=== PATIENT | male | born 1975 | race Caucasian/White ===

== ENCOUNTER 2018-11-07 14:23 | Emergency (ER) | payer OTHER, SELFPAY ==
[2018-11-07 14:24] VITALS: BP 154/97; PULSE 65; RESP 16; TEMP 37; O2SAT 100; BMI 22.7
--- NOTE | 2018-11-07 14:33 | ED.VIS.GEN ---
History of Present Illness Chief Complaint: Complaint Detail of Chief Complaint: Gross hematuria Informant: Patient Onset: Yesterday Narrative: Patient presents to the ED with reports of gross painless hematuria that started yesterday. He has never had anything like this before. He has noted several small blood clots following urination also. He denies any flank pain, abdominal pain, nausea, vomiting, or other urinary symptoms. He has no known medical problems, however has not seen his PCP for 3 years. He does smoke around 1 pack of cigarettes daily. Past Medical History - Allergies and Home Meds Allergies/Adverse Reactions: Allergies amoxicillin Allergy (Verified 11/07/18 14:24) Unknown Primary Care Physician: Ezequiel Piper MD [Primary Care Provider] - Smoking Status: Current every day smoker Review of Systems General: Denies: Chills, Fever, Sweats Eyes: Denies: Visual changes - bilaterally, Diplopia ENT: Denies: Rhinorrhea, Sore throat Cardiovascular: Denies: Chest pain, Palpitations Respiratory: Denies: Dyspnea, Cough, Dyspnea on exertion Gastrointestinal: Denies: Abdominal pain, Nausea, Vomiting, Diarrhea, Melena, Hematochezia Genitourinary: Reports: Hematuria. Denies: Dysuria, Frequency Musculoskeletal: Denies: Back pain, Extremity Pain Skin: Denies: Rash, Wounds Neurological: Denies: Headache, Weakness, Numbness Physical Exam Vital Signs/Narrative: Vital Signs Temp Pulse Resp BP Pulse Ox 11/07/18 14:24 98.6 F 65 16 154/97 H 100 General: Well nourished, Well developed, No Acute Distress Head: Normocephalic, Atraumatic Eyes: Perrl, EOMI ENT: Moist mucous membranes, No rhinorrhea Neck: Supple, Nontender Cardiovascular: Regular rate, Regular rhythm, No murmurs Respiratory: No distress, CTA bilaterally, Chest nontender Abdomen: Soft, Nontender, Nondistended, Normal bowel sounds Back: Nontender, Normal Inspection Extremities: Nontender, No edema Skin: Normal color, No rash Neurological: Alert, Oriented x3, Cranial nerves II-XII grossly intact, Normal Strength, Normal Sensation Psychological: Normal affect, Normal Mood Diagnostic/Tx/Re-eval - Medical Decision Making Patient presents with painless gross hematuria that started yesterday. He denies any other symptoms. Upon arrival, he appears well nontoxic. Vital signs stable and unremarkable. Physical exam is grossly normal. Urinalysis did indicate some hematuria with no secondary signs of infection. Patient and his family were concerned for malignancy. CBC and BMP are unremarkable. CT of the abdomen and pelvis with and without contrast shows no evidence of bladder or renal calcification, ureteral stone, or stranding. There was incidental finding of right lower lobe infiltrate with groundglass opacity, however patient is having no signs or symptoms concerning for community-acquired pneumonia. He is afebrile and currently has no leukocytosis. I do not feel antibiotic therapy is warranted at this time and patient agrees. He will follow-up with his PCP and was given urology to follow-up with as well. He was educated on signs/symptoms to return to the ED. He was provided discharge instructions. He was agreeable to plan. Disposition: Home stable Impression: Painless gross hematuria ED Disposition - Plan for ED Patient: Disposition: Home or Assisted Living Instructions: Hematuria Referrals: Ezequiel Piper MD [Primary Care Provider] - Sandeep Callahan MD [STAFF PHYSICIAN] - Additional Instructions: Drink plenty of fluids to flush out your urinary tract!
[2018-11-07 14:46] LABS: Bacteria 0 SEEN /hpf (None Seen); Color, Urine Yellow (Yellow); Glucose, Dipstick Normal (Normal); Ketone-Dipstick Negative (Negative); Leukocyte Esterase-Dipstick Negative /ul (Negative); Mucous, Urine 0 SEEN /hpf (<or=2+); Nitrite-Dipstick Negative (Negative); Occult Blood-Urine 150 /ul (Negative); Protein-Dipstick Negative (Negative); Specific Gravity, Urine 1.015 (1.002-1.030); Squamous Epithelial Cells - UA 0 SEEN /hpf (0-5); Urine Bilirubin Dipstick Negative (Negative); Urine Clarity Cloudy (Clear); Urine Urobilinogen Normal (Normal); White Blood Cells 0 SEEN /hpf (0-5)
[2018-11-07 14:51] LABS: Amorphous Sediment 3+; Red Blood Cells-Urine 10-25 SEEN /hpf (0-5)
--- NOTE | 2018-11-07 14:56 | CT_ITS ---
STUDY: CT ABDOMEN AND PELVIS WITH AND WITHOUT CONTRAST-CT UROGRAM REASON FOR EXAM: Male, 43 years old. Hematuria for one day with clots RADIATION DOSAGE (If Supplied By Facility): CTDIvol = ( 14.80 ) mGy, DLP = ( 1340.46 ) mGycm TECHNIQUE: Transaxial images were obtained from the dome of the diaphragm to the symphysis pubis without oral contrast. 100mL ml of Isovue 300 contrast was administered. Sagittal and coronal images were reconstructed. CT urogram protocol with imaging in the noncontrasted, corticomedullary and delayed phases. Individualized dose optimization techniques were used for this CT. COMPARISON: None. FINDINGS: Localized infiltrate with adjacent groundglass opacity in the right lower lobe is seen on image 3 of series 3. The visualized portions of the heart are within normal limits. Tiny cyst of the right hepatic lobe on image 14 of series 3 is of doubtful significance. Normal gallbladder and extrahepatic biliary system. Normal spleen. Normal pancreas. Normal bilateral adrenal glands. Noncontrasted imaging shows symmetric kidneys without solid or cystic mass. No urinary tract calcifications. Following IV contrast, there is equal and normal enhancement of the kidneys without solid or cystic mass. CT urographic images demonstrate excellent opacification of the right ureter with near complete opacification of the left ureter (with visualization of the proximal and mid segments). No filling defects or ureteral masses. Urinary bladder fills normally. No bladder wall thickening. Normal visualized stomach. Normal small intestine. Normal colon. The appendix is visualized and appears normal. Mild scattered atherosclerosis of the abdominal aorta. Normal inferior vena cava. Normal retroperitoneum. Normal abdominal wall. Normal osseous structures. CT/CT Abd/Pelvis W/WO Contrast IMPRESSION: 1. No urinary tract calcifications, hydronephrosis or mass. No urinary bladder wall thickening/mass. 2. Right lower lobe infiltrate with groundglass opacities. Electronically Signed: Adi Ritter MD at 16:47 EDT , Service support ,
[2018-11-07] MEDS: 0.9% Normal Saline 1,000 ML 999 ML IV (15:13)
[2018-11-07 15:29] LABS: Absolute Lymphocyte Count 2.66 X10^3/ul (0.83-4.51); Basophil# 0.03 X10^3/uL; Basophil% 0.4 % (0-1); Eosinophil# 0.46 X10^3/uL; Eosinophils% 6.1 % (0-5); Hematocrit 45.6 % (40-54); Hemoglobin 15.8 g/dl (13.0-16.5); Lymphocyte # 2.66 X10^3/ul (4.0); Lymphocyte % 35.3 % (19-41); Mean Corp Hgb Conc 34.6 g/gl (32-36); Mean Corpuscular Hgb 30.9 pg (27.0-32.0); Mean Corpuscular Volume 89.1 fL (80-94); Monocyte% 5.3 % (0-10); Neutrophil # 3.98 X10^3/uL (2.7-7.7); Neutrophil % 52.8 % (47-70); Platelet Count 217 K/mm3 (150-450); RBC Distribution Width CV 13.2 % (11.6-14.6); RBC Distribution Width SD 43.2 fl (35.1-43.9); Red Blood Count 5.12 M/mm3 (4.6-6.2); White Blood Count 7.5 K/mm3 (4.4-11.0)
[2018-11-07 15:32] LABS: POSITIVE COUNT NO; POSITIVE DIFFERENTIAL NO; POSITIVE MORPHOLOGY NO
[2018-11-07 15:33] LABS: Anion Gap 3 (5-15); BUN 15 mg/dL (7-18); BUN/Creat Ratio 16.2 RATIO (10-20); Calcium,Total 8.9 mg/dL (8.5-10.1); Chloride 107 mmol/L (98-107); Creatinine, Serum 0.93 mg/dL (0.70-1.30); EST Glomerular Filtration Rate 94 mL/min (>60); Est Glom Filt Rate - Afr Amer 114 mL/min (>60); Glucose 73 mg/dL (74-106); Potassium 3.8 mmol/L (3.5-5.1); Sodium Level 138 mmol/L (136-145)
[2018-11-07 16:42] VITALS: BP 140/73; PULSE 61; RESP 16; O2SAT 100
[2018-11-07 17:07] VITALS: BP 132/75; PULSE 51; RESP 16; O2SAT 99
== END 2018-11-07 17:08 | disposition home or self-care (01) ==
PROVIDERS: Emergency Provider Physician Assistant; Family Provider Family Medicine; PCP Family Medicine
DX: R31.0 Gross hematuria (principal); R91.8 Other nonspecific abnormal finding of lung field; F17.210 Nicotine dependence, cigarettes, uncomplicated
CPT/HCPCS: 74178; 80048; 81001; 85025; 99283; J7030; Q9967

== ENCOUNTER 2021-07-31 15:00 | Outpatient (CLI) | payer OTHER, MEDICAID, SELFPAY ==
--- NOTE | 2021-07-31 15:05 | RAD_ITS ---
STUDY: X-RAY CHEST REASON FOR EXAM: Male, 46 years old. Cough TECHNIQUE: PA and lateral views of the chest. COMPARISON: None. FINDINGS: Hyperinflation. Right lower lobe infiltration with a small right pleural effusion. Normal size heart. Prominence of the right infrahilar region suggestive of possible infiltrate. Follow-up is recommended. Normal visualized pulmonary arteries. Normal visualized aortic arch and descending thoracic aorta. Normal visualized thoracic spine. Normal visualized ribs, clavicles, and shoulders. There is no demonstrated abnormality of the visualized soft tissue structures of the upper abdomen. RAD/Chest PA and Lateral IMPRESSION: Right lower lobe infiltration with small right pleural effusion and prominence of the right hilum. Radiographic follow-up is recommended. Electronically Signed: Juordan Bush MD at 15:26 EDT ,
== END 2021-07-31 23:59 | disposition home or self-care (01) ==
PROVIDERS: PCP Family Medicine; Referring Provider Physician Assistant; Visit Provider Physician Assistant
DX: R05.9 Cough, unspecified (principal)
CPT/HCPCS: 71046

== ENCOUNTER 2021-08-04 05:29 | Inpatient (IN) | payer OTHER, MEDICAID, SELFPAY ==
[2021-08-04] VITALS (14 sets, daily range): BP systolic 109–146; BP diastolic 64–80; PULSE 18–93; RESP 16–27; TEMP 36.3–37.1; O2SAT 92–98; BMI 20.5; BMI 19.9
--- NOTE | 2021-08-04 05:40 | EKG12_ITS ---
Test Reason : SOB Blood Pressure : / mmHG Vent. Rate : 087 BPM Atrial Rate : 087 BPM P-R Int : 118 ms QRS Dur : 094 ms QT Int : 362 ms P-R-T Axes : 078 074 057 degrees QTc Int : 435 ms Normal sinus rhythm Normal ECG Confirmed by AARON GARCIA, JUVENTINO ([id number]), online editor MAGDA MCINTYRE ([id number]) on 08/06/2021 10:49:46 AM Referred By: Confirmed By:JUVENTINO WALKER MD
--- NOTE | 2021-08-04 05:40 | CT_ITS ---
HISTORY: sob, pneumonia EXAMINATION: CTA Chest W/ Contrast Injection (and W/O Contrast Images if performed) TECHNIQUE: Helically acquired images were obtained of the chest following IV contrast as per pulmonary angiogram protocol with MIP and MPR reconstructions. A radiation dose optimization technique was used for this scan. IV Contrast dosage and agent: 100mL Isovue-370 COMPARISON: None FINDINGS: LUNGS, PLEURA AND LARGE AIRWAYS: Hyperexpanded lungs with centrilobular and paraseptal emphysematous changes. Mild biapical bullae. There is dense partial consolidation of right lower lobe with several ill-defined low attenuation areas involving parenchymal consolidation. Upper portion of right lower lobe is aerated but demonstrates multiple small patchy airspace opacities and tiny reticulonodular opacities. There is opacification of right lower lobe bronchi. No significant pleural effusion. No pneumothorax. PULMONARY ARTERIES: No pulmonary arterial filling defects identified. AORTA AND GREAT VESSELS: No thoracic aortic aneurysm or dissection. Great vessels are patent. HEART AND PERICARDIUM: Heart size within normal limits. No significant pericardial effusion. MEDIASTINUM AND VIVIANE: Enlarged right hilar lymph nodes measuring up to 12 mm short axis diameter. Esophagus is unremarkable. THYROID: Unremarkable as visualized. UPPER ABDOMEN: No acute pathology. BONES: Intact with no suspicious osseous lesion. SOFT TISSUES: No acute findings. CT/CTA Chest W/WO Contrast IMPRESSION: 1. Pulmonary emphysema with dense heterogeneous partial consolidation and multifocal infiltrate involving right lower lobe. Low-attenuation foci within right lower lobe consolidation suggesting necrosis and/or developing pulmonary abscesses. Pulmonary malignancy and aspiration pneumonia are also in the differential. There is opacification of right lower lobe bronchi with right hilar adenopathy. Recommend pulmonology consultation and consider bronchoscopy. 2. No pulmonary embolus identified. Individualized dose optimization techniques were used for this CT. at 0634 Reported and signed by: Ezequiel Storey MD Electronically Signed: Ezequiel Storey MD at 6:33 EDT ,
--- NOTE | 2021-08-04 05:42 | EX.ED.DYSGE1 ---
HPI History of Present Illness Chief Complaint: General Illness Informant: patient Onset/Context/Timing Onset: Weeks (2-weeks) Timing: Waxes and wanes Current Severity: Moderate Maximum Severity: Moderate Narrative Narrative: Patient presents secondary to continued pneumonia symptoms. 2 weeks ago he developed fatigue with cough. He had a low-grade fever when he went to urgent care at [facility] 2 weeks ago. He was diagnosed with pneumonia and placed on Levaquin. He reported mild improvement in his symptoms while on the antibiotic but they did worsen once the antibiotic stopped. He was seen at the [facility] on the . Chest x-ray confirmed continued right lower lobe infiltrate with small pleural effusion. He was placed on Avelox. Patient states he was told if he was not better by today he should come to the emergency room for evaluation. Patient does report a history of COPD. He is not currently on steroids. He is not on home oxygen. He does complain of cough with thick yellow sputum. He reports mild pleuritic chest pain. He has not noted continued fever at home. [facility] Medical History COPD (chronic obstructive pulmonary disease) Pleural effusion, right Right lower lobe pneumonia Home Medications moxifloxacin 400 mg tablet 400 mg PO DAILY 10 Days #10 tab 07/31/21 [Rx Last Taken Unknown] albuterol sulfate 2 puff INHALATION Q4H PRN PRN 08/04/21 [History Last Taken Unknown] umeclidinium-vilanterol [Anoro Ellipta] 1 ea INHALATION DAILY 08/04/21 [History Last Taken Unknown] Allergy/AdvReac Type Severity Reaction Status Date / Time amoxicillin Allergy Unknown Verified 08/04/21 05:37 Social History Smoking Status: Current every day smoker tobacco type: cigarettes ROS ROS ED Constitutional Constitutional ED: Denies chills or fever(s) Eyes Eyes: Denies change in vision ENT ENT ED: Denies sore throat Cardiovascular Cardiovascular: Reports chest pain Respiratory/Chest Respiratory/Chest: Reports cough, dyspnea and sputum Gastrointestinal Gastrointestinal: Denies abdominal pain, nausea or vomiting Genitourinary Genitourinary ED: Denies dysuria Musculoskeletal Musculoskeletal: Denies back pain or neck pain Integumentary Denies rash Neurologic Neurologic: Denies headache(s) or weakness Allergic/Immunologic Allergic/Immunologic ED: Denies urticaria EXAM Physical Exam Const Vital Signs: 08/04/21 05:30 08/04/21 05:35 08/04/21 06:16 Temperature 98.7 F 98.7 F 98.7 F Temperature Source Temporal Temporal Temporal Pulse Rate 93 89 77 Respiratory Rate 27 H 22 H 21 H Blood Pressure 146/80 H 146/80 H 121/69 H Blood Pressure Mean 102 102 86 Pulse Ox 98 98 97 Oxygen Delivery Method Room Air Room Air Room Air 08/04/21 06:39 Temperature Temperature Source Pulse Rate 80 Respiratory Rate 20 H Blood Pressure 116/68 Blood Pressure Mean 84 Pulse Ox 95 Oxygen Delivery Method Positive well nourished and well developed General Appearance ED: well developed HEENT Reports moist mucous membranes Eyes PERRL and EOMs intact bilaterally Neck supple Chest Wall inspection of chest normal and palpation of chest normal Resp Auscultation: rhonchi and wheezes Cardio regular rate and regular rhythm GI non-tender Palpation: soft Extremity normal to inspection General Extremety ED: Negative for edema General Extremity: Negative for edema Neuro oriented x3 Sensorium / Orientation: alert Psych mental status grossly normal Skin no rashes or lesions noted MDM MDM MDM Narrative Medical decision making narrative: EKG, lab work, CTA of the chest obtained. Patient given Solu-Medrol and a DuoNeb treatment. Lab Data Attestation: I reviewed the patient's lab results. Labs: Laboratory Results - last 24 hr 08/04/21 08/04/21 05:45 05:45 WBC 16.9 H RBC 5.23 Hgb 15.4 Hct 44.2 MCV 84.5 MCH 29.4 MCHC 34.8 RDW Std Deviation 38.9 RDW Coeff of Chiquita 12.7 Plt Count 437 MPV 9.4 Immature Gran % (Auto) 0.700 Neut % (Auto) 85.2 H Lymph % (Auto) 7.0 L Turner % (Auto) 6.8 Eos % (Auto) 0.1 Baso % (Auto) 0.2 Absolute Neuts (auto) 14.4 H Absolute Lymphs (auto) 1.18 Nucleated RBC % 0 Sodium 133 L Potassium 4.1 Chloride 98 Carbon Dioxide 29.0 Anion Gap 6 BUN 8 Creatinine 0.82 Estim Creat Clear Calc 108.22 Est GFR (MDRD) Af Amer 129 Est GFR (MDRD) Non-Af 107 BUN/Creatinine Ratio 9.7 L Glucose 121 H Calcium 8.7 Radiography Diagnostic Testing: Clinical Impression(s) from Imaging Studies Chest CTA 08/04/21 05:40 IMPRESSION: 1. Pulmonary emphysema with dense heterogeneous partial consolidation and multifocal infiltrate involving right lower lobe. Low-attenuation foci within right lower lobe consolidation suggesting necrosis and/or developing pulmonary abscesses. Pulmonary malignancy and aspiration pneumonia are also in the differential. There is opacification of right lower lobe bronchi with right hilar adenopathy. Recommend pulmonology consultation and consider bronchoscopy. 2. No pulmonary embolus identified. Individualized dose optimization techniques were used for this CT. at 0634 Reported and signed by: Ezequiel Storey MD Electronically Signed: Ezequiel Storey MD at 6:33 EDT , EKG Initial EKG: Attestation: I personally reviewed and interpreted this EKG as follows: Interpretation: Sinus Rhythm (Sinus 87 with no acute ischemia.) Treatment and Re-Evaluation Narrative: While awaiting patient's test results I did review his prior records here as well as through clinic thank. Dating back to mid 2018 every x-ray or CT scan that I can find shows a persistent right lower lobe infiltrate. Blood work today returns with a white count of 17,000 and left shift. He states he has not been on steroids. Chemistry studies significant for a sodium of 133. CTA of the chest shows partial consolidation of multifocal infiltrate in the right lower lobe. There is low-attenuation foci in the right lower lobe suggesting necrosis and/or developing pulmonary abscess. Malignancy and aspiration pneumonia are in the differential. I spoke with Dr. Cason from pulmonology. He did suggest hospital admission and broadening the patient's antibiotics. Because the patient has a penicillin allergy he will be given Levaquin and vancomycin. He will be treated with steroids and aerosols. I will speak with hospitalist. Discharge Plan Triage Chief Complaint: General Illness ED Provider: Faye Kim Dx/Rx/DC Orders Clinical Impression: Right lower lobe pulmonary infiltrate Prescriptions: No Action moxifloxacin 400 mg tablet 400 mg PO DAILY 10 Days Qty: 10 RF: 0 albuterol sulfate 90 mcg/actuation HFA aerosol inhaler 2 puff INHALATION Q4H PRN PRN (Reason: Shortness Of Breath Or Wheezing) RF: 0 Anoro Ellipta 62.5-25 mcg/actuation blister with device 1 ea INHALATION DAILY RF: 0 Primary Care Provider: Ezequiel Piper Referrals: Ezequiel Piper MD [Primary Care Provider] - Disposition [facility]position[facility]
[2021-08-04 05:51] LABS: Absolute Lymphocyte Count 1.18 X10^3/uL (0.83-4.51); Absolute Neutrophil Count 14.4 X10^3/uL (2.0-7.7); Basophil# 0.04 X10^3/uL; Basophil% 0.2 % (0-1); Eosinophil# 0.02 X10^3/uL; Eosinophils% 0.1 % (0-5); Hematocrit 44.2 % (40-54); Hemoglobin 15.4 g/dL (13.0-16.5); Lymphocyte # 1.18 X10^3/ul (0.83-4.51); Mean Corp Hgb Conc 34.8 g/dL (32-36); Mean Corpuscular Hgb 29.4 pg (27.0-32.0); Mean Corpuscular Volume 84.5 fL (80-94); Mean Platelet Vol. 9.4 fl (6.2-12.0); Monocyte# 1.15 X10^3/uL; Monocyte% 6.8 % (0-10); NRBC Flagged by Analyzer 0 % (0-5); Neutrophil # 14.41 X10^3/uL (2.7-7.7); Neutrophil % 85.2 % (47-70); Platelet Count 437 K/mm3 (150-450); RBC Distribution Width CV 12.7 % (11.6-14.6); RBC Distribution Width SD 38.9 fl (35.1-43.9); Red Blood Count 5.23 M/mm3 (4.6-6.2); White Blood Count 16.9 K/mm3 (4.4-11.0)
[2021-08-04] MEDS: Ipratropium/Albuterol Sulfate 3 ML AMPUL.NEB INHALATION ×3 (05:55→19:09)
[2021-08-04] MEDS: MethylPREDNISolone 125 MG/2 ML Vial IV (05:57)
[2021-08-04 06:04] LABS: Anion Gap 6 (5-15); BUN 8 mg/dL (7-18); BUN/Creat Ratio 9.7 RATIO (10-20); Calcium,Total 8.7 mg/dL (8.5-10.1); Chloride 98 mmol/L (98-107); Creatinine, Serum 0.82 mg/dL (0.70-1.30); EST Glomerular Filtration Rate 107 mL/min (>60); Est Glom Filt Rate - Afr Amer 129 mL/min (>60); Estimated Creatinine Clearance 108.22 ml/min; Glucose 121 mg/dL (74-106); Potassium 4.1 mmol/L (3.5-5.1); Sodium Level 133 mmol/L (136-145)
--- NOTE | 2021-08-04 06:58 | PCM.HP.STD ---
HPI - General General Date of Admission: 08/04/21 Date of Service: 08/04/21 Chief Complaint: Recent PNA treatment, not improving HPI Narrative The patient is a 46 y/o M w/ PMHx: COPD, Tobacco use, recent RLL PNA Diagnosis who presents to the [facility] ED on 08/04/21 with history of at least 5 rounds of antibiotic therapies w02/2021 Dr. Escalante Pulmonary evaluation w/ PFTs and CT chest with levaquin treatment at that time but he never followed up with ongoing RLL PNA and cough with repeat evaluations at UC/PCP with repeat abx treatments but no PNA follow-up when he feels improved. Has had ongoing intermittent productive cough of yellow-green sputum. He does state he has had no fevers or chills specifically but has had a weight loss and notes that over the last several weeks has had a 10 pound weight loss but this certainly could be because of oral intake decrease when he does not feel good. Work-up in the ED included T 98.7, heart rate 77, BP 121/69, respiratory rate 21, 97% room air, CBC with WC 16.9, hemoglobin 15.4, platelet 437 with left shift, BMP with sodium 133, glucose 121 otherwise not marked appearing, blood culture x2 pending per ED, CTPA with pulmonary emphysema with dense heterogeneous partial consolidation and multifocal infiltration of the right lower lobe with low-attenuation foci within the right lower lobe consolidation suggestive of either necrosis or developing pulmonary abscess, pulmonary malignancy and aspiration pneumonia are also a possible differential, opacification right lower lobe bronchi with right hilar adenopathy. In the ED patient ministered IV Levaquin therapy. PFSH Medical History COPD (chronic obstructive pulmonary disease) Pleural effusion, right Right lower lobe pneumonia Tobacco use Home Medications moxifloxacin 400 mg tablet 400 mg PO DAILY 10 Days #10 tab 07/31/21 [Rx Last Taken Unknown] albuterol sulfate 2 puff INHALATION Q4H PRN PRN 08/04/21 [History Last Taken Unknown] umeclidinium-vilanterol [Anoro Ellipta] 1 ea INHALATION DAILY 08/04/21 [History Last Taken Unknown] Allergy/AdvReac Type Severity Reaction Status Date / Time amoxicillin Allergy Unknown Verified 08/04/21 05:37 Family History (Updated 08/04/21 @ 13:[address] Reta Ham MD) Father COPD (chronic obstructive pulmonary disease) Heart disease Hypertension Diabetes CHF (congestive heart failure) Mother CAD (coronary artery disease) Myocardial infarction Hypertension Surgical History (Updated 08/04/21 @ 13:[address] Reta Ham MD) No history of previous surgery Social History (Updated 08/04/21 @ 13:[address] Reta Ham MD) household members: spouse Smoking Status: Current every day smoker tobacco type: cigarettes Smoking packs per day: 0.75 Smoking cigarettes per day: 15.0 Years smoked: 32 Smoking pack-years: 24.00 alcohol intake: never substance use type: does not use ROS ROS Narrative Admission Review of Systems: CONSTITUTIONAL: No fever, chills, + weakness or fatigue and weight loss. No night sweats. HEENT: Eyes: No visual loss, blurred vision, double vision or yellow sclerae. Ears, Nose, Throat: No hearing loss, sneezing, congestion, runny nose or sore throat. SKIN: No rash or itching, lesions, wounds. CARDIOVASCULAR: No chest pain, chest pressure or chest discomfort, palpitations, edema, orthopnea, syncopal events. RESPIRATORY: + Shortness of breath, cough with productive sputum, No wheezing, hemoptysis. GASTROINTESTINAL: No anorexia, nausea, vomiting or diarrhea, abdominal pain, melena, BRBPR. GENITOURINARY: No dysuria, frequency, urgency or retention. NEUROLOGICAL: No headache, dizziness, syncope, paralysis, ataxia, numbness or tingling in the extremities, focal weakness, change in bowel or bladder control, seizure. MUSCULOSKELETAL: No muscle, back pain, joint pain or stiffness. HEMATOLOGIC: No anemia, bleeding or bruising. LYMPHATICS: No enlarged nodes. No history of splenectomy. PSYCHIATRIC: No history of depression or anxiety. ENDOCRINOLOGIC: No reports of sweating, cold or heat intolerance. No polyuria or polydipsia. ALLERGIES: No history of asthma, hives, eczema or rhinitis. Vital Signs Vital Signs Vital Signs: 08/04/21 05:30 08/04/21 05:35 08/04/21 06:16 Temperature 98.7 F 98.7 F 98.7 F Temperature Source Temporal Temporal Temporal Pulse Rate 93 89 77 Respiratory Rate 27 H 22 H 21 H Blood Pressure 146/80 H 146/80 H 121/69 H Blood Pressure Mean 102 102 86 Pulse Ox 98 98 97 Oxygen Delivery Method Room Air Room Air Room Air 08/04/21 06:39 Temperature Temperature Source Pulse Rate 80 Respiratory Rate 20 H Blood Pressure 116/68 Blood Pressure Mean 84 Pulse Ox 95 Oxygen Delivery Method Weight Weight: 151 lb 7.321 oz Body Mass Index (BMI) 20.5 Physical Exam Narrative Physical Examination: General: Awake, alert, oriented x 3 and cooperative, seated upright in the ED bed in no apparent distress, fatigued and mildly ill appearing, productive cough ongoing during evaluation. Skin: Normal color, normal turgor, no icterus, no cyanosis. HEENT: AT/NC, EOMI, PERRLA, mildly dry MM, no carotid bruits or JVD noted. Lungs: Diminished, greater right base to mid, occasional end expiratory wheeze, no rales or rhonchi, mildly decreased effort, coughing with deep inspiratory effort increase attempts. Heart: Currently regular rate and rhythm; no gallop, rub audible. Abdomen: Soft, thin habitus, NTTP, ND, mildly hyperactive BS Extremities: No cyanosis, clubbing, or edema. Neurological: Patient awake, alert, oriented x 3, cognitive function intact; pupils equally reactive to light and accommodation, cranial nerves II-XII grossly normal, moving all 4 extremities, no focal deficits, strength mildly to moderately global decrease secondary to acute presentation. Psychiatric: Affect appears fatigued, no acute evidence of depressive or anxiety feelings. Results Lab / Micro Data Result Diagrams: 08/04/21 05:45 08/04/21 05:45 Labs: Laboratory Results - last 24 hr 08/04/21 05:45: WBC 16.9 H, RBC 5.23, Hgb 15.4, Hct 44.2, MCV 84.5, MCH 29.4, MCHC 34.8, RDW Std Deviation 38.9, RDW Coeff of Chiquita 12.7, Plt Count 437, MPV 9.4, Immature Gran % (Auto) 0.700, Neut % (Auto) 85.2 H, Lymph % (Auto) 7.0 L, [place] % (Auto) 6.8, Eos % (Auto) 0.1, Baso % (Auto) 0.2, Absolute Neuts (auto) 14.4 H, Absolute Lymphs (auto) 1.18, Nucleated RBC % 0 08/04/21 05:45: Sodium 133 L, Potassium 4.1, Chloride 98, Carbon Dioxide 29.0, Anion Gap 6, BUN 8, Creatinine 0.82, Estim Creat Clear Calc 108.22, Est GFR (MDRD) Af Amer 129, Est GFR (MDRD) Non-Af 107, BUN/Creatinine Ratio 9.7 L, Glucose 121 H, Calcium 8.7 Radiology Impression Chest CTA 08/04/21 05:40 IMPRESSION: 1. Pulmonary emphysema with dense heterogeneous partial consolidation and multifocal infiltrate involving right lower lobe. Low-attenuation foci within right lower lobe consolidation suggesting necrosis and/or developing pulmonary abscesses. Pulmonary malignancy and aspiration pneumonia are also in the differential. There is opacification of right lower lobe bronchi with right hilar adenopathy. Recommend pulmonology consultation and consider bronchoscopy. 2. No pulmonary embolus identified. Individualized dose optimization techniques were used for this CT. at 0634 Reported and signed by: Ezequiel Storey MD Electronically Signed: Ezequiel tSorey MD at 6:33 EDT , Assessment & Plan Assessment/Plan (1) Right lower lobe pulmonary infiltrate: PLAN: The patient is a 46 y/o M w/ PMHx: COPD, Tobacco use, recent RLL PNA Diagnosis who presents to the [facility] ED on 08/04/21 with history of at least 5 rounds of antibiotic therapies w/ 02/2021 Dr. Escalante Pulmonary evaluation w/ PFTs and CT chest with levaquin treatment at that time but he never followed up with ongoing RLL PNA and cough with repeat evaluations at UC/PCP with repeat abx treatments but no PNA follow-up when he feels improved. #1. Right lower lobe pneumonia, multifocal infiltrate concerning for possible developing abscess versus necrosis: Will admit to medical surgical floor given stable appearance, maintain on oxygen with wean as tolerated to room air, hold home inhalers, continue ATC duonebs, PRN albuterol, maintained on IV Levaqin and Vancomycin with MRSA screen with de-escalation off as able given history of recent serial treatments, HOB, IS parameters w/ pending sputum cultures and urine antigens as well as respiratory viral panel. Pulmonary medicine is consulted for consideration of bronchoscopy. Bld cx x 2 obtained in the ED. #2. Chronic COPD: Will maintain on oxygen with wean as tolerated to room air hold home inhalers in the interim transition to ATC duonebs, PRN albuterol, HOB, IS parameters. #3. Hyperglycemia: Mild, admission glucose 121, possibly stress response, will monitor and if remains elevated may consider A1c. #4. Tobacco Abuse: Encouraged cessation, inpatient consultation per RT, NR if desired. #5. DVT prophylaxis: SCDs, hold chemoprophylaxis in case of decision by pulmonary for bronchoscopy. Charges/Coding Visit Charges Inpatient E&M: 71150 Init Hosp L2
[2021-08-04] MEDS: Vancomycin IV 1,000 MG/200 ML BAG 200 MG IV (07:00)
[2021-08-04 08:27] LABS: Procalcitonin 0.11 ng/mL (0.00-0.09)
[2021-08-04] MEDS: 0.9% Normal Saline 1,000 ML 100 ML IV ×2 (08:50→20:05)
[2021-08-04] MEDS: levoFLOXacin IV 750 MG/150 ML BAG 100 MG IV (08:50)
--- NOTE | 2021-08-04 10:33 | CON.PCM.CC_ITS ---
Assessment & Plan Assessment/Plan (1) Right lower lobe pneumonia: (2) Pleural effusion, right: (3) COPD (chronic obstructive pulmonary disease): PLAN: RECOMMENDATIONS: 1. Speech therapy evaluation 2. Obtain sputum culture. Check for MRSA 3. Continue broad-spectrum antibiotics including vancomycin 4. Walking oximetry prior to discharge 5. Pulmonary toileting with Acapella 6. No plans for bronchoscopy as an inpatient IMPRESSIONS: 1. Right lower lobe pneumonia?recurrent of unclear etiology Patient with an almost 3-year history of recurrent right lower lobe pneumonia. CT scan of the chest shows relative complete opacification of the right lower lobe. Differential would include postobstructive pneumonia, MDRO pneumonia and recurrent aspiration. Patient could have MRSA pneumonia leading to failure of outpatient therapy. Patient does appear to have an element of bronchiectasis, but this is difficult to assess given relative complete opacification of the right lower lobe. Patient describes choking in the past, but not recently. Some concern for recurrent aspiration pneumonia secondary to silent aspiration. Will consult speech. Patient may also have a right lower lobe obstruction from malignancy that would require a bronchoscopy. This would likely be completed as an outpatient given his relative stability. Patient will need a walking oximetry prior to discharge to ensure there is no exertional hy poxemia. If patient is not found to have MRSA/MDRO or aspiration syndrome, additional work-up can likely be completed as an outpatient. Patient will need aggressive pulmonary toileting. 2. Moderate COPD/active tobacco abuse Patient's last FEV1 was 60% at the [facility]. Despite infiltrate, patient does not have extensive wheezing on exam. Would hold off on any additional steroid therapy. Therapeutic substitution for Anoro would be appropriate. Patient does have emphysematous changes of the upper lobes. Given lack of wheezing, steroids would likely only decreased response to the infection. Patient understands that smoking cessation will be vital to recovery. 3. Elevated glucose/thin build Complicates care, management, recovery and prognosis. Blood sugars will need to be followed closely if patient does get started on steroid therapy. Patient may have an element of pulmonary cachexia, but FEV1 is 60%. Cannot e xclude weight loss secondary to malignancy. HPI Consult Data Date of Consult: 08/04/21 HPI Narrative HPI Narrative: PAOLA POWERS is a 46 M, with past medical history listed below, who presents to [facility] on 08/04/2021 secondary to continued symptoms of pneumonia. Patient reportedly has had over 5 episodes of right lower lobe pneumonia in the last 2 years. Patient is typically cared for at the [facility]. Patient states that 2 weeks ago he went to an urgent care center and was diagnosed with pneumonia placed on Levaquin. Patient had mild improvement, but has since worsened after discontinuation of the antibiotics. Patient was then seen at the [facility] on the and was noted to continue to have a right lower lobe infiltrate and was placed on Avelox. Given failure to improve, patient came to the ER for evaluation. In the ER, patient was afebrile and hypertensive at 146/80. Patient was tolerating room air well. Laboratory work-up showed a white blood cell count of 16.9, hemoglobin of 15.4 and platelets of 437. Chemistries were relatively unremarkable except for slightly elevated glucose. A CTA of the chest showed emphysematous changes with significant consolidation of the right lower lobe, but no PE. EKG showed sinus rhythm. Patient was given Solu-Medrol and DuoNeb therapy. Given failure of outpatient therapy, patient was admitted to the hospital for a pulmonary evaluation. Patient reportedly has had a right lower lobe infiltrate since 2019. Patient states that he has been seen by the [facility] and even seen by pulmonary as recently as January of last year. At that time, patient had a spirometry showing a moderate obstructive pulmonary defect. Patient is unclear if he has ever had a complete pulmonary function test. No bronchoscopy has been obtained. Patient does report that he had issues with choking approximately 2 years ago, but these have resolved. Patient does report a 10 pound weight loss associated with a previous pneumonia, but weight has stayed steady since then. Patient has an extensive smoking history in the past. Patient states he continues to struggle with quitting. Patient does take albuterol as needed along with Anoro for maintenance therapy. Patient does not require supplemental oxygen at baseline. Patient does report a family history of COPD, but does have smokers. Patient is not reporting any hemoptysis. Patient states his cough is typically productive of thick white to green sputum. Patient does have an Acapella at home and he is intermittently compliant with. Review of systems otherwise negative from a constitutional, HEENT, respiratory, cardiovascular, GI, genitourinary, musculoskeletal, skin, neurologic, psychiatric and hematologic system unless stated above. [facility] Medical History (Updated 08/04/21 @ 10:[address] Julito Cason MD) COPD (chronic obstructive pulmonary disease) Pleural effusion, right Right lower lobe pneumonia Home Medications moxifloxacin 400 mg tablet 400 mg PO DAILY 10 Days #10 tab 07/31/21 [Rx Last Taken Unknown] albuterol sulfate 2 puff INHALATION Q4H PRN PRN 08/04/21 [History Last Taken Unknown] umeclidinium-vilanterol [Anoro Ellipta] 1 ea INHALATION DAILY 08/04/21 [History Last Taken Unknown] Allergy/AdvReac Type Severity Reaction Status Date / Time amoxicillin Allergy Unknown Verified 08/04/21 05:37 Family History Father COPD (chronic obstructive pulmonary disease) Other Diabetes Social History Smoking Status: Current every day smoker tobacco type: cigarettes ROS ROS Narrative See HPI Physical Exam Const alert, oriented x3 and no apparent distress General Appearance: appears older than stated age HEENT normocephalic, head/scalp atraumatic and moist oral mucous membranes HEENT Narrative: No temporal wasting noted Eyes PERRL, EOMs intact bilaterally, conjunctivae normal and no scleral icterus Neck full ROM Lymph Lymphatic: no lymphadenopathy noted Resp normal respiratory effort and no use of accessory muscles Auscultation: diminished lung sounds right lower; Negative for rales, rhonchi or wheezes Cardio regular rate, regular rhythm, S1 normal heart sound, S2 normal heart sound, no murmurs, no rub, no gallops and no JVD GI normal to inspection, nondistended, normoactive bowel sounds Extremity General Extremity: clubbing; Negative for edema Skin no rashes or lesions noted Neuro oriented x3, CN's II-XII intact bilaterally, moves all extremities and no focal motor deficits Psych cooperative and affect normal Appearance: well kempt Lab / Micro Data Result Diagrams: 08/04/21 05:45 08/04/21 05:45 Labs: Laboratory Results - last 24 hr 08/04/21 05:45: WBC 16.9 H, RBC 5.23, Hgb 15.4, Hct 44.2, MCV 84.5, MCH 29.4, MCHC 34.8, RDW Std Deviation 38.9, RDW Coeff of Chiquita 12.7, Plt Count 437, MPV 9.4, Immature Gran % (Auto) 0.700, Neut % (Auto) 85.2 H, Lymph % (Auto) 7.0 L, [place] % (Auto) 6.8, Eos % (Auto) 0.1, Baso % (Auto) 0.2, Absolute Neuts (auto) 14.4 H, Absolute Lymphs (auto) 1.18, Nucleated RBC % 0 08/04/21 05:45: Sodium 133 L, Potassium 4.1, Chloride 98, Carbon Dioxide 29.0, Anion Gap 6, BUN 8, Creatinine 0.82, Estim Creat Clear Calc 108.22, Est GFR (MDRD) Af Amer 129, Est GFR (MDRD) Non-Af 107, BUN/Creatinine Ratio 9.7 L, Glucose 121 H, Calcium 8.7 08/04/21 07:28: Procalcitonin 0.11 H Radiology Impression Chest CTA 08/04/21 05:40 IMPRESSION: 1. Pulmonary emphysema with dense heterogeneous partial consolidation and multifocal infiltrate involving right lower lobe. Low-attenuation foci within right lower lobe consolidation suggesting necrosis and/or developing pulmonary abscesses. Pulmonary malignancy and aspiration pneumonia are also in the differential. There is opacification of right lower lobe bronchi with right hilar adenopathy. Recommend pulmonology consultation and consider bronchoscopy. 2. No pulmonary embolus identified. Individualized dose optimization techniques were used for this CT. at 0634 Reported and signed by: Paola Storey MD Electronically Signed: Paola Storey MD at 6:33 EDT , Charges/Coding Visit Charges Inpatient E&M: 63683 Init Hosp L2
--- NOTE | 2021-08-04 10:59 | PHA.PHARE_ITS ---
Consult Pharmacy has been consulted to manage selected antiobiotic: Vancomycin Type of Consult: New start Suspected Infection: Pneumonia Prior Doses of Antibiotics Received/Current Regimen: received vanc 1000mg IV x1 in E.R. at 0700 today Labs: Sodium 133 mmol/L (136-145) L 08/04/21 05:45 Potassium 4.1 mmol/L (3.5-5.1) 08/04/21 05:45 Chloride 98 mmol/L (98-107) 08/04/21 05:45 Carbon Dioxide 29.0 mmol/L (21.0-32.0) 08/04/21 05:45 Anion Gap 6 (5-15) 08/04/21 05:45 BUN 8 mg/dL (7-18) 08/04/21 05:45 Creatinine 0.82 mg/dL (0.70-1.30) 08/04/21 05:45 Est GFR (MDRD) Af Amer 129 mL/min (>60) 08/04/21 05:45 Est GFR (MDRD) Non-Af 107 mL/min (>60) 08/04/21 05:45 BUN/Creatinine Ratio 9.7 RATIO (10-20) L 08/04/21 05:45 Glucose 121 mg/dL (74-106) H 08/04/21 05:45 Weight used for dosin.8 kg Estimated Creatinine Clearance: 108ml/min Goal Trough: 15-20 mcg/mL Pharmacy Plan for Drug Dosing: The loading dose (25mg/kg or 1750mg) was ordered so will give another 750mg dose this morning since the patient already received 1000mg in E.R. After that will continue with 750mg IV q8h per [facility] dosing protocol. Check a trough before the 4th dose tomorrow. Pharmacy Service will continue to monitor and adjust dosing as required. Follow-Up Labs: Trough Vancomycin Labs to be done on [date and time ordered]: 08/05/21 09:30
[2021-08-04] MEDS: guaiFENesin 1,200 MG Tablet 1200 MG PO ×2 (11:46→20:05)
[2021-08-04 13:40] LABS: M R Staph aureus DNA By PCR Negative (Negative); Probe Check PASS; Specimen Processing Control PASS
[2021-08-05] VITALS (8 sets, daily range): BP systolic 107–118; BP diastolic 56–67; PULSE 45–74; RESP 16–20; TEMP 36.4–36.8; O2SAT 94–99
[2021-08-05] MEDS: 0.9% Normal Saline 1,000 ML 100 ML IV (06:19)
[2021-08-05 06:26] LABS: Absolute Lymphocyte Count 0.81 X10^3/uL (0.83-4.51); Absolute Neutrophil Count 12.4 X10^3/uL (2.0-7.7); Basophil# 0.02 X10^3/uL; Basophil% 0.1 % (0-1); Hematocrit 35.1 % (40-54); Hemoglobin 12.8 g/dL (13.0-16.5); Lymphocyte # 0.81 X10^3/ul (0.83-4.51); Lymphocyte % 5.8 % (19-41); Mean Corp Hgb Conc 36.5 g/dL (32-36); Mean Corpuscular Hgb 30.2 pg (27.0-32.0); Mean Corpuscular Volume 82.8 fL (80-94); Mean Platelet Vol. 9.8 fl (6.2-12.0); Monocyte# 0.73 X10^3/uL; Monocyte% 5.2 % (0-10); NRBC Flagged by Analyzer 0 % (0-5); Neutrophil # 12.42 X10^3/uL (2.7-7.7); Neutrophil % 88.3 % (47-70); Platelet Count 369 K/mm3 (150-450); RBC Distribution Width CV 12.6 % (11.6-14.6); Red Blood Count 4.24 M/mm3 (4.6-6.2); White Blood Count 14.1 K/mm3 (4.4-11.0)
[2021-08-05] MEDS: Ipratropium/Albuterol Sulfate 3 ML AMPUL.NEB INHALATION ×3 (06:55→19:42)
[2021-08-05 06:58] LABS: ALB/GLOB Ratio 0.5 RATIO (0.9-2.4); AST(SGOT) 22 U/L (15-37); Alanine Aminotransfer ALT/SGPT 46 U/L (16-61); Alkaline Phosphatase 83 U/L (45-117); Anion Gap 4 (5-15); BUN 12 mg/dL (7-18); BUN/Creat Ratio 19.9 RATIO (10-20); Calcium,Total 8.3 mg/dL (8.5-10.1); Chloride 108 mmol/L (98-107); EST Glomerular Filtration Rate 152 mL/min (>60); Est Glom Filt Rate - Afr Amer 184 mL/min (>60); Estimated Creatinine Clearance 150.48 ml/min; Globulin 4.3 g/dL (2.2-4.2); Glucose 136 mg/dL (74-106); Potassium 4.1 mmol/L (3.5-5.1); Protein, Total 6.3 g/dL (6.4-8.2); Sodium Level 138 mmol/L (136-145)
[2021-08-05] MEDS: levoFLOXacin IV 750 MG/150 ML BAG 100 MG IV (09:18)
[2021-08-05] MEDS: guaiFENesin 1,200 MG Tablet 1200 MG PO ×2 (09:19→20:45)
[2021-08-05 10:00] LABS: Vancomycin, Trough Level 6.6 ug/mL (5.0-15.0)
--- NOTE | 2021-08-05 10:24 | PCM.PN.HOSP ---
Subjective Subjective Patient was seen and examined. Denied any new complaints. Denied any fever or chills. Remains off oxygen. Objective Data Objective Data Vital Signs: Vital Signs Temp Pulse Resp BP Pulse Ox 97.6 F L 47 L 16 107/56 L 98 08/05/21 06:13 08/05/21 06:55 08/05/21 06:55 08/05/21 06:13 08/05/21 06:55 Oxygen Delivery Method Room Air Weight: 69.9 kg Body Mass Index (BMI) 19.9 Intake & Output: Intake and Output for Last 24 Hours 08/03/21 08/04/21 08/05/21 23:59 23:59 23:59 Intake Total 188 / 1879 3683.34 / 3683.34 Balance 188 / 1879 3683.34 / 3683.34 Lab / Micro Data Result Diagrams: 08/05/21 06:00 08/05/21 06:00 Labs: Laboratory Results - last 24 hr 08/04/21 08:30: MRSA (PCR) Negative 08/05/21 06:00: WBC 14.1 H, RBC 4.24 L, Hgb 12.8 L, Hct 35.1 L, MCV 82.8, MCH 30.2, MCHC 36.5 H, RDW Std Deviation 38.0, RDW Coeff of Chiquita 12.6, Plt Count 369, MPV 9.8, Immature Gran % (Auto) 0.600, Neut % (Auto) 88.3 H, Lymph % (Auto) 5.8 L, [place] % (Auto) 5.2, Eos % (Auto) 0.0, Baso % (Auto) 0.1, Absolute Neuts (auto) 12.4 H, Absolute Lymphs (auto) 0.81 L, Nucleated RBC % 0 08/05/21 06:00: Sodium 138, Potassium 4.1, Chloride 108 H, Carbon Dioxide 26.0, Anion Gap 4 L, BUN 12, Creatinine 0.60 L, Estim Creat Clear Calc 150.48, Est GFR (MDRD) Af Amer 184, Est GFR (MDRD) Non-Af 152, BUN/Creatinine Ratio 19.9, Glucose 136 H, Calcium 8.3 L, Total Bilirubin 0.20, AST 22, ALT 46, Alkaline Phosphatase 83, Total Protein 6.3 L, Albumin 2.0 L, Globulin 4.3 H, Albumin/Globulin Ratio 0.5 L 08/05/21 09:26: Vancomycin Trough 6.6 Micro: Microbiology 08/04/21 12:50 Sputum, Expectorated/Coughed Gram Stain - Final 08/04/21 08:30 Mucosa - Nose Respiratory Panel (PCR) - Final 08/04/21 10:15 Urine, Clean Catch Streptococcus pneumoniae Antigen (M - Final 08/04/21 10:15 Urine, Clean Catch Legionella Antigen - Final Physical Exam Narrative Physical exam: General: Alert, Oriented x3, Cooperative, No apparent distress, Well developed HEENT: Atraumatic Oral: Moist Mucosa Neck: Supple Lungs: Diminished to auscultation Cardiovascular: HS I+II, regular, no murmurs Abdomen: Bowel Sounds Present, Soft, Non Tender Extremities: No edema Skin: No rashes, No breakdown Neurological: Grossly intact Psych/Mental Status: Appropriate Assessment & Plan Assessment/Plan (1) Right lower lobe pulmonary infiltrate: PLAN: 1. Acute right lower lobe pneumonia, multifocal infiltrate concerning for possible development abscesses versus necrosis CTA of the chest shows the above Patient appears clinically stable, on room air Urine Legionella and strep coccal antigen is negative. Sputum cultures are growing normal respiratory chandler MRSA screen is negative DC vancomycin; continue Levaquin Pulmonology consulted; started on a short taper 2. COPD, not in acute exacerbation, continue to monitor with breathing treatments as needed 3. Hyperglycemia, will check HbA1c 4. Nicotine dependence, advised to 5. DVT prophylaxis?SCDs Charges/Coding Visit Charges Inpatient E&M: 75110 Subs Hosp L2
--- NOTE | 2021-08-05 11:24 | PN.CC_ITS ---
Assessment & Plan Assessment/Plan (1) Right lower lobe pneumonia: (2) Pleural effusion, right: (3) COPD (chronic obstructive pulmonary disease): PLAN: RECOMMENDATIONS: 1. Await results of swallow study 2. Await final results of sputum culture 3. Continue broad-spectrum antibiotics including vancomycin 4. Walking oximetry prior to discharge 5. Pulmonary toileting with Acapella 6. If swallow study okay in sputum shows no staph, possible okay to discharge with 2-week follow-up and chest x-ray prior IMPRESSIONS: 1. Right lower lobe pneumonia?recurrent of unclear etiology Patient with an almost 3-year history of recurrent right lower lobe pneumonia. CT scan of the chest shows relative complete opacification of the r ight lower lobe. Differential would include postobstructive pneumonia, MDRO pneumonia and recurrent aspiration. Patient could have MRSA pneumonia leading to failure of outpatient therapy. Patient does appear to have an element of bronchiectasis, but this is difficult to assess given relative complete opacification of the right lower lobe. Patient describes choking in the past, but not recently. Some concern for recurrent aspiration pneumonia secondary to silent aspiration. Sputum is preliminarily showing normal chandler, but white blood cell count is improved and patient subjectively feels improvement. If swallow study shows no aspiration and sputum shows no staph aureus, obtain walking oximetry. If no supplemental oxygen is needed, patient can be discharged to follow-up in 2 weeks with nurse practitioner. Preferably with a PA lateral chest x-ray before the appointment. If findings persist, may need to arrange for an outpatient bronchoscopy for evaluation of the right lower lobe. 2. Moderate COPD/active tobacco abuse Patient's last FEV1 was 60% at the [facility]. We will add prednisone for 5 days to help with pulmonary toileting. Patient has been on antibiotics for over 24 hours, so likely okay to attempt steroids. Therapeutic substitution for Anoro would be appropriate. Patient does have emphysematous changes of the upper lobes. Patient understands that smoking cessation will be vital to recovery. 3. Elevated glucose/thin build Complicates care, management, recovery and prognosis. Blood sugars will need to be followed closely if patient does get started on steroid therapy. Patient may have an element of pulmonary cachexia, but FEV1 is 60%. Cannot exclude weight loss secondary to malignancy. Subjective Subjective Patient did okay overnight. Patient remains on room air and tolerating well. Patient does report more production with his cough over the last 24 hours. Patient subjectively feels improved compared to previous and feels that these antibiotics are working. Objective Data Objective Data Vital Signs: Vital Signs Temp Pulse Resp BP Pulse Ox 36.5 C L 58 L 17 115/62 99 08/05/21 10:00 08/05/21 10:00 08/05/21 10:00 08/05/21 10:00 08/05/21 10:00 Oxygen Delivery Method Room Air Weight: 69.9 kg Body Mass Index (BMI) 19.9 Intake & Output: Intake and Output for Last 24 Hours 08/03/21 08/04/21 08/05/21 23:59 23:59 23:59 Intake Total 188 / 1879 4135.01 / 4135.01 Balance 1879 4135.01 / 4135.01 Lab / Micro Data Result Diagrams: 08/05/21 06:00 08/05/21 06:00 Labs: Laboratory Results - last 24 hr 08/04/21 08:30: MRSA (PCR) Negative 08/05/21 06:00: WBC 14.1 H, RBC 4.24 L, Hgb 12.8 L, Hct 35.1 L, MCV 82.8, MCH 30.2, MCHC 36.5 H, RDW Std Deviation 38.0, RDW Coeff of Chiquita 12.6, Plt Count 369, MPV 9.8, Immature Gran % (Auto) 0.600, Neut % (Auto) 88.3 H, Lymph % (Auto) 5.8 L, [place] % (Auto) 5.2, Eos % (Auto) 0.0, Baso % (Auto) 0.1, Absolute Neuts (auto) 12.4 H, Absolute Lymphs (auto) 0.81 L, Nucleated RBC % 0 08/05/21 06:00: Sodium 138, Potassium 4.1, Chloride 108 H, Carbon Dioxide 26.0, Anion Gap 4 L, BUN 12, Creatinine 0.60 L, Estim Creat Clear Calc 150.48, Est GFR (MDRD) Af Amer 184, Est GFR (MDRD) Non-Af 152, BUN/Creatinine Ratio 19.9, Glucose 136 H, Calcium 8.3 L, Total Bilirubin 0.20, AST 22, ALT 46, Alkaline Phosphatase 83, Total Protein 6.3 L, Albumin 2.0 L, Globulin 4.3 H, Albumin/Globulin Ratio 0.5 L 08/05/21 09:26: Vancomycin Trough 6.6 Micro: Microbiology 08/04/21 12:50 Sputum, Expectorated/Coughed Gram Stain - Final 08/04/21 12:50 Sputum, Expectorated/Coughed Respiratory Culture - Preliminary Appears to be normal respiratory chandler. Further studies to follow. 08/04/21 08:30 Mucosa - Nose Respiratory Panel (PCR) - Final 08/04/21 10:15 Urine, Clean Catch Streptococcus pneumoniae Antigen (M - Final 08/04/21 10:15 Urine, Clean Catch Legionella Antigen - Final Physical Exam Const alert, oriented x3 and no apparent distress General Appearance: appears older than stated age HEENT normocephalic, head/scalp atraumatic and moist oral mucous membranes HEENT Narrative: No temporal wasting noted Eyes PERRL, EOMs intact bilaterally, conjunctivae normal and no scleral icterus Neck full ROM Lymph Lymphatic: no lymphadenopathy noted Resp normal respiratory effort and no use of accessory muscles Auscultation: diminished lung sounds right lower; Negative for rales, rhonchi or wheezes Cardio regular rate, regular rhythm, S1 normal heart sound, S2 normal heart sound, no murmurs, no rub, no gallops and no JVD GI normal to inspection, nondistended, normoactive bowel sounds Extremity General Extremity: clubbing; Negative for edema Skin no rashes or lesions noted Neuro oriented x3, CN's II-XII intact bilaterally, moves all extremities and no focal motor deficits Psych cooperative and affect normal Appearance: well kempt Charges/Coding Visit Charges Inpatient E&M: 86665 Subs Hosp L2
--- NOTE | 2021-08-05 11:38 | PCM.RX.CS ---
Consult Type of Consult: Follow-up Suspected Infection: Pneumonia Labs: Sodium 138 mmol/L (136-145) 08/05/21 06:00 Potassium 4.1 mmol/L (3.5-5.1) 08/05/21 06:00 Chloride 108 mmol/L (98-107) H 08/05/21 06:00 Carbon Dioxide 26.0 mmol/L (21.0-32.0) 08/05/21 06:00 Anion Gap 4 (5-15) L 08/05/21 06:00 BUN 12 mg/dL (7-18) 08/05/21 06:00 Creatinine 0.60 mg/dL (0.70-1.30) L 08/05/21 06:00 Est GFR (MDRD) Af Amer 184 mL/min (>60) 08/05/21 06:00 Est GFR (MDRD) Non-Af 152 mL/min (>60) 08/05/21 06:00 BUN/Creatinine Ratio 19.9 RATIO (10-20) 08/05/21 06:00 Glucose 136 mg/dL (74-106) H 08/05/21 06:00 Vancomycin Trough 6.6 ug/mL (5.0-15.0) 08/05/21 09:26 Microbiology: Microbiology 08/04/21 12:50 Sputum, Expectorated/Coughed Gram Stain - Final 08/04/21 12:50 Sputum, Expectorated/Coughed Respiratory Culture - Preliminary Appears to be normal respiratory chandler. Further studies to follow. 08/04/21 08:30 Mucosa - Nose Respiratory Panel (PCR) - Final 08/04/21 10:15 Urine, Clean Catch Streptococcus pneumoniae Antigen (M - Final 08/04/21 10:15 Urine, Clean Catch Legionella Antigen - Final Goal Trough: 15-20 mcg/mL Pharmacy Plan for Drug Dosing: VANCOMYCIN LEVEL RECEIVED Current Vancomycin Dose: 750mg Q8H Number of Doses Received: 3 Vancomycin Level: 6.6 Hours Since Last Dose: 7 Renal Function: sCr 0.6, CrCl > 120 ml/min Renal Function Trend: stable Vancomycin Plan/Comments: Increase Vancomycin dosing regimen to 1000mg Q8H due to SUBtherapeutic trough level Pending Level: Vancomycin trough @ 1530 08/06/21 Pharmacy Service will continue to monitor and adjust dosing as required. Labs to be done on [date and time ordered]: Vancomycin trough @ 1530 08/06/21
--- NOTE | 2021-08-05 12:25 | CASEMGMT ---
RN CM Face to Face with patient for initial transition planning/care coordination assessment. RN CM introduced self and role at [facility]. Patient lying in bed, alert and oriented, at bedside. Patient willing to participate in assessment and is able to answer all questions appropriately. Care providers, pharmacy, and demographics verified. Patient wishes to discharge home, denies need for home health at this time. Patient states he has no further needs or concerns at this time. CM to follow for discharge planning needs that may arise. PCP: Veronique, patient states he would like to change PCP, Physician directory provided to patient Specialists: Brooke Escalante lead applications developer Preferred Pharmacy: [facility] Insurance: [employer] Pres[employer] Benefit: yes Living Will/HPOA: none LNOK: Living Arrangements: Patient lives with in a 2 story home. Patient is able to ambulate stairs and is independent Transportation: self, DME/HHC: Patient denies DME in the home. No previous HHC or SNF. Disposition Plan: Patient to discharge home with family support and follow-up plans in place. Tootie TORRES, RN, CM
[2021-08-05] MEDS: predniSONE 20 MG Tablet 40 MG PO (14:21)
[2021-08-05 15:07] LABS: Hemoglobin A1c 5.5 % (3.8-5.6)
[2021-08-06 02:51] VITALS: BP 114/64; PULSE 72; RESP 18; TEMP 36.4; O2SAT 97
[2021-08-06 06:40] LABS: Absolute Lymphocyte Count 1.41 X10^3/uL (0.83-4.51); Absolute Neutrophil Count 11.9 X10^3/uL (2.0-7.7); Basophil# 0.02 X10^3/uL; Basophil% 0.1 % (0-1); Eosinophil# 0.01 X10^3/uL; Eosinophils% 0.1 % (0-5); Hematocrit 34.1 % (40-54); Hemoglobin 11.6 g/dL (13.0-16.5); Lymphocyte # 1.41 X10^3/ul (0.83-4.51); Lymphocyte % 10.1 % (19-41); Mean Corpuscular Hgb 28.6 pg (27.0-32.0); Mean Corpuscular Volume 84.2 fL (80-94); Mean Platelet Vol. 9.8 fl (6.2-12.0); Monocyte# 0.65 X10^3/uL; Monocyte% 4.6 % (0-10); NRBC Flagged by Analyzer 0 % (0-5); Neutrophil # 11.86 X10^3/uL (2.7-7.7); Neutrophil % 84.6 % (47-70); Platelet Count 364 K/mm3 (150-450); RBC Distribution Width CV 12.9 % (11.6-14.6); RBC Distribution Width SD 39.8 fl (35.1-43.9); Red Blood Count 4.05 M/mm3 (4.6-6.2)
[2021-08-06 06:45] VITALS: PULSE 88; RESP 20; O2SAT 98
[2021-08-06] MEDS: Ipratropium/Albuterol Sulfate 3 ML AMPUL.NEB INHALATION ×2 (06:45→13:04)
[2021-08-06 07:05] LABS: ALB/GLOB Ratio 0.5 RATIO (0.9-2.4); AST(SGOT) 27 U/L (15-37); Alanine Aminotransfer ALT/SGPT 70 U/L (16-61); Albumin, Serum 2.2 g/dL (3.2-5.0); Alkaline Phosphatase 84 U/L (45-117); Anion Gap 5 (5-15); BUN 13 mg/dL (7-18); BUN/Creat Ratio 19.3 RATIO (10-20); Calcium,Total 8.1 mg/dL (8.5-10.1); Chloride 107 mmol/L (98-107); Creatinine, Serum 0.68 mg/dL (0.70-1.30); EST Glomerular Filtration Rate 134 mL/min (>60); Est Glom Filt Rate - Afr Amer 162 mL/min (>60); Estimated Creatinine Clearance 133.54 ml/min; Globulin 4.2 g/dL (2.2-4.2); Glucose 129 mg/dL (74-106); Potassium 3.9 mmol/L (3.5-5.1); Protein, Total 6.4 g/dL (6.4-8.2); Sodium Level 139 mmol/L (136-145)
[2021-08-06 07:10] VITALS: O2SAT 97; O2SAT 98
[2021-08-06 07:48] VITALS: BP 124/72; PULSE 75; RESP 15; TEMP 36.4; O2SAT 97
[2021-08-06] MEDS: predniSONE 20 MG Tablet 40 MG PO (07:51)
[2021-08-06] MEDS: guaiFENesin 1,200 MG Tablet 1200 MG PO (07:52)
--- NOTE | 2021-08-06 08:31 | RAD_ITS ---
STUDY: X-RAY CHEST REASON FOR EXAM: Male, 46 years old. Right lower lobe infiltrate TECHNIQUE: PA and lateral views of the chest. COMPARISON: Comparison is made with prior study dated 07/31/2021. FINDINGS: Stable right basilar infiltrate with a small right pleural effusion. Normal size heart. Stable prominence of the right infrahilar region. Normal visualized pulmonary arteries. Normal visualized aortic arch and descending thoracic aorta. Normal visualized thoracic spine. Normal visualized ribs, clavicles, and shoulders. There is no demonstrated abnormality of the visualized soft tissue structures of the upper abdomen. RAD/Chest PA and Lateral IMPRESSION: Stable right lower lobe infiltrate and small right pleural effusion. Electronically Signed: Jourdan Bush MD at 14:44 EDT ,
--- NOTE | 2021-08-06 08:31 | PCM.PN.INT ---
Assessment & Plan Assessment/Plan (1) Right lower lobe pneumonia: (2) Pleural effusion, right: (3) COPD (chronic obstructive pulmonary disease): PLAN: RECOMMENDATIONS: 1. Await results of swallow study. Likely discharge if normal 2. Complete 7 days of antibiotics 3. Obtain chest x-ray for comparison 4. Walking oximetry prior to discharge 5. Pulmonary toileting with Acapella 6. If swallow study okay in sputum shows no staph, possible okay to discharge with 2-week follow-up and chest x-ray prior IMPRESSIONS: 1. Right lower lobe pneumonia?recurrent of unclear etiology Patient with an almost 3-year history of recurrent right lower lobe pneumonia. CT scan of the chest shows relative complete opacification of the right lower lobe. Differential would include postobstructive pneumonia, MDRO pneumonia and recurrent aspiration. Patient could have MRSA pneumonia leading to failure of outpatient therapy. Patient does appear to have an element of bronchiectasis, but this is difficult to assess given relative complete opacification of the right lower lobe. Patient describes choking in the past, but not recently. Some concern for recurrent aspiration pneumonia secondary to silent aspiration. Sputum is preliminarily showing normal chandler, but white blood cell count is improved and patient subjectively feels improvement. If swallow study shows no aspiration and sputum shows no staph aureus, obtain walking oximetry. If no supplemental oxygen is needed, patient can be discharged to follow-up in 2 weeks with nurse practitioner. Preferably with a PA lateral chest x-ray before the appointment. If findings persist, may need to arrange for an outpatient bronchoscopy for evaluation of the right lower lobe. 2. Moderate COPD/active tobacco abuse Patient's last FEV1 was 60% at the [facility]. We will add prednisone for 5 days to help with pulmonary toileting. Patient has been on antibiotics for over 24 hours, so likely okay to attempt steroids. Therapeutic substitution for Anoro would be appropriate. Patient does have emphysematous changes of the upper lobes. Patient understands that smoking cessation will be vital to recovery. 3. Elevated glucose/thin build Complicates care, management, recovery and prognosis. Blood sugars will need to be followed closely if patient does get started on steroid therapy. Patient may have an element of pulmonary cachexia, but FEV1 is 60%. Cannot exclude weight loss secondary to malignancy. Subjective Subjective Patient did okay overnight. Patient states his cough has significantly improved. Patient states he has little production and most of it is clear at this point. Patient does report his cough is exacerbated by exertion. Swallow study was not completed yesterday and is tentatively scheduled for 130 today Objective Data Objective Data Vital Signs: Vital Signs Temp Pulse Resp BP Pulse Ox 36.4 C L 75 15 124/72 H 97 08/06/21 07:48 08/06/21 07:48 08/06/21 07:48 08/06/21 07:48 08/06/21 07:48 Oxygen Delivery Method Room Air Weight: 70.3 kg Body Mass Index (BMI) 19.9 Intake & Output: Intake and Output for Last 24 Hours 08/04/21 08/05/21 08/06/21 23:59 23:59 23:59 Intake Total 188 / 0 4840.01 / 4840.01 Balance 1881879 4840.01 / 4840.01 Lab / Micro Data Result Diagrams: 08/06/21 06:15 08/06/21 06:15 Labs: Laboratory Results - last 24 hr 08/05/21 06:00: Hemoglobin A1c 5.5 08/05/21 09:26: Vancomycin Trough 6.6 08/06/21 06:15: WBC 14.0 H, RBC 4.05 L, Hgb 11.6 L, Hct 34.1 L, MCV 84.2, MCH 28.6, MCHC 34.0 D, RDW Std Deviation 39.8, RDW Coeff of Chiquita 12.9, Plt Count 364, MPV 9.8, Immature Gran % (Auto) 0.500, Neut % (Auto) 84.6 H, Lymph % (Auto) 10.1 L, [place] % (Auto) 4.6, Eos % (Auto) 0.1, Baso % (Auto) 0.1, Absolute Neuts (auto) 11.9 H, Absolute Lymphs (auto) 1.41, Nucleated RBC % 0 08/06/21 06:15: Sodium 139, Potassium 3.9, Chloride 107, Carbon Dioxide 27.0, Anion Gap 5, BUN 13, Creatinine 0.68 L, Estim Creat Clear Calc 133.54, Est GFR (MDRD) Af Amer 162, Est GFR (MDRD) Non-Af 134, BUN/Creatinine Ratio 19.3, Glucose 129 H, Calcium 8.1 L, Total Bilirubin 0.20, AST 27, ALT 70 H, Alkaline Phosphatase 84, Total Protein 6.4, Albumin 2.2 L, Globulin 4.2, Albumin/Globulin Ratio 0.5 L Micro: Microbiology 08/04/21 12:50 Sputum, Expectorated/Coughed Gram Stain - Final 08/04/21 12:50 Sputum, Expectorated/Coughed Respiratory Culture - Final Mixed normal respiratory chandler. No Streptococcus pneumoniae, beta-hemolytic Streptococcus or Staphylococcus aureus isolated. 08/04/21 08:30 Mucosa - Nose Respiratory Panel (PCR) - Final 08/04/21 10:15 Urine, Clean Catch Streptococcus pneumoniae Antigen (M - Final 08/04/21 10:15 Urine, Clean Catch Legionella Antigen - Final Physical Exam Const alert, oriented x3 and no apparent distress General Appearance: appears older than stated age HEENT normocephalic, head/scalp atraumatic and moist oral mucous membranes HEENT Narrative: No temporal wasting noted Eyes PERRL, EOMs intact bilaterally, conjunctivae normal and no scleral icterus Neck full ROM Lymph Lymphatic: no lymphadenopathy noted Resp normal respiratory effort and no use of accessory muscles Auscultation: diminished lung sounds right lower; Negative for rales, rhonchi or wheezes Cardio regular rate, regular rhythm, S1 normal heart sound, S2 normal heart sound, no murmurs, no rub, no gallops and no JVD GI normal to inspection, nondistended, normoactive bowel sounds Extremity General Extremity: clubbing; Negative for edema Skin no rashes or lesions noted Neuro oriented x3, CN's II-XII intact bilaterally, moves all extremities and no focal motor deficits Psych cooperative and affect normal Appearance: well kempt Charges/Coding Visit Charges Inpatient E&M: 51525 Subs Hosp L2
[2021-08-06] MEDS: levoFLOXacin IV 750 MG/150 ML BAG 100 MG IV (10:03)
[2021-08-06] MEDS: 0.9% Saline Lock 10 ML Syringe IV (10:03)
--- NOTE | 2021-08-06 12:12 | CASEMGMT ---
Pt did not qualify for home O2. Pt to dc today. Denies homegoing needs.
[2021-08-06 13:04] VITALS: PULSE 89; RESP 20
--- NOTE | 2021-08-06 13:43 | ST.MBS ---
Modified Barium Swallow - Patient Information Study Date: 08/06/21 Study Time: 13:30 Direct Billable Minutes: 60 Total Minutes procedure & reportin Diagnosis: Right lower lobe pneumonia (J18.9) Referring Physician: Dania Barrios Reason for Referral: Objectively assess swallow function, risk for aspiration, and determine recommendations for least restrictive diet textures and compensatory strategies to improve safety of swallow. Medical History: The patient is a 46 y/o M w/ PMHx: COPD, Tobacco use, recent RLL PNA diagnosis who presented to the [facility] ED on 08/04/21. He reports having pneumonia at least 5X since February 2021. Chest CTA revealed multifocal infiltrate in RLL. Pt admitted for management of acute RLL PNA. He was evaluated by speech therapy at bedside and recommended for regular textures / thin liquids with referral for participation in MBS study to rule out risk for silent aspiration due to recurrent pneumonia. Current Diet Ordered: Regular Textures / Thin Liquids Dentition: WNL Mental Status: WNL Respiratory Status: Oxygenating on Room Air - Penetration-Aspiration Scale Penetration-Aspiration Scale: OBJECTIVE ASSESSMENT OF SWALLOW FUNCTION (QUANTITATIVE ? PER TRIAL): PENETRATION / ASPIRATION SCALE (PARKER): 1 = does not enter airway 2 = enters airway/above vocal folds/ejected 3 = enters airway/above vocal folds/not ejected 4 = enters airway/contacts vocal folds/ejected 5 = enters airway/contacts vocal folds/not ejected 6 = enters airway/below vocal folds/ejected 7 = enters airway/below vocal folds/not ejected despite effort 8 = enters airway/below vocal folds/no effort VIDEOFLOROSCOPIC SCALE SCORE (PARKER): Grade I = aspiration of material that has penetrated into the laryngeal vestibule, intact cough reflex Grade II = aspiration < 10 % of the bolus, intact cough reflex Grade III = aspiration of < 10 % of the bolus, reduced cough reflex or aspiration of > 10 % of the bolus, intact cough reflex Grade IV = aspiration of > 10 % of the bolus, reduced cough reflex - Penetration-Aspiration Scale Score Thin Liquid via teaspoon Result: 1= does not enter airway Thin Liquid via teaspoon Trial 2 Result: 1= does not enter airway Thin Liquid via small single sip from cup Result: 3= enters airways/above vocal folds/not ejected Thin Liquid via small single sip from cup Trial 2 Result: 2= enter airway/above vocal folds/ejected Thin Liquid via sequential sips from cup Result: 3= enters airways/above vocal folds/not ejected [place] Thick Liquid via small single sip from cup Result: 1= does not enter airway Honey Thick Liquid via small single sip from cup Result: 1= does not enter airway Pudding Result: 1= does not enter airway Cookie Result: 1= does not enter airway Thin Liquid via single sip from straw Result: 2= enter airway/above vocal folds/ejected Thin Liquid via sequential sips from straw Result: 3= enters airways/above vocal folds/not ejected Thin Liquid via small single sip from cup Effortful swallow Result: 3= enters airways/above vocal folds/not ejected Thin Liquid via small single sip from cup Chin tuck Result: 3= enters airways/above vocal folds/not ejected Thin Liquid via small single sip from cup Other cued breath hold prior to swallow Result: 3= enters airways/above vocal folds/not ejected Thin Liquid via small single sip from cup Supraglottic swallow Result: 2= enter airway/above vocal folds/ejected [place] Thick Liquid via small single sip from cup Double swallow Result: 1= does not enter airway Thin Liquid via teaspoon Trial 3 Result: 1= does not enter airway - Oral Phase Labial Seal: No Labial Escape Tongue Control During Bolus Hold: Posterior escape of less than half of bolus Bolus Preparation/Mastication: Timely and efficient chewing and mashing Bolus Transport/Lingual Motion: Delayed initiation of tongue motion Oral Residue: Trace residue lining oral structures - Pharyngeal Phase Initiation of Pharyngeal Swallow: Bolus head in pyriforms Soft Palate Elevation: No bolus between soft palate and pharyngeal wall Laryngeal Elevation: Partial superior movement thyroid cart/partial apprx aryt-epig petiole Anterior Hyoid Excursion: Complete anterior movement Epiglottic Movement: Complete inversion Laryngeal Vestibule Closure at Height of Swallow: Incomplete; narrow column of air/contrast in laryngeal vestibule Pharyngeal Stripping Wave: Present - complete Pharyngoesophageal Segment Opening: Parital distension and partial duration; parital obstruction of flow Tongue Base Retraction: Narrow column of contrast between tongue base & post. pharyngeal wall Pharyngeal Residue: Collection of residue within or on pharyngeal structures - Esophageal Phase Esophageal Clearance: Complete clearance - Treatment Strategies Effects of treatment strategies attemped:: Effortful swallow = not effective. Decreased bolus size (tsp sips) = effective. Chin tuck = not effective. Supraglottic swallow = effective. Double swallow = effective. - Diagnosis/Impression Diagnosis: Mild oropharyngeal phase dysphagia (R13.12) Impression: The oral phase is marked by mild deficits in bolus control. He demonstrated premature posterior loss of bolus to the pyriforms before the swallow, resulting in suboptimal bolus placement upon swallow onset. The pharyngeal phase is primarily marked by decreased airway closure. He demonstrates decreased laryngeal elevation during the swallow. He also has mild pharyngeal residues after the swallow due to decreased tongue base retraction and decreased UES opening/duration. He demonstrated consistent laryngeal penetration of cup or straw sips of thin liquids that did not reliably eject from the laryngeal vestibule. He intermittently demonstrated a delayed cough with consumption of liquids. No aspiration observed during the study; however, the patient is at high risk to aspirate contrast remaining in the laryngeal vestibule after the swallow. - Recommendations Diet: Regular Textures, Thin Liquids Compensatory Strategies: Small Bites, Liquid by Teaspoon Only, Slow Rate, Multiple Swallows - Double swallows on each sip, Sitting upright Recommend Repeat Modified Barium Swallow: Yes - Will recommend repeat MBS study 4-8 weeks after implementation of oropharyngeal exercise program. Need for Skilled Speech Therapy Services: Yes Comment: Will recommend the patient for outpatient dysphagia therapy to address deficits in oropharyngeal swallow function. Would consider the patient for oropharyngeal strengthening to improve laryngeal elevation, swallow onset, and tongue base retraction (Whitney, Arpan, CTAR, Effortful breath hold and swallow). Consider implementation of supraglottic swallows to consume thin liquids via cup. The patient would benefit from thorough education regarding diet recommendations and recommended compensatory strategies. Would consider the patient for implementation of [place] Free Water Protocol (FFWP) to encourage hydration as tsp sips of thin liquids may negatively impact hydration. Education Completed: 1. Described result of evaluation., 7. Pt requires further education on strategies & risks. - Status Active ST Patient: Active - Contact Information [facility] Speech Therapy:: Stacey Hodge M.A. [facility] Speech-Language Pathologist [facility] [address] [place] [address] [email or web address] [phone] 08/06/21 17:06
--- NOTE | 2021-08-06 14:20 | NURSING ---
1335-PT OFF UNIT VIA W/C FOR SCHEDULED PROCEDURE
[2021-08-06 14:23] VITALS: BP 118/95; PULSE 60; RESP 16; TEMP 37.2; O2SAT 98
--- NOTE | 2021-08-06 15:21 | DCINST_ITS ---
Discharge Instructions Diet Discharge Diet: No restrictions Activity Discharge Activity: Return to Normal Activity Follow Up Care Test Results: Test results from this visit will be discussed in further detail at your follow-up appointment, if applicable. Discharge Plan Admission Admit Date/Time: 08/04/21 07:01 Primary Reason for Your Visit: Pneumonia Attending Provider: Dania Barrios Primary Care Provider: Ezequiel Piper Consulting Providers: Julito Cason Instructions Additional Instructions / Restrictions: Complete your antibiotics. Follow-up with pulmonology in the outpatient as well as her primary care doctor. Continue to use your incentive spirometer. Discharge Orders/Prescriptions Prescriptions: New Mucus Relief ER 1,200 mg Tablet Extended Release 12hr 1,200 mg PO BID 10 Days Qty: 20 RF: 0 prednisone 20 mg Tablet 40 mg PO BREAKFAST 3 Days Qty: 6 RF: 0 Continued albuterol sulfate 90 mcg/actuation HFA aerosol inhaler 2 puff INHALATION Q4H PRN PRN (Reason: Shortness Of Breath Or Wheezing) RF: 0 Anoro Ellipta 62.5-25 mcg/actuation blister with device 1 ea INHALATION DAILY RF: 0 Discontinued moxifloxacin 400 mg tablet 400 mg PO DAILY 10 Days Qty: 10 RF: 0 Referrals / Follow Up: Ezequiel Piper MD [Primary Care Provider] - In 1 Week Rhoda Infante NP, INJECTION MOLDING MACHINE TENDER-C [Nurse Practitioner] - Within 2 Weeks Disposition Disposition (needs filled in before D/C Order can be placed): Home, Self Care
--- NOTE | 2021-08-06 15:21 | DS.PCM_ITS ---
Providers Date of Admission: 08/04/21 Date of Discharge: 08/06/21 Primary Care Physician: Dr. Ezequiel Piper MD Consultations 08/04/21 08:17 Consult: Motion Picture Set Worker / Pulmonary Medicine Routine Consulting Provider: Julito Cason Reason for Consult: Recurrent RLL PNA, multiple abx, ? developing abscess EMERGENT Consult: No MD Notified: Yes Date Notified: 08/04/21 Time Notified: 07:05 Method of Notification: Text Reason For Visit: RLL PNE, FAILED OUTPATIENT TREATMENTS Diagnosis Discharge Diagnosis (1) Right lower lobe pneumonia: Status: Acute Code(s): J18.9 - Pneumonia, unspecified organism (2) Pleural effusion, right: Status: Acute Code(s): J90 - Pleural effusion, not elsewhere classified (3) COPD (chronic obstructive pulmonary disease): Status: Inactive Code(s): J44.9 - Chronic obstructive pulmonary disease, unspecified Medications at Discharge Home Medications Anoro Ellipta 1 ea INHALATION DAILY 08/04/21 albuterol sulfate 2 puff INHALATION Q4H PRN PRN 08/04/21 guaifenesin [Mucus Relief ER] 1,200 mg PO BID 10 Days #20 tab 08/06/21 levofloxacin 750 mg PO DAILY 7 Days #7 tab 08/06/21 prednisone 40 mg PO BREAKFAST 3 Days #6 tab 08/06/21 Hospital Course Operations None Procedures - (Modified barium swallow) Summary of Care Provided Minutes Spent on Discharge: 35 Hospital Course: 69-year-old male with past medical history of COPD, nicotine use, recent pneumonia who presents with ongoing shortness of breath, intermittent cough productive for yellowish-green sputum. Patient stated that he is completed about 5 rounds of antibiotics since last year. He was seen in the ED, CTA of the chest showed multifocal infiltration of the right lower lung. Patient [facility], started on IV Levaquin and vancomycin. Pulmonology was consulted. MRSA screen was negative. Patient was evaluated by speech therapy, concern for silent aspiration. Patient underwent a barium swallow on the day of admission. Repeat chest x-ray showed persistent right pneumonia. Patient was discharged on 7 days of Levaquin. He will follow- up with pulmonology in the outpatient within 2 weeks. He will likely get bronchoscopy in the outpatient. Physical Exam Narrative General: Alert, Oriented x3, Cooperative, No apparent distress, Well developed HEENT: Atraumatic Oral: Moist Mucosa Neck: Supple Lungs: Diminished to auscultation Cardiovascular: HS I+II, regular, no murmurs Abdomen: Bowel Sounds Present, Soft, Non Tender Extremities: No edema Skin: No rashes, No breakdown Neurological: Grossly intact Psych/Mental Status: Appropriate Weight / BMI Weight Weight: 70.3 kg Body Mass Index (BMI) 19.9 ABG / Lab / Microbiology Data Result Diagrams: 08/06/21 06:15 08/06/21 06:15 Laboratory: Laboratory Results - last 24 hr 08/06/21 06:15: WBC 14.0 H, RBC 4.05 L, Hgb 11.6 L, Hct 34.1 L, MCV 84.2, MCH 28.6, MCHC 34.0 D, RDW Std Deviation 39.8, RDW Coeff of Chiquita 12.9, Plt Count 364, MPV 9.8, Immature Gran % (Auto) 0.500, Neut % (Auto) 84.6 H, Lymph % (Auto) 10.1 L, [place] % (Auto) 4.6, Eos % (Auto) 0.1, Baso % (Auto) 0.1, Absolute Neuts (auto) 11.9 H, Absolute Lymphs (auto) 1.41, Nucleated RBC % 0 08/06/21 06:15: Sodium 139, Potassium 3.9, Chloride 107, Carbon Dioxide 27.0, Anion Gap 5, BUN 13, Creatinine 0.68 L, Estim Creat Clear Calc 133.54, Est GFR (MDRD) Af Amer 162, Est GFR (MDRD) Non-Af 134, BUN/Creatinine Ratio 19.3, Glucose 129 H, Calcium 8.1 L, Total Bilirubin 0.20, AST 27, ALT 70 H, Alkaline Phosphatase 84, Total Protein 6.4, Albumin 2.2 L, Globulin 4.2, Albumin/Globulin Ratio 0.5 L Microbiology: Microbiology 08/04/21 06:00 Blood Culture (Wb) - Anticubital Right Blood Culture - Preliminary No growth in 48 hours. 08/04/21 05:50 Blood Culture (Wb) - Anticubital Left Blood Culture - Preliminary No growth in 48 hours. 08/04/21 12:50 Sputum, Expectorated/Coughed Gram Stain - Final 08/04/21 12:50 Sputum, Expectorated/Coughed Respiratory Culture - Final Mixed normal respiratory chandler. No Streptococcus pneumoniae, beta-hemolytic Streptococcus or Staphylococcus aureus isolated. 08/04/21 08:30 Mucosa - Nose Respiratory Panel (PCR) - Final 08/04/21 10:15 Urine, Clean Catch Streptococcus pneumoniae Antigen (M - Final 08/04/21 10:15 Urine, Clean Catch Legionella Antigen - Final Radiography Diagnostic Testing: Radiology Impression Chest X-Ray 08/06/21 08:31 IMPRESSION: Stable right lower lobe infiltrate and small right pleural effusion. Electronically Signed: Jourdan Bush MD at 14:44 EDT , D/C Instructions Discharge Diet: No restrictions Meaningful Use Info Meaningful Use Diagnoses (Choose all that apply): None applicable Discharge Plan Admission Admit Date/Time: 08/04/21 07:01 Primary Reason for Your Visit: Pneumonia Attending Provider: Dania Barrios Primary Care Provider: Ezequiel Piper Consulting Providers: Julito Cason Instructions Additional Instructions / Restrictions: Complete your antibiotics. Follow-up with pulmonology in the outpatient as well as her primary care doctor. Continue to use your incentive spirometer. Discharge Orders/Prescriptions Prescriptions: New Mucus Relief ER 1,200 mg Tablet Extended Release 12hr 1,200 mg PO BID 10 Days Qty: 20 RF: 0 prednisone 20 mg Tablet 40 mg PO BREAKFAST 3 Days Qty: 6 RF: 0 levofloxacin 750 mg tablet 750 mg PO DAILY 7 Days Qty: 7 RF: 0 Continued albuterol sulfate 90 mcg/actuation HFA aerosol inhaler 2 puff INHALATION Q4H PRN PRN (Reason: Shortness Of Breath Or Wheezing) RF: 0 Anoro Ellipta 62.5-25 mcg/actuation blister with device 1 ea INHALATION DAILY RF: 0 Discontinued moxifloxacin 400 mg tablet 400 mg PO DAILY 10 Days Qty: 10 RF: 0 Referrals / Follow Up: Ezequiel Piper MD [Primary Care Provider] - In 1 Week Rhoda Infante NP, NETWORK DESIGN ARCHITECT-C [Nurse Practitioner] - Within 2 Weeks Disposition Disposition (needs filled in before D/C Order can be placed): Home, Self Care Charges/Coding Visit Charges Inpatient E&M: 66776 Disch Hosp
--- NOTE | 2021-08-06 15:26 | CASEMGMT ---
HUYEN ALLRED made aware ST is recommending pt follow as outpt. HUYEN ALLRED in to pt room, pt states he would like to go to [facility] so they can have access to all of his medical records. Offered to set up appt for him and pt agreed. He states that any day and time is ok except for . [facility] to [facility]. Scheduled appt for ThursdayAugust 09 at 2:30pm. HUYEN ALLRED notified pt and placed on dc plan.
[2021-08-06 16:29] LABS: Vancomycin, Trough Level < 0.8 ug/mL (5.0-15.0)
== END 2021-08-06 16:14 | disposition home or self-care (01) | DRG 195 ==
LOC: ED 06:44 → MS3 07:30
PROVIDERS: Internal Medicine Critical Care Medicine; Admitting Provider Family Medicine; Emergency Provider Emergency Medicine; PCP Family Medicine; Visit Provider Internal Medicine
DX: J18.9 Pneumonia, unspecified organism (principal); J44.9 Chronic obstructive pulmonary disease, unspecified; F17.210 Nicotine dependence, cigarettes, uncomplicated; R73.9 Hyperglycemia, unspecified
CPT/HCPCS: 36415; 71046; 71275; 74230; 80048; 80053; 80202; 83036; 84145; 85025; 87040; 87070; 87205; 87449; 87633; 87641; 92526; 92610; 92611; 93005; 94640; 94667; 94668; 97802; 99251; 99285; 99406; J7030; J7050; Q9967; A4216; G0463

== ENCOUNTER 2021-08-21 07:47 | Outpatient (CLI) | payer OTHER, MEDICAID, SELFPAY ==
--- NOTE | 2021-08-21 07:54 | RAD_ITS ---
STUDY: X-RAY CHEST REASON FOR EXAM: Male, 46 years old. Following pneumonia TECHNIQUE: PA and lateral views of the chest. COMPARISON: Comparison is made with prior study dated 08/06/2021. FINDINGS: Hyperinflation. Persistent right lower lobe infiltration although there has been a moderate degree of improvement. Further follow-up is recommended. There is blunting of the right costophrenic angle. Normal size heart. Prominence of the right hilum most likely secondary to a reactive process. There is prominence of the pulmonary hilar arteries without peripheral pulmonary vascular congestion, suggesting pulmonary hypertension. Normal visualized aortic arch and descending thoracic aorta. Normal visualized thoracic spine. Normal visualized ribs, clavicles, and shoulders. There is no demonstrated abnormality of the visualized soft tissue structures of the upper abdomen. RAD/Chest PA and Lateral IMPRESSION: Persistent right lower lobe infiltrate with blunting of the right costophrenic angle. This has improved. Further follow-up is recommended. Electronically Signed: Jourdan Bush MD at 14:20 EDT ,
== END 2021-08-21 23:59 | disposition home or self-care (01) ==
PROVIDERS: PCP Internal Medicine; Visit Provider Nurse Practitioner Acute Care
DX: J18.9 Pneumonia, unspecified organism (principal)
CPT/HCPCS: 71046

== ENCOUNTER 2021-09-16 09:00 | Outpatient (RCR) | payer OTHER, MEDICAID, SELFPAY ==
--- NOTE | 2021-08-09 15:29 | ST ---
[facility] Speech Pathology [address] [place] [address] Modified Barium Swallow Study MR#: [id number] Acct: [id number] Name: PAOLA POWERS Rep #: [id number] : 1975 46 From: Stacey Hodge M.A., [facility]-FLIGHT ATTENDANT RAMP Modified Barium Swallow - Patient Information Study Date: 08/06/21 Study Time: 13:30 Direct Billable Minutes: 60 Total Minutes procedure & reportin Diagnosis: Right lower lobe pneumonia (J18.9) Referring Physician: Dania Barrios Reason for Referral: Objectively assess swallow function, risk for aspiration, and determine recommendations for least restrictive diet textures and compensatory strategies to improve safety of swallow. Medical History: The patient is a 46 y/o M w/ PMHx: COPD, Tobacco use, recent RLL PNA diagnosis who presented to [facility] ED on 08/04/21. He reports having pneumonia at least 5X since February 2021. Chest CTA revealed multifocal infiltrate in RLL. Pt admitted for management of acute RLL PNA. He was evaluated by speech therapy at bedside and recommended for regular textures / thin liquids with referral for participation in MBS study to rule out risk for silent aspiration due to recurrent pneumonia. Current Diet Ordered: Regular Textures / Thin Liquids Dentition: WNL Mental Status: WNL Respiratory Status: Oxygenating on Room Air - Penetration-Aspiration Scale Penetration-Aspiration Scale: OBJECTIVE ASSESSMENT OF SWALLOW FUNCTION (QUANTITATIVE ? PER TRIAL): PENETRATION / ASPIRATION SCALE (PARKER): 1 = does not enter airway 2 = enters airway/above vocal folds/ejected 3 = enters airway/above vocal folds/not ejected 4 = enters airway/contacts vocal folds/ejected 5 = enters airway/contacts vocal folds/not ejected 6 = enters airway/below vocal folds/ejected 7 = enters airway/below vocal folds/not ejected despite effort 8 = enters airway/below vocal folds/no effort VIDEOFLOROSCOPIC SCALE SCORE (PARKER): Grade I = aspiration of material that has penetrated into the laryngeal vestibule, intact cough reflex Grade II = aspiration < 10 % of the bolus, intact cough reflex Grade III = aspiration of < 10 % of the bolus, reduced cough reflex or aspiration of > 10 % of the bolus, intact cough reflex Grade IV = aspiration of > 10 % of the bolus, reduced cough reflex - Penetration-Aspiration Scale Score Thin Liquid via teaspoon Result: 1= does not enter airway Thin Liquid via teaspoon Trial 2 Result: 1= does not enter airway Thin Liquid via small single sip from cup Result: 3= enters airways/above vocal folds/not ejected Thin Liquid via small single sip from cup Trial 2 Result: 2= enter airway/above vocal folds/ejected Thin Liquid via sequential sips from cup Result: 3= enters airways/above vocal folds/not ejected [place] Thick Liquid via small single sip from cup Result: 1= does not enter airway Honey Thick Liquid via small single sip from cup Result: 1= does not enter airway Pudding Result: 1= does not enter airway Cookie Result: 1= does not enter airway Thin Liquid via single sip from straw Result: 2= enter airway/above vocal folds/ejected Thin Liquid via sequential sips from straw Result: 3= enters airways/above vocal folds/not ejected Thin Liquid via small single sip from cup Effortful swallow Result: 3= enters airways/above vocal folds/not ejected Thin Liquid via small single sip from cup Chin tuck Result: 3= enters airways/above vocal folds/not ejected Thin Liquid via small single sip from cup Other cued breath hold prior to swallow Result: 3= enters airways/above vocal folds/not ejected Thin Liquid via small single sip from cup Supraglottic swallow Result: 2= enter airway/above vocal folds/ejected [place] Thick Liquid via small single sip from cup Double swallow Result: 1= does not enter airway Thin Liquid via teaspoon Trial 3 Result: 1= does not enter airway - Oral Phase Labial Seal: No Labial Escape Tongue Control During Bolus Hold: Posterior escape of less than half of bolus Bolus Preparation/Mastication: Timely and efficient chewing and mashing Bolus Transport/Lingual Motion: Delayed initiation of tongue motion Oral Residue: Trace residue lining oral structures - Pharyngeal Phase Initiation of Pharyngeal Swallow: Bolus head in pyriforms Soft Palate Elevation: No bolus between soft palate and pharyngeal wall Laryngeal Elevation: Partial superior movement thyroid cart/partial apprx aryt-epig petiole Anterior Hyoid Excursion: Complete anterior movement Epiglottic Movement: Complete inversion Laryngeal Vestibule Closure at Height of Swallow: Incomplete; narrow column of air/contrast in laryngeal vestibule Pharyngeal Stripping Wave: Present - complete Pharyngoesophageal Segment Opening: Parital distension and partial duration; parital obstruction of flow Tongue Base Retraction: Narrow column of contrast between tongue base & post. pharyngeal wall Pharyngeal Residue: Collection of residue within or on pharyngeal structures - Esophageal Phase Esophageal Clearance: Complete clearance - Treatment Strategies Effects of treatment strategies attemped:: Effortful swallow = not effective. Decreased bolus size (tsp sips) = effective. Chin tuck = not effective. Supraglottic swallow = effective. Double swallow = effective. - Diagnosis/Impression Diagnosis: Mild oropharyngeal phase dysphagia (R13.12) Impression: The oral phase is marked by mild deficits in bolus control. He demonstrated premature posterior loss of bolus to the pyriforms before the swallow, resulting in suboptimal bolus placement upon swallow onset. The pharyngeal phase is primarily marked by decreased airway closure. He demonstrates decreased laryngeal elevation during the swallow. He also has mild pharyngeal residues after the swallow due to decreased tongue base retraction and decreased UES opening/duration. He demonstrated consistent laryngeal penetration of cup or straw sips of thin liquids that did not reliably eject from the laryngeal vestibule. He intermittently demonstrated a delayed cough with consumption of liquids. No aspiration observed during the study; however, the patient is at high risk to aspirate contrast remaining in the laryngeal vestibule after the swallow. - Recommendations Diet: Regular Textures, Thin Liquids Compensatory Strategies: Small Bites, Liquid by Teaspoon Only, Slow Rate, Multiple Swallows - Double swallows on each sip, Sitting upright Recommend Repeat Modified Barium Swallow: Yes - Will recommend repeat MBS study 4-8 weeks after implementation of oropharyngeal exercise program. Need for Skilled Speech Therapy Services: Yes Comment: Will recommend the patient for outpatient dysphagia therapy to address deficits in oropharyngeal swallow function. Would consider the patient for oropharyngeal strengthening to improve laryngeal elevation, swallow onset, and tongue base retraction (Whitney, Arpan, CTAR, Effortful breath hold and swallow). Consider implementation of supraglottic swallows to consume thin liquids via cup. The patient would benefit from thorough education regarding diet recommendations and recommended compensatory strategies. Would consider the patient for implementation of [place] Free Water Protocol (FFWP) to encourage hydration as tsp sips of thin liquids may negatively impact hydration. Education Completed: 1. Described result of evaluation., 7. Pt requires further education on strategies & risks. - Status Active ST Patient: Active - Contact Information [facility] Speech Therapy:: Stacey Hodge M.A. CCC-FLIGHT ATTENDANT RAMP Speech-Language Pathologist [facility] [address] [place] [address] [email or web address] [phone] 08/06/21 17:06 08/06/21 1714 <Electronically signed by Stacey Hodge M.A., CCC-FLIGHT ATTENDANT RAMP> Date/Time
--- NOTE | 2021-08-09 16:37 | HP.SP.AD_ITS ---
History - History Date of Eval: 08/09/21 Medical Diagnosis (from RX): Right lower lobe pneumonia (J18.9) Date of Onset of Diagnosis: Has been ongoing since February 2020 Previous speech therapy: Yes Results: MBSS -- see report below. Other Relevant Medical History/Diagnoses/Surgery: PAOLA POWERS is a 46 year old male who presents to [facility] outpatient speech therapy for a dysphagia evaluation. Pt recently hospitalized on 08/04/21 and received a modified barium swallow study (MBSS) on 08/06/21 d/t concerns for silent aspiration which could be contributing to Pt?s recurring RLL PNA. Pt has a PMHx of COPD and Tobacco use. Pt has a ?history of at least 5 rounds of antibiotic therapies w02/2021 Dr. [facility] evaluation w/ PFTs and CT chest with levaquin treatment at that time but he never followed up with ongoing RLL PNA and cough with repeat evaluations at UC/PCP with repeat abx treatments but no PNA follow-up when he feels improved. Has had ongoing intermittent productive cough of yellow-green sputum. He does state he has had no fevers or chills specifically but has had a weight loss and notes that over the last several weeks has had a 10 pound weight loss but this certainly could be because of oral intake decrease when he does not feel good? all per hospital notes chart review. The MBSS completed during this hospitalization rx regular solids and thin liquids via tsp only with consideration for Acosta Free Water Protocol. See note below for more specific aspiration precautions recommended following the MBSS. 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 Subjective Dysphagia - Symptoms Reported Symptoms/Problems with: Hx of Pneumonia Other: 6x since February 2020 - Current Diet Solids Current Diet: Regular - Current Diet Liquids Current Liquids: Thin Other: by tsp size only Acosta free water Protocol: Yes Objective Dysphagia - Administered by Administered by: Self - Thin Liquids Administred via: Cup Comments: Pt reporting utilizing cup sips at home no larger than the size of the tsp so that is how he trialed thin liquids today. Pt successful in implementing a cough/re-swallow approach following each sip of thin liquids independently. Pt's sip size is appropriate. - Regular Comments: Pt with no overt s/sx of penetration/aspiration following multiple trials of regular solids. Pt with functional mastication, bolus manipulation and timely AP transfer across all trials. Pt benefiting from thin liquid rinse to reduce stasis and suspected pharyngeal residue. - Results Swallowing Within Normal Limits: No Swallowing Diagnosis: Oropharyngeal Phase Dysphagia Additional: per MBSS Severity: Mild Modified Barium Results Hx MBS Report Entered: Yes MBS Results (from prior exam): 08/09/21 15:29 Speech Therapy by Guerline Alcantara [facility] Speech Pathology [address] [place] [address] Modified Barium Swallow Study MR#: [id number] Acct: [id number] Name: PAOLA POWERS Marcelino Rep #:[id number] : 1975 46 From: Stacey Buitrago, [facility]-PRINCIPAL STRATEGIST Modified Barium Swallow - Patient Information Study Date: 08/06/21 Study Time: 13:30 Direct Billable Minutes: 60 Total Minutes procedure & reportin Diagnosis: Right lower lobe pneumonia (J18.9) Referring Physician: Dania Barrios Reason for Referral: Objectively assess swallow function, risk for aspiration, and determine recommendations for least restrictive diet textures and compensatory strategies to improve safety of swallow. Medical History: The patient is a 46 y/o M w/ PMHx: COPD, Tobacco use, recent RLL PNA diagnosis who presented to the [facility] ED on 08/04/21. He reports having pneumonia at least 5X since February 2021. Chest CTA revealed multifocal infiltrate in RLL. Pt admitted for management of acute RLL PNA. He was evaluated by speech therapy at bedside and recommended for regular textures / thin liquids with referral for participation in MBS study to rule out risk for silent aspiration due to recurrent pneumonia. Current Diet Ordered: Regular Textures / Thin Liquids Dentition: WNL Mental Status: WNL Respiratory Status: Oxygenating on Room Air - Penetration-Aspiration Scale Penetration-Aspiration Scale: OBJECTIVE ASSESSMENT OF SWALLOW FUNCTION (QUANTITATIVE ? PER TRIAL): PENETRATION / ASPIRATION SCALE (PARKER): 1 = does not enter airway 2 = enters airway/above vocal folds/ejected 3 = enters airway/above vocal folds/not ejected 4 = enters airway/contacts vocal folds/ejected 5 = enters airway/contacts vocal folds/not ejected 6 = enters airway/below vocal folds/ejected 7 = enters airway/below vocal folds/not ejected despite effort 8 = enters airway/below vocal folds/no effort VIDEOFLOROSCOPIC SCALE SCORE (PARKER): Grade I = aspiration of material that has penetrated into the laryngeal vestibule, intact cough reflex Grade II = aspiration < 10 % of the bolus, intact cough reflex Grade III = aspiration of < 10 % of the bolus, reduced cough reflex or aspiration of > 10 % of the bolus, intact cough reflex Grade IV = aspiration of > 10 % of the bolus, reduced cough reflex - Penetration-Aspiration Scale Score Thin Liquid via teaspoon Result: 1= does not enter airway Thin Liquid via teaspoon Trial 2 Result: 1= does not enter airway Thin Liquid via small single sip from cup Result: 3= enters airways/above vocal folds/not ejected Thin Liquid via small single sip from cup Trial 2 Result: 2= enter airway/above vocal folds/ejected Thin Liquid via sequential sips from cup Result: 3= enters airways/above vocal folds/not ejected [place] Thick Liquid via small single sip from cup Result: 1= does not enter airway Honey Thick Liquid via small single sip from cup Result: 1= does not enter airway Pudding Result: 1= does not enter airway Cookie Result: 1= does not enter airway Thin Liquid via single sip from straw Result: 2= enter airway/above vocal folds/ejected Thin Liquid via sequential sips from straw Result: 3= enters airways/above vocal folds/not ejected Thin Liquid via small single sip from cup Effortful swallow Result: 3= enters airways/above vocal folds/not ejected Thin Liquid via small single sip from cup Chin tuck Result: 3= enters airways/above vocal folds/not ejected Thin Liquid via small single sip from cup Other cued breath hold prior to swallow Result: 3= enters airways/above vocal folds/not ejected Thin Liquid via small single sip from cup Supraglottic swallow Result: 2= enter airway/above vocal folds/ejected [place] Thick Liquid via small single sip from cup Double swallow Result: 1= does not enter airway Thin Liquid via teaspoon Trial 3 Result: 1= does not enter airway - Oral Phase Labial Seal: No Labial Escape Tongue Control During Bolus Hold: Posterior escape of less than half of bolus Bolus Preparation/Mastication: Timely and efficient chewing and mashing Bolus Transport/Lingual Motion: Delayed initiation of tongue motion Oral Residue: Trace residue lining oral structures - Pharyngeal Phase Initiation of Pharyngeal Swallow: Bolus head in pyriforms Soft Palate Elevation: No bolus between soft palate and pharyngeal wall Laryngeal Elevation: Partial superior movement thyroid cart/partial apprx aryt- epig petiole Anterior Hyoid Excursion: Complete anterior movement Epiglottic Movement: Complete inversion Laryngeal Vestibule Closure at Height of Swallow: Incomplete; narrow column of air/contrast in laryngeal vestibule Pharyngeal Stripping Wave: Present - complete Pharyngoesophageal Segment Opening: Parital distension and partial duration; parital obstruction of flow Tongue Base Retraction: Narrow column of contrast between tongue base & post. pharyngeal wall Pharyngeal Residue: Collection of residue within or on pharyngeal structures - Esophageal Phase Esophageal Clearance: Complete clearance - Treatment Strategies Effects of treatment strategies attemped:: Effortful swallow = not effective. Decreased bolus size (tsp sips) = effective. Chin tuck = not effective. Supraglottic swallow = effective. Double swallow = effective. - Diagnosis/Impression Diagnosis: Mild oropharyngeal phase dysphagia (R13.12) Impression: The oral phase is marked by mild deficits in bolus control. He demonstrated premature posterior loss of bolus to the pyriforms before the swallow, resulting in suboptimal bolus placement upon swallow onset. The pharyngeal phase is primarily marked by decreased airway closure. He demonstrates decreased laryngeal elevation during the swallow. He also has mild pharyngeal residues after the swallow due to decreased tongue base retraction and decreased UES opening/duration. He demonstrated consistent laryngeal penetration of cup or straw sips of thin liquids that did not reliably eject from the laryngeal vestibule. He intermittently demonstrated a delayed cough with consumption of liquids. No aspiration observed during the study; however, the patient is at high risk to aspirate contrast remaining in the laryngeal vestibule after the swallow. - Recommendations Diet: Regular Textures, Thin Liquids Compensatory Strategies: Small Bites, Liquid by Teaspoon Only, Slow Rate, Multiple Swallows - Double swallows on each sip, Sitting upright Recommend Repeat Modified Barium Swallow: Yes - Will recommend repeat MBS study 4-8 weeks after implementation of oropharyngeal exercise program. Need for Skilled Speech Therapy Services: Yes Comment: Will recommend the patient for outpatient dysphagia therapy to address deficits in oropharyngeal swallow function. Would consider the patient for oropharyngeal strengthening to improve laryngeal elevation, swallow onset, and tongue base retraction (Whitney, Arpan, CTAR, Effortful breath hold and swallow). Consider implementation of supraglottic swallows to consume thin liquids via cup. The patient would benefit from thorough education regarding diet recommendations and recommended compensatory strategies. Would consider the patient for implementation of Acosta Free Water Protocol (FFWP) to encourage hydration as tsp sips of thin liquids may negatively impact hydration. Education Completed: 1. Described result of evaluation., 7. Pt requires further education on strategies & risks. - Status Active ST Patient: Active - Contact Information [facility] Speech Therapy:: Stacey Hodge M.A. CCC-PRINCIPAL STRATEGIST Speech-Language Pathologist [address] [address] [email or web address] [phone] 08/06/21 17:06 08/06/21 1714 <Electronically signed by Stacey Hodge M.A., [facility]-PRINCIPAL STRATEGIST> Date/Time Initialized on 08/09/21 15:29 - END OF NOTE Dysphagia Assessment - Impact Impact on Safety & Functioning: No Limitations - Recommendations Modified Barium Swallow/Cookie Swallow Recommended: Yes Swallowing Treatment: Yes - Diet Texture Recommendations Solids Other: Regular Liquids: Thin Acosta free water Protocol: Yes Other: Thin by tsp size sip unless drinking water between meals via implementing FFWP, then typical drink size is appropriate - no consecutive swallows. - Safety Saftey Precautions/Swallowing Recommendations (Check all that Apply): Upright Position at Least 30 Minutes After Meals, Small Sips & Bites when Eating, No Str aw, Multiple Swallows, Alternate Liquids & Solids - Compensatory Strategies Compensatory Strategies: Double Swallow, Cough after swallow Plan - Plan Plan: Will rx Pt for skilled outpatient tx to address mild deficits in oropharyngeal dysphagia. Pt would benefit from training and education re: p rocess of diet tolerance checks and swallowing exercises to aid in oropharyngeal strengthening. Without skilled intervention, Pt is at risk for recurrent aspiration pneumonia. - Recommendations MBS: Yes Treatment Warranted: Yes - Frequency Frequency: Monthly Duration: 2 Months Visits in this POC: 2-3 - Prognosis Prognosis: Excellent - Goals that are Established: Determination:: Goals will be added/modified as deemed necessary and appropriate. Therapy will be discontinued when results of re-evaluation indicate therapy is no longer needed or lack of progress has been documented. - Goal #1-5 Goal #1: Paola will utilize swallowing strategies (e.g., multiple swallows, cough+re-swallow, small sips) and tolerate least restrictive diet with no overt s/s of aspiration/penetration to aid in safe consumption of solid/liquids independently. Goal #2: Paola will complete oropharyngeal exercises for 10 reps, 3x/day independently to improve tongue base retraction, PES opening/distention, and hyolaryngeal elevation and excursion. Goal #3: Paola will participate in Modified Barium Swallow (MBS) study in approximately 4-8 weeks to objectively assess Pt's oropharyngeal swallow function to determine the least restrictive means of nutrition and progress from participating in pharyngeal strengthening exercises. Education - Patient has Indicated that the Following Identified Educational Needs: None The Patient has indicated that they have no educational or learning abilities that may effect their care.: Yes - Patient Instruction Patient Education: Diagnosis, Treatment Plan, Goals, Safety Precautions, Home Exercise Program Other Education: Extensive education provided re: swallowing function and cause/effect of silent aspiration. Direct education and handouts provided re: current rx diet and safety precautions when consuming mixed consistencies like milk+cereal, ice cream, grapes, etc. Provided Pt with education, demonstration, and handouts re: oropharyngeal strengthening exercises as well as Acosta Free Water Protocol and fielded all questions. Will plan to see Pt next week to follow up re: current diet rx and performance with swallowing exercises. Discussed getting an order for a repeat MBSS in 4-8 weeks. Person Taught: Patient Teaching Method: Discussion, Demonstration, Handout Response to teaching: Return demonstration, Verbalize understanding
--- NOTE | 2021-11-18 09:26 | HP.SP.DC_ITS ---
ST Discharge Summary - Discharged: Discharge: PAOLA WHITE is a 46 year old male who was seen for initial speech therapy dysphagia evaluation at [facility] on 08/09/21 secondary to dx of recurrent right lower lobe pneumonia (J18.9). Pt attended initial evaluation and 2 follow up appointments to discuss oropharyngeal and oral motor exercises to complete as a home program. Pt reporting Pt reported utilizing cough-reswallow for every drink/bite. Pt reported he had not been utilizing an additional swallow after the cough- reswallow d/t forgetting. Direct education provided re: reimplementing this during meals - Pt receptive to education. Pt reports doing well with the exercises religiously for a few weeks, but has since become more relaxed in completing them. Reports it is difficult with having to go to work. Pt says he will do them in the car sometimes. Encouraged cont'd use of the exercises prior to MBSS and increasing the reps or resistance as able. During the course of therapy Pt's PCP changed, so a second MBSS order was sent to Dr. Josi Vo's office, which was received back and sent to central scheduling. Discussed following Pt?s participation in follow-up MBSS in September Pt would return to therapy to discuss results and next steps. Per chart review, [facility] contacted Mr. White however the appointment was canceled. Pt is being d/c from OP speech therapy on this date d/t absence of follow-up and conducting the discussed POC. Thank you for allowing me to participate the care of your Pt. Will reevaluate at Pt?s request following script from physician and Pt?s participation in his home exercise program and follow-up MBSS.
== END 2021-09-16 19:00 | disposition home or self-care (01) ==
LOC: SP 09:00
PROVIDERS: PCP Internal Medicine; Referring Provider Family Medicine; Visit Provider Family Medicine
DX: J18.9 Pneumonia, unspecified organism (principal)
CPT/HCPCS: 92507; 92526; 92610

== ENCOUNTER 2021-10-09 12:16 | Emergency (ER) | payer OTHER, MEDICAID, SELFPAY ==
[2021-10-09] VITALS (7 sets, daily range): BP systolic 106–136; BP diastolic 66–99; PULSE 67–101; RESP 17–29; TEMP 37.2–38; O2SAT 96–98; BMI 21.9
--- NOTE | 2021-10-09 13:17 | RAD_ITS ---
STUDY: X-RAY CHEST REASON FOR EXAM: Male, 46 years old. Fever, productive cough TECHNIQUE: PA and lateral views of the chest. COMPARISON: Comparison is made with prior study dated 08/21/2021. FINDINGS: EKG electrodes are seen. There is hyperinflation of the lungs consistent with chronic obstructive lung disease (COPD). Persistent infiltrate in the right lower lobe. There has been mild improvement as compared to prior study. Blunting of the right costophrenic angle. Normal size heart. Normal mediastinum and manjeet. There is prominence of the pulmonary hilar arteries without peripheral pulmonary vascular congestion, suggesting pulmonary hypertension. Normal visualized aortic arch and descending thoracic aorta. Normal visualized thoracic spine. Normal visualized ribs, clavicles, and shoulders. There is no demonstrated abnormality of the visualized soft tissue structures of the upper abdomen. RAD/Chest PA and Lateral IMPRESSION: Persistent right lower lobe infiltrate with blunting of the right costo phrenic angle. There has been mild improvement as compared to prior study. Further follow-up is recommended. Hyperinflation. Prominence of the central pulmonary arteries. Electronically Signed: Jourdan Bush MD at 14:40 EDT ,
[2021-10-09 13:41] LABS: Absolute Lymphocyte Count 1.05 X10^3/uL (0.83-4.51); Absolute Neutrophil Count 11.3 X10^3/uL (2.0-7.7); Basophil# 0.06 X10^3/uL; Basophil% 0.4 % (0-1); Eosinophil# 0.04 X10^3/uL; Eosinophils% 0.3 % (0-5); Hematocrit 38.9 % (40-54); Hemoglobin 13.2 g/dL (13.0-16.5); Lymphocyte # 1.05 X10^3/ul (0.83-4.51); Lymphocyte % 7.9 % (19-41); Mean Corp Hgb Conc 33.9 g/dL (32-36); Mean Corpuscular Hgb 28.4 pg (27.0-32.0); Mean Corpuscular Volume 83.7 fL (80-94); Mean Platelet Vol. 9.6 fl (6.2-12.0); Monocyte# 0.81 X10^3/uL; Monocyte% 6.1 % (0-10); NRBC Flagged by Analyzer 0 % (0-5); Neutrophil # 11.33 X10^3/uL (2.7-7.7); Neutrophil % 84.9 % (47-70); Platelet Count 270 K/mm3 (150-450); RBC Distribution Width CV 14.1 % (11.6-14.6); RBC Distribution Width SD 43.5 fl (35.1-43.9); Red Blood Count 4.65 M/mm3 (4.6-6.2); White Blood Count 13.4 K/mm3 (4.4-11.0)
[2021-10-09 14:00] LABS: ALB/GLOB Ratio 0.8 RATIO (0.9-2.4); AST(SGOT) 10 U/L (15-37); Alanine Aminotransfer ALT/SGPT 16 U/L (16-61); Albumin, Serum 3.5 g/dL (3.2-5.0); Alkaline Phosphatase 78 U/L (45-117); Anion Gap 9 (5-15); BUN 11 mg/dL (7-18); BUN/Creat Ratio 12.7 RATIO (10-20); Chloride 101 mmol/L (98-107); Creatinine, Serum 0.87 mg/dL (0.70-1.30); EST Glomerular Filtration Rate 100 mL/min (>60); Est Glom Filt Rate - Afr Amer 121 mL/min (>60); Estimated Creatinine Clearance 106.15 ml/min; Globulin 4.2 g/dL (2.2-4.2); Glucose 108 mg/dL (74-106); Potassium 3.8 mmol/L (3.5-5.1); Protein, Total 7.7 g/dL (6.4-8.2); Sodium Level 135 mmol/L (136-145)
[2021-10-09 14:07] LABS: Lactic Acid 1.4 mmol/L (0.4-1.9)
--- NOTE | 2021-10-09 14:08 | EDS_ITS ---
HPI History of Present Illness Chief Complaint: Shortness of Breath Detail of Chief Complaint: Patient presents because of shortness of breath and hemoptysis Informant: patient Onset/Context/Timing Onset: Today Context: sudden Timing: Continuous (Shortness of breath has been continuous. Hemoptysis has been intermittent) Quality: Positive for Dyspnea on exertion; Negative for Orthopnea, PND and Wheezing Current Severity: Mild Maximum Severity: Moderate Worsened by: Exertion and Coughing Relieved by: Nothing Associated Symptoms cough, green sputum and other Chest Pain: Positive for None Narrative Narrative: Patient is a 46-year-old male who is a smoker. He has history of COPD. He is scheduled to see Dr. Cason for bronchoscopy because of recurrent pneumonia since 2019. He has had recurrent right lower lobe pneumonia. He denies history of PE or DVT. He denies leg pain, swelling discoloration. He was unaware that he had a fever. Initial temperature was 100.4. Repeat is 100.1. He denies headache, visual, ocular auditory symptoms. He denies congestion or rhinorrhea. He denies sore throat. Nuys change in voice. He denies GI symptoms. He denies symptoms. PE Risk Factors: Negative for Cancer, OCP + Smoking + > 35, Prior DVT or PE, Recent immobilization, Recent surgery and Recent travel Prior similar symptoms: Yes (Pneumonia) Recent Illness/Hospitalization: No PFSH PFSH Medical History COPD (chronic obstructive pulmonary disease) Pleural effusion, right Right lower lobe pneumonia Tobacco use Home Medications Anoro Ellipta 1 ea INHALATION DAILY 08/04/21 [History Last Taken 10/09/21] Nebulizer #1 ea 08/12/21 [Rx Last Taken Unknown] ipratropium 0.5 mg-albuterol 3 mg (2.5 mg base)/3 mL nebulization soln 3 ml INHALATION Q4H PRN PRN #180 ml 08/12/21 [Rx Last Taken Unknown] albuterol sulfate 90 mcg/actuation aerosol inhaler 2 puff INHALATION Q4H PRN PRN #8.5 g 08/19/21 [Rx Last Taken 10/09/21 07:00] levofloxacin 750 mg PO DAILY #6 tab 10/09/21 [Rx Last Taken Unknown] Allergy/AdvReac Type Severity Reaction Status Date / Time amoxicillin Allergy Unknown Verified 10/09/21 12:17 Penicillins AdvReac Unknown unknown Verified 10/09/21 12:17 Family History Father COPD (chronic obstructive pulmonary disease) Heart disease Hypertension Diabetes CHF (congestive heart failure) Mother CAD (coronary artery disease) Myocardial infarction Hypertension Surgical History No history of previous surgery Social History household members: spouse Smoking Status: Current every day smoker tobacco type: cigarettes alcohol intake: never substance use type: does not use what 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 ROS ED Constitutional Constitutional ED: Reports sweats; Denies chills, fever(s) or weight loss Eyes Eyes: Denies blurry vision or change in vision ENT ENT ED: Denies ear pain, rhinorrhea or sore throat Cardiovascular Cardiovascular: Denies chest pain, orthopnea, palpitations or paroxysmal nocturnal dyspnea Respiratory/Chest Respiratory/Chest: Reports cough, dyspnea, dyspnea on exertion and sputum; Denies orthopnea or paroxysmal nocturnal dyspnea Gastrointestinal Gastrointestinal: Denies abdominal pain, diarrhea, nausea or vomiting Genitourinary Genitourinary ED: Denies dysuria, hematuria or urinary frequency Musculoskeletal Musculoskeletal: Denies arthralgias, back pain, myalgias or neck pain Integumentary Denies rash Neurologic Neurologic: Denies headache(s), paresthesias or weakness Endocrine Endocrinology: Denies polydipsia, polyphagia or polyuria Hematologic/Lymphatic Hematologic/Lymphatic: Denies easy bleeding or easy bruising EXAM Physical Exam Const Vital Signs: 10/09/21 12:17 10/09/21 12:20 10/09/21 13:09 Temperature 100.4 F H 100.4 F H 100.1 F H Temperature Source Temporal Temporal Oral Pulse Rate 101 H 101 H 89 Respiratory Rate 17 17 26 H Respiratory Effort Normal Respiratory Depth Normal Respiratory Pattern Tachypnea Blood Pressure 136/99 H 136/99 H 125/79 H Blood Pressure Mean 111 111 94 Pulse Ox 96 96 97 Oxygen Delivery Method Room Air Room Air Room Air 10/09/21 13:16 10/09/21 14:00 Temperature 100.1 F H 99.0 F Temperature Source Oral Oral Pulse Rate 89 67 Respiratory Rate 26 H 19 H Respiratory Effort Respiratory Depth Respiratory Pattern Blood Pressure 125/79 H 118/70 Blood Pressure Mean 94 86 Pulse Ox 97 97 Oxygen Delivery Method Room Air Room Air Positive well nourished and well developed General Appearance ED: well developed and other Patient appears slightly diaphoretic and he is tachypneic. He is not hypoxic. ; Negative for NAD or pallor HEENT Reports TM's clear and moist mucous membranes HEENT Narrative: Uvula is midline. There is no erythema or exudate the post erior pharynx. There is no evidence of epistaxis. atraumatic Tympanic Membrane ED: Yes TM's clear Eyes PERRL and EOMs intact bilaterally General Eye ED: Negative for pale conjunctiva or scleral icterus Neck no lymphadenopathy, supple, no meningeal signs and no JVD Resp No normal respiratory effort and No clear to auscultation bilaterally Effort and Inspection: Negative for pain with movement Auscultation: rales right lower (With increased vocal fremitus and egophony noted); Negative for rhonchi or wheezes Cardio regular rate, regular rhythm, S1 normal heart sound, S2 normal heart sound and no murmurs GI non-tender, non-distended and no masses Auscultation: normoactive bowel sounds Palpation: soft Back/Spine no CVA tenderness and normal to inspection Extremity normal to inspection Extremity Narrative: There is no asymmetry, swelling, discoloration, leg vein distention, palpable cords or tenderness along the distribution of the deep venous system. General Extremety ED: Negative for edema or tenderness General Extremity: Negative for edema Neuro oriented x3, CN's II-XII intact bilaterally and no sensory deficits noted [place] Coma Scale: document GCS findings Spontaneous Obeys Commands Oriented 15 Sensorium / Orientation: alert Psych mental status grossly normal Thought Process: normal thought process Skin no wounds and skin turgor normal General Skin Exam: Negative for jaundice or pallor Lesions: no lesions Rashes: no rashes MDM MDM MDM Narrative Medical decision making narrative: Clinically patient has right lower lobe pneumonia. Will obtain chest x-ray to confirm suspicion. Since he is febrile tachypneic will obtain blood work. Sepsis work-up was initiated. Since patient has elevated white count with fever and right lower lobe infiltrate and allergy to amoxicillin penicillin he was treated with levofloxacin. Based on the curb 65 score and heart score patient is appropriate for outpatient therapy. He was discharged prescription for levofloxacin. Lab Data Attestation: I reviewed the patient's lab results. Lab results narrative: White count is elevated. Comprehensive metabolic panel is unremarkable. Lactate is normal. Labs: Laboratory Results - last 24 hr 10/09/21 10/09/21 10/09/21 13:35 13:35 13:35 WBC 13.4 H RBC 4.65 Hgb 13.2 Hct 38.9 L MCV 83.7 MCH 28.4 MCHC 33.9 RDW Std Deviation 43.5 RDW Coeff of Chiquita 14.1 Plt Count 270 MPV 9.6 Immature Gran % (Auto) 0.400 Neut % (Auto) 84.9 H Lymph % (Auto) 7.9 L [place] % (Auto) 6.1 Eos % (Auto) 0.3 Baso % (Auto) 0.4 Absolute Neuts (auto) 11.3 H Absolute Lymphs (auto) 1.05 Nucleated RBC % 0 Sodium 135 L Potassium 3.8 Chloride 101 Carbon Dioxide 25.0 Anion Gap 9 BUN 11 Creatinine 0.87 Estim Creat Clear Calc 106.15 Est GFR (MDRD) Af Amer 121 Est GFR (MDRD) Non-Af 100 BUN/Creatinine Ratio 12.7 Glucose 108 H Lactic Acid 1.4 Calcium 9.0 Total Bilirubin 0.60 AST 10 L ALT 16 Alkaline Phosphatase 78 Total Protein 7.7 Albumin 3.5 Globulin 4.2 Albumin/Globulin Ratio 0.8 L Radiography Chest X-Ray - ED: 2 View and Read by ED Physician (Chest x-ray was independently reviewed by me and reveals a right lower lobe infiltrate. Cardiac silhouette and size normal. Osseous structures normal. Perihilar region normal.) Diagnostic Testing: Clinical Impression(s) from Imaging Studies Chest X-Ray 10/09/21 13:17 IMPRESSION: Persistent right lower lobe infiltrate with blunting of the right costo phrenic angle. There has been mild improvement as compared to prior study. Further follow-up is recommended. Hyperinflation. Prominence of the central pulmonary arteries. Electronically Signed: Jourdan Bush MD at 14:40 EDT , Discharge Plan Triage Chief Complaint: Shortness of Breath ED Provider: Fahad Maxwell Dx/Rx/DC Orders Clinical Impression: Right lower lobe pneumonia, Fever Instructions: ED Pneumonia (Adult) Prescriptions: New levofloxacin 750 mg tablet 750 mg PO DAILY Qty: 6 RF: 0 No Action albuterol sulfate 90 mcg/actuation HFA aerosol inhaler 2 puff INHALATION Q4H PRN PRN (Reason: Shortness Of Breath Or Wheezing) Qty: 8.5 RF: 6 Anoro Ellipta 62.5-25 mcg/actuation blister with device 1 ea INHALATION DAILY RF: 0 ipratropium-albuterol 0.5 mg-3 mg(2.5 mg base)/3 mL solution for nebulization 3 ml inhalation Q4H PRN PRN (Reason: SOB &/OR WHEEZING) Qty: 180 RF: 6 (DME) Nebulizer See Rx Instructions .ROUTE .MEDSUPPLY Qty: 1 RF: 0 Primary Care Provider: Josi Vo Referrals: Josi Vo MD [Primary Care Provider] - Disposition Disposition: Home, Self Care
[2021-10-09] MEDS: levoFLOXacin IV 750 MG/150 ML BAG 100 MG IV (14:37)
== END 2021-10-09 16:26 | disposition home or self-care (01) ==
PROVIDERS: Emergency Provider Emergency Medicine; PCP Internal Medicine; Visit Provider Emergency Medicine
DX: J18.9 Pneumonia, unspecified organism (principal); J44.9 Chronic obstructive pulmonary disease, unspecified; F17.210 Nicotine dependence, cigarettes, uncomplicated
CPT/HCPCS: 71046; 80053; 83605; 85025; 87040; 96365; 99283

== ENCOUNTER → 2021-11-14 | Outpatient (CLI) | payer OTHER, MEDICAID, SELFPAY ==
[2021-11-14 11:59] LABS: Absolute Lymphocyte Count 1.34 X10^3/uL (0.83-4.51); Absolute Neutrophil Count 6.4 X10^3/uL (2.0-7.7); Basophil# 0.03 X10^3/uL; Basophil% 0.4 % (0-1); Eosinophil# 0.16 X10^3/uL; Eosinophils% 1.9 % (0-5); Hematocrit 41.1 % (40-54); Hemoglobin 13.5 g/dL (13.0-16.5); Lymphocyte # 1.34 X10^3/ul (0.83-4.51); Lymphocyte % 15.8 % (19-41); Mean Corp Hgb Conc 32.8 g/dL (32-36); Mean Corpuscular Hgb 28.6 pg (27.0-32.0); Mean Corpuscular Volume 87.1 fL (80-94); Mean Platelet Vol. 10.2 fl (6.2-12.0); Monocyte# 0.51 X10^3/uL; NRBC Flagged by Analyzer 0 % (0-5); Neutrophil # 6.42 X10^3/uL (2.7-7.7); Neutrophil % 75.7 % (47-70); Platelet Count 253 K/mm3 (150-450); RBC Distribution Width CV 13.9 % (11.6-14.6); RBC Distribution Width SD 44.6 fl (35.1-43.9); Red Blood Count 4.72 M/mm3 (4.6-6.2); White Blood Count 8.5 K/mm3 (4.4-11.0)
[2021-11-14 12:15] LABS: PSA,Total - Annual Screen 5.37 ng/mL (0.00-4.00)
[2021-11-14 13:12] LABS: ALB/GLOB Ratio 0.8 RATIO (0.9-2.4); AST(SGOT) 10 U/L (15-37); Alanine Aminotransfer ALT/SGPT 15 U/L (16-61); Albumin, Serum 3.4 g/dL (3.2-5.0); Alkaline Phosphatase 79 U/L (45-117); Anion Gap 5 (5-15); BUN 12 mg/dL (7-18); BUN/Creat Ratio 14.1 RATIO (10-20); Calcium,Total 9.1 mg/dL (8.5-10.1); Chloride 104 mmol/L (98-107); Creatinine, Serum 0.85 mg/dL (0.70-1.30); EST Glomerular Filtration Rate 102 mL/min (>60); Est Glom Filt Rate - Afr Amer 124 mL/min (>60); Globulin 4.4 g/dL (2.2-4.2); Glucose 99 mg/dL (74-106); Potassium 4.4 mmol/L (3.5-5.1); Protein, Total 7.8 g/dL (6.4-8.2); Sodium Level 138 mmol/L (136-145)
== END | disposition home or self-care (01) ==
LOC: BIMLAB 08:39
PROVIDERS: PCP Internal Medicine; Referring Provider Physician Assistant; Visit Provider Physician Assistant
DX: R91.8 Other nonspecific abnormal finding of lung field (principal); J90 Pleural effusion, not elsewhere classified; J18.9 Pneumonia, unspecified organism; R05.9 Cough, unspecified; R06.00 Dyspnea, unspecified; E55.9 Vitamin D deficiency, unspecified; Z12.5 Encounter for screening for malignant neoplasm of prostate; Z20.822 Contact with and (suspected) exposure to COVID-19
CPT/HCPCS: 36415; 80053; 82306; 84153; 85025; 87635; G0103; U0003; U0005

== ENCOUNTER → 2021-11-29 | Outpatient (CLI) | payer OTHER, MEDICAID, SELFPAY ==
--- NOTE | 2021-11-29 06:41 | CT_ITS ---
STUDY: CT CHEST WITHOUT CONTRAST REASON FOR EXAM: Male, 46 years old. Concern for bronchiectasis -- Please include HRCT images RADIATION DOSAGE (If Supplied By Facility): CTDIvol = ( 5.46 ) mGy, DLP = ( 231.11 ) mGycm TECHNIQUE: Transaxial imaging was performed without the administration of intravenous contrast material. Multiplanar coronal and sagittal images were reformatted. Individualized dose optimization techniques were used for this CT. COMPARISON: Comparison is made with prior study dated 08/04/2021. FINDINGS: CHEST Hyperinflation. Emphysematous changes with bullous formation worse in the upper lobes more prominent on the right side. There is volume loss in the right lower lobe with dense consolidation and cystic changes suggestive of a bronchiectasis. This has improved as compared to prior study. The lobular type of carcinoma cannot be excluded. Bronchoscopy or biopsy recommended. Normal heart and pericardium. No coronary artery calcification is seen. There are multiple small lymph nodes within the mediastinum, which are normal in size and morphology most compatible with reactive lymph hyperplasia. Slightly enlarged right hilar lymph node although this measures 12 mm. Normal unenhanced pulmonary arteries. Normal aorta arch and descending thoracic aorta. Normal osseous structures. There is no demonstrated abnormality of the visualized upper abdomen. CT/Chest without Contrast IMPRESSION: Diffuse emphysematous changes worse in the upper lobes with bullous formation more prominent in the right lung apex. Persistent heterogeneous consolidation in the right lower lobe with volume loss. There is evidence of air bronchograms and probable bronchiectasis. Lobular carcinoma should be ruled out. There has been improvement as compared to prior study. Electronically Signed: Jourdan Bush MD at 8:15 EDT ,
== END | disposition home or self-care (01) ==
LOC: CT 06:40
PROVIDERS: PCP Internal Medicine; Referring Provider Internal Medicine Critical Care Medicine; Visit Provider Internal Medicine Critical Care Medicine
DX: J18.9 Pneumonia, unspecified organism (principal)
CPT/HCPCS: 71250

== ENCOUNTER → 2022-02-12 | Outpatient (CLI) | payer OTHER, MEDICAID, SELFPAY ==
--- NOTE | 2022-02-14 08:26 | PFT ---
INTRODUCTION: The patient is a 46-year-old male that presents for pulmonary function studies secondary to a diagnosis of COPD. Respiratory therapy reported good patient effort. Bronchodilators were used during testing. INTERPRETATION: Forced expiration spirometry demonstrates the presence of a moderate large airways obstructive ventilatory defect. There was technically no significant response to aerosolized bronchodilators. Spirograms are of good quality but do not plateau indicating slow emptying of the lungs. Body plethysmography was performed and revealed an elevated RV to 145% of predicted, indicative of underlying air trapping. Diffusing capacity by single breath CO is within normal limits. IMPRESSION: Irreversible moderate large airways obstructive ventilatory defect with associated air trapping and preserved diffusing capacity.
== END | disposition home or self-care (01) ==
LOC: PSN 07:01
PROVIDERS: PCP Internal Medicine; Referring Provider Internal Medicine Critical Care Medicine; Visit Provider Internal Medicine Critical Care Medicine
DX: J18.9 Pneumonia, unspecified organism (principal)
CPT/HCPCS: 94060; 94726; 94729

== ENCOUNTER 2022-03-22 20:07 | Emergency (ER) | payer OTHER, MEDICAID, SELFPAY ==
[2022-03-22 20:09] VITALS: BP 159/89; PULSE 105; RESP 14; TEMP 37.4; O2SAT 95; BMI 20.3
[2022-03-22 20:13] VITALS: O2SAT 95
--- NOTE | 2022-03-22 20:31 | EKG12_ITS ---
Test Reason : SOB Blood Pressure : / mmHG Vent. Rate : 087 BPM Atrial Rate : 087 BPM P-R Int : 126 ms QRS Dur : 096 ms QT Int : 348 ms P-R-T Axes : 073 067 062 degrees QTc Int : 418 ms Normal sinus rhythm Normal ECG Confirmed by AARON GARCIA, JUVENTINO ([id number]), editorial specialist MAGDA MCINTYRE ([id number]) on 03/25/2022 11:10:06 AM Referred By: Confirmed By:JUVENTINO WALKER MD
--- NOTE | 2022-03-22 20:32 | EDS_ITS ---
HPI History of Present Illness Chief Complaint: Shortness of Breath Informant: patient and spouse/S.O. Associated Symptoms cough Narrative Narrative: Patient presents with some increasing cough and dyspnea. This all started over the last 2 days. He is also had fevers chills and some myalgias. No real sore throat. No nausea vomiting diarrhea. Patient states he is had problems with pneumonia mostly in the right lower lobe. He had pneumonia every few months for about a year. He then was admitted in July and had pneumonia right lower lobe. They have been following this ever since. He just had a CAT scan of his chest this morning that showed some worsening. I reviewed prior cultures and I am not seeing positive cultures. PFSH PFSH Medical History COPD (chronic obstructive pulmonary disease) Pleural effusion, right Right lower lobe pneumonia Tobacco use Home Medications umeclidinium 62.5 mcg-vilanterol 25 mcg/actuation powdr for inhalation (Anoro Ellipta) 1 ea inhalation DAILY 08/04/21 [History Last Taken 10/09/21] Nebulizer #1 ea 08/12/21 [Rx Last Taken Unknown] levofloxacin 750 mg tablet 750 mg PO DAILY #6 tabs 03/22/22 [Rx Last Taken Unknown] Allergy/AdvReac Type Severity Reaction Status Date / Time amoxicillin Allergy Unknown Verified 03/22/22 20:08 Penicillins AdvReac Unknown unknown Verified 03/22/22 20:08 Family History Father COPD (chronic obstructive pulmonary disease) Heart disease Hypertension Diabetes CHF (congestive heart failure) Mother CAD (coronary artery disease) Myocardial infarction Hypertension Surgical History No history of previous surgery Social History household members: spouse Smoking Status: Current every day smoker tobacco type: cigarettes Tobacco: How many years used: 31 how long ago did patient quit smoking: Smoke 1ppd x 30 yrs, 1/2ppd x 1yr (2021) alcohol intake: never substance use type: does not use what 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 ROS ED Constitutional Constitutional ED: Reports chills and fever(s) Eyes Eyes: Denies diplopia ENT ENT ED: Reports rhinorrhea; Denies sore throat Cardiovascular Cardiovascular: Denies chest pain Respiratory/Chest Respiratory/Chest: Reports cough, dyspnea and sputum Gastrointestinal Gastrointestinal: Denies diarrhea, nausea or vomiting Genitourinary Genitourinary ED: Denies hematuria Musculoskeletal Musculoskeletal: Reports arthralgias and myalgias Integumentary Denies rash Neurologic Neurologic: Denies headache(s) Endocrine Endocrinology: Denies polydipsia or polyuria Hematologic/Lymphatic Hematologic/Lymphatic: Denies easy bleeding or easy bruising Allergic/Immunologic Allergic/Immunologic ED: Denies urticaria EXAM Physical Exam Const Vital Signs: 03/22/22 20:09 03/22/22 20:13 03/22/22 20:16 Temperature 99.3 F H Temperature Source Temporal Pulse Rate 105 H Respiratory Rate 14 Respiratory Effort Normal Non-Labored Respiratory Depth Normal Respiratory Pattern Tachypnea Blood Pressure 159/89 H Blood Pressure Mean 112 Pulse Ox 95 95 Oxygen Delivery Method Room Air Room Air Room Air 03/22/22 21:18 03/22/22 23:00 03/22/22 22:07 Temperature 100.6 F H 100.7 F H Temperature Source Oral Oral Pulse Rate 89 94 85 Respiratory Rate 30 H 30 H 36 H Respiratory Effort Respiratory Depth Respiratory Pattern Blood Pressure 122/79 H 124/70 H 124/77 H Blood Pressure Mean 93 88 92 Pulse Ox 92 93 94 Oxygen Delivery Method Room Air Room Air Room Air Positive well nourished and well developed General Appearance ED: well developed and NAD HEENT Reports moist mucous membranes Eyes General Eye ED: Negative for pale conjunctiva or scleral icterus Neck no lymphadenopathy Resp normal respiratory effort Resp Narrative: Breathing effort looks normal and his saturations are good. However, he has very coarse breath sounds at the right base. Auscultation: rhonchi Cardio regular rate and regular rhythm GI non-tender and non-distended Palpation: soft Back/Spine no CVA tenderness Extremity normal to inspection General Extremety ED: Negative for edema or tenderness General Extremity: Negative for edema Neuro oriented x3 Psych mental status grossly normal Skin no wounds Lesions: no lesions MDM MDM MDM Narrative Medical decision making narrative: Patient has normal white count and CBC. Electrolytes are generally unremarkable other than minimally low sodium. Lactate is normal. I reviewed both the images and the CT done this morning. He does show increased consolidation at the base on the right. This is the exact same area that is been involved before. However, the patient now has fever and cough with some sputum. He has recurrent infections. A bronchoscopy has not yet been done but evidently they are planning to do this and may even do it on 14 April. It certainly possible he may have some obstructive lesion causing recurrent symptoms. However we do need to treat this with antibiotics with the increase sputum fevers and consolidation changes. Flu and COVID are negative. Patient is comfortable with this plan. He states Levaquin has worked well and he would like to go home. I think this is reasonable option and we discussed reasons to return Lab Data Attestation: I reviewed the patient's lab results. Labs: Laboratory Results - last 24 hr 03/22/22 03/22/22 03/22/22 20:42 20:42 20:42 WBC 5.8 RBC 4.93 Hgb 13.9 Hct 40.7 MCV 82.6 MCH 28.2 MCHC 34.2 RDW Std Deviation 40.2 RDW Coeff of Chiquita 13.2 Plt Count 203 MPV 9.8 Immature Gran % (Auto) 0.300 Neut % (Auto) 78.0 H Lymph % (Auto) 8.9 L [place] % (Auto) 12.5 H Eos % (Auto) 0.0 Baso % (Auto) 0.3 Absolute Neuts (auto) 4.5 Absolute Lymphs (auto) 0.51 L Nucleated RBC % 0 Differential Comment SEE COMMENT Diff Path Review May foll Polychromasia AUTO DIFF OK Sodium 132 L Potassium 3.6 Chloride 100 Carbon Dioxide 23.0 Anion Gap 9 BUN 9 Creatinine 0.70 Estim Creat Clear Calc 122.15 Est GFR (MDRD) Af Amer 156 Est GFR (MDRD) Non-Af 129 BUN/Creatinine Ratio 12.9 Glucose 105 Lactic Acid 0.6 Calcium 8.8 Discharge Plan Triage Chief Complaint: Shortness of Breath ED Provider: Adolph Roach Dx/Rx/DC Orders Clinical Impression: Right lower lobe pneumonia Instructions: ED Pneumonia (Adult) Prescriptions: New levofloxacin 750 mg tablet 750 mg PO DAILY Qty: 6 0RF No Action Anoro Ellipta 62.5-25 mcg/actuation blister with device 1 ea INHALATION DAILY Label Comments: INHALE 1 PUFF BY MOUTH ONCE DAILY DIRECTED (DME) Nebulizer See Rx Instructions .ROUTE .MEDSUPPLY Qty: 1 0RF Rx Instructions: As directed Primary Care Provider: Josi Vo Referrals: Julito Cason MD [Med Staff - Active Staff] - Keep [facility] appointment Josi Vo MD [Primary Care Provider] - Disposition Disposition: Home, Self Care
[2022-03-22 20:51] LABS: Absolute Lymphocyte Count 0.51 X10^3/uL (0.83-4.51); Absolute Neutrophil Count 4.5 X10^3/uL (2.0-7.7); Basophil# 0.02 X10^3/uL; Basophil% 0.3 % (0-1); Hematocrit 40.7 % (40-54); Hemoglobin 13.9 g/dL (13.0-16.5); Lymphocyte # 0.51 X10^3/ul (0.83-4.51); Lymphocyte % 8.9 % (19-41); Mean Corp Hgb Conc 34.2 g/dL (32-36); Mean Corpuscular Hgb 28.2 pg (27.0-32.0); Mean Corpuscular Volume 82.6 fL (80-94); Mean Platelet Vol. 9.8 fl (6.2-12.0); Monocyte# 0.72 X10^3/uL; Monocyte% 12.5 % (0-10); NRBC Flagged by Analyzer 0 % (0-5); Neutrophil # 4.48 X10^3/uL (2.7-7.7); POSITIVE DIFFERENTIAL YES; Platelet Count 203 K/mm3 (150-450); RBC Distribution Width CV 13.2 % (11.6-14.6); RBC Distribution Width SD 40.2 fl (35.1-43.9); Red Blood Count 4.93 M/mm3 (4.6-6.2); White Blood Count 5.8 K/mm3 (4.4-11.0)
[2022-03-22 21:01] LABS: Differential Indicated SCAN CRITERIA MET
[2022-03-22 21:11] LABS: Anion Gap 9 (5-15); BUN 9 mg/dL (7-18); BUN/Creat Ratio 12.9 RATIO (10-20); Calcium,Total 8.8 mg/dL (8.5-10.1); Chloride 100 mmol/L (98-107); EST Glomerular Filtration Rate 129 mL/min (>60); Est Glom Filt Rate - Afr Amer 156 mL/min (>60); Estimated Creatinine Clearance 122.15 ml/min; Glucose 105 mg/dL (74-106); Potassium 3.6 mmol/L (3.5-5.1); Sodium Level 132 mmol/L (136-145)
[2022-03-22 21:17] LABS: Lactic Acid 0.6 mmol/L (0.4-1.9)
[2022-03-22 21:18] VITALS: BP 122/79; PULSE 89; RESP 30; TEMP 38.1; O2SAT 92
[2022-03-22 21:25] LABS: Pathologist Review May foll
[2022-03-22 22:07] VITALS: BP 124/77; PULSE 85; RESP 36; O2SAT 94
[2022-03-22 23:00] VITALS: BP 124/70; PULSE 94; RESP 30; TEMP 38.2; O2SAT 93
[2022-03-23 00:07] VITALS: BP 131/69; PULSE 81; RESP 20; O2SAT 95
[2022-03-23] MEDS: levoFLOXacin 750 MG Tablet PO (00:08)
== END 2022-03-23 00:10 | disposition home or self-care (01) ==
PROVIDERS: Emergency Provider Emergency Medicine; PCP Internal Medicine; Visit Provider Emergency Medicine
DX: J18.9 Pneumonia, unspecified organism (principal); J44.9 Chronic obstructive pulmonary disease, unspecified; M79.10 Myalgia, unspecified site; F17.210 Nicotine dependence, cigarettes, uncomplicated
CPT/HCPCS: 80048; 83605; 85025; 87040; 87428; 93005; 99284; A4216

== ENCOUNTER → 2022-03-22 | Outpatient (CLI) | payer OTHER, MEDICAID, SELFPAY ==
--- NOTE | 2022-03-22 09:40 | CT_ITS ---
STUDY: CT CHEST WITHOUT CONTRAST REASON FOR EXAM: Male, 46 years old. RLL infiltrate resolution -- mycobacterium v resolving pna v mass RADIATION DOSAGE (If Supplied By Facility): CTDIvol = ( 7.56 ) mGy, DLP = ( 315.66 ) mGycm TECHNIQUE: Transaxial imaging was performed without the administration of intravenous contrast material. Multiplanar coronal and sagittal images were reformatted. Individualized dose optimization techniques were used for this CT. COMPARISON: November 29, 2021 FINDINGS: CHEST There is worsening right lower lung airspace consolidation with near total collapse. There are fibrotic densities at the lung apices with cystic spaces. There is mild patchy interstitial accentuation and regions of bronchiectasis. There is no demonstrated pleural abnormality. Normal heart and pericardium. There are no calcifications of the coronary arteries. There are mediastinal lymph nodes in the paratracheal region measuring up to 1.1 cm. Normal hilar regions. Normal unenhanced pulmonary arteries. Normal aorta arch and descending thoracic aorta. There is mild degenerative change of the spine. There is no demonstrated abnormality of the visualized upper abdomen. CT/Chest without Contrast IMPRESSION: Worsening right lower lobe consolidation with volume loss and collapse. Mild interstitial infiltrates and bronchiectasis. Electronically Signed: Valdemar Beltrán MD at 12:47 EST ,
== END | disposition home or self-care (01) ==
LOC: CT 09:39
PROVIDERS: PCP Internal Medicine; Referring Provider Internal Medicine Critical Care Medicine; Visit Provider Internal Medicine Critical Care Medicine
DX: J18.9 Pneumonia, unspecified organism (principal)
CPT/HCPCS: 71250

== ENCOUNTER → 2022-04-02 | Outpatient (CLI) | payer OTHER, MEDICAID, SELFPAY ==
[2022-04-02 08:23] LABS: Platelet Count 452 K/mm3 (150-450)
[2022-04-02 08:39] LABS: PSA,Total- Diagnostic 6.46 ng/mL (0.0-4.0)
[2022-04-02 09:21] LABS: International Normalized Ratio 1.2; Prothrombin Time (Protime)PT. 14.8 SECONDS (11.7-14.9)
[2022-04-02 09:22] LABS: Partial Thromboplast Time 30.7 Seconds (24.1-36.2)
== END | disposition home or self-care (01) ==
PROVIDERS: PCP Internal Medicine; Referring Provider Nurse Practitioner Acute Care; Visit Provider Nurse Practitioner Acute Care
DX: R97.20 Elevated prostate specific antigen [PSA] (principal); I48.91 Unspecified atrial fibrillation; R91.8 Other nonspecific abnormal finding of lung field; R06.00 Dyspnea, unspecified
CPT/HCPCS: 36415; 84153; 85049; 85610; 85730

== ENCOUNTER 2022-04-18 10:57 | Day surgery (SDC) | payer OTHER, MEDICAID, SELFPAY ==
--- NOTE | 2022-04-18 | LUNG_PTH ---
PATIENT: PAOLA POWERS LOC: EN U#:[id number] AGE/SX: 46/M ROOM: RE04/18/[address]: Dr. Julito Cason MD : [id number] BED: DIS: 04/18/2022 SPEC #: [id number] RECD: 04/18/22 14:17 STATUS: [facility] WEBER #: [id number] AMADA: 04/18/22 00:[address]: Julito Cason DEPT: SURGICAL PATHOLOGY RECD BY: Michael Guillaume ENTERED: 04/18/22 14:18 SP TYPE: LUNG BX OTHR DR: Dr. Josi Vo MD Tissues: Lung, NOS Procedures: Surgery Specimen Level IV HEADER OPERATION: Bronchoscopy, endobronchial biopsy PRE-OP DIAGNOSIS: RLL recurrent PNA TISSUE SUBMITTED: RLL MICROSCOPIC DIAGNOSIS RLL, endobronchial biopsy: Fragments of bronchial mucosa with mild chronic inflammation. Negative for malignancy. See comment. SHEILA:singh 04/21/2022 COMMENT See corresponding cytology specimen [id number]. Case has been reviewed in consultation with Dr. Garza who concurs with the above diagnosis. IDC:AM MICROSCOPIC DESCRIPTION Slides are reviewed. GROSS DESCRIPTION Received in fixative is one container labeled with the patient's name and designated RLL biopsy. The specimen consists of multiple irregular fragments of light tellez soft tissue that in aggregate measure 0.5 x 0.1 x <0.1 cm. The specimen is totally submitted in one cassette. / SJ:singh 04/18/2022 TC:3 CPT: 04401
--- NOTE | 2022-04-18 | FLU_PTH ---
PATIENT: PAOLA POWERS LOC: EN U#:[id number] AGE/SX: 46/M ROOM: RE04/18/[address]: Dr. Julito Cason MD : 1975 BED: DIS: 04/18/2022 SPEC #: [id number] RECD: 04/18/22 14:18 STATUS: REMINGTON TIA #: [id number] AMADA: 04/18/22 00:[address]: Julito Cason DEPT: CYTOLOGY RECD BY: Michael Guillaume ENTERED: 04/18/22 14:21 SP TYPE: Fluid OTHR DR: Dr. Josi Vo MD Tissues: A - Bronchus of right lower lobe B - Bronchus of right lower lobe C - Bronchus of right lower lobe Procedures: Special Stain Group II Surgery Specimen Level IV Cytospin Fluid HEADER OPERATION: Bronchoscopy PRE-OP DIAGNOSIS: RLL recurrent PNA TISSUE SUBMITTED: A ? Wash RLL, B ? RLL Cascade, C ? RLL x4 smears DIAGNOSIS CYTOLOGY A. RLL bronchial wash fluid (cytospin and cell block): Negative for malignant cells. Acute inflammation. See comment. B. RLL brush fluid (cytospin and cell block): Negative for malignant cells. Acute inflammation. See comment. C. RLL brushing (smears): Rare clusters of atypical cells noted. SJ:singh 04/21/2022 COMMENT A & B. Special stain for fungi is negative for organisms; matched control is appropriate. Please also make reference to corresponding surgical specimen ([id number]), RLL, endobronchial biopsy with diagnosis of ?negative for malignancy.? Correlation with clinical, radiologic findings and appropriate follow-up are necessary. Case has been reviewed in consultation with Dr. Garza who concurs with the above diagnosis. IDC:AM CYTOLOGY STUDY Slides are reviewed. CYTOLOGY GROSS A - Received is 15 ml of pink opaque mucoidy fluid labeled with the patient's name and and designated per the requisition as RLL wash. Submitted for cytology preparation including cell block. B - Received is 2 ml of light pink cloudy fluid labeled with the patient's name and and designated per the requisition as RLL brush. Submitted for cytology preparation including cell block. C - Received are four smears labeled with the patient's name and designated per the requisition as RLL. Submitted for staining. / singh 04/18/2022 TC:2 CPT: 23058 x2, 99316 x2, 42546 x2, 01237
--- NOTE | 2022-04-18 11:11 | HP.PCM_ITS ---
History and Physical Date of Admission: 04/18/22 Patient seen and examined prior to the procedure. There has been no changes per the note below. All questions were answered. Okay to proceed with the procedure. Patient's at the bedside is aware of the plan and is agreeable to take the patient home. Assessment and Plan Assessment and Plan (1) Right lower lobe pulmonary infiltrate: ?Status:?Acute ?Plan: Deteriorated.? The patient is more symptomatic and recent CT scan indicates progression of the right lower lobe infiltrate.? In fact, it is possibly obstructing the airway.? Patient is agreeable to a bronchoscopy.? Risk and bene fits were discussed.? He is not currently on any blood thinners but will have some baseline coagulation studies done to make sure that he is not at greater risk of bleeding in case biopsy is beneficial.? Follow-up with Dr. Cason in 6 weeks.? Contact the office with any new or worsening symptoms anytime. ? ? ? Orders: Orders Partial Thromboplast Time TodayK I48.91 - Unspecified atrial fibrillation, R91.8 - Other nonspecific abnormal finding of lung field ? Prothrombin Time w/INR Today R91.8 - Other nonspecific abnormal finding of lung field ? Platelet Count Today R06.00 - Dyspnea, unspecified, R91.8 - Other nonspecific abnormal finding of lung field ? HPI HPI Comments Details: This patient presents to the office today for follow-up after recent test results.? He is ambulatory and currently on room air. He was recently seen in the emergency department for a cough that was productive of yellow to ge and pink-tinged sputum.? He was ordered a course of Levaquin.? He continues compliance with the use of Anoro 1 puff daily.? He is currently utilizing his albuterol a couple times per day. Continues to smoke cigarettes. He does have shortness of breath that is worse with exertion.? Continues to have a cough productive of yellow, ge and pink sputum that he describes as nasty tasting.? He reports congestion he believes is located in the right lower lobe.? He has wheezing but denies any palpitations.? He has not had any fever, chills or body aches. Test results personally reviewed with the patient: CT without contrast?completed on March 22, 2022.? Noted is worsening in the right lower lobe airspace consolidation with near total collapse.? Fibrotic densities at the lung apices with cystic spaces.? Mild patchy interstitial accentuation and regions of bronchiectasis.? There are mediastinal lymph nodes in the paratracheal region measuring up to 1.1 cm. Intake Vital Signs ? 03/22/2220:09 03/25/2207:48 03/25/2208:40 Height 5 ft 11 in 5 ft 11 in 5 ft 11 in Weight: ? ? 144 lb 8 oz BMI ? ? 20.1 BP ? ? 115/76 Blood Pressure Location ? ? Lt brachial Position ? ? Sitting Respiration ? ? 18 Pulse ? ? 100 Pulse Source ? ? Monitor Temp ? ? 97.2 F L Temperature Source ? ? Temporal Artery Pulse Oximetry (%) ? ? 93 Oxygen Delivery Method ? ? 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 DME Vendor: n/a Accompanied by: Self Is patient in pain?: No Allergies amoxicillin Allergy (Verified 03/25/22 08:42) UnknownPenicillins Adverse Reaction (Unknown, Verified 03/25/22 08:42) unknown Medications Nebulizer #1 ea 08/12/21 [Rx Confirmed 03/25/22] levofloxacin 750 mg tablet 750 mg PO DAILY #6 tabs 03/22/22 [Rx Confirmed 03/25/22] PFSH Medical History COPD (chronic obstructive pulmonary disease) Pleural effusion, right Right lower lobe pneumonia Tobacco use Surgical History?(Reviewed 03/25/22 @ 08:55 by Rhoda Infante PUMP OPERATOR [employer], PUMP OPERATOR [employer]) No history of previous surgery Family History? Father COPD (chronic obstructive pulmonary disease) Heart disease Hypertension Diabetes CHF (congestive heart failure)Mother CAD (coronary artery disease) Myocardial infarction Hypertension Social History? household members:? spouse Smoking Status:? Current every day smoker tobacco type: cigarettes Tobacco: How many years used:? 31 how long ago did patient quit smoking:? Smoke 1ppd x 30 yrs, 1/2ppd x 1yr (2021) alcohol intake:? never substance use type:? does not use what type of physical activity do you participate in:? 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 Review of Systems Resp Respiratory: Yes as per HPI Exam Const Constitutional: Positive conversant, cooperative, in no acute respiratory distress, well developed and well nourished Head Head: Yes normocephalic and Yes atraumatic Eyes Eye: Positive clear conjunctiva; Negative nystagmus or scleral abnormality Ears Ear: Positive hearing normal and external ears normal; Negative hard of hearing Neck Neck: Positive normal visual inspection, full ROM and trachea midline Chest Wall Chest: Positive normal inspection of the chest and symmetric chest movement; Negative increased A/P diameter Resp lung sounds: Positive diminished lung sounds and prolonged expiratory time; Negative rales Cardio Cardiac: Positive regular rate, regular rhythm, S1 normal and S2 normal; Negative murmur, rub or gallop GI GI: Positive normal to inspection Genitourinary: Positive deferred Musc Musculoskeletal: Positive steady gait and ROM normal; Negative kyphosis or scoliosis Skin Pulmonary Skin Exam: Positive intact; Negative lesion, rash or ulcers Extremities Extremities: Yes clubbing, No cyanosis and No edema Neuro Neurologic: Yes no focal neuro deficits, Yes conversant, Yes cooperative, Yes normal cognition, Yes normal coordination, Yes normal concentration and Yes understands questions Psych Appearance: Positive grossly normal, eye contact and well kempt Mental Status: Positive mental status grossly normal Mood: Positive congruent mood Affect: Positive normal affect
[2022-04-18] MEDS: Lactated Ringers 1,000 ML 15 ML IV (11:18)
[2022-04-18 11:19] VITALS: BP 119/79; PULSE 77; RESP 17; TEMP 36.8; O2SAT 99
[2022-04-18] MEDS: Lidocaine 2% (5ml sdv) 5 ML VIAL.MPF (12:13)
[2022-04-18] MEDS: Lidocaine Jelly 2% 20 ML Syringe (URO-JET) 1 APPLIC (12:13)
[2022-04-18 12:40] VITALS: BP 103/65; BP 119/79; PULSE 67; RESP 16; TEMP 36.6; O2SAT 99
[2022-04-18 12:45] VITALS: BP 110/77; BP 119/79; PULSE 81; RESP 16; O2SAT 96
--- NOTE | 2022-04-18 12:47 | OP.BRONCH_ITS ---
Patient Name: Ezequiel White Procedure Date: 04/18/2022 11:52 AM Date of : 1975 Age: 46 Procedure: Bronchoscopy Indications: Atelectasis of the right lower lobe Providers: Julito Cason MD Referring MD: Josi Vo Medicines: See the Anesthesia note for documentation of the administered medications Complications: No immediate complications Procedure: Pre-Anesthesia Assessment: - A History and Physical has been performed. The patient's medications, allergies and sensitivities have been reviewed. - The risks and benefits of the procedure and the sedation options and risks were discussed with the patient. All questions were answered and informed consent was obtained. - Patient identification and proposed procedure were verified prior to the procedure by the physician, the nurse and the senior hardware engineer. The procedure was verified in the endoscopy suite. - ASA Grade Assessment: II - A patient with mild systemic disease. After I obtained informed consent, the scope was passed under direct vision. Throughout the procedure, the patient's blood pressure, pulse, and oxygen saturations were monitored continuously. The bronchoscope was introduced through the right nostril and advanced to the tracheobronchial tree of both lungs. The procedure was accomplished without difficulty. The patient tolerated the procedure well. Findings: The nasopharynx/oropharynx appears normal. The larynx appears normal. The vocal cords appear normal. The subglottic space is normal. The trachea is of normal caliber. The sergio is sharp. The tracheobronchial tree of the left lung was examined to at least the first subsegmental level. Bronchial mucosa and anatomy in the left lung are normal; there are no endobronchial lesions, and no secretions. Right Lung Abnormalities: A partially obstructing (about 80% obstructed) mass was found proximally, at the orifice in the right lower lobe. The mass was fungating. The lesion was successfully traversed. Copious, mucoid, purulent, thick secretions were found in the right lower lobe. They were nearly obstructing (greater than 90% obstructed) the airway. Washings were obtained in the right lower lobe and sent for cell count, bacterial culture, viral smears & culture, and fungal & AFB analysis. The return was mucopurulent. Multiple specimens were obtained and pooled into one specimen, which was sent for analysis. Endobronchial biopsies were performed in the right lower lobe using forceps and sent for histopathology examination. Lesion felt fibrotic on biopsy (tension). 8 were obtained. Guided brushings were obtained in the right lower lobe with a cytology brush and sent for routine cytology. One sample was obtained. Therapeutic suctioning was performed. Mucus plugs were removed from the airway but the airway was not cleared. Impression: - Atelectasis of the right lower lobe - The airway examination of the left lung was normal. - A fungating mass was found in the right lower lobe. - Copious, mucoid, purulent, thick secretions were found in the right lower lobe. - Washings were obtained. - An endobronchial biopsy was performed. - Brushings were obtained. - Therapeutic suctioning was performed. Recommendation: - The patient will be observed post-procedure, until all discharge criteria are met. - Await biopsy, brushing, culture and cytology results. - Patient has a contact number available for emergencies. The signs and symptoms of potential delayed complications were discussed with the patient. Return to normal activities tomorrow. Written discharge instructions were provided to the patient. - Follow up with bronchoscopist in one week. Procedure Code(s): --- Professional --- 12110, Bronchoscopy, rigid or flexible, including fluoroscopic guidance, when performed; with bronchial or endobronchial biopsy(s), single or multiple sites 25727, Bronchoscopy, rigid or flexible, including fluoroscopic guidance, when performed; with therapeutic aspiration of tracheobronchial tree, initial 60434, Bronchoscopy, rigid or flexible, including fluoroscopic guidance, when performed; with brushing or protected brushings Diagnosis Code(s): --- Professional --- J98.9, Respiratory disorder, unspecified J98.11, Atelectasis R09.89, Other specified symptoms and signs involving the circulatory and respiratory systems CPT copyright 2017 [employer]. All rights reserved. The codes documented in this report are preliminary and upon customer support technician review may be revised to meet current compliance requirements. MD Julito Ferro MD 04/18/2022 12:47:04 PM This report has been signed electronically. Number of Addenda: 0 Note Initiated On: 04/18/2022 11:52 AM
[2022-04-18 12:51] VITALS: BP 104/79; BP 119/79; PULSE 76; RESP 16; O2SAT 98
[2022-04-18 12:55] VITALS: BP 113/68; BP 119/79; PULSE 79; RESP 16; TEMP 36.9; O2SAT 98
[2022-04-18 12:55] LABS: Cytology, Body Fluid / CSF SEE PATHOLOGY REPORT
[2022-04-18 13:15] VITALS: BP 119/79
[2022-04-18 14:26] LABS: Appearance/Body Fluid CLOUDY; Color/Body Fluid COLORLESS; Source- Body Fluid BRONCHIAL LAVAGE
[2022-04-18 14:30] LABS: Red Cell Count/Body Fluid 2180 /mm3; White Blood Count/Body Fluid 4340 /mm3
[2022-04-18 14:58] LABS: Lymphocytes 5 %; Monocytes 2 %; Neutrophil (Segs) 93 %
[2022-04-21 15:34] LABS: Pathologist Comment/Body Fluid Reviewed
== END 2022-04-18 13:19 | disposition home or self-care (01) ==
LOC: EN 10:57 → AC 10:58
PROVIDERS: PCP Internal Medicine; Referring Provider Internal Medicine; Visit Provider Internal Medicine Critical Care Medicine
PROC: 0BJ08ZZ Inspection of Tracheobronchial Tree, Via Natural or Artificial Opening Endoscopic (ICD-10-PCS; CPT 31622; principal; 2022-04-18 11:45)
DX: R91.8 Other nonspecific abnormal finding of lung field (principal); I48.91 Unspecified atrial fibrillation; R06.00 Dyspnea, unspecified; F17.210 Nicotine dependence, cigarettes, uncomplicated; J98.11 Atelectasis; R09.89 Other specified symptoms and signs involving the circulatory and respiratory systems
CPT/HCPCS: 31623; 31625; 31645; 87070; 87205; 87252; 88108; 88305; 88313; 89050; J7120; J2405

== ENCOUNTER → 2022-05-29 | Outpatient (CLI) | payer OTHER, MEDICAID, SELFPAY ==
--- NOTE | 2022-05-29 08:00 | PROSBIL_PTH ---
PATIENT: PAOLA POWERS LOC: [facility] U#:[id number] AGE/SX: 46/M ROOM: RE05/29/[address]: Dr. Sandeep Callahan MD : 1975 BED: DIS: 05/29/2022 SPEC #: [id number] RECD: 05/29/22 16:51 STATUS: REMINGTON TIA #: [id number] AMADA: 05/29/22 08:[address]: Sandeep Callahan DEPT: SURGICAL PATHOLOGY RECD BY: Abena Guerin ENTERED: 05/30/22 09:37 SP TYPE: PROST BX SHANDA DR: Dr. Josi Vo MD Tissues: A - PROSTATE RIGHT B - PROSTATE RIGHT C - PROSTATE RIGHT D - PROSTATE LEFT E - PROSTATE LEFT F - PROSTATE LEFT Procedures: PROSTATE BX HEADER OPERATION: Prostate biopsy PRE-OP DIAGNOSIS: Elevated PSA TISSUE SUBMITTED: A - Right apex, B - Right mid, C - Right base, D - Left apex, E - Left mid, F - Left base MICROSCOPIC DIAGNOSIS A. Right prostate, apex, core biopsy: Prostatic tissue, negative for malignancy. Focal mild chronic inflammation. B. Right prostate, mid, core biopsy: Prostatic tissue, negative for malignancy. C. Right prostate, base, core biopsy: Prostatic tissue, negative for malignancy. Focal mild chronic inflammation. D. Left prostate, apex, core biopsy: Prostatic tissue, negative for malignancy. E. Left prostate, mid, core biopsy: Prostatic tissue, negative for malignancy. F. Left prostate, base, core biopsy: Prostatic tissue, negative for malignancy. Focal mild chronic inflammation. SJ:singh 06/02/2022 MICROSCOPIC DESCRIPTION Slides are reviewed. GROSS DESCRIPTION A - Received is one container designated prostate, right apex. The specimen consists of two elongated fragments of light tellez-white soft tissue each measuring 1.5 cm in length and 0.1 cm in diameter. The specimen is totally submitted in one cassette. B - Received is one container designated prostate, right mid. The specimen consists of two elongated fragments of light tellez-white soft tissue measuring 1.3 and 1.6 cm in length and 0.1 cm in diameter. The specimen is totally submitted in one cassette. C - Received is one container designated prostate, right base. The specimen consists of two elongated fragments of light tellez-white soft tissue each measuring 1.5 cm in length and 0.1 cm in diameter. The specimen is totally submitted in one cassette. D - Received is one container designated prostate, left apex. The specimen consists of two elongated fragments of light tellez-white soft tissue each measuring 1.8 cm in length and 0.1 cm in diameter. The specimen is totally submitted in one cassette. E - Received is one container designated prostate, left mid. The specimen consists of two elongated fragments of light tellez-white soft tissue measuring 1.4 and 1.5 cm in length and 0.1 cm in diameter. The specimen is totally submitted in one cassette. F - Received is one container designated prostate, left base. The specimen consists of two elongated fragments of light tellez-white soft tissue measuring 1.8 and 1.9 cm in length and 0.1 cm in diameter. The specimen is totally submitted in one cassette. / SJ:rg 05/30/2022 TC:3 CPT: 27301 x6
== END | disposition home or self-care (01) ==
PROVIDERS: PCP Internal Medicine; Visit Provider Urology
DX: R97.20 Elevated prostate specific antigen [PSA] (principal)
CPT/HCPCS: 88305; G0416

== ENCOUNTER → 2023-02-09 | Outpatient (CLI) | payer BC, MEDICAID, SELFPAY ==
--- NOTE | 2023-02-10 07:44 | PFT ---
INTRODUCTION: The patient is a 47-year-old male who presents for pulmonary function studies secondary to a diagnosis of COPD. Respiratory therapy reported good patient effort. Bronchodilators were used during testing. INTERPRETATION: Forced expiration spirometry demonstrates the presence of a moderately severe large airways obstructive ventilatory defect. There was a significant response to aerosolized bronchodilators. Body plethysmography was performed and revealed an elevated RV to 178% of predicted, indicative of underlying air trapping. Diffusing capacity by single breath CO was reduced at 69% of predicted. IMPRESSION: Partially reversible moderately severe large airways obstructive ventilatory defect with associated air trapping and symmetric reduction in diffusing capacity.
== END | disposition home or self-care (01) ==
LOC: PSN 07:00
PROVIDERS: PCP Internal Medicine; Referring Provider Nurse Practitioner Acute Care; Visit Provider Nurse Practitioner Acute Care
DX: J44.9 Chronic obstructive pulmonary disease, unspecified (principal)
CPT/HCPCS: 94060; 94726; 94729

== ENCOUNTER 2024-04-12 16:56 | Emergency (ER) | payer BC, SELFPAY ==
[2024-04-12 17:00] VITALS: BP 168/91; PULSE 100; RESP 24; TEMP 38.3; O2SAT 98; BMI 22.3
[2024-04-12 17:01] VITALS: BP 168/91; PULSE 100; RESP 24; TEMP 38.3; O2SAT 98
--- NOTE | 2024-04-12 18:00 | EDS_ITS ---
HPI History of Present Illness Chief Complaint: General Illness Detail of Chief Complaint: Fever, nonproductive cough, decreased p.o. intake and decreased urine outpu Informant: patient and spouse/S.O. Onset/Context/Timing Onset: Days Context: Sudden Onset Quality: Illness with fever Location: Generalized Current Severity: Mild Maximum Severity: Moderate Worsened by: Decreased p.o. intake, patient states he is urinated 5 cc over the last 24 Relieved by: Patient states prior to arrival he was able to drink a bottle of Gatorade. Associated Symptoms Associated Symptoms: HPI narrative Narrative Narrative: Patient is a 48-year-old male. He has history of COPD. He presents because of not feeling well for the past several days. He was not aware that he had a fever. He reports mild nasal congestion. He has a cough that is nonproductive. He has had some intermittent wheezing. He presents with myalgias and arthralgias. He also reports poor p.o. intake. He also reported he slept for 22 hours. States he does not feel well. He denies abdominal pain. Does report nausea without vomiting diarrhea. He denies blood in his urine or discomfort with urination. States his urine is very dark. [facility] Medical History Wears glasses Smoker Shortness of breath on exertion Chronic cough Emphysema, unspecified Tobacco use Pleural effusion, right Right lower lobe pneumonia Home Medications ?Medication ?Instructions ?Recorded ?Last Taken ?Type umeclidinium 62.5 mcg-vilanterol 1 inh inhalation DAILY #60 ea 04/09/23 Unknown Rx 25 mcg/actuation powdr for inhalation (Anoro Ellipta) levofloxacin 500 mg tablet 500 mg PO DAILY #7 tabs 04/12/24 Unknown Rx Family History Father COPD (chronic obstructive pulmonary disease) Heart disease Hypertension Diabetes CHF (congestive heart failure) Mother CAD (coronary artery disease) Myocardial infarction Hypertension Surgical History No history of previous surgery Social History household members: spouse Smoking Status: Current every day smoker tobacco type: cigarettes Tobacco: How many years used: 31 how long ago did patient quit smoking: Smoke 1ppd x 30 yrs, 1/2ppd x 1yr (2021) alcohol intake: never substance use type: does not use what 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 ROS ED Constitutional Constitutional ED: Reports chills and fever(s); Denies subjective, sweats or weight loss Eyes Eyes: Denies blurry vision or change in vision ENT ENT ED: Reports rhinorrhea; Denies ear pain or sore throat Cardiovascular Cardiovascular: Denies chest pain, orthopnea, palpitations or paroxysmal nocturnal dyspnea Respiratory/Chest Respiratory/Chest: Reports cough and dyspnea; Denies dyspnea on exertion, orthopnea or paroxysmal nocturnal dyspnea Gastrointestinal Gastrointestinal: Reports nausea; Denies abdominal pain, diarrhea, melena or vomiting Genitourinary Genitourinary ED: Reports other Details: Decreased urine output ; Denies dysuria, hematuria or urinary frequency Musculoskeletal Musculoskeletal: Reports arthralgias and myalgias Integumentary Denies rash Neurologic Neurologic: Reports headache(s) and other Details: Headache is bifrontal. ; Denies paresthesias or weakness Endocrine Endocrinology: Denies cold intolerance or heat intolerance Hematologic/Lymphatic Hematologic/Lymphatic: Reports systems reviewed and no addt'l complaints, except as documented EXAM Physical Exam Const Vital Signs: 04/12/24 17:00 04/12/24 17:01 04/12/24 18:01 Temperature 101 F H 101 F H 99.8 F H Temperature Source Oral Oral Oral Pulse Rate 100 100 97 Respiratory Rate 24 H 24 H 24 H Respiratory Effort Respiratory Pattern Blood Pressure 168/91 H 168/91 H 155/81 H Blood Pressure Mean 116 116 105 Pulse Ox 98 98 97 Oxygen Delivery Method Room Air Room Air Room Air 04/12/24 18:19 Temperature Temperature Source Pulse Rate Respiratory Rate Respiratory Effort Short of Breath Respiratory Pattern Normal Blood Pressure Blood Pressure Mean Pulse Ox Oxygen Delivery Method Positive well nourished and well developed Constitutional Narrative: Patient appears ill but not toxic. General Appearance ED: well developed; Negative for NAD or pallor HEENT Reports dry mucous membranes HEENT Narrative: Head is atraumatic normocephalic. There is no tenderness over the maxillary or frontal sinuses. Posterior pharynx is normal. Mouth ED: Yes dry mucous membranes Mouth: dry mucous membranes Eyes PERRL and EOMs intact bilaterally General Eye ED: Negative for pale conjunctiva or scleral icterus Neck no lymphadenopathy, supple and no JVD Chest Wall inspection of chest normal and palpation of chest normal Resp normal respiratory effort and No clear to auscultation bilaterally Auscultation: rales left lower (There is also wheezing and egophony.) and diminished lung sounds right lower Cardio regular rate, regular rhythm, S1 normal heart sound, S2 normal heart sound and no murmurs GI normal to inspection, nondistended, normoactive bowel sounds, non-tender, non- distended and no masses; Negative for hepatosplenomegaly Back/Spine no CVA tenderness Extremity normal to inspection General Extremety ED: Negative for edema or tenderness General Extremity: Negative for edema Neuro oriented x3 Sensorium / Orientation: alert Skin no rashes or lesions noted, no wounds and No skin turgor normal General Skin Exam: Negative for jaundice or pallor MDM MDM MDM Narrative Medical decision making narrative: Clinically patient is dehydrated. 1 L of normal saline was ordered. Clinically patient has a left lower lobe pneumonia. Workup was undertaken to determine based on port score and curb 65 score if patient can be treated as an inpatient or outpatient. Lab Data Attestation: I reviewed the patient's lab results. Lab results narrative: White count is elevated 17.8 thousand with shift. There is no bandemia. H&H is normal. Electrolyte panel is remarked for glucose of 130 with a normal CO2 anion gap. Transaminases normal. Lactate is normal. Labs: Laboratory Results - last 24 hr 04/12/24 18:10 WBC 17.8 H RBC 4.89 Hgb 15.0 Hct 41.9 MCV 85.7 MCH 30.7 MCHC 35.8 RDW Std Deviation 39.5 RDW Coeff of Chiquita 12.7 Plt Count 135 L MPV 10.9 Immature Gran % (Auto) 0.800 Neut % (Auto) 87.1 H Lymph % (Auto) 4.5 L Ness % (Auto) 7.3 Eos % (Auto) 0.1 Baso % (Auto) 0.2 Absolute Neuts (auto) 15.5 H Absolute Lymphs (auto) 0.80 L Nucleated RBC % 0 Sodium 132 L Potassium 3.4 L Chloride 100 Carbon Dioxide 24.0 Anion Gap 7 BUN 13 Creatinine 0.74 Estim Creat Clear Calc 127.60 Est GFR (MDRD) Af Amer 144 Est GFR (MDRD) Non-Af 119 BUN/Creatinine Ratio 17.5 Glucose 130 H Lactic Acid 1.0 Calcium 8.9 Total Bilirubin 1.20 H AST 10 L ALT 19 Alkaline Phosphatase 65 Total Protein 7.6 Albumin 3.4 Globulin 4.2 Albumin/Globulin Ratio 0.8 L Radiography Chest X-Ray - ED: 2 View, Read by ED Physician (Read by me at 1826), Heart, Mediastinum, Bony Structures and Right Infiltrate (Right upper lobe that is new from 2021. There is also atelectasis right lower lobe due to prior pneumonia.) Diagnostic Testing: Clinical Impression(s) from Imaging Studies Chest X-Ray 04/12/24 18:15 IMPRESSION: Mild hyperaeration. Possible right basilar cavity. Right upper lobe infiltrate Electronically Signed: Edward Franco DO at 18:44 EST Reading Location ID and State: [address] [place] [address] Tel [phone], Service support , Additional Tests and Interventions Additional Tests or Interventions: Curb 65 score is 0. Patient is considered low risk. Port score is 49. Patient is considered risk class I with 0.1% 30-day mortality. Patient be discharged to home on antibiotics Discharge Plan Triage Chief Complaint: General Illness ED Provider: Fahad Maxwell Dx/Rx/DC Orders Clinical Impression: Infiltrate of upper lobe of right lung present on imaging study, Community acquired pneumonia, History of COPD, Fever and chills, Tachypnea Instructions: ED Pneumonia (Adult) Prescriptions: New levofloxacin 500 mg tablet 500 mg PO DAILY Qty: 7 0RF No Action Anoro Ellipta 62.5-25 mcg/actuation blister with device 1 inh INHALATION DAILY Qty: 60 11RF Primary Care Provider: Josi Vo Referrals: Josi Vo MD [Primary Care Provider] - 3-5 Days if not improving Print Language: Kazakh Disposition Disposition: Home, Self Care
[2024-04-12 18:01] VITALS: BP 155/81; PULSE 97; RESP 24; TEMP 37.7; O2SAT 97
[2024-04-12] MEDS: 0.9% Normal Saline (1000mL) 1,000 ML 1000 ML IV (18:07)
--- NOTE | 2024-04-12 18:15 | RAD_ITS ---
INDICATION: Fever, cough, rales egophony LLL EXAMINATION/TECHNIQUE: X-RAY - XR Chest 2 Views COMPARISON: FINDINGS: LINES/DEVICES: None. LUNGS: Mild hyperaeration. Possible right basilar cavity. Right upper lobe infiltrate No pneumothorax. MEDIASTINUM AND CARDIOVASCULAR STRUCTURES: Cardiac silhouette not enlarged. Central airways and mediastinal contour are unremarkable. BONES AND SOFT TISSUES: Unremarkable. RAD/Chest PA and Lateral IMPRESSION: Mild hyperaeration. Possible right basilar cavity. Right upper lobe infiltrate Electronically Signed: Edward Franco DO at 18:44 EST Reading Location ID and State: [facility] / [place] Tel [phone], Service support ,
[2024-04-12 18:29] LABS: Absolute Neutrophil Count 15.5 X10^3/uL (2.0-7.7); Basophil# 0.04 X10^3/uL; Basophil% 0.2 % (0-1); Eosinophil# 0.02 X10^3/uL; Eosinophils% 0.1 % (0-5); Hematocrit 41.9 % (40-54); Lymphocyte % 4.5 % (19-41); Mean Corp Hgb Conc 35.8 g/dL (32-36); Mean Corpuscular Hgb 30.7 pg (27.0-32.0); Mean Corpuscular Volume 85.7 fL (80-94); Mean Platelet Vol. 10.9 fl (6.2-12.0); Monocyte# 1.29 X10^3/uL; Monocyte% 7.3 % (0-10); NRBC Flagged by Analyzer 0 % (0-5); Neutrophil # 15.47 X10^3/uL (2.7-7.7); Neutrophil % 87.1 % (47-70); Platelet Count 135 K/mm3 (150-450); RBC Distribution Width CV 12.7 % (11.6-14.6); RBC Distribution Width SD 39.5 fl (35.1-43.9); Red Blood Count 4.89 M/mm3 (4.6-6.2); White Blood Count 17.8 K/mm3 (4.4-11.0)
[2024-04-12 18:36] LABS: ALB/GLOB Ratio 0.8 RATIO (0.9-2.4); AST(SGOT) 10 U/L (15-37); Alanine Aminotransfer ALT/SGPT 19 U/L (16-61); Albumin, Serum 3.4 g/dL (3.2-5.0); Alkaline Phosphatase 65 U/L (45-117); Anion Gap 7 (5-15); BUN 13 mg/dL (7-18); BUN/Creat Ratio 17.5 RATIO (10-20); Calcium,Total 8.9 mg/dL (8.5-10.1); Chloride 100 mmol/L (98-107); Creatinine, Serum 0.74 mg/dL (0.70-1.30); EST Glomerular Filtration Rate 119 mL/min (>60); Est Glom Filt Rate - Afr Amer 144 mL/min (>60); Globulin 4.2 g/dL (2.2-4.2); Glucose 130 mg/dL (74-106); Potassium 3.4 mmol/L (3.5-5.1); Protein, Total 7.6 g/dL (6.4-8.2); Sodium Level 132 mmol/L (136-145)
[2024-04-12 19:27] VITALS: BP 151/81; PULSE 88; RESP 22; TEMP 37.4; O2SAT 97
[2024-04-12] MEDS: levoFLOXacin 750 MG Tablet PO (19:45)
== END 2024-04-12 19:46 | disposition home or self-care (01) ==
PROVIDERS: Emergency Provider Emergency Medicine; PCP Internal Medicine; Visit Provider Emergency Medicine
DX: J18.9 Pneumonia, unspecified organism (principal); J44.9 Chronic obstructive pulmonary disease, unspecified; E86.0 Dehydration; F17.210 Nicotine dependence, cigarettes, uncomplicated; R50.9 Fever, unspecified; R06.82 Tachypnea, not elsewhere classified; R91.8 Other nonspecific abnormal finding of lung field
CPT/HCPCS: 71046; 80053; 83605; 85025; 87631; 96360; 99284; A4216

== ENCOUNTER → 2024-04-29 | Outpatient (CLI) | payer BC, SELFPAY ==
--- NOTE | 2024-04-29 19:00 | CT_ITS ---
INDICATION: suspected right basilar cavitary lesion EXAMINATION: CT CHEST WITHOUT CONTRAST - CT Chest W/O Contrast Injection TECHNIQUE: Helically acquired images were obtained of the chest. A radiation dose optimization technique was used for this scan. IV Contrast dosage and agent: None. COMPARISON: 03/22/2022 FINDINGS: LUNGS, PLEURA AND LARGE AIRWAYS: Mild emphysema with subpleural blebs and bulla. Right upper lobe scarring and bronchiectasis. No change in confluent scarring and bronchiectasis involving the entire right lower lobe with significant collapse. No pleural effusion or thickening. No pneumothorax. THYROID: No thyroid lesions. HEART AND PERICARDIUM: Heart size is normal. No pericardial effusion. CORONARY ARTERIES: Coronary artery calcification is not seen. VESSELS: Thoracic aorta is not dilated. MEDIASTINUM AND VIVIANE: No mediastinal or hilar adenopathy. Esophagus is unremarkable. No hiatal hernia. UPPER ABDOMEN: No acute pathology. BONES: No suspicious lytic or blastic abnormality. CT/Chest without Contrast IMPRESSION: Progressive right lung scarring and bronchiectasis with complete involvement of the right lower lobe. Electronically Signed: Juliocesar Manzo MD at 12:41 EST ,
== END | disposition home or self-care (01) ==
PROVIDERS: PCP Internal Medicine; Visit Provider Nurse Practitioner Family
DX: R93.89 Abnormal findings on diagnostic imaging of other specified body structures (principal)
CPT/HCPCS: 71250

== ENCOUNTER → 2024-05-16 | Outpatient (CLI) | payer BC, SELFPAY | END | disposition home or self-care (01) | LOC: PSN 06:58 | PROVIDERS: PCP Internal Medicine; Referring Provider Nurse Practitioner Family; Visit Provider Nurse Practitioner Family | DX: J44.89 Other specified chronic obstructive pulmonary disease (principal) | CPT/HCPCS: 94060; 94726; 94729 ==

== ENCOUNTER → 2025-03-03 | Outpatient (CLI) | payer BC, SELFPAY ==
--- NOTE | 2025-03-03 11:20 | RAD_ITS ---
PROCEDURE: CHEST PA AND LATERAL 03/03/2025 REASON FOR EXAM: SHORTNESS OF BREATH TECHNIQUE: Procedure Code: RADCXR Modality: DX Procedure: CHEST PA AND LATERAL COMPARISON: None FINDINGS: Hardware: None Heart: The heart size is normal. Mediastinum: The mediastinal contour is unremarkable. Lungs: Lungs are hyperexpanded with chronic interstitial changes, no superimposed acute pulmonary process Bones: Degenerative changes are identified within the thoracic spine. RAD/Chest PA and Lateral IMPRESSION: Hyperexpanded lungs with chronic interstitial changes, no superimposed acute pu lmonary process Reading Location: [id number]
== END | disposition home or self-care (01) ==
LOC: MTRAD 11:20
PROVIDERS: PCP Internal Medicine; Referring Provider Physician Assistant Surgical; Visit Provider Physician Assistant Surgical
DX: R06.02 Shortness of breath (principal)
CPT/HCPCS: 71046

== ENCOUNTER 2025-03-04 15:04 | Emergency (ER) | payer BC, SELFPAY ==
[2025-03-04 15:05] VITALS: BP 163/93; PULSE 73; RESP 16; TEMP 37.1; O2SAT 100; BMI 21.3
--- NOTE | 2025-03-04 15:24 | EDS_ITS ---
HPI History of Present Illness Chief Complaint: Upper Extremity Injury Informant: patient Narrative Narrative: Patient is a 49-year-old male with a history of COPD and emphysema presenting with right arm pain and deformity following a dog-related injury. - Incident occurred when a 90 lb Labrador ran into his right arm while trying to run past him to his daughter. [place] and heard a pop. - Reports noticeable change in arm shape and inability to lay the arm flat. - Describes significant tenderness along the arm, particularly when pressure is applied. - Able to bend the arm, but notes pain during flexion; pain subsides past a certain point when bending it all the way. - Unable to fully supinate without pain; pain volar distal upper arm. - Denies other injuries. - COPD and emphysema are well-controlled; does not take prednisone daily. - Left-handed; injury is to the right arm. [facility] Medical History Colon cancer screening Skin lesion of back Encounter for wellness examination in adult Wears glasses Smoker Shortness of breath on exertion Chronic cough Emphysema, unspecified Tobacco use Pleural effusion, right Right lower lobe pneumonia Home Medications ?Medication ?Instructions ?Recorded ?Last Taken ?Type albuterol sulfate 90 mcg/actuation 2 inh inhalation Q4 -6H PRN 06/03/24 Unknown Rx aerosol inhaler shortness of breath or wheez ing #8.5 grams ipratropium 0.5 mg-albuterol 3 mg 3 ml inhalation Q4-6 H PRN 09/16/24 Unknown Rx (2.5 mg base)/3 mL nebulization shortness of breath or wheezing soln #180 mL fluticasone fur. 200 mcg-umeclid 1 inh inhalation Q24H #60 ea 11/04/24 Unknown Rx 62.5 mcg-vilant 25 mcg inhalat.powder (Trelegy Ellipta) amoxicillin 875 mg-potassium 1 tab PO Q12H 10 days #20 tabs 03/03/25 Unknown Rx clavulanate 125 mg tablet azithromycin 250 mg tablet See Rx Instructions PO .COM PLEX #6 03/03/25 Unknown Rx tabs Allergy/AdvReac Type Severity Reaction Status Date / Time No Known Allergies Allergy Verified 03/04/25 15:06 Family History Father COPD (chronic obstructive pulmonary disease) Heart disease Hypertension Diabetes CHF (congestive heart failure) Mother CAD (coronary artery disease) Myocardial infarction Hypertension Surgical History No history of previous surgery Social History household members: spouse Smoking Status: Current every day smoker tobacco type: cigarettes Tobacco: How many years used: 31 how long ago did patient quit smoking: Smoke 1ppd x 30 yrs, 1/2ppd x 1yr (2021) alcohol intake: never substance use type: does not use what 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 ROS ED Constitutional Constitutional ED: Denies chills or fever(s) Musculoskeletal Musculoskeletal: Reports extremity pain; Denies neck pain Integumentary Denies Abrasions, rash or wounds Neurologic Neurologic: Denies paresthesias or weakness EXAM Physical Exam Const Vital Signs: 03/04/25 15:05 Temperature 98.7 F Temperature Source Oral Pulse Rate 73 Respiratory Rate 16 Blood Pressure 163/93 H Blood Pressure Mean 116 Pulse Ox 100 Oxygen Delivery Method Room Air Positive well nourished and well developed General Appearance ED: well developed and NAD Neck full ROM and supple Back/Spine normal ROM and normal to inspection Extremity Extremity Narrative: Asymmetric bulge in the right biceps compared with the left. There is muscle bulge and a space distal to this down toward the antecubital fossa that is not present on the left. This area is mildly tender. The skin is normal-appearing and intact. He can flex but with pain and want to get past about 60 degrees he can flex all the way without any difficulty then. All compartments of the upper arm are soft and nondistended. The forearm is uninjured. He is having trouble laying his thumb flat in extension and points to the thenar eminence is difficulty but it is not injured or tender. He can supinate but has pain at extreme. He can pronate without difficulty. There is no tenderness at the proximal aspect of the biceps on the right. No bony tenderness at the elbow. Neuro oriented x3, no focal motor deficits and no sensory deficits noted Sensorium / Orientation: alert Psych mental status grossly normal and thought process normal Skin no wounds Rashes: no rashes MDM MDM MDM Narrative Medical decision making narrative: This is consistent with a biceps tendon rupture, distal aspect of the right biceps likely. I obtain three-view x-rays of the elbow to rule out a pull off fracture, these are negative on my interpretation. 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 He was offered pain medication or NSAIDs, he declines. Discharge Plan Triage Chief Complaint: Upper Extremity Injury ED Provider: Valdemar Higuera Dx/Rx/DC Orders Clinical Impression: Rupture of right distal biceps tendon Instructions: ED Bicep Tendon Rupture Prescriptions: No Action albuterol sulfate 90 mcg/actuation HFA aerosol inhaler 2 inh inhalation Q4-6H PRN (Reason: shortness of breath or wheezing) Qty: 8.5 0RF ipratropium-albuterol 0.5 mg-3 mg(2.5 mg base)/3 mL solution for nebulization 3 ml inhalation Q4-6H PRN (Reason: shortness of breath or wheezing) Qty: 180 2RF azithromycin 250 mg tablet See Rx Instructions PO .COMPLEX Qty: 6 0RF Rx Instructions: take 500 mg today (day 1), then 250 mg for 4 days (days 2-5) PO amoxicillin-pot clavulanate 875-125 mg tablet 1 tab PO Q12H 10 Days Qty: 20 0RF Trelegy Ellipta 200-62.5-25 mcg blister with device 1 inh inhalation Q24H Qty: 60 5RF Primary Care Provider: Josi Vo Referrals: Nestor Carvalho MD [Med Staff - Active Staff, Orthopedics] - As soon as possible Print Language: Slovak Disposition Disposition: Home, Self Care
--- NOTE | 2025-03-04 15:25 | RAD_ITS ---
PROCEDURE: ELBOW MIN 3 VIEWS 03/04/2025 REASON FOR EXAM: INJURY TECHNIQUE: Procedure Code: RADEL Modality: DX Procedure: ELBOW MIN 3 VIEWS COMPARISON: Reviewed FINDINGS: Osseous structures intact. Joints preserved. Soft tissues unremarkable. RAD/Elbow min 3 Views IMPRESSION: As above. Reading Location: [facility]
--- OUTSIDE RECORDS SUMMARY | 2025-03-04 15:34 | XMS RPT_ITS | CCD ---
Author Organization [facility] Care Team Providers Care Almond Grinder Name Role Phone Dr. Paola Piper Primary Care Provider Dr. Paola Piper Referring Provider Gaurav GALLAGHER, PA Chandler Meneses Attending Provider Dr. Faye Kim Emergency Provider Dr. Reta Ham Admit Provider Dr. Reta Ham Referring Provider Dr. Reta Ham Other Provider Dr. Julito Cason Attending Provider Dr. Julito Cason Other Provider Dr. Dania Barrios Attending Provider Dr. Dania Barrios Other Provider Pcp, No Primary Care Provider Unavailivy Infante MEDICAL SCHEDULER, MEDICAL SCHEDULERMarialuisaC Rhoda Attending Provider Dr. Bettye Vo Primary Care Provider Dr. Bettye Vo Attending Provider [phone] Dr. Bettye Vo Primary Care Provider Dr. Bettye Vo Attending Provider [phone] Dr. Bettye Vo Referring Provider [phone] AILEEN Thomas Attending Provider Unavailab Dr. Paola Louis Primary Care Provider Dr. Faye Kim Emergency Provider Dr. Reta Ham Admit Provider Dr. Julito Cason Other Provider Yoav, Dr. Vila Attending Provider Dr. Paola Piper Referring Provider Yoav, Dr. Vila Referring Provider Dr. Bettye Vo Primary Care Provider Yoav, Dr. Vila Attending Provider Yoav, Dr. Vila Other Provider Dr. Lino Escalante Attending Provider Dr. Bettye oV Primary Care Provider Yoav, Dr. Vila Referring Provider Yoav, Dr. Vila Other Provider Dr. Lino Escalante Attending Provider Yoav, Dr. Vila Attending Provider Dr. Bettye Vo Referring Provider Naresh MEDICAL SCHEDULER, MEDICAL SCHEDULER-C Rhoda Attending Provider Dr. Bettye Vo Attending Provider Unavailable Primary Care Provider UnavailBettye Wahl MD Primary Care Provider Julito Cason Unavailable Unavailable Primary Care Provider Unavailivy Piper MD, Paola Macias Primary Care Provider Bettye Vo MD Primary Care Provider Julito Cason MD Unavailable Dr. Bettye Vo MD Primary Care Provider Dr. Bettye Vo MD Referring Provider Haseeb BURK-CSandy Attending Provider Dr. Bettye Vo MD Attending Provider Dr. Bettye Vo MD Primary Care Provider Dr. Bettye Vo MD Referring Provider Sandy Tadeo Attending Provider Bettye Vo Primary Care Unavailable Sandy Membreno Attending Unavailable Fahad Maxwell Attending Unavailable GildaBettye Primary Care Unavailable GildaBettye Primary Care Unavailable Bettye Vo Attending Unavailable Sandy Membreno Attending Unavailable Bettye Vo Primary Care Unavailable Bettye Vo Referring Unavailable Bettye Vo Primary Care Unavailable Sandy Membreno Attending Unavailable Bettye Vo Referring Unavailable Sandy Membreno Attending Unavailable Gilda, Bettye Primary Care Unavailable Bettye Vo Referring Unavailable Bettye Vo Primary Care Unavailable Bettye Vo Attending Unavailable Bettye Vo Primary Care Unavailable Sandy Membreno Attending Unavailable Sandy Membreno Referring Unavailable KAELYN COTTON Attending Unavailable BETTYE VO Primary Care Unavailable KAELYN COTTON Referring Unavailable JET GUSTAFSON Attending Unavailable BETTYE VO Primary Care Unavailable KAELYN COTTON Attending Unavailable BETTYE VO Primary Care Unavailable PARTH FREEMAN Attending Unavailable BETTYE VO Primary Care Unavailable Allergies Allergy Classification Reported Allergen(s) Allergy Type Date of Onset Reaction(s) Facility (20 sources) Amoxicillin; Translations: [AMOXICILLIN] Drug Allergy 11-07-2018 Unknown [facility] (7 sources) Penicillins; Translations: [PENICILLINS] Propensity to adverse reactions 08-19-2007 unknown [facility] (6 sources) Penicillins Propensity to adverse reactions 11-21-2021 unknown [facility] (20 sources) Penicillins Propensity to adverse reactions 08-19-2007 [facility] (7 sources) Penicillins Propensity to adverse reactions 08-19-2007 [facility] Medications Current Medications Medication Drug Class(es) Dates Sig (Normalized) Sig (Original) [id number] actuat albuterol 0.09 mg/actuat metered dose inhaler (20 sources) beta2-Adrenergic Agonist Start: 06-03-2024 take 2 puff(s) by mouth every four to six hours as needed for wheezing albuterol HFA (PROVENTIL HFA, VENTOLIN HFA) 90 mcg/actuation inhaler INHALE 2 PUFFS BY MOUTH EVERY 4 TO 6 HOURS NEEDED FOR SHORTNESS OF BREATH/WHEEZING 06/03/2024 Active Start: 06-03-2024 Albuterol Sulf ate 90 mcg/actuation HFA aerosol inhaler Active 2 NMA INHALATION EVERY 4-6 HOURS as needed for shortness of breath or wheezing 8.5 June 03, 2024 1:00am Start: 08-19-2021 take 1 puff(s) by in halation every four hours as needed Albuterol Sulfate Active 2 PUFF INHALATION EVERY 4 HOURS NEEDED 8.5 August 19, 2021 2:12pm Start: 08-04-2021 End: 08-19-2021 take 1 puff(s) by inhalation every four hours as needed Albuterol Sulfate Discontinued 2 PUFF INHALATION EVERY 4 HOURS NEEDED August 04, 2021 5:39am August 19, 2021 2:12pm Start: 08-04-2021 take 1 puff(s) by in halation every four hours as needed Albuterol Sulfate Active 2 PUFF INHALATION EVERY 4 HOURS NEEDED August 04, 2021 5:39am Start: 08-04-2021 End: 08-19-2021 Albuterol Sulfate 90 mcg/act uation HFA aerosol inhaler Discontinued 2 NMA INHALATION EVERY 4 HOURS NEEDED as needed for Shortness Of Breath Or Wheezing August 04, 2021 12:00am August 19, 2021 2:12pm Start: 08-04-2021 End: 08-19-2021 take 1 puff(s) by inhalation every four hours as needed Albuterol Sulfate Discontinued 2 PUFF INHALATION EVERY 4 HOURS NEEDED August 03, 2021 11:00pm August 19, 2021 1:12pm Start: 01-14-2021 End: 06-05-2022 take 2 puff(s) by inhalation every six hours as needed for wheezing albuterol HFA (PROVENTIL HFA, VENTOLIN HFA) 90 mcg/actuation inhaler Indications: Cough , Wheezing , History of pneumonia Inhale 2 Puffs as instructed every 6 hours as needed for wheezing/shortness of breath. 1 Each 01/14/2021 05/14/2021 Discontinued Comment on above: Inhale 2 Puffs as in structed every 6 hours as needed for wheezing/shortness of breath. albuterol 0.833 mg/ml / ipratropium bromide 0.167 mg/ml inhalation solution (14 sources) Anticholinergic, beta2-Adrenergic Agonist Start: 09-17-19 take 3 mL by inhalation every four to six hours as needed ipratropium-al buterol (DUONEB) 0.5 mg-3 mg(2.5 mg base)/3 mL nebu Inhale 3 mL as instructed. Every 4-6 hours as needed 09/16/2024 Active Start: 08-12-2021 take 1 mL by inhalat ion every four hours as needed Ipratropium-Albuterol Active 3 ML INHALATION EVERY 4 HOURS NEEDED 180 August 12, 2021 12:00am Fmlmvtfqpzl-Oqealyfsa-Blzuap er (3 sources) Start: 06-03-2024 Rludhprsouq-Zzflnftdp-Qlquej er (Trelegy Ellipta) 200-62.5-25 mcg blister with device Active 1 NMA INHALATION Q24H 60 June 03, 2024 1:00am Nebulizer (14 sources) Start: 08-12-2021 Nebulizer Active 0 .ROUTE .MEDSUPPLY August 12, 2021 8:32am As directed Start: 08-12-2021 End: 03-31-2022 Nebulizer Discontinued 0 .RO GARFIELD .MEDSUPPLY August 12, 2021 12:00am March 31, 2022 9:28am As directed Start: 08-12-2021 End: 03-31-2022 Nebulizer Discontinued 0 .RO GARFIELD .MEDSUPPLY August 11, 2021 11:00pm March 31, 2022 8:28am As directed Start: 08-12-2021 Nebulizer Acti ve 0 .ROUTE .MEDSUPPLY August 11, 2021 11:00pm As directed Start: 08-12-2021 Nebulizer Acti ve 0 .ROUTE .MEDSUPPLY August 12, 2021 12:00am As directed polyethylene glycol 3350 859810 mg / potassium chloride 2970 mg / sodium bicarbonate 6740 mg / sodium chloride 5860 mg / sodium sulfate 69448 mg powder for oral solution (1 source) Osmotic Laxative Start: 11-21-2024 End: 11-21-2024 peg 3350-Electrolytes (GOLYTELY) 236-22.74-6.74 -5.86 gram suspension Indications: Screen for colon cancer Take 4,000 mL by mouth one time only for 1 dose. Refer to printed prep instructions from your provider. 4000 mL 11/21/2024 11/21/2024 Active sodium chloride 9 mg/ml inhalation solution (7 sources) Start: 06-19-2022 End: 09-17-2022 sodium chloride 0.9 % nebulizer solution Use 3 mL via nebulizer twice daily. 180 mL 2 06/19/2022 09/17/2022 Active Comment on above: Use 3 mL via nebuliz er twice daily. TRELEGY ELLIPTA 200-62.5-25 mcg inhalation powder (9 sources) Start: 06-03-2024 take 1 puff(s) by inhalation once daily TRELEGY ELLIPTA 200-62.5-25 mcg inhalation powder Inhale 1 Puff as instructed once daily. 06/03/2024 Active Completed/Discontinued Medications Medication Drug Class(es) Dates Sig (Normalized) Sig (Original) amoxicillin 500 mg / clavulanate 125 mg oral tablet (10 sources) Penicillin-class Antibacterial Start: 04-22-2022 End: 11-25-2022 Amoxicillin-Pot Clavulanate 500-125 mg tablet Discontinued 1 {tbl} PO Q12H September 15, 2022 3:24pm November 25, 2022 7:47am Start: 04-22-2022 take 1 tablet by tatyana th every twelve hours Amoxicillin-Pot Clavulanate Active 1 TABLET PO Q12H April 22, 2022 12:00am 24 hr buPROPion hydrochloride 150 mg extended release oral tablet (1 source) Aminoketone Start: 01-16-2021 End: 05-14-2021 buPROPion XL (WELLBUTRIN XL) 150 mg 24 hr tablet Indications: Tobacco abuse One tablet daily for one week, increase to one tablet twice a day after one week if tolerating 90 tablet 01/16/2021 05/14/2021 Discontinued ciprofloxacin 500 mg oral tablet (8 sources) Quinolone Antimicrobial Start: 05-19-2022 End: 08-04-2022 take 1 tablet by mouth twice daily in the morning ciprofloxacin HCl (CIPRO) 500 mg tablet TAKE 1 TABLET BY MOUTH TWICE DAILY IN THE MORNING AND IN THE EVENING THE DAY BEFORE THE PROCEDURE, THE DAY OF THE PROCEDURE, AND THE DAY AFTER THE PROCEDURE 0 05/19/2022 08/04/2022 Discontinued (Course of therapy completed) Comment on above: TAKE 1 TABLET BY TATYANA TH TWICE DAILY IN THE MORNING AND IN THE EVENING THE DAY BEFORE THE PROCEDURE, THE DAY OF THE PROCEDURE, AND THE DAY AFTER THE PROCEDURE Fluticasone-Umeclid in-Vilanter (3 sources) Anticholinergic, Corticosteroid, beta2-Adrenergic Agonist Start: 04-15-2024 End: 06-03-2024 Fluticasone-Umecli din-Vilanter (Trelegy Ellipta) 100-62.5-25 mcg blister with device Discontinued 1 NMA INHALATION Q24H April 15, 2024 1:00am June 03, 2024 9:52am 12 hr guaiFENesin 1200 mg extended release oral tablet (16 sources) Start: 08-06-2021 End: 08-19-2021 take 1 tablet by mouth twice daily, then take 1 tablet by mouth every twelve hours Guaifenesin (Mucus Relief Er) 1,200 mg Tablet Extended Release 12hr Discontinued 1200 mg PO TWICE A DAY 27 02August 06, 2021 12:00am August 19, 2021 1:52pm Start: 01-14-2021 End: 02-14-2021 take 2 tablets by mouth twice daily as needed for cough guaiFENesin (MUCINEX) 600 mg 12 hr tablet Indications: Cough , Wheezing , History of pneumonia Take 2 tablets by mouth twice daily. as needed for cough 20 tablet 01/14/2021 02/14/2021 Discontinued levoFLOXacin 500 mg oral tablet (20 sources) Quinolone Antimicrobial Start: 04-12-2024 End: 06-03-2024 take 1 tablet by mouth once daily Levofloxacin 500 mg tablet Discontinued 500 mg PO DAILY April 12, 2024 1:00am June 03, 2024 9:12am Start: 03-22-2022 End: 03-31-2022 take 1 tablet by mouth once daily Levofloxacin 750 mg tablet Discontinued 750 mg PO DAILY March 22, 2022 1:00am March 31, 2022 9:28am Start: 10-09-2021 End: 11-14-2021 take 1 tablet by mouth once daily Levofloxacin 750 mg tablet Discontinued 750 mg PO DAILY October 09, 2021 12:00am November 14, 2021 8:10am Start: 08-06-2021 End: 08-19-2021 take 1 tablet by mouth once daily Levofloxacin 750 mg tablet Discontinued 750 mg PO DAILY 7 August 06, 2021 12:00am August 19, 2021 1:52pm Start: 01-14-2021 End: 01-19-2021 take 1 tablet by mouth once daily levoFLOXacin (LEVAQUIN) 750 mg tablet Indications: URI, acute , Cough , Wheezing , History of pneumonia Take 1 tablet by mouth once daily for 5 days. 5 tablet 01/14/2021 01/19/2021 moxifloxacin 400 mg oral tablet (16 sources) Quinolone Antimicrobial Start: 07-31-2021 End: 08-06-2021 take 1 tablet by mouth once daily Moxifloxacin 400 mg tablet Discontinued 400 mg PO DAILY 10 July 31, 2021 12:00am August 09, 2021 12:00am August 06, 2021 3:14pm nicotine 2 mg chewing gum (2 sources) Cholinergic Nicotinic Agonist Start: 03-30-2020 End: 02-14-2021 take 1 dose by mouth every two hours as needed nicotine polacrilex (NICORETTE) 2 mg gum Indications: Tobacco abuse Take 1 Each by mouth every 2 hours as needed. 50 Each 5 03/30/2020 02/14/2021 Discontinued predniSONE 20 mg oral tablet (15 sources) Start: 08-06-2021 End: 08-19-2021 take 2 tablets by mouth at breakfast Prednisone 20 mg Tablet Discontinued 40 mg PO WITH BREAKFAST 6 August 06, 2021 12:00am August 19, 2021 1:52pm Start: 08-06-2021 End: 08-19-2021 take 40 mg by mouth at breakfast Prednisone Discontinu ed 40 MG PO WITH BREAKFAST 6 August 05, 2021 11:00pm August 19, 2021 12:52pm 7 actuat umeclidinium 0.0625 mg/actuat / vilanterol 0.025 mg/actuat dry powder inhaler (20 sources) Anticholinergic, beta2-Adrenergic Agonist Start: 04-09-2023 End: 04-15-2024 Umeclidinium-Vilanterol (Anoro Ellipta) 62.5-25 mcg/actuation blister with device Discontinued 1 NMA INHALATION DAILY 60 April 09, 2023 8:26am April 15, 2024 11:08am Start: 08-26-2022 End: 04-09-2023 Umeclidinium-Vilanterol (Ano ro Ellipta) 62.5-25 mcg/actuation blister with device Discontinued 1 NMA INHALATION DAILY 60 August 26, 2022 7:57am April 09, 2023 8:26am Start: 04-16-2022 End: 08-26-2022 Umeclidinium-Vilanterol (Ano ro Ellipta) 62.5-25 mcg/actuation blister with device Discontinued 1 NMA INHALATION DAILY April 16, 2022 1:00am August 26, 2022 7:57am Start: 04-16-2022 Umeclidinium-V ilanterol (Anoro Ellipta) 62.5-25 mcg/actuation blister with device Active 1 INH INHALATION DAILY April 16, 2022 12:00am Start: 08-04-2021 End: 03-25-2022 Umeclidinium-Vilanterol (Ano ro Ellipta) 62.5-25 mcg/actuation blister with device Discontinued 1 NMA INHALATION DAILY August 04, 2021 12:00am March 25, 2022 9:47am Start: 08-04-2021 End: 03-25-2022 Umeclidinium-Vilanterol (Ano ro Ellipta) 62.5-25 mcg/actuation blister with device Discontinued 1 EACH INHALATION DAILY August 03, 2021 11:00pm March 25, 2022 8:47am Start: 02-14-2021 End: 06-20-2024 take 1 dose by inhalation once daily umeclidinium-vilanterol (ANORO ELLIPTA) 62.5-25 mcg/actuation inhaler Inhale 1 Inhalation as instructed once daily. 1 Each 5 02/14/2021 06/20/2024 Discontinued Comment on above: Inhale 1 Inhalation as instructed once daily. Problems Active Problems Problem Classification Problem Date Documented Da te Episodic/Chronic Administrative/social admission (2 sources) Persons encountering health services in other specified circumstances; Translations: [Other reasons for seeking consultation] Episodic Asthma (10 sources) Asthma-chronic obstructive pulmonary disease overlap syndrome; Translations: [Asthma-chronic obstructive pulmonary disease overlap syndrome] 04-09-2023 Chronic Chronic obstructive pulmonary disease and bronchiectasis (20 sources) Chronic obstructive lung disease; Translations: [Chronic obstructive pulmonary disease, unspecified] Onset: 02-14-2021 02-14-2021 Chronic Chronic obstructive pulmonary disease and bronchiectasis (1 source) Chronic obstructive pulmonary disease and bronchiectasis; Translations: [Other specified chronic obstructive pulmonary disease] Onset: 09-22-2024 Complications of surgical procedures or medical care (1 source) H/O: respiratory disease; Translations: [Personal history of retained foreign body fully removed] 07-04-2024 Episodic Fever of unknown origin (15 sources) Fever; Translations: [Fever, unspecified] 10-17-2021 Episodic Immunizations and screening for infectious disease (1 source) Encounter for immunization; Translations: [Encounter for immunization] Onset: 09-22-2024 Episodic Other and unspecified benign neoplasm (1 source) Tubular adenoma of colon; Translations: [Benign neoplasm of colon, unspecified] 12-21-2024 Episodic Other and unspecified benign neoplasm (1 source) Benign neoplasm of colon, unspecified; Translations: [Tubular adenoma of colon] Onset: 12-26-2024 Episodic Other injuries and conditions due to external causes (2 sources) Injury of left wrist; Translations: [Unspecified injury of left wrist, hand and finger(s), initial encounter] Episodic Other injuries and conditions due to external causes (1 source) Aspiration into respiratory tract; Translations: [Unspecified foreign body in respiratory tract, part unspecified causing other injury, subsequent encounter] Episodic Other lower respiratory disease (13 sources) Radiologic infiltrate of lung ; Translations: [Other nonspecific abnormal finding of lung field] 08-04-2021 Episodic Other lower respiratory disease (20 sources) Other nonspecific abnormal finding of lung field; Translations: [Other nonspecific abnormal finding of lung field] Episodic Other lower respiratory disease (5 sources) Cough; Translations: [Cough] Episodic Other lower respiratory disease (3 sources) Dyspnea, unspecified; Translations: [Other respiratory abnormalities] Episodic Other lower respiratory disease (1 source) Lung mass; Translations: [Other nonspecific abnormal finding of lung field] Episodic Other lower respiratory disease (1 source) Rib pain; Translations: [Pleurodynia] 05-06-2021 Episodic Other lower respiratory disease (1 source) Wheezing; Translations: [Wheezing] 01-16-2021 Episodic Other lower respiratory disease (2 sources) Dyspnea; Translations: [Shortness of breath] 09-17-2020 Episodic Other lower respiratory disease (6 sources) Single lobe lung infiltrate; Translations: [Other nonspecific abnormal finding of lung field] 04-09-2023 Episodic Other lower respiratory disease (3 sources) History of chronic obstructive airway disease; Translations: [Personal history of other diseases of the respiratory system] 04-20-2024 Episodic Other lower respiratory disease (3 sources) Tachypnea; Translations: [Tachypnea, not elsewhere classified] 04-20-2024 Episodic Other lower respiratory disease (5 sources) Cavitation of lung; Translations: [Other disorders of lung] 04-15-2024 Episodic Other lower respiratory disease (1 source) Other disorders of lung; Translations: [Other disorders of lung] Onset: 09-22-2024 Episodic Other screening for suspected conditions (not mental disorders or infectious disease) (6 sources) Abnormal findings on diagnostic imaging of other specified body structures; Translations: [Abnormal chest x-ray] Onset: 06-02-2024 04-15-2024 Chronic Comment on above: PA/Lat x ray suggest ing right basilar cavitary lesion Other screening for suspected conditions (not mental disorders or infectious disease) (20 sources) Raised prostate specific antigen; Translations: [Elevated prostate specific antigen [PSA]] Onset: 09-22-2024 Episodic Other skin disorders (2 sources) Skin lesion; Translations: [Disorder of the skin and subcutaneous tissue, unspecified] 11-03-2024 Episodic Other upper respiratory disease (8 sources) Obstruction of bronchus; Translations: [Other diseases of bronchus, not elsewhere classified] 04-22-2022 Episodic Other upper respiratory disease (1 source) Other diseases of bronchus, not elsewhere classified; Translations: [Other diseases of trachea and bronchus] 04-22-2022 Episodic Other upper respiratory disease (1 source) Bronchiolar disease; Translations: [Other diseases of bronchus, not elsewhere classified] Episodic Other upper respiratory disease (1 source) Stenosis of bronchus; Translations: [Other diseases of bronchus, not elsewhere classified] Episodic Other upper respiratory infections (1 source) Acute upper respiratory infection; Translations: [Acute upper respiratory infection, unspecified] 01-16-2021 Episodic Pleurisy; pneumothorax; pulmonary collapse (20 sources) Pleural effusion; Translations: [Pleural effusion, not elsewhere classified] Episodic Residual codes; unclassified (12 sources) Tobacco use; Translations: [Tobacco use disorder] Onset: 09-22-2024 Episodic Residual codes; unclassified (15 sources) Tobacco use and exposure - finding; Translations: [Tobacco use] 02-27-2022 Episodic Residual codes; unclassified (1 source) Tobacco user; Translations: [Tobacco use] 03-15-2020 Episodic Substance-related disorders (20 sources) Cigarette smoker ; Translations: [Nicotine dependence, cigarettes, uncomplicated] Onset: 02-14-2021 Resolved: 02-14-2021 02-14-2021 Chronic Unclassified (2 sources) Encounter for screening for malignant neoplasm of colon; Translations: [Z12.11 - Encounter for screening for malignant neoplasm of colon] Unclassified (1 source) Patient encounter status 11-21-2024 Past or Other Problems Problem Classification Problem Date Documented Da te Episodic/Chronic Other connective tissue disease (20 sources) Synovitis and tenosynovitis; Translations: [Synovitis and tenosynovitis, unspecified] Onset: 10-13-2008 10-13-2008 Episodic Other connective tissue disease (20 sources) Pain in limb; Translations: [Pain in unspecified limb] Onset: 10-13-2008 10-13-2008 Episodic Other connective tissue disease (20 sources) Impingement syndrome of left shoulder region; Translations: [Impingement syndrome of left shoulder] Onset: 10-31-2014 10-31-2014 Episodic Pneumonia (except that caused by tuberculosis or sexually transmitted disease) (20 sources) Right lower zone pneumonia; Translations: [Pneumonia, unspecified organism] Onset: 11-03-2022 Episodic Results Test Name Value Interpretation Reference Range Facility [id number] 12-15-2024 [id number] HNO ID: [id number] Author: DELFINO LONDON RN Service: ? Author Type: Registered Nurse Type: [id number] Filed: 12/15/2024 12:32 Note Text: The patient received a copy of Colonoscopy discharge instructions that contain information for how to contact the physician who performed the procedure and when to seek medical care. Normal [facility] Colonoscopyon 12-15-2024 Colonoscopy [facility] Gastrointestinal Endoscopy Patient Name: Paola Powers Procedure Date: 12/15/2024 11:52 AM Date of : 1975 Admit Type: Outpatient Age: 49 Gender: Male Note Status: Finalized Procedure: Colonoscopy Indications: Screening for colorectal malignant neoplasm Providers: Jet Gustafson MD Patient Profile: This is a 49 year old male. Refer to note in patient chart for documentation of history and physical. Last Colonoscopy: none. The patient's first colonoscopy is today. Referring Physician: Kaelyn Cotton (Referring MD) Medicines: Fentanyl 50 micrograms IV, Midazolam 5 mg IV, Diphenhydramine 50 mg IV Complications: No immediate complications. Estimated blood loss: Minimal. Requesting Provider: Procedure: Pre-Anesthesia Assessment: - Prior to the procedure, a History and Physical was performed, and patient medications and allergies were reviewed. The patient's tolerance of previous anesthesia was also reviewed. The risks and benefits of the procedure and the sedation options and risks were discussed with the patient. All questions were answered, and informed consent was obtained. Prior Anticoagulants: The patient has taken no anticoagulant or antiplatelet agents. ASA Grade Assessment: II - A patient with mild systemic disease. After reviewing the risks and benefits, the patient was deemed in satisfactory condition to undergo the procedure. After I obtained informed consent, the scope was passed under direct vision. Throughout the procedure, the patient's blood pressure, pulse, and oxygen saturations were monitored continuously. The Colonoscope was introduced through the anus and advanced to 4 cm into the ileum. The colonoscopy was performed without difficulty. The patient tolerated the procedure well. The quality of the bowel preparation was adequate to identify polyps greater than 5 mm in size. The terminal ileum, ileocecal valve, appendiceal orifice, and rectum were photographed. Moderate Sedation: The administration of moderate sedation was initiated at 12:00. Moderate (conscious) sedation was personally administered by the endoscopist. The following parameters were monitored: oxygen saturation, heart rate, blood pressure, respiratory rate, EKG, adequacy of pulmonary ventilation, and response to care. Total physician intraservice time was 19 minutes. Findings: The perianal and digital rectal examinations were normal. A small (4-6 mm) polyp was found in the transverse colon. The polyp was sessile. The polyp was removed with a cold snare. Resection and retrieval were complete. Non-bleeding internal hemorrhoids were found during retroflexion. The hemorrhoids were mild and small. The exam was otherwise without abnormality. Impression: - One small (4-6 mm) polyp in the transverse colon, removed with a cold snare. Resected and retrieved. - Non-bleeding internal hemorrhoids. - The examination was otherwise normal. Recommendation: - Patient has a contact number available for emergencies. The signs and symptoms of potential delayed complications were discussed with the patient. Return to normal activities tomorrow. Written discharge instructions were provided to the patient. - Resume previous diet. - Continue present medications. - Await pathology results. - Repeat colonoscopy in 5 years for surveillance. - Return to nurse practitioner at appointment to be scheduled. Procedure Code(s): --- Professional --- 03744, Colonoscopy, flexible; with removal of tumor(s), polyp(s), or other lesion(s) by snare technique G0500, Moderate sedation services provided by the same physician or other qualified health property caretaker performing a gastrointestinal endoscopic service that sedation supports, requiring the presence of an independent trained observer to assist in the monitoring of the patient's level of consciousness and physiological status; initial 15 minutes of intra-service time; patient age 5 years or older (additional time may be reported with 01245, as appropriate) Diagnosis Code(s): --- Professional --- Z12.11, Encounter for screening for malignant neoplasm of colon D12.3, Benign neoplasm of transverse colon (hepatic flexure or splenic flexure) K64.8, Other hemorrhoids CPT copyright 2020 [employer]. All rights reserved. The codes documented in this report are preliminary and upon outside production inspector review may be revised to meet current compliance requirements. Attending Participation: I personally performed the entire procedure. Scope In: 12:04:45 PM Scope Out: 12:19:56 PM MD Jet Patel MD 12/15/2024 12:24:07 PM This report has been signed electronically by Jet Gustafson MD Number of Addenda: 0 Note Initiated On: 12/15/2024 11:52 AM Estimated Blood Loss: Estimated blood loss was minimal. Normal [facility] HISTORY PHYSICALon HISTORY PHYSICAL HNO ID: [id number] Author: JET GUSTAFSON MD Service: General Surgery Author Type: Physician Type: H&P Filed: 12/15/2024 11:05 Note Text: HISTORY AND PHYSICAL Paola Powers : 1975 REFERRING PHYSICIAN: No referring provider defined for this encounter. CHIEF COMPLAINT: Patient presents with: Consult HPI: Paola is a 49 year old male referred for endoscopy. Paola notes due for screening colonoscopy. Paola denies abdominal pain. Paola denies diarrhea. Paola denies constipation. Paola denies a change in bowel habits. Paola denies melena. Paola denies bright red blood per rectum. Paola denies hemorrhoids. Paola denies family history of colon issues. Paola denies heartburn. Paola denies dysphagia. Paola denies a history of ulcers/ peptic ulcer disease. Paola has a hx of asthma with COPD overlap. Uses trelegy, duoneb AND albuterol. He denies CP, SOB, wheezing, recent illness, dizziness, palpitations, syncope, edema, recent hospitalizations Paola has not undergone prior endoscopy. CURRENT MEDICATIONS Current Outpatient Medications Medication Sig ipratropium-albuterol (DUONEB) 0.5 mg-3 mg(2.5 mg base)/3 mL nebu Inhale 3 mL as instructed. Every 4-6 hours as needed TRELEGY ELLIPTA 200-62.5-25 mcg inhalation powder Inhale 1 Puff as instructed once daily. albuterol HFA (PROVENTIL HFA, VENTOLIN HFA) 90 mcg/actuation inhaler INHALE 2 PUFFS BY MOUTH EVERY 4 TO 6 HOURS NEEDED FOR SHORTNESS OF BREATH/WHEEZING peg 3350-Electrolytes (GOLYTELY) 236-22.74-6.74 -5.86 gram suspension Take 4,000 mL by mouth one time only for 1 dose. Refer to printed prep instructions from your provider. No current facility-administered medications for this visit. ALLERGIES: Amoxicillin and Penicillins PAST MEDICAL HISTORY PAST MEDICAL HISTORY Diagnosis Date Asthma-COPD overlap syndrome (HCC) Centrilobular emphysema (HCC) Chronic cough COPD (chronic obstructive pulmonary disease) (HCC) Elevated prostate specific antigen (PSA) Emphysema, unspecified (HCC) Pneumonia, viral Tobacco use disorder PAST SURGICAL HISTORY PAST SURGICAL HISTORY Procedure Laterality Date BRONCHOSCOPY W/REMOVAL FOREIGN BODY 06/19/2022 FAMILY HISTORY FAMILY HISTORY Problem Relation Age of Onset Hypertension Mother Heart Attack Mother 51 Coronary Artery Disease Mother other (myocardial infarction) Mother Hypertension Father COPD Father Heart disease Father Diabetes Father other (chf) Father other (congenital heart disease) Brother Kidney failure Maternal Grandmother No Known Problems Paternal Grandmother No Known Problems Paternal Grandfather SOCIAL HISTORY Social History Tobacco Use Smoking status: Every Day Current packs/day: 0.25 Average packs/day: 0.3 packs/day for 30.0 years (7.5 ttl pk-yrs) Types: Cigarettes Smokeless tobacco: Former Tobacco comments: At present he is down to 4 pack per week with plan to reduce to one pack per months in October. At his worst he was a 2 pack per day smoker. 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 The patient is oriented to time, place, and person. VITALS: Blood pressure 118/74, pulse 60, temperature 36.9 ?C (98.4 ?F), temperature source Temporal, resp. rate 20, height 180.3 cm (5' 11), weight 77.1 kg (170 lb), SpO2 97%. Body mass index is 23.71 kg/m?. HEENT: Normal cephalic, ataumatic, pupils are equally round, sclera are anicteric, mucous membranes are moist, oropharynx is clear. Neck has no masses or asymmetry . Respiratory: Clear to auscultation. Cardiac: Regular rate and rhythm. Abdominal exam: Soft, nontender, with no palpable masses. No hepatosplenomegaly. No palpable hernias. Extremities: no clubbing or cyanosis LABORATORY VALUES: As Noted RADIOLOGIC STUDIES: As Noted Assessment IMPRESSION: screen for colon cancer PLAN: I have reviewed my findings with the surgeon. Will plan for lower endoscopy. We discussed the risks and benefits of the planned endoscopy in terms understandable to the patient. I have informed the patient that complications can occur including failure to complete the endoscopy and perforation. Paola had the opportunity to ask questions concerning the planned endoscopy. Paola freely consents to surgery. I plan to use Golytely bowel preparation I have explained to the patient the difference between IV conscious sedation and MAC anesthesia - and I have offered either, according to the patient's wishes. I have explained that with IV conscious sedation there is no anesthesia provider available and therefore there is a limitation of the amount of IV medications th (more content not included)... Normal [facility] Pathology biopsy report Remigio (Tiss)on 12-15-2024 AP DISCLAIMER Normal [facility] Comment on above: Order Comment: Speci men Type: TISSUE SPECIMENOrdering Facility: [facility] Address: [address] [place] [address] Result Comment: Jolie charles Developed Test (LDT) Disclaimer: Performance characteristics of immunohistochemical, immunofluorescent, and chromogenic in-situ hybridization tests have been determined by the performing laboratory within [facility]'s [facility] Pathology and Laboratory Medicine Department ([facility], [facility], [facility], [facility], [facility], [facility], or [facility]) in a manner consistent with CLIA requirements. One or more of these tests may not have been cleared or approved by the FDA. [facility] is regulated under CLIA as qualified to perform high-complexity testing. These tests are used for clinical purposes. These should not be regarded as investigational or for research. Positive and negative controls stain appropriately. Performed By: #### 6 6121-5 ####[facility] [id number] [place] [address] [place] CASE REPORT Normal [facility] Comment on above: Order Comment: Speci men Type: TISSUE SPECIMENOrdering Facility: [facility] Address: [address] [place] [address] Result Comment: Surg ica Pathology Report Case: [id number] Authorizing Provider: Jet Gustafson MD Collected: 12/15/2024 12:13 PM Ordering Location: Ambulatory Surgery Received: 12/15/2024 03:18 PM Pathologist: Katherine Siegel MD Specimen: Colon, Transverse, Polyp Performed By: #### 6 6121-5 ####[facility] [id number] [address] [place] FINAL DIAGNOSIS Normal [facility] Comment on above: Order Comment: Speci men Type: TISSUE SPECIMENOrdering Facility: [facility] Address: [address] [place] [address] Result Comment: ashwini Abrams, polypectomy: - Tubular adenoma. AEB/bs 12/19/2024 at 1442 EDT Performed By: #### 6 6121-5 ####[facility] [id number] [address] [place] FINAL PERFORMING LAB Normal [facility] Comment on above: Order Comment: Speci men Type: TISSUE SPECIMENOrdering Facility: [facility] Address: [address] [place] [address] Result Comment: Diag nostic interpretation performed at: [facility], [address] [place] [address] CLIA# [id number] Sales Service Manager: Glenn Guzman MD Performed By: #### 6 6121-5 ####[facility] [id number] [address] [place] GROSS DESCRIPTION Normal [facility] Comment on above: Order Comment: Speci men Type: TISSUE SPECIMENOrdering Facility: [facility] Address: [address] [place] [address] Result Comment: Ashwini Abrams, Polyp Received in formalin is a segment of tellez-brown polypoid tissue measuring 1.0 x 0.3 x 0.2 cm. No stalk is noted. The line of resection is noted. The specimen is bisected and totally submitted in one cassette. [facility] December 16, 2024 2:23 AM Gross examination performed at [facility], [address] [place] [address] Performed By: #### 6 6121-5 ####[facility] [id number] [address] [place] CNOVon 11-21-2024 CNOV Office Visit (GENSWS ) PAOLA POWERS ([id number]) 1975 M Date Time Provider Department 11/21/24 8:30 AM KAELYN COTTON GENSWS During your visit today, we recorded the following information about you: Temperature Pulse Respiration Blood pressure 98.4 degrees 60/minute 20/minute 118/74 Weight Height 77.1 kg 1.803 m Kaelyn Cotton APRN.DOCK LOADER 11/21/2024 9:30 AM Signed HISTORY AND PHYSICAL Paola Powers : 1975 REFERRING PHYSICIAN: No referring provider defined for this encounter. CHIEF COMPLAINT: Patient presents with: Consult HPI: Paola is a 49 year old male referred for endoscopy. Paola notes due for screening colonoscopy. Paola denies abdominal pain. Paola denies diarrhea. Paola denies constipation. Paola denies a change in bowel habits. Paola denies melena. Paola denies bright red blood per rectum. Paola denies hemorrhoids. Paola denies family history of colon issues. Paola denies heartburn. Paola denies dysphagia. Paola denies a history of ulcers/ peptic ulcer disease. Paola has a hx of asthma with COPD overlap. Uses trelegy, duoneb AND albuterol. He denies CP, SOB, wheezing, recent illness, dizziness, palpitations, syncope, edema, recent hospitalizations Paola has not undergone prior endoscopy. Current Outpatient Medications Medication Sig ipratropium-albuterol (DUONEB) 0.5 mg-3 mg(2.5 mg base)/3 mL nebu Inhale 3 mL as instructed. Every 4-6 hours as needed TRELEGY ELLIPTA 200-62.5-25 mcg inhalation powder Inhale 1 Puff as instructed once daily. albuterol HFA (PROVENTIL HFA, VENTOLIN HFA) 90 mcg/actuation inhaler INHALE 2 PUFFS BY MOUTH EVERY 4 TO 6 HOURS NEEDED FOR SHORTNESS OF BREATH/WHEEZING peg 3350-Electrolytes (GOLYTELY) 236-22.74-6.74 -5.86 gram suspension Take 4,000 mL by mouth one time only for 1 dose. Refer to printed prep instructions from your provider. No current facility-administered medications for this visit. ALLERGIES: Amoxicillin and Penicillins PAST MEDICAL HISTORY Diagnosis Date Asthma-COPD overlap syndrome (HCC) Centrilobular emphysema (HCC) Chronic cough COPD (chronic obstructive pulmonary disease) (HCC) Elevated prostate specific antigen (PSA) Emphysema, unspecified (HCC) Pneumonia, viral Tobacco use disorder PAST SURGICAL HISTORY Procedure Laterality Date BRONCHOSCOPY W/REMOVAL FOREIGN BODY 06/19/2022 FAMILY HISTORY Problem Relation Age of Onset Hypertension Mother Heart Attack Mother 51 Coronary Artery Disease Mother other (myocardial infarction) Mother Hypertension Father COPD Father Heart disease Father Diabetes Father other (chf) Father other (congenital heart disease) Brother Kidney failure Maternal Grandmother No Known Problems Paternal Grandmother No Known Problems Paternal Grandfather Social History Tobacco Use Smoking status: Every Day Current packs/day: 0.25 Average packs/day: 0.3 packs/day for 30.0 years (7.5 ttl pk-yrs) Types: Cigarettes Smokeless tobacco: Former Tobacco comments: At present he is down to 4 pack per week with plan to reduce to one pack per months in October. At his worst he was a 2 pack per day smoker. 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 The patient is oriented to time, place, and person. VITALS: Blood pressure 118/74, pulse 60, temperature 36.9 ?C (98.4 ?F), temperature source Temporal, resp. rate 20, height 180.3 cm (5' 11), weight 77.1 kg (170 lb), SpO2 97%. Body mass index is 23.71 kg/m?. HEENT: Normal cephalic, ataumatic, pupils are equally round, sclera are anicteric, mucous membranes are moist, oropharynx is clear. Neck has no masses or asymmetry . Respiratory: Clear to auscultation. Cardiac: Regular rate and rhythm. Abdominal exam: Soft, nontender, with no palpable masses. No hepatosplenomegaly. No palpable hernias. Extremities: no clubbing or cyanosis LABORATORY VALUES: As Noted RADIOLOGIC STUDIES: As Noted Assessment IMPRESSION: screen for colon cancer PLAN: I have reviewed my findings with the surgeon. Will plan for lower endoscopy. We discussed the risks and benefits of the planned endoscopy in terms understandable to the patient. I have informed the patient that complications can occur including failure to complete the endoscopy and perforation. Paola had the opportunity to ask questions concerning the planned endoscopy. Paola freely consents to surgery. I plan to use Golytely bowel preparation I have explained to the patient the difference between IV conscious sedation and MAC anesthesia - and I have offe (more content not included)... Normal [facility] 11-21-2024 [facility] Telephone (RIQ) PAOLA POWERS ([id number]) 1975 M Date Time Provider Department 11/21/24 AMBER HUITRON [facility] During your visit today, we recorded the following information about you: Amber Huitron, [facility] 11/21/2024 8:29 AM Signed 11/21/24: Per Elana Macias, Patient called and would like to cancel appointment today with Dr. Freeman. He will call at a later date to reschedule. Allergies As of Date: 11/21/2024 Noted Allergy Reaction AMOXICILLIN 11/07/2018 16 - Unknown PENICILLINS 08/19/2007 Date Reviewed: 06/20/2024 Reviewed by: Augusta Alves CT - Fully Assessed Reason for Visit: Appointment Cancelled [1023] Cmt: 11/21/24: Per Elana Macias, Patient called and would like to cancel appointment today with Dr. Freeman. He will call at a later date to reschedule. Prescriptions as of 11/21/2024 - ipratropium-albuterol (DUONEB) 0.5 mg-3 mg(2.5 mg base)/3 mL nebu Inhale 3 mL as instructed. Every 4-6 hours as needed - TRELEGY ELLIPTA 200-62.5-25 mcg inhalation powder Inhale 1 Puff as instructed once daily. - albuterol HFA (PROVENTIL HFA, VENTOLIN HFA) 90 mcg/actuation inhaler INHALE 2 PUFFS BY MOUTH EVERY 4 TO 6 HOURS NEEDED FOR SHORTNESS OF BREATH/WHEEZING Problem List As Of Date 11/21/2024 Noted Resolved SYNOVITIS NOS [M65.90] 10/13/2008 PAIN ARM [M79.609] 10/13/2008 Impingement syndrome of left shoulder [M75.42] 10/31/2014 Moderate smoker (20 or less per day) [F17.210] 02/14/2021 02/14/2021 Bronchiectasis without complication (HCC) [J47.*02/14/2021 Stage 2 moderate COPD by GOLD classification (H*02/14/2021 Cigarette smoker [F17.210] 02/14/2021 Abscess of left lung with pneumonia (HCC) [J85.*11/03/2022 Encounter Status:Closed by AMBER HUITRON on 11/21/24 [facility] MR/William 11-03-2024 MR/TAMMY.[facility] [address] [place] [address] OFFICE VISIT Date of Service: 11/03/24 MR#: [id number] Acct: [id number] Name: PAOLA POWERS Marcelino Rep #: [id number] : 1975 Provider: Dr. Bettye pathak MD Age/Sex: 49/M Location: [facility] Status: Signed Intake Vital Signs 09/22/24 08:01 11/03/24 08:04 Height 6 ft 6 ft Weight: 171 lb 2 oz 170 lb BMI 23.2 23.0 BP 135/77 H 139/82 H Blood Pressure Location Lt brachial Lt brachial Position Sitting Sitting Respiration 16 16 Pulse 52 L 52 L Pulse Source Monitor Monitor Temp 99.1 F 98.7 F Temp Source Temporal Temporal Pulse Oximetry (%) 96 96 Oxygen Delivery Method room air room air Intake Visit Reasons: Annual/Physical Chief Complaint: Annual/Physical Neon Molder Required: No Accompanied by: Is patient in pain?: No Allergies No Known Allergies Allergy (Unverified 11/03/24 07:59) Medications ???Medication ???Instructions ???Recorded ???Confirmed ???Type albuterol sulfate 90 mcg/actuation 2 inh inhalation Q4-6H PRN 06/0311/03/24 Rx aerosol inhaler shortness of breath or wheezing #8.5 grams fluticasone fur. 200 mcg-umeclid 1 inh inhalation Q24H #60 ea 06/0311/03/24 Rx 62.5 mcg-vilant 25 mcg inhalat.powder (Trelegy Ellipta) ipratropium 0.5 mg-albuterol 3 mg 3 ml inhalation Q4-6H PRN 5 11/03/24 Rx (2.5 mg base)/3 mL nebulization shortness of breath or wheezing soln #180 mL PFS Medical History (Updated 11/03/24 @ 10:[address] Bettye Vo MD) Skin lesion of back Encounter for wellness examination in adult Wears glasses Smoker Shortness of breath on exertion Chronic cough Emphysema, unspecified Tobacco use Pleural effusion, right Right lower lobe pneumonia Surgical History No history of previous surgery Family History Father COPD (chronic obstructive pulmonary disease) Heart disease Hypertension Diabetes CHF (congestive heart failure) Mother CAD (coronary artery disease) Myocardial infarction Hypertension Social History household members: spouse Smoking Status: Current every day smoker tobacco type: cigarettes Tobacco: How many years used: 31 how long ago did patient quit smoking: Smoke 1ppd x 30 yrs, 1/2ppd x 1yr (2021) alcohol intake: never substance use type: does not use what type of physical activity do you 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 49-year-old gentleman who has a history of asthma/COPD, and had recurrent episodes of pneumonia, presumably ultimately related to foreign body. Leading up to bronchoscopy, with ultimate resolution, he was treated repeatedly for courses of pneumonia. 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 He did seems to get along okay in terms of his breathing. 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 Occasionally will need to take a break, rest for a few minutes and then he feels okay again. Typically manifest as dyspnea in terms of symptoms. No pk chest pain or discomfort. No nausea or vomiting. Appetite has been good. Bowel movements have been regular. No dysuria, urgency or frequency reported. Review of systems per chart. No chest pain or discomfort. No current wheezing. He has some ongoing cough symptoms, fairly mild relative speaking. No recurrence of pneumonia recently. We did see him recently after pulmonary visit where he was felt to possibly have some lymph node enlargement, to which we looked into clinically on exam. I did not find anything that was necessarily overly bothersome so observation is recommended. He has not had change in bowel movements. Has not had a colonoscopy. Physical exam. Vital signs on chart. PERRLA. Sclera are clear. TMs are unremarkable with normal light reflexes. Canals are unremarkable. Posterior pharynx is unremarkable. No obvious oral muco mahi lesions. No cervical or supraclavicular lymph nodes enlarged or tender. No clear thyromegaly. No thyroid nodules readily palpable. Lungs are without wheeze, rhonchi. Diminished breath sounds, right basilar posteriorly posterior lateral. Faint s/p changes right basilar. Heart is regular. Not tachycardic. No clear murmur, rub, or gallop is identified. The abdomen is soft. Bowel sounds are present. Nontender nondistended abdomen. No clear palpable (more content not included)... Normal [facility] MR/BMS.Poonam 09-22-2024 MR/BMS.[facility] [address] [place] [address] OFFICE VISIT Date of Service: 09/22/24 MR#: [id number] Acct: [id number] Name: PAOLA POWERS Rep #: [id number] : 1975 Provider: Dr. Bettye pathak MD Age/Sex: 49/M Location: [facility] Status: Signed Intake Vital Signs 09/16/24 06:02 09/22/24 08:01 Height 6 ft 6 ft Weight: 168 lb 171 lb 2 oz BMI 22.8 23.2 BP 138/82 H 135/77 H Blood Pressure Location Lt brachial Lt brachial Position Sitting Sitting Respiration 18 16 Pulse 50 L 52 L Pulse Source Monitor Monitor Temp 97.5 F L 99.1 F Temp Source Temporal Pulse Oximetry (%) 99 96 Oxygen Delivery Method room air room air Intake Visit Reasons: Lymph Node FU Chief Complaint: Lymph Node FU Neon Molder Required: No Accompanied by: Self Is patient in pain?: No Allergies No Known Allergies Allergy (Unverified 09/22/24 07:55) Medications ???Medication ???Instructions ???Recorded ???Confirmed ???Type albuterol sulfate 90 mcg/actuation 2 inh inhalation Q4-6H PRN 06/0309/22/24 Rx aerosol inhaler shortness of breath or wheezing #8.5 grams fluticasone fur. 200 mcg-umeclid 1 inh inhalation Q24H #60 ea 06/0309/22/24 Rx 62.5 mcg-vilant 25 mcg inhalat.powder (Trelegy Ellipta) ipratropium 0.5 mg-albuterol 3 mg 3 ml inhalation Q4-6H PRN 5 09/22/24 Rx (2.5 mg base)/3 mL nebulization shortness of breath or wheezing soln #180 mL PFSH Medical History Wears glasses Smoker Shortness of breath on exertion Chronic cough Emphysema, unspecified Tobacco use Pleural effusion, right Right lower lobe pneumonia Surgical History No history of previous surgery Family History Father COPD (chronic obstructive pulmonary disease) Heart disease Hypertension Diabetes CHF (congestive heart failure) Mother CAD (coronary artery disease) Myocardial infarction Hypertension Social History household members: spouse Smoking Status: Current every day smoker tobacco type: cigarettes Tobacco: How many years used: 31 how long ago did patient quit smoking: Smoke 1ppd x 30 yrs, 1/2ppd x 1yr (2021) alcohol intake: never substance use type: does not use what type of physical activity do you participate in: walking 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 I have not seen him since 2021. 49-year-old male, long-term smoker who has asthma/COPD, cavitary lesion of the lung, recurrent pneumonias, currently followed mostly by pulmonary medicine. He is currently on Trelegy, ipratropium/albuterol and albuterol as needed. Reportedly at his last visit with pulmonary medicine he had several enlarged lymph nodes. Excerpt from pulmonary note: Lymph Lymphatic: Yes lymphadenopathy and No cervical adenopathy 1 palpable 1 cm lymph node at right chest wall at base of sternum, 2 palpable sub cm lymph nodes right upper quadrant, 1 palpable sub cm posterior left arm, 1 palpable sub cm left lumbar region that is tender to palpation Review of systems per chart. Physical exam. Vital signs on chart. EOMI. PERRLA. Sclera are clear. TMs are unremarkable with normal light reflexes. Canals are unremarkable. Posterior pharynx is unremarkable. Good dentition. No cervical or supraclavicular lymph nodes enlarged or tender. No clear thyromegaly. No thyroid nodules readily palpable. Lungs with a few scattered rhonchi, right base, few rales right base, more prominent anteriorly, with overall diminished breath sounds right lower lung zones. No E/A changes are heard. Heart is regular. Not tachycardic. No clear murmur, rub, or gallop is identified. The abdomen is soft. Bowel sounds are present. Nontender nondistended abdomen. No clear palpable masses in the abdomen. No significant leg edema. Cranial nerve examination 2 through 12 are grossly unremarkable nonlateralizing. No obvious rashes. Does have an abnormal mole, on the right back with a small area of increased pigmentation. I suggest he see dermatology for discussion of removal. Large mole on right side of his nose that does impact his life, and that could be evaluated as well. In regards to possible lymph nodes. In the preauricular chains, there were old tiny nontender lymph nodes that are palpable. We discussed that in detail. Otherwise no cervical or supraclavicular lymph nodes as above. On the right posterior upper arm, the right mid chest area, right lower chest upper quadrant of the abdomen he has smal (more content not included)... Normal [facility] CNPNon 09-16-2024 CNPN Telephone (PULMMN) PAOLA POWERS ([id number]) 1975 M Date Time Provider Department 09/16/24 [facility] During your visit today, we recorded the following information about you: Luz Barnes 09/16/2024 9:06 AM Signed Outside Medical Records from [facility] received and uploaded Allergies As of Date: 09/16/2024 Noted Allergy Reaction AMOXICILLIN 11/07/2018 16 - Unknown PENICILLINS 08/19/2007 Date Reviewed: 06/20/2024 Reviewed by: Augusta Alves, CT - Fully Assessed Reason for Visit: Received Outside Medical Records [[id number]] Prescriptions as of 09/21/2024 - TRELEGY ELLIPTA 200-62.5-25 mcg inhalation powder Inhale 1 Puff as instructed once daily. - albuterol HFA (PROVENTIL HFA, VENTOLIN HFA) 90 mcg/actuation inhaler INHALE 2 PUFFS BY MOUTH EVERY 4 TO 6 HOURS NEEDED FOR SHORTNESS OF BREATH/WHEEZING Problem List As Of Date 09/16/2024 Noted Resolved SYNOVITIS NOS [M65.90] 10/13/2008 PAIN ARM [M79.609] 10/13/2008 Impingement syndrome of left shoulder [M75.42] 10/31/2014 Moderate smoker (20 or less per day) [F17.210] 02/14/2021 02/14/2021 Bronchiectasis without complication (HCC) [J47.*02/14/2021 Stage 2 moderate COPD by GOLD classification (H*02/14/2021 Cigarette smoker [F17.210] 02/14/2021 Abscess of left lung with pneumonia (HCC) [J85.*11/03/2022 Encounter Status:Closed by LUZ BARNES on 09/21/24 Normal [facility] Pulmonary Visit Reporton Pulmonary Visit Report [facility] Pulmonary Medicine of [address] [place], [place] [address] OFFICE VISIT Date of Service: 09/16/24 MR#: [id number] Acct: [id number] Name: PAOLA POWERS Rep #: [id number] : 1975 Provider: Sandy Membreno NP Age/Sex: 49/M Location: [facility].PMW Status: Signed Assessment and Plan Assessment and Plan (1) Bronchial obstruction: Status: Acute Plan: Continue to follow with [facility] due to history of right lower lobe collapse. Re- fax PFT so flow loops will be available to provider. Patient is requesting images to be pushed into [facility] system. (2) Asthma-COPD overlap syndrome: Status: Chronic Plan: Stable on triple therapy, continue with use of Trelegy 200, 1 puff daily. Use albuterol inhaler as needed. Duo Neb solution prescribed today to use as needed if he has worsening respiratory symptoms. Notify this practice if he has worsening respiratory symptoms. (3) Tobacco use: Status: Chronic Plan: Smoking cessation is encouraged today, patient indicates he is not ready to pursue at this time. LDCT warranted 04/29/25 to follow recent scan, at minimum. Await [facility] plan for imaging. Medications: New ipratropium-albuterol 0.5 mg-3 mg(2.5 mg base)/3 mL 3 mL inhalation Q4-6H PRN 180 mL 2RF shortness of breath or wheezing Plan Details Additional Comments: A message has been sent to PCP regarding lymph nodes, along with PCP CC'ed in this office visit note. Follow Up: 6 Months (LMR) HPI HPI Comments Details: This 49 year old male patient presents to the office today for follow up. He has a history of chronic pneumonia and asthma COPD overlap syndrome. He is ambulatory and currently on room air. He has not had exacerbation requiring antibiotics or prednisone since last evaluation. He reports he has been feeling well. He has shortness of breath on exertion, this is his baseline. He does have a cough on occasion that is mostly dry. He denies any wheeze or hemoptysis. Denies any chest tightness, chest pain or palpitations. He also denies any fever, chills or body aches. He has noticed 5 palpable nodules that he points out during evaluation today. At last visit he was given a trial of Trelegy 100 and reports that it did provide him with benefit. He has not experienced side effect such as sore throat or thrush. His noticed an improvement in his respiratory symptoms. He does not have albuterol at home to use. He continues to smoke cigarettes. He is smoking less than a pack a day. He is not ready to quit at this time. He started smoking at age 15. He was following with ID for chronic pneumonia every 3 months. He reports a history of 3 bronchoscopies and right lower lobe removal of scar tissue along with finding an inorganic object walling itself off. He reports that he had aspirated a foreign object around April 2022 and had his first bronchoscopy at that time. He had 2 other bronchoscopies at [facility]. He indicates that he has been without illness since July 2022 until recent right upper lobe pneumonia on April 12, 2024 for which he was treated with Levaquin. He recently followed up with pulmonary medicine at [facility] and there is concern that he may not tolerate extensive resection of the chronically infected lung especially in the context of continued smoking. There is a plan to follow patient in November 2024. [facility] is requesting images be pushed into their system for review. Chest CT from 04/29/24 which shows progressive right lung scarring and bronchiectasis with complete involvement of the right lower lobe. PFT from 05/16/24 which shows partially reversible moderately severe large airways obstructive ventilatory defect with associated air trapping and mild reduction in diffusing capacity. Intake Vital Signs 06/03/24 08:13 09/16/24 06:02 Height 6 ft 6 ft Weight: 168 lb BMI 22.8 BP 138/82 H Blood Pressure Location Lt brachial Position Sitting Respiration 18 Pulse 50 L Pulse Source Monitor Temp 97.5 F L Temperature Source Temporal Artery Pulse Oximetry (%) 99 Oxygen Delivery Method room air Intake Visit Reasons: 3 month FU Chief Complaint: 6wk FU Neon Molder Required: No DME Vendor: n/a Accompanied by: Is patient in pain?: No Allergies No Known Allergies Allergy (Unverified 09/16/24 08:13) Medications ???Medication ???Instructions ???Recorded ???Confirmed ???Type albuterol sulfate 90 mcg/actuation 2 inh inhalation Q4-6H PRN 06/0309/16/24 Rx aerosol inhaler shortness of breath or wheezing #8.5 grams fluticasone fur. 200 mcg-umeclid 1 inh inhalation Q24H #60 ea 06/0309/16/24 Rx 62.5 mcg-vilant 25 mcg inhalat.powder (Trelegy Ellipta) ipratropium 0.5 mg-albuterol 3 mg 3 ml inhalation Q4-6H PRN 5 09/16/24 Rx (more content not included)... Normal [facility] 09-09-2024 [facility] Telephone (RENETTA) PAOLA POWERS ([id number]) 1975 M Date Time Provider Department 09/09/24 LUZ BARNES [facility] During your visit today, we recorded the following information about you: Luz Barnes 09/09/2024 10:23 AM Signed Office notes from 06/20/24 faxed to [facility] at [phone] Allergies As of Date: 09/09/2024 Noted Allergy Reaction AMOXICILLIN 11/07/2018 16 - Unknown PENICILLINS 08/19/2007 Date Reviewed: 06/20/2024 Reviewed by: Augusta Alves CT - Fully Assessed Reason for Visit: Release Of Medical Records [2017] Prescriptions as of 09/09/2024 - TRELEGY ELLIPTA 200-62.5-25 mcg inhalation powder Inhale 1 Puff as instructed once daily. - albuterol HFA (PROVENTIL HFA, VENTOLIN HFA) 90 mcg/actuation inhaler INHALE 2 PUFFS BY MOUTH EVERY 4 TO 6 HOURS NEEDED FOR SHORTNESS OF BREATH/WHEEZING Problem List As Of Date 09/09/2024 Noted Resolved SYNOVITIS NOS [M65.90] 10/13/2008 PAIN ARM [M79.609] 10/13/2008 Impingement syndrome of left shoulder [M75.42] 10/31/2014 Moderate smoker (20 or less per day) [F17.210] 02/14/2021 02/14/2021 Bronchiectasis without complication (HCC) [J47.*02/14/2021 Stage 2 moderate COPD by GOLD classification (H*02/14/2021 Cigarette smoker [F17.210] 02/14/2021 Abscess of left lung with pneumonia (HCC) [J85.*11/03/2022 Encounter Status:Closed by LUZ BARNES on 09/09/24 [facility] 06-23-2024 [facility] Telephone ([id number]) PAOLA POWERS ([id number]) 1975 M Date Time Provider Department 06/23/24 LUCY JOYCE [id number] During your visit today, we recorded the following information about you: Allergies As of Date: 06/23/2024 Noted Allergy Reaction AMOXICILLIN 11/07/2018 16 - Unknown PENICILLINS 08/19/2007 Date Reviewed: 06/20/2024 Reviewed by: Augusta Alves CT - Fully Assessed Reason for Visit: Appointment [186] Prescriptions as of 06/23/2024 - TRELEGY ELLIPTA 200-62.5-25 mcg inhalation powder Inhale 1 Puff as instructed once daily. - albuterol HFA (PROVENTIL HFA, VENTOLIN HFA) 90 mcg/actuation inhaler INHALE 2 PUFFS BY MOUTH EVERY 4 TO 6 HOURS NEEDED FOR SHORTNESS OF BREATH/WHEEZING Problem List As Of Date 06/23/2024 Noted Resolved SYNOVITIS NOS [M65.90] 10/13/2008 PAIN ARM [M79.609] 10/13/2008 Impingement syndrome of left shoulder [M75.42] 10/31/2014 Moderate smoker (20 or less per day) [F17.210] 02/14/2021 02/14/2021 Bronchiectasis without complication (HCC) [J47.*02/14/2021 Stage 2 moderate COPD by GOLD classification (H*02/14/2021 Cigarette smoker [F17.210] 02/14/2021 Abscess of left lung with pneumonia (HCC) [J85.*11/03/2022 Encounter Status:Closed by LUCY MOBLEY on 06/23/24 [facility] CNOVon 06-20-2024 CNOV Office Visit (PMNA11 ) PAOLA POWERS ([id number]) 1975 M Date Time Provider Department 06/20/24 11:00 AM PARTH FREEMAN PMNA11 During your visit today, we recorded the following information about you: Temperature Pulse Respiration Blood pressure 98.6 degrees 67/minute 18/minute 135/75 Weight 76.4 kg Parth Freeman MD 07/04/2024 6:20 PM Signed [facility] CC: I am seeing Paola Powers in follow up for recurrent pneumonia. Summary of this visit and my recommendations will be relayed to the referring physician by way of electronic communication or by mail. PCP: Bettye Vo MD Referring Provider: Sandy Ochoa MD HPI: Mr. Powers is a 48 year old male with a PMH of chronic respiratory infection/lung abscesses who was found to have foreign body impaction as likely etiology. Since his last procedure he has had a single episode of acute illness with increased mucus, fatigue and chest discomfort. His local instrument tech treated him with 10 days of amoxicillin and clavulanate. About half way through the script he felt remarkably better. 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 His current lung doctor asked him to follow up for or consideration of therapeutic lobectomy.. His weight is up about 20 lbs since last year and he feels remarkably better after the course of antibiotics. He is sleep is improved. There is a chronic cough is diminished remarkably, post antibiotics and only occasionally productive of clear tenacious mucus. Last year after the removal of the foreign body and prolonged course of antibiotics he notes has been a significant improvement compared to the few years before that. He has not used the acapella valve since before completing the prolonged course of abx in 2023. While he continues to smoke he is actively working on quitting and is down to 1 cigarette a day. He continues to participate in a formal smoking cessation program through his insurance company. He has tried both chantix and bupropion in the past without success. He is using 5 - 8 pieces of nicotine gum with some benefit. It is his stated desire to quit but anticipates a long slow process. All in all he feels that he is in a better place with a robust performance status and good quality of life. REVIEW OF SYSTEMS: Gen: There are no fevers, chills, night sweats or weight loss. HEENT: No changes in hearing or vision, no nose bleeds or other nasal problems. Resp: See HPI. He is not known to snore and has no daytime somnolence. CV: There is no exertional chest pain or palpations. Musc: There are no arthralgias or myalgias. GI/: No trouble moving bowels or bladder noted. No history of dysuria, frequency or incontinence. Heme: No inappropriate bleeding noted. Endo: Negative for cold or heat intolerance, polyuria or polydipsia. Skin: No new or bothersome lesions, rashes or itching. Neuro: The patient has no history of headaches, syncope, paralysis, seizures or tremors. Review of systems is otherwise negative. PAST MEDICAL HISTORY: PAST MEDICAL HISTORY Diagnosis Date COPD (chronic obstructive pulmonary disease) (HCC) Pneumonia, viral PAST SURGICAL HISTORY Procedure Laterality Date BRONCHOSCOPY W/REMOVAL FOREIGN BODY 06/19/2022 MEDICATIONS: TRELEGY ELLIPTA 200-62.5-25 mcg inhalation powder Inhale 1 Puff as instructed once daily. albuterol HFA (PROVENTIL HFA, VENTOLIN HFA) 90 mcg/actuation inhaler INHALE 2 PUFFS BY MOUTH EVERY 4 TO 6 HOURS NEEDED FOR SHORTNESS OF BREATH/WHEEZING SOCIAL HISTORY: Social History Tobacco Use Smoking status: Every Day Current packs/day: 0.25 Average packs/day: 0.3 packs/day for 30.0 years (7.5 ttl pk-yrs) Types: Cigarettes Smokeless tobacco: Former Tobacco comments: At present he is down to 1 pack per week with plan to reduce to one pack per months in October. At his worst he was a 2 pack per day smoker. 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 There are significant occupational exposures to dusts, particles and some noxious chemicals.. FAMILY HISTORY: FAMILY HISTORY Problem Relation Age of Onset Heart Attack Mother 51 Hypertension Father COPD Father other (congenital heart disease) Brother PHYSICAL EXAM: VITALS: 06/20/24 1052 BP: 135/75 Pulse: 67 Resp: 18 Temp: 37 ?C (98.6 ?F) TempSrc: Temporal SpO2: 96% Weight: 76.4 kg (168 lb 6.9 oz) General appearance: Well appearing, alert, in no acute distress Ears/Nose/Mouth/Throa t: Lips, oral mucosa, and tongue normal. Poor dentition. Posterior oropharynx/palates normal withou (more content not included)... Normal [facility] Pulmonary Visit Reporton Pulmonary Visit Report [facility] Pulmonary Medicine of [place] [address] [place] [address] OFFICE VISIT Date of Service: 06/03/24 MR#: [id number] Acct: [id number] Name: PAOLA POWERS Rep #: [id number] : 1975 Provider: Sandy Membreno NP Age/Sex: 48/M Location: [facility].W Status: Signed Assessment and Plan Assessment and Plan (1) Bronchial obstruction: Status: Acute Plan: I have recommended that he return to [facility] due to right lower lobe collapse. I am concerned that he is at risk for post obstructive pneumonia. This patient may be a candidate for a right lower lobectomy. I did discuss this CT imaging and plan with Dr. Escalante today. (2) Abnormal chest xray: Status: Acute Comment: PA/Lat x ray suggesting right basilar cavitary lesion Plan: A right basilar cavitary lesion is not identified on CT image, in fact, the right base shows confluent scarring and bronchiectasis with significant collapse. Return to [facility] interventional pulmonology. (3) Asthma-COPD overlap syndrome: Status: Chronic Plan: While the PFT did show improvement when compared to previous one from February 09, 2023 there is significant reversibility seen with use of beta agonist. Triple therapy was on board prior to the patient completing the recent PFT which may have been the reason why there was improvement in the results. Due to the significant reversibility seen with use of beta agonist I have decided to increase the ICS dosage and have placed the patient on Trelegy 200. He will also be given an albuterol inhaler to be used as needed. Due to the evidence of bronchiectasis on CT imaging I have recommended a sputum for smear and culture now. (4) Tobacco use: Status: Chronic Plan: Smoking cessation is encouraged today. LDCT warranted 04/29/25 to follow recent scan, at minimum. Orders: Orders Culture, Sputum Today J44.89 - Other specified chronic obstructive pulmonary disease Medications: New fluticasone-umeclidin -vilanter 200-62.5-25 mcg (Trelegy Ellipta) 1 inh inhalation Q24H 60 ea 5RF J44.89 - Other specified chronic obstructive pulmonary disease albuterol sulfate 90 mcg/actuation 2 inhalations inhalation Q4-6H PRN 8.5 grams 0RF shortness of breath or wheezing J44.89 - Other specified chronic obstructive pulmonary disease Discontinued fluticasone-umeclidin -vilanter 100-62.5-25 mcg (Trelegy Ellipta) Discontinued Reason: Order Changed 1 inh inhalation Q24H 60 ea 5RF Plan Details Follow Up: 3 Months (LMR) HPI HPI Comments Details: This 48 year old male patient presents to the office today to review recent testing. He has a history of chronic pneumonia and asthma COPD overlap syndrome. He is ambulatory and currently on room air. He has shortness of breath on exertion, this is his baseline. He does have a cough with occasional production of yellow sputum, some chest congestion. The sputum has no foul taste or smell. Currently denies any wheeze or hemoptysis. Denies any chest tightness, chest pain or palpitations. He also denies any fever, chills or body aches. At last visit he was given a trial of Trelegy 100 and reports that it did provide him with benefit. He has not experienced side effect such as sore throat or thrush. His noticed an improvement in his respiratory symptoms. He does not have albuterol at home to use. He continues to smoke cigarettes. He has successfully weaned himself down to 1-2 cigarette/day from 2 packs per day. He is planning to start the Kurt product as a trial to stop smoking altogether. He started smoking at age 15. He was following with ID for chronic pneumonia every 3 months. He reports a history of 3 bronchoscopies and right lower lobe removal of scar tissue along with finding an inorganic object walling itself off. He reports that he had aspirated a foreign object around April 2022 and had his first bronchoscopy at that time. He had 2 other bronchoscopies at [facility]. He indicates that he has been without illness since July 2022 until recent right upper lobe pneumonia on April 12, 2024 for which he was treated with Levaquin. Documentation reviewed with patient today includes: Chest CT from 04/29/24 which shows progressive right lung scarring and bronchiectasis with complete involvement of the right lower lobe. PFT from 05/16/24 which shows partially reversible moderately severe large airways obstructive ventilatory defect with associated air trapping and mild reduction in diffusing capacity. Intake Vital Signs 04/15/24 08:14 06/03/24 08:13 Height 6 ft 6 ft Weight: 173 lb BMI 23.4 BP 117/72 Blood Pressure Location Rt brachial Position Sitting Respiration 16 Pulse 58 L Pulse Source Monitor Temp 97.6 F L Temperature Source Temporal Artery Pulse Oximetry (%) 95 Oxygen (more content not included)... Normal [facility] Chest without Contraston Chest without Contrast [facility] Imaging Services [address] [place] [address] Chest without Contrast MR#: [id number] Acct: [id number] Name: PAOLA POWERS Rep #: [id number] : 1975 M 48 From: Juliocesar Manzo MD PCP: Dr. Bettye Vo MD Status: REG CLI Study: Chest without Contrast Date of Exam: 04/29/24 Exam# [id number] Ordering Dr: Sandy Membreno MEDICAL SCHEDULER- C [id number] INDICATION: suspected right basilar cavitary lesion EXAMINATION: CT CHEST WITHOUT CONTRAST - CT Chest W/O Contrast Injection TECHNIQUE: Helically acquired images were obtained of the chest. A radiation dose optimization technique was used for this scan. IV Contrast dosage and agent: None. COMPARISON: 03/22/2022 __ FINDINGS: LUNGS, PLEURA AND LARGE AIRWAYS: Mild emphysema with subpleural blebs and bulla. Right upper lobe scarring and bronchiectasis. No change in confluent scarring and bronchiectasis involving the entire right lower lobe with significant collapse. No pleural effusion or thickening. No pneumothorax. THYROID: No thyroid lesions. HEART AND PERICARDIUM: Heart size is normal. No pericardial effusion. CORONARY ARTERIES: Coronary artery calcification is not seen. VESSELS: Thoracic aorta is not dilated. MEDIASTINUM AND VIVIANE: No mediastinal or hilar adenopathy. Esophagus is unremarkable. No hiatal hernia. UPPER ABDOMEN: No acute pathology. BONES: No suspicious lytic or blastic abnormality. CT/Chest without Contrast IMPRESSION: Progressive right lung scarring and bronchiectasis with complete involvement of the right lower lobe. Electronically Signed: Juliocesar Manzo MD at 12:41 EST , CC: Dr. Bettye Vo MD; Sandy Membreno NP Customer Counter Representative: Signed Normal [facility] Pulmonary Visit Reporton Pulmonary Visit Report [facility] Pulmonary Medicine of [place] [address] [place] [address] OFFICE VISIT Date of Service: 04/15/24 MR#: [id number] Acct: [id number] Name: PAOLA POWERS Rep #: [id number] : 1975 Provider: Sandy Membreno NP Age/Sex: 48/M Location: [facility].PMW Status: Signed Assessment and Plan Assessment and Plan (1) Abnormal chest xray: Status: Acute Comment: PA/Lat x ray suggesting right basilar cavitary lesion Plan: Await CT of the chest. The suggested basilar cavitary lesion may be present from previous illness. If it suggests recurrent disease then consider returning to [place] for follow up. (2) Asthma-COPD overlap syndrome: Status: Chronic Plan: Await PFT, post pneumonia treatment. I have recommended triple therapy be initiated for at least 4 weeks prior to obtaining the PFT to determine if there is benefit when comparing to previous testing. There was significant residual volume seen on last PFT and with recent illness I do believe that it would benefit the patient to have triple therapy on board. Samples of Trelegy 100, 1 inhalation daily with education provided on oral care was given to patient today. The use and possible side effects of Trelegy were reviewed with patient today. I have recommended that he obtain his influenza vaccine in the next 2 weeks. I have also discussed the pneumococcal vaccine. Given his pulmonary history it would benefit him from receiving this vaccine. (3) Community acquired pneumonia: Status: Acute Qualifiers: Laterality: right Lung location: upper lobe of lung Qualified Code(s): J18.9 - Pneumonia, unspecified organism Plan: Complete antibiotics as previously recommended, he continues to improve. The patient does not warrant a steroid at this time. If symptoms worsen notify this practice or report to the ER. (4) Tobacco use: Status: Chronic Plan: Smoking cessation is warranted, the patient is not ready to quit today. Orders: Orders PFT Complete: DLCO, Spirometry b/a bronchodilators, lung volumes 05/16/24 J44.89 - Other specified chronic obstructive pulmonary disease, J44.9 - Chronic obstructive pulmonary disease, unspecified Chest without Contrast 2 Weeks R93.89 - Abnormal findings on diagnostic imaging of other specified body structures Medications: New fluticasone-umeclidin -vilanter 100-62.5-25 mcg (Trelegy Ellipta) 1 inh inhalation Q24H 60 ea 5RF Discontinued umeclidinium-vilanter ol 62.5-25 mcg/actuation (Anoro Ellipta) Discontinued Reason: Order Changed 1 inh inhalation DAILY 60 ea 11RF Plan Details Follow Up: 6-8 weeks HPI HPI Comments Details: This patient presents to the office today for hospital follow-up, he was lost to follow up at this practice. He is ambulatory and currently on room air. He was seen at [facility] ER on April 12, 2024 for community-acquired pneumonia in the right upper lobe and was given a course of Levofloxacin 500 mg for 7 days. He reports that he is feeling back to baseline this morning. The PA and lateral chest x-ray also showed a possible right basilar cavity. He has shortness of breath on exertion, this is his baseline. He does have a cough with occasional production of yellow sputum, some chest congestion. Currently denies any wheeze or hemoptysis. Denies any chest tightness, chest pain or palpitations. He also denies any fever, chills or body aches now that his pneumonia has been treated. He has been off of Anoro for a year, has not noticed a difference in his respiratory symptoms. He has not recently needed to use his albuterol rescue inhaler. He continues to smoke cigarettes. He has successfully weaned himself down to 1-2 cigarette/day from 2 packs per day. If you recall he was following with ID for chronic pneumonia every 3 months. He reports a history of 3 bronchoscopies and right lower lobe removal of scar tissue along with finding an inorganic object walling itself off. He indicates that he has been without illness since July 2022. 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 100 mcg-umeclid 1 inh inhalation Q24H #60 ea 04/15/24 04/15/24 Rx 62.5 mcg-vilant 25 mcg inhalat.powder ( (more content not included)... Normal [facility] CBC W/Diff, Automatedon 12-0 3-2023 Absolute Lymph 0.80 X10 3/uL Low 0.83-4.51 [facility] Comment on above: Performed By: #### L 503.6005, L500.4050, L100.0100 #### [facility] [address] [place], [address] Absolute Neut 15.5 X10 3/uL High 2.0-7.7 [facility] Comment on above: Performed By: #### L 503.6005, L500.4050, L100.0100 #### [facility] [address] [place], [address] Basophils/100 WBC (Bld) 0.2 % Normal 0-1 [facility] Comment on above: Performed By: #### L 503.6005, L500.4050, L100.0100 #### [facility] [address] [place], [address] Eosinophils/100 WBC (Bld) 0.1 % Normal 0-5 [facility] Comment on above: Performed By: #### L 503.6005, L500.4050, L100.0100 #### [facility] [address] [place], [address] Erythrocyte distribution width (RBC) [Ratio] 12.7 % Normal 11.6-14.6 [facility] Comment on above: Performed By: #### L 503.6005, L500.4050, L100.0100 #### [facility] [address] [place], [address] Hematocrit (Bld) [Volume fraction] 41.9 % Normal 40-54 [facility] Comment on above: Performed By: #### L 503.6005, L500.4050, L100.0100 #### [facility] [address] [place], [address] Hemoglobin (Bld) [Mass/Vol] 15.0 g/dL Normal 13.0-16.5 [facility] Comment on above: Performed By: #### L 503.6005, L500.4050, L100.0100 #### [facility] [address] [place], [address] IG% 0.800 Normal 0.0-0.9 [facility] Comment on above: Result Comment: IG% - Immature Granulocytes (promyelocytes, myelocytes and metamyelocytes) > 1% indicates that a LEFT SHIFT is Present. Performed By: #### L 503.6005, L500.4050, L100.0100 #### [facility] [address] [place], [address] Lymphocytes/100 WBC (Bld) 4.5 % Low 19-41 [facility] Comment on above: Performed By: #### L 503.6005, L500.4050, L100.0100 #### [facility] [address] [place], [address] MCH (RBC) [Entitic mass] 30.7 pg Normal 27.0-32.0 [facility] Comment on above: Performed By: #### L 503.6005, L500.4050, L100.0100 #### [facility] [address] [place], [address] MCHC (RBC) [Mass/Vol] 35.8 g/dL Normal 32-36 [facility] Comment on above: Performed By: #### L 503.6005, L500.4050, L100.0100 #### [facility] [address] [place], [address] MCV (RBC) [Entitic vol] 85.7 fL Normal 80-94 [facility] Comment on above: Performed By: #### L 503.6005, L500.4050, L100.0100 #### [facility] [address] [place], [address] Monocytes/100 WBC (Bld) 7.3 % Normal 0-10 [facility] Comment on above: Performed By: #### L 503.6005, L500.4050, L100.0100 #### [facility] [address] [place], [address] Neutrophils/100 WBC (Bld) 87.1 % High 47-70 [facility] Comment on above: Performed By: #### L 503.6005, L500.4050, L100.0100 #### [facility] [address] [place], [address] Nucleated RBC (Bld) [#/Vol] 0 10*3/uL Normal 0-5 [facility] Comment on above: Performed By: #### L 503.6005, L500.4050, L100.0100 #### [facility] [address] [place], [address] Platelet mean volume (Bld) [Entitic vol] 10.9 fL Normal 6.2-12.0 [facility] Comment on above: Performed By: #### L 503.6005, L500.4050, L100.0100 #### [facility] [address] [place], [address] Platelets (Bld) [#/Vol] 135 10*3/uL Low 150-450 [facility] Comment on above: Performed By: #### L 503.6005, L500.4050, L100.0100 #### [facility] [address] [place], [address] RBC (Bld) [#/Vol] 4.89 10*6/uL Normal 4.6-6.2 [facility] Comment on above: Performed By: #### L 503.6005, L500.4050, L100.0100 #### [facility] [address] [place], [address] RDW SD 39.5 fl Normal 35.1-43.9 [facility] Comment on above: Performed By: #### L 503.6005, L500.4050, L100.0100 #### [facility] [address] [place], [address] WBC (Bld) [#/Vol] 17.8 10*3/uL High 4.4-11.0 [facility] Comment on above: Performed By: #### L 503.6005, L500.4050, L100.0100 #### [facility] [address] [place], [address] Chest PA and Lateralon 04-12 Chest PA and Lateral [facility] Services [address] [place] [address] Chest PA and Lateral MR#: [id number] Acct: [id number] Name: PAOLA POWERS Rep #: [id number] : 1975 M 48 From: Edward Franco DO PCP: Dr. Bettye Vo MD Status: REG ER Study: Chest PA and Lateral Date of Exam: 04/12/24 Exam# [id number] Ordering Dr: Fahad Maxwell MD [id number] INDICATION: Fever, cough, rales egophony LLL EXAMINATION/TECHNIQUE : X-RAY - XR Chest 2 Views COMPARISON: __ FINDINGS: LINES/DEVICES: None. LUNGS: Mild hyperaeration. Possible right basilar cavity. Right upper lobe infiltrate No pneumothorax. MEDIASTINUM AND CARDIOVASCULAR STRUCTURES: Cardiac silhouette not enlarged. Central airways and mediastinal contour are unremarkable. BONES AND SOFT TISSUES: Unremarkable. RAD/Chest PA and Lateral IMPRESSION: Mild hyperaeration. Possible right basilar cavity. Right upper lobe infiltrate Electronically Signed: Edward Franco DO at 18:44 EST Reading Location ID and State: [facility] / [place] Tel [phone], Service support , CC: Dr. Bettye Vo MD; Dr. Faahd Maxewll MD Customer Counter Representative: Signed Normal [facility] Comprehensive Metabolic Prof ilon 04-12-2024 Albumin [Mass/Vol] 3.4 g/dL Normal 3.2-5.0 [facility] Comment on above: Performed By: #### L 503.6005, L500.4050, L100.0100 #### [facility] [address] [place], [address] Albumin/Globulin [Mass ratio] 0.8 {ratio} Low 0.9-2.4 [facility] Comment on above: Performed By: #### L 503.6005, L500.4050, L100.0100 #### [facility] [address] [place], [address] ALK P 65 U/L Normal 45-117 [facility] Comment on above: Performed By: #### L 503.6005, L500.4050, L100.0100 #### [facility] [address] [place], [address] ALT [Catalytic activity/Vol] 19 U/L Normal 16-61 [facility] Comment on above: Performed By: #### L 503.6005, L500.4050, L100.0100 #### [facility] [address] [place], [address] AST [Catalytic activity/Vol] 10 U/L Low 15-37 [facility] Comment on above: Performed By: #### L 503.6005, L500.4050, L100.0100 #### [facility] [address] [place], [address] Bilirubin [Mass/Vol] 1.20 mg/dL High 0.20-1.00 [facility] Comment on above: Result Comment: For patients on eltrombopag therapy, use of Dimension [place] TBIL is not recommended. Performed By: #### L 503.6005, L500.4050, L100.0100 #### [facility] [address] [place], [address] BUN/CRE 17.5 RATIO Normal 10-20 [facility] Comment on above: Performed By: #### L 503.6005, L500.4050, L100.0100 #### [facility] [address] [place], [address] CA,Total 8.9 mg/dL Normal 8.5-10.1 [facility] Comment on above: Performed By: #### L 503.6005, L500.4050, L100.0100 #### [facility] [address] [place], [address] Chloride [Moles/Vol] 100 mmol/L Normal 98-107 [facility] Comment on above: Performed By: #### L 503.6005, L500.4050, L100.0100 #### [facility] [address] [place], [address] CO2 [Moles/Vol] 24.0 mmol/L Normal 21.0-32.0 [facility] Comment on above: Performed By: #### L 503.6005, L500.4050, L100.0100 #### [facility] [address] [place], [address] Creatinine [Mass/Vol] 0.74 mg/dL Normal 0.70-1.30 [facility] Comment on above: Result Comment: The validity of the calculated GFR GFRAA in patients over 70 years has not been determined. Clinical correlation is essential. Performed By: #### L 503.6005, L500.4050, L100.0100 #### [facility] [address] [place], [address] ECRCL 127.60 ml/min Normal [facility] Comment on above: Performed By: #### L 503.6005, L500.4050, L100.0100 #### [facility] [address] [place], [address] EST GFR - AA 144 mL/min Normal >60 [facility] Comment on above: Result Comment: Afri can Vietnamese GFR Calc Performed By: #### L 503.6005, L500.4050, L100.0100 #### [facility] [address] [place], [address] GAP 7 Normal 5-15 [facility] Comment on above: Performed By: #### L 503.6005, L500.4050, L100.0100 #### [facility] [address] [place], [address] GFR/1.73 sq M.predicted among non-blacks MDRD (S/P/Bld) [Vol rate/Area] 119 mL/min/{1.73_m2} Normal >60 [facility] Comment on above: Result Comment: Non- GFR Calc Performed By: #### L 503.6005, L500.4050, L100.0100 #### [facility] [address] [place], [address] Globulin (S) [Mass/Vol] 4.2 g/dL Normal 2.2-4.2 [facility] Comment on above: Performed By: #### L 503.6005, L500.4050, L100.0100 #### [facility] [address] [place], [address] Glucose [Mass/Vol] 130 mg/dL High 74-106 [facility] Comment on above: Result Comment: Fast ing Glucose result greater than or equal to 126 mg/dL suggests DIABETES MELLITUS per A.D.A. criteria. Performed By: #### L 503.6005, L500.4050, L100.0100 #### [facility] [address] [place], [address] Potassium [Moles/Vol] 3.4 mmol/L Low 3.5-5.1 [facility] Comment on above: Performed By: #### L 503.6005, L500.4050, L100.0100 #### [facility] [address] [place], [address] Sodium [Moles/Vol] 132 mmol/L Low 136-145 [facility] Comment on above: Performed By: #### L 503.6005, L500.4050, L100.0100 #### [facility] [address] [place], [address] T PROT 7.6 g/dL Normal 6.4-8.2 [facility] Comment on above: Performed By: #### L 503.6005, L500.4050, L100.0100 #### [facility] [address] [place], [address] Urea nitrogen [Mass/Vol] 13 mg/dL Normal 7-18 [facility] Comment on above: Performed By: #### L 503.6005, L500.4050, L100.0100 #### [facility] [address] [place], [address] Emergency Department Summary on 04-12-2024 Emergency Department Summary [facility] Medical Records Department [address] [place] [address] Emergency Department Summary 04/12/24 MR#: [id number] Acct: [id number] Name: PAOLA POWERS Rep #: [id number] : 1975 48 From: Fahad Maxwell MD PCP: Dr. Bettye Vo MD Status:REG ER Location: ED HPI History of Present Illness Chief Complaint: General Illness Detail of Chief Complaint: Fever, nonproductive cough, decreased p.o. intake and decreased urine outpu Informant: patient and spouse/S.O. Onset/Context/Timing Onset: Days Context: Sudden Onset Quality: Illness with fever Location: Generalized Current Severity: Mild Maximum Severity: Moderate Worsened by: Decreased p.o. intake, patient states he is urinated 5 cc over the last 24 Relieved by: Patient states prior to arrival he was able to drink a bottle of Gatorade. Associated Symptoms Associated Symptoms: HPI narrative Narrative Narrative: Patient is a 48-year-old male. He has history of COPD. He presents because of not feeling well for the past several days. He was not aware that he had a fever. He reports mild nasal congestion. He has a cough that is nonproductive. He has had some intermittent wheezing. He presents with myalgias and arthralgias. He also reports poor p.o. intake. He also reported he slept for 22 hours. States he does not feel well. He denies abdominal pain. Does report nausea without vomiting diarrhea. He denies blood in his urine or discomfort with urination. States his urine is very dark. [facility] Medical History Wears glasses Smoker Shortness of breath on exertion Chronic cough Emphysema, unspecified Tobacco use Pleural effusion, right Right lower lobe pneumonia Home Medications ???Medication ???Instructions ???Recorded ???Last Taken ???Type umeclidinium 62.5 mcg-vilanterol 1 inh inhalation DAILY #60 ea 04/09/23 Unknown Rx 25 mcg/actuation powdr for inhalation (Anoro Ellipta) levofloxacin 500 mg tablet 500 mg PO DAILY #7 tabs 04/12/24 Unknown Rx Family History Father COPD (chronic obstructive pulmonary disease) Heart disease Hypertension Diabetes CHF (congestive heart failure) Mother CAD (coronary artery disease) Myocardial infarction Hypertension Surgical History No history of previous surgery Social History household members: spouse Smoking Status: Current every day smoker tobacco type: cigarettes Tobacco: How many years used: 31 how long ago did patient quit smoking: Smoke 1ppd x 30 yrs, 1/2ppd x 1yr (2021) alcohol intake: never substance use type: does not use what 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 ROS ED Constitutional Constitutional ED: Reports chills and fever(s); Denies subjective, sweats or weight loss Eyes Eyes: Denies blurry vision or change in vision ENT ENT ED: Reports rhinorrhea; Denies ear pain or sore throat Cardiovascular Cardiovascular: Denies chest pain, orthopnea, palpitations or paroxysmal nocturnal dyspnea Respiratory/Chest Respiratory/Chest: Reports cough and dyspnea; Denies dyspnea on exertion, orthopnea or paroxysmal nocturnal dyspnea Gastrointestinal Gastrointestinal: Reports nausea; Denies abdominal pain, diarrhea, melena or vomiting Genitourinary Genitourinary ED: Reports other Details: Decreased urine output ; Denies dysuria, hematuria or urinary frequency Musculoskeletal Musculoskeletal: Reports arthralgias and myalgias Integumentary Denies rash Neurologic Neurologic: Reports headache(s) and other Details: Headache is bifrontal. ; Denies paresthesias or weakness Endocrine Endocrinology: Denies cold intolerance or heat intolerance Hematologic/Lymphatic Hematologic/Lymphatic : Reports systems reviewed and no addt'l complaints, except as documented EXAM Physical Exam Const Vital Signs: 04/12/24 17:00 04/12/24 17:01 04/12/24 18:01 Temperature 101 F H 101 F H 99.8 F H Temperature Source Oral Oral Oral Pulse Rate 100 100 97 Respiratory Rate 24 H 24 H 24 H Respiratory Effort Respiratory Pattern Blood Pressure 168/91 H 168/91 H 155/81 H Blood Pressure Mean 116 116 105 Pulse Ox 98 98 97 Oxygen Delivery Method Room Air Room Air Room Air 04/12/24 18:19 Temperature Temperature Source Pulse Rate Respiratory Rate Respiratory Effort Short of Breath Respiratory Pattern Normal Blood Pressure Blood Pressure Mean Pulse Ox Oxygen Delivery Method Positive well nourished and well developed Constitutional Narrative: Patient appears ill but not toxic (more content not included)... Normal [facility] Lactic Acidon 04-12-2024 Lactate [Moles/Vol] 1.0 mmol/L Normal 0.4-1.9 [facility] Comment on above: Order Comment: Y Performed By: #### L 503.6005, L500.4050, L100.0100 #### [facility] [address] [place], [address] M100.678on 04-12-2024 M100.678 Pending SARS-CoV-2 (COVID 19) Negative INFLUENZA A Negative INFLUENZA B Negative RSV PCR Negative Normal [facility] Comment on above: Performed By: #### M 100.678 #### [facility] [address] [place], [address] BAL MANUAL DIFFon 08-07-2022 Diff Total, BAL [address] [facility] Neut%, BAL 100 % [facility] BAL ROUTINE BFLon 08-07-2022 Clarity (Unsp spec) Cloudy Abnormal Clear [facility] Color (Bronch spec) Bloody Abnormal Colorless [facility] RBC LM.HPF (BAL) [#/Area] 14626 /uL Re ference range not established. /uL [facility] WBC Manual cnt (Bronch spec) [#/Vol] 3150 /uL Reference range not established. /uL [facility] BRONCHOSCOPYon 08-07-2022 [facility] 2019 CORONAVIRUSon 3 SARS-CoV-2 (COVID-19) RNA DANY+probe Ql (Resp) Not detected See comment [facility] BAL ROUTINE BFLon 06-19-2022 Clarity (Unsp spec) Slightly Cloudy Abnormal Clear [facility] Color (Bronch spec) Colorless Colorless [facility] RBC LM.HPF (BAL) [#/Area] 183 /uL Re ference range not established. /uL [facility] WBC Manual cnt (Bronch spec) [#/Vol] 1065 /uL Reference range not established. /uL [facility] BRONCHOSCOPYon 06-19-2022 [facility] Viral cultureOrdered By: Dr. Cason on 05-02-2022 Virus identified Cx Nom (Unsp spec) [facility] XR WRIST GENERAL 3V PA/LAT/O BL LEFTon 04-25-2022 [facility] XR Wrist - left PA and Later al and Obliqueon 04-25-2022 IMPRESSION: No acute osseous abnormality Customer Counter Representative: TERRI Transcribe Date/Time: Apr 25 2022 5:34P Dictated by : CHETAN RICO MD This examination was interpreted and the report reviewed and electronically signed by: CHETAN RICO MD on Apr 25 2022 5:36PM [facility] DIVISION OF RADIOLOGY * * *Final Report* * * DATE OF EXAM: Apr 25 2022 5:15PM WOX 5270 - XR WRIST 3V PA/LAT/OBL LT / PROCEDURE REASON: Left wrist injury, initial encounter * * * * Physician Interpretation * * * * EXAMINATION: XR WRIST 3V PA/LAT/OBL LT CLINICAL HISTORY: Left wrist pain Technique: XR WRIST 3V PA/LAT/OBL LT -- LEFT with 3 views on 3 images Comparison: None RESULT: No acute fracture or dislocation. Joint spaces are maintained. No radiodense foreign body. DIVISION OF RADIOLOGY Provider, [facility] - 04/25/2022 * * *Final Report* * * DATE OF EXAM: Apr 25 2022 5:15PM WOX 5270 - XR WRIST 3V PA/LAT/OBL LT / PROCEDURE REASON: Left wrist injury, initial encounter * * * * Physician Interpretation * * * * EXAMINATION: XR WRIST 3V PA/LAT/OBL LT CLINICAL HISTORY: Left wrist pain Technique: XR WRIST 3V PA/LAT/OBL LT -- LEFT with 3 views on 3 images Comparison: None RESULT: No acute fracture or dislocation. Joint spaces are maintained. No radiodense foreign body. IMPRESSION IMPRESSION: No acute osseous abnormality Customer Counter Representative: PSCB Transcribe Date/Time: Apr 25 2022 5:34P Dictated by : CHETNA RICO MD This examination was interpreted and the report reviewed and electronically signed by: CHETAN RICO MD on Apr 25 2022 5:36PM EST [facility] Radiology Study observation (narrative) [facility] XR Wrist - left PA and Later al and ObliqueOrdered By: [facility] Provider on 04-25-2022 [facility] Body fluid appearanceOrdered By: Dr. Cason on 04-18-2022 Appearance (Body fld) CLOUDY [facility] Body fluid color determinati onOrdered By: Dr. Cason on 04-18-2022 Color (Body fld) COLORLESS [facility] Body fluid leukocytes count (number/volume)Ordered By: Dr. Cason on 04-18-2022 WBC (Body fld) [#/Vol] 4340 /mm3 [facility] Body fluid lymphocytes/100 l eukocytesOrdered By: Dr. Cason on 04-18-2022 Lymphocytes/100 WBC (Body fld) 5 % [facility] Body fluid segmented neutrop hils count (number/volume)Ordered By: Dr. Cason on 04-18-2022 Segmented neutrophils (Body fld) [#/Vol] 93 % [facility] Cytology report of Body flui d Cyto stainOrdered By: Dr. Cason on 04-18-2022 Cytology report Cyto stain Doc (Body fld) SEE PATHOLOGY REPORT [facility] Comment on above: Specimen submitted t o Anatomical Pathology Department for testing. No Panel InformationOrdered By: Dr. Cason on 04-18-2022 Body Fluid Comment 2 Not Reportable [facility] Body Fluid Pathologist Comment Reviewed [facility] Comment on above: Previous reported re sult: May follow Edited by: RGOSUSAN on 04/21/22:1534Negative for malignant cells.Niko Edwards M.D. 04/21/22 AMENDED REPORT 04/21/22 1534 PATH COMM/BF previously reported as: May follow Body Fluid RBC 2180 /mm3 [facility] Specimen source identificati on of body fluidOrdered By: Dr. Cason on 04-18-2022 Specimen source Nom (Body fld) BRONCHIAL LAVAGE [facility] Thin prep Papanicolaou smear with manual screeningOrdered By: Dr. Cason on 04-18-2022 Thin prep Papanicolaou smear with manual screening 2 % [facility] Total cell countOrdered By: Dr. Cason on 04-18-2022 Cells counted Molgen (Bld/Tiss) [#] TNP [facility] Comment on above: Test not performed INR in Blood by Coagulation assayOrdered By: Rhoda Infante on 04-02-2022 INR Coag (Bld) [Relative time] 1.2 {INR} [facility] Laboratory - CoagulationOrde red By: Rhoda Infante on 04-02-2022 aPTT Coag (Bld) [Time] 30.7 s 24.1-36.2 [facility] PT Coag (PPP) [Time] 14.8 s 11.7-14.9 [facility] No Panel InformationOrdered By: Dr. Vo on 04-02-2022 Prostate Specific Antigen Total 6.46 ng/mL 0.0-4.0 [facility] Comment on above: This test was perfor med using the TPSA assay method for the[employer] chemistry system. Values obtained with differentassay methods cannot be used interchangably.When changing PSA assays in the course of monitoring apatient, additional sequential testing should be carriedout to confirm baseline values. Platelets bldOrdered By: Shawna Infante on 04-02-2022 Platelets (Bld) [#/Vol] 452 10*3/uL 150-450 [facility] Laboratory - Microbiology an d Antimicrobial susceptibilityOrdered By: Dr. Roach on 03-28-2022 Bacteria identified Cx Nom (Bld) No growth in 5 days. [facility] Bacteria identified Cx Nom (Bld) No growth in 5 days. [facility] Absolute lymphocyte countOrd ered By: Dr. Roach on 03-22-2022 Lymphocytes Auto (Unsp spec) [#/Vol] 0.51 10*3/uL 0.83-4.51 [facility] Basophil percentageOrdered B y: Dr. Roach on 03-22-2022 Basophils/100 WBC (Bld) 0.3 % 0-1 [facility] Chloride [Moles/Vol] 100 mmol/L 98-107 [facility] Eosinophils/100 WBC (Bld) 0.0 % 0-5 [facility] Glucose [Mass/Vol] 105 mg/dL 74-106 [facility] Comment on above: Fasting Glucose resu lt from 100 to 125 mg/dL suggests IMPAIRED HOMEOSTASIS per A.D.A. criteria. Lactate [Moles/Vol] 0.6 mmol/L 0.4-2.0 [facility] Neutrophils (Bld) [#/Vol] 4.5 10*3/uL 2.0-7.7 [facility] Neutrophils/100 WBC (Bld) 78.0 % 47-70 [facility] Potassium [Moles/Vol] 3.6 mmol/L 3.5-5.1 [facility] Sodium [Moles/Vol] 132 mmol/L 136-145 [facility] WBC (Bld) [#/Vol] 5.8 10*3/uL 4.4-11.0 [facility] Blood erythrocytes count (nu mber/volume)Ordered By: Dr. Roach on 03-22-2022 RBC (Bld) [#/Vol] 4.93 10*6/uL 4.6-6.2 [facility] Blood hemoglobin measurement (mass/volume)Ordered By: Dr. Roach on 03-22-2022 Hemoglobin (Bld) [Mass/Vol] 13.9 g/dL 13.0-16.5 [facility] Blood lymphocytes/100 leukoc ytesOrdered By: Dr. Roach on 03-22-2022 Lymphocytes/100 WBC (Bld) 8.9 % 19-41 [facility] Blood manual differential co mment interpretation (narrative result)Ordered By: Dr. Roach on 03-22-2022 Manual differential comment Remigio (Bld) [Interp] SEE COMMENT [facility] Comment on above: LYMPHOPENIA NOTED Blood monocytes/100 leukocyt esOrdered By: Dr. Roach on 03-22-2022 Monocytes/100 WBC (Bld) 12.5 % 0-10 [facility] Blood platelet mean volumeOr dered By: Dr. Roach on 03-22-2022 Platelet mean volume (Bld) [Entitic vol] 9.8 fL 6.2-12.0 [facility] Blood polychromasia detectio n by light microscopyOrdered By: Dr. Roach on 03-22-2022 Polychromasia LM Ql (Bld) AUTO DIFF OK [facility] Determination of erythrocyte mean corpuscular volume (MCV)Ordered By: Dr. Roach on 03-22-2022 MCV (RBC) [Entitic vol] 82.6 fL 80-94 [facility] Hematocrit Auto (Bld) [Volum e fraction]Ordered By: Dr. Roach on 03-22-2022 Hematocrit (Bld) [Volume fraction] 40.7 % 40-54 [facility] Influenza virus A and B and SARS-CoV-2 (COVID-19) Ag panel - Upper respiratory specimOrdered By: Dr. Roach on 03-22-2022 SARS-CoV-2 (COVID-19) RNA DANY+probe Ql (Resp) [facility] Laboratory - Chemistry and C hemistry - challengeOrdered By: Dr. Roach on 03-22-2022 CO2 [Moles/Vol] 23.0 mmol/L 21.0-32.0 [facility] Urea nitrogen/Creatinine [Mass ratio] 12.9 mg/mg 10-20 [facility] Laboratory - Hematology and Cell countsOrdered By: Dr. Roach on 03-22-2022 Erythrocyte distribution width (RBC) [Entitic vol] 40.2 fL 35.1-43.9 [facility] Erythrocyte distribution width (RBC) [Ratio] 13.2 % 11.6-14.6 [facility] Immature granulocytes/100 WBC (Bld) 0.300 % 0.0-0.9 [facility] Comment on above: IG% - Immature Granu locytes (promyelocytes, myelocytes and metamyelocytes) > 1% indicates that a LEFT SHIFT is Present. MCH (RBC) [Entitic mass] 28.2 pg 27.0-32.0 [facility] Nucleated RBC/100 WBC (Bld) [Ratio] 0 % 0-5 [facility] MCHC Auto (RBC) [Mass/Vol]Or dered By: Dr. Roach on 03-22-2022 MCHC (RBC) [Mass/Vol] 34.2 g/dL 32-36 [facility] No Panel InformationOrdered By: Dr. Roach on 03-22-2022 Estimated Creatinine Clearance Calc 122.15 ml/min [facility] Estimated GFR (MDRD) Amer 156 mL/min >60 [facility] Comment on above: GFR Calc Estimated GFR (MDRD) Non-Af Amer 129 mL/min >60 [facility] Comment on above: Non- GFR Calc Platelets bldOrdered By: Dr. Roach on 03-22-2022 Platelets (Bld) [#/Vol] 203 10*3/uL 150-450 [facility] Review by pathologistOrdered By: Dr. Roach on 03-22-2022 Pathologist review Remigio (Unsp spec) [Interp] September [facility] Serum or plasma calcium rosy urement (mass/volume)Ordered By: Dr. Roach on 03-22-2022 Calcium [Mass/Vol] 8.8 mg/dL 8.5-10.1 [facility] Serum or plasma creatinine m easurement (mass/volume)Ordered By: Dr. Roach on 03-22-2022 Creatinine [Mass/Vol] 0.70 mg/dL 0.70-1.30 [facility] Comment on above: The validity of the calculated GFR & GFRAA in patients over 70 years has not been determined. Clinical correlation is essential. Serum or plasma urea nitroge n measurement (mass/volume)Ordered By: Dr. Roach on 03-22-2022 Urea nitrogen [Mass/Vol] 9 mg/dL 7-18 [facility] Thin prep Papanicolaou smear with manual screeningOrdered By: Dr. Roach on 03-22-2022 Thin prep Papanicolaou smear with manual screening 9 5-15 [facility] Absolute lymphocyte counton 11-14-2021 Lymphocytes Auto (Unsp spec) [#/Vol] 1.34 10*3/uL 0.83-4.51 [facility] Work Phone: Basophil percentageon 2021 Basophils/100 WBC (Bld) 0.4 % 0-1 [facility] Work Phone: Bilirubin [Mass/Vol] 0.40 mg/dL 0.20-1.00 [facility] Work Phone: Comment on above: For patients on eltr ombopag therapy, use of Dimension [place] TBIL is not recommended. Chloride [Moles/Vol] 104 mmol/L 98-107 [facility] Work Phone: Eosinophils/100 WBC (Bld) 1.9 % 0-5 [facility] Work Phone: Glucose [Mass/Vol] 99 mg/dL 74-106 [facility] Work Phone: Neutrophils (Bld) [#/Vol] 6.4 10*3/uL 2.0-7.7 [facility] Work Phone: Neutrophils/100 WBC (Bld) 75.7 % 47-70 [facility] Work Phone: Potassium [Moles/Vol] 4.4 mmol/L 3.5-5.1 [facility] Work Phone: Protein [Mass/Vol] 7.8 g/dL 6.4-8.2 [facility] Work Phone: Sodium [Moles/Vol] 138 mmol/L 136-145 [facility] Work Phone: WBC (Bld) [#/Vol] 8.5 10*3/uL 4.4-11.0 [facility] Work Phone: Blood erythrocytes count (nu mber/volume)on 11-14-2021 RBC (Bld) [#/Vol] 4.72 10*6/uL 4.6-6.2 [facility] Work Phone: Blood hemoglobin measurement (mass/volume)on 11-14-2021 Hemoglobin (Bld) [Mass/Vol] 13.5 g/dL 13.0-16.5 [facility] Work Phone: Blood lymphocytes/100 leukoc yteson 07-07-2022 Lymphocytes/100 WBC (Bld) 15.8 % 19-41 [facility] Work Phone: Blood monocytes/100 leukocyt eson 11-14-2021 Monocytes/100 WBC (Bld) 6.0 % 0-10 [facility] Work Phone: Blood platelet mean volumeon 11-14-2021 Platelet mean volume (Bld) [Entitic vol] 10.2 fL 6.2-12.0 [facility] Work Phone: Determination of erythrocyte mean corpuscular volume (MCV)on 11-14-2021 MCV (RBC) [Entitic vol] 87.1 fL 80-94 [facility] Work Phone: Hematocrit Auto (Bld) [Volum e fraction]on 11-14-2021 Hematocrit (Bld) [Volume fraction] 41.1 % 40-54 [facility] Work Phone: Laboratory - Chemistry and C hemistry - challengeon 11-14-2021 ALP [Catalytic activity/Vol] 79 U/L 45-117 [facility] Work Phone: ALT [Catalytic activity/Vol] 15 U/L 16-61 [facility] Work Phone: CO2 [Moles/Vol] 29.0 mmol/L 21.0-32.0 [facility] Work Phone: Globulin (S) [Mass/Vol] 4.4 g/dL 2.2-4.2 [facility] Work Phone: Urea nitrogen/Creatinine [Mass ratio] 14.1 mg/mg 10-20 [facility] Work Phone: Laboratory - Hematology and Cell countson 11-14-2021 Erythrocyte distribution width (RBC) [Entitic vol] 44.6 fL 35.1-43.9 [facility] Work Phone: Erythrocyte distribution width (RBC) [Ratio] 13.9 % 11.6-14.6 [facility] Work Phone: Immature granulocytes/100 WBC (Bld) 0.200 % 0.0-0.9 [facility] Work Phone: Comment on above: IG% - Immature Granu locytes (promyelocytes, myelocytes and metamyelocytes) > 1% indicates that a LEFT SHIFT is Present. MCH (RBC) [Entitic mass] 28.6 pg 27.0-32.0 [facility] Work Phone: Nucleated RBC/100 WBC (Bld) [Ratio] 0 % 0-5 [facility] Work Phone: Laboratory - Microbiology an d Antimicrobial susceptibilityon 11-14-2021 SARS-CoV-2 (COVID-19) RNA DANY+probe Ql (Unsp spec) Not detected Not Detect [facility] Work Phone: Comment on above: Normal Reference Ran ge: Not DetectedMethod:(RT-PCR) real-time reverse transcriptase PCRLuminex Wevod Instrument*The Food and Drug Administration (FDA) has issued an Emergency Use Authorization (EAU) for the Wevod SARS-CoV-2 Assay for the rapid detection of the virus that causes COVID-19. This test has been validated, but the FDAs independent review of this validation is pending.*Negative results do not preclude infection and should not be used as the sole basis for treatment or patient management. Optimum specimen types and timing for peak viral levels during infections caused by SARS-CoV-2 have not been determined. Collection of multiple specimens from the same patient may be necessary to detect the virus. The possibility of a false negative result should be considered if the patient has clinical presentation or has had recent exposure. MCHC Auto (RBC) [Mass/Vol]on 11-14-2021 MCHC (RBC) [Mass/Vol] 32.8 g/dL 32-36 [facility] Work Phone: No Panel Informationon 11-14 Estimated GFR (MDRD) Amer 124 mL/min >60 [facility] Work Phone: [phone] Comment on above: GFR Calc Estimated GFR (MDRD) Non-Af Amer 102 mL/min >60 [facility] Work Phone: [phone] Comment on above: Non- GFR Calc Prostate Specific Antigen Screen 5.37 ng/mL 0.00-4.00 [facility] Work Phone: Comment on above: This test was perfor med using the TPSA assay method for [facility] chemistry system. Values obtained with differentassay methods cannot be used interchangably.When changing PSA assays in the course of monitoring apatient, additional sequential testing should be carriedout to confirm baseline values. Vitamin D 25-Hydroxy 27.0 ng/mL [facility] Work Phone: Comment on above: Vitamin D 25(OH) Sta tus Range Deficiency <20 ng/mL (50nmol/L) Insufficiency 20 - 30 ng/mL (50 - 75 nmol/L) Sufficiency 30 - 100 ng/mL (75 - 250 nmol/L) Toxicity >100 ng/mL (>250 nmol/L) Platelets bldon 11-14-2021 Platelets (Bld) [#/Vol] 253 10*3/uL 150-450 [facility] Work Phone: Serum or plasma albumin rosy urement (mass/volume)on 11-14-2021 Albumin [Mass/Vol] 3.4 g/dL 3.2-5.0 [facility] Work Phone: Serum or plasma albumin/glob ulin mass ratioon 11-14-2021 Albumin/Globulin [Mass ratio] 0.8 {ratio} 0.9-2.4 [facility] Work Phone: Serum or plasma calcium rosy urement (mass/volume)on 11-14-2021 Calcium [Mass/Vol] 9.1 mg/dL 8.5-10.1 [facility] Work Phone: Serum or plasma creatinine m easurement (mass/volume)on 11-14-2021 Creatinine [Mass/Vol] 0.85 mg/dL 0.70-1.30 [facility] Work Phone: Comment on above: The validity of the calculated GFR & GFRAA in patients over 70 years has not been determined. Clinical correlation is essential. Serum or plasma urea nitroge n measurement (mass/volume)on 07-07-2022 Urea nitrogen [Mass/Vol] 12 mg/dL 7-18 [facility] Work Phone: Thin prep Papanicolaou smear with manual screeningon 11-14-2021 Thin prep Papanicolaou smear with manual screening 10 U/L 15-37 [facility] Work Phone: Thin prep Papanicolaou smear with manual screening 5 5-15 [facility] Work Phone: Absolute lymphocyte counton 10-09-2021 Lymphocytes Auto (Unsp spec) [#/Vol] 1.05 10*3/uL 0.83-4.51 [facility] Work Phone: Basophil percentageon 2021 Basophils/100 WBC (Bld) 0.4 % 0-1 [facility] Work Phone: Bilirubin [Mass/Vol] 0.60 mg/dL 0.20-1.00 [facility] Work Phone: Comment on above: For patients on eltr ombopag therapy, use of [employer] [place] TBIL is not recommended. Chloride [Moles/Vol] 101 mmol/L 98-107 [facility] Work Phone: Eosinophils/100 WBC (Bld) 0.3 % 0-5 [facility] Work Phone: Glucose [Mass/Vol] 108 mg/dL 74-106 [facility] Work Phone: Comment on above: Fasting Glucose resu lt from 100 to 125 mg/dL suggests IMPAIRED HOMEOSTASIS per A.D.A. criteria. Lactate [Moles/Vol] 1.4 mmol/L 0.4-2.0 [facility] Work Phone: Neutrophils (Bld) [#/Vol] 11.3 10*3/uL 2.0-7.7 [facility] Work Phone: Neutrophils/100 WBC (Bld) 84.9 % 47-70 [facility] Work Phone: Potassium [Moles/Vol] 3.8 mmol/L 3.5-5.1 [facility] Work Phone: Protein [Mass/Vol] 7.7 g/dL 6.4-8.2 [facility] Work Phone: Sodium [Moles/Vol] 135 mmol/L 136-145 [facility] Work Phone: WBC (Bld) [#/Vol] 13.4 10*3/uL 4.4-11.0 [facility] Work Phone: Blood erythrocytes count (nu mber/volume)on 10-09-2021 RBC (Bld) [#/Vol] 4.65 10*6/uL 4.6-6.2 [facility] Work Phone: Blood hemoglobin measurement (mass/volume)on 10-09-2021 Hemoglobin (Bld) [Mass/Vol] 13.2 g/dL 13.0-16.5 [facility] Work Phone: Blood lymphocytes/100 leukoc yteson 10-09-2021 Lymphocytes/100 WBC (Bld) 7.9 % 19-41 [facility] Work Phone: Blood monocytes/100 leukocyt eson 10-09-2021 Monocytes/100 WBC (Bld) 6.1 % 0-10 [facility] Work Phone: Blood platelet mean volumeon 10-09-2021 Platelet mean volume (Bld) [Entitic vol] 9.6 fL 6.2-12.0 [facility] Work Phone: Determination of erythrocyte mean corpuscular volume (MCV)on 10-09-2021 MCV (RBC) [Entitic vol] 83.7 fL 80-94 [facility] Work Phone: Hematocrit Auto (Bld) [Volum e fraction]on 10-09-2021 Hematocrit (Bld) [Volume fraction] 38.9 % 40-54 [facility] Work Phone: Laboratory - Chemistry and C hemistry - challengeon 10-09-2021 ALP [Catalytic activity/Vol] 78 U/L 45-117 [facility] Work Phone: [phone] ALT [Catalytic activity/Vol] 16 U/L 16-61 [facility] Work Phone: [phone] CO2 [Moles/Vol] 25.0 mmol/L 21.0-32.0 [facility] Work Phone: [phone] Globulin (S) [Mass/Vol] 4.2 g/dL 2.2-4.2 [facility] Work Phone: [phone] Urea nitrogen/Creatinine [Mass ratio] 12.7 mg/mg 10-20 [facility] Work Phone: [phone] Laboratory - Hematology and Cell countson 10-09-2021 Erythrocyte distribution width (RBC) [Entitic vol] 43.5 fL 35.1-43.9 [facility] Work Phone: [phone] Erythrocyte distribution width (RBC) [Ratio] 14.1 % 11.6-14.6 [facility] Work Phone: [phone] Immature granulocytes/100 WBC (Bld) 0.400 % 0.0-0.9 [facility] Work Phone: [phone] Comment on above: IG% - Immature Granu locytes (promyelocytes, myelocytes and metamyelocytes) > 1% indicates that a LEFT SHIFT is Present. MCH (RBC) [Entitic mass] 28.4 pg 27.0-32.0 [facility] Work Phone: [phone] Nucleated RBC/100 WBC (Bld) [Ratio] 0 % 0-5 [facility] Work Phone: [phone] MCHC Auto (RBC) [Mass/Vol]on 10-09-2021 MCHC (RBC) [Mass/Vol] 33.9 g/dL 32-36 [facility] Work Phone: [phone] Panel Informationon 10-09 Estimated Creatinine Clearance Calc 106.15 ml/min [facility] Work Phone: [phone] Estimated GFR (MDRD) Amer 121 mL/min >60 [facility] Work Phone: [phone] Comment on above: GFR Calc Estimated GFR (MDRD) Non-Af Amer 100 mL/min >60 [facility] Work Phone: Comment on above: Non- GFR Calc Platelets bldon 10-09-2021 Platelets (Bld) [#/Vol] 270 10*3/uL 150-450 [facility] Work Phone: [phone] Serum or plasma albumin rosy urement (mass/volume)on 10-09-2021 Albumin [Mass/Vol] 3.5 g/dL 3.2-5.0 [facility] Work Phone: [phone] Serum or plasma albumin/glob ulin mass ratioon 10-09-2021 Albumin/Globulin [Mass ratio] 0.8 {ratio} 0.9-2.4 [facility] Work Phone: [phone] Serum or plasma calcium rosy urement (mass/volume)on 10-09-2021 Calcium [Mass/Vol] 9.0 mg/dL 8.5-10.1 [facility] Work Phone: [phone] Serum or plasma creatinine m easurement (mass/volume)on 10-09-2021 Creatinine [Mass/Vol] 0.87 mg/dL 0.70-1.30 [facility] Work Phone: Comment on above: The validity of the calculated GFR & GFRAA in patients over 70 years has not been determined. Clinical correlation is essential. Serum or plasma urea nitroge n measurement (mass/volume)on 10-09-2021 Urea nitrogen [Mass/Vol] 11 mg/dL 7-18 [facility] Work Phone: [phone] Thin prep Papanicolaou smear with manual screeningon 10-09-2021 Thin prep Papanicolaou smear with manual screening 10 U/L 15-37 [facility] Work Phone: [phone] Thin prep Papanicolaou smear with manual screening 9 5-15 [facility] Work Phone: [phone] Absolute lymphocyte counton 08-06-2021 Lymphocytes Auto (Unsp spec) [#/Vol] 1.41 10*3/uL 0.83-4.51 [facility] Work Phone: Basophil percentageon 2021 Basophils/100 WBC (Bld) 0.1 % 0-1 [facility] Work Phone: Bilirubin [Mass/Vol] 0.20 mg/dL 0.20-1.00 [facility] Work Phone: Comment on above: For patients on eltr ombopag therapy, use of [employer] [place] TBIL is not recommended. Chloride [Moles/Vol] 107 mmol/L 98-107 [facility] Work Phone: Eosinophils/100 WBC (Bld) 0.1 % 0-5 [facility] Work Phone: [phone] Glucose [Mass/Vol] 129 mg/dL 74-106 [facility] Work Phone: Comment on above: Fasting Glucose resu lt greater than or equal to 126 mg/dL suggests DIABETES MELLITUS per A.D.A. criteria. Neutrophils (Bld) [#/Vol] 11.9 10*3/uL 2.0-7.7 [facility] Work Phone: Neutrophils/100 WBC (Bld) 84.6 % 47-70 [facility] Work Phone: [phone] Potassium [Moles/Vol] 3.9 mmol/L 3.5-5.1 [facility] Work Phone: [phone] Protein [Mass/Vol] 6.4 g/dL 6.4-8.2 [facility] Work Phone: [phone] Sodium [Moles/Vol] 139 mmol/L 136-145 [facility] Work Phone: [phone] WBC (Bld) [#/Vol] 14.0 10*3/uL 4.4-11.0 [facility] Work Phone: Blood erythrocytes count (nu mber/volume)on 08-06-2021 RBC (Bld) [#/Vol] 4.05 10*6/uL 4.6-6.2 [facility] Work Phone: Blood hemoglobin measurement (mass/volume)on 08-06-2021 Hemoglobin (Bld) [Mass/Vol] 11.6 g/dL 13.0-16.5 [facility] Work Phone: Blood lymphocytes/100 leukoc yteson 08-06-2021 Lymphocytes/100 WBC (Bld) 10.1 % 19-41 [facility] Work Phone: [phone] Blood monocytes/100 leukocyt eson 08-06-2021 Monocytes/100 WBC (Bld) 4.6 % 0-10 [facility] Work Phone: Blood platelet mean volumeon 08-06-2021 Platelet mean volume (Bld) [Entitic vol] 9.8 fL 6.2-12.0 [facility] Work Phone: Determination of erythrocyte mean corpuscular volume (MCV)on 08-06-2021 MCV (RBC) [Entitic vol] 84.2 fL 80-94 [facility] Work Phone: [phone] Hematocrit Auto (Bld) [Volum e fraction]on 08-06-2021 Hematocrit (Bld) [Volume fraction] 34.1 % 40-54 [facility] Work Phone: Laboratory - Chemistry and C hemistry - challengeon 08-06-2021 ALP [Catalytic activity/Vol] 84 U/L 45-117 [facility] Work Phone: ALT [Catalytic activity/Vol] 70 U/L 16-61 [facility] Work Phone: [phone] CO2 [Moles/Vol] 27.0 mmol/L 21.0-32.0 [facility] Work Phone: [phone] Globulin (S) [Mass/Vol] 4.2 g/dL 2.2-4.2 [facility] Work Phone: Urea nitrogen/Creatinine [Mass ratio] 19.3 mg/mg 10-20 [facility] Work Phone: Laboratory - Hematology and Cell countson 08-06-2021 Erythrocyte distribution width (RBC) [Entitic vol] 39.8 fL 35.1-43.9 [facility] Work Phone: [phone] Erythrocyte distribution width (RBC) [Ratio] 12.9 % 11.6-14.6 [facility] Work Phone: [phone] Immature granulocytes/100 WBC (Bld) 0.500 % 0.0-0.9 [facility] Work Phone: [phone] Comment on above: IG% - Immature Granu locytes (promyelocytes, myelocytes and metamyelocytes) > 1% indicates that a LEFT SHIFT is Present. MCH (RBC) [Entitic mass] 28.6 pg 27.0-32.0 [facility] Work Phone: [phone] Nucleated RBC/100 WBC (Bld) [Ratio] 0 % 0-5 [facility] Work Phone: [phone] MCHC Auto (RBC) [Mass/Vol]on 08-06-2021 MCHC (RBC) [Mass/Vol] 34.0 g/dL 32-36 [facility] Work Phone: [phone] Comment on above: Delta: 36.5 on 08/05-0600 No Panel Informationon 08-06 Estimated Creatinine Clearance Calc 133.54 ml/min [facility] Work Phone: [phone] Estimated GFR (MDRD) Amer 162 mL/min >60 [facility] Work Phone: [phone] Comment on above: GFR Calc Estimated GFR (MDRD) Non-Af Amer 134 mL/min >60 [facility] Work Phone: [phone] Comment on above: Non- GFR Calc Platelets bldon 08-06-2021 Platelets (Bld) [#/Vol] 364 10*3/uL 150-450 [facility] Work Phone: [phone] Serum or plasma albumin rosy urement (mass/volume)on 08-06-2021 Albumin [Mass/Vol] 2.2 g/dL 3.2-5.0 [facility] Work Phone: [phone] Serum or plasma albumin/glob ulin mass ratioon 08-06-2021 Albumin/Globulin [Mass ratio] 0.5 {ratio} 0.9-2.4 [facility] Work Phone: Serum or plasma calcium rosy urement (mass/volume)on 08-06-2021 Calcium [Mass/Vol] 8.1 mg/dL 8.5-10.1 [facility] Work Phone: Serum or plasma creatinine m easurement (mass/volume)on 08-06-2021 Creatinine [Mass/Vol] 0.68 mg/dL 0.70-1.30 [facility] Work Phone: Comment on above: The validity of the calculated GFR & GFRAA in patients over 70 years has not been determined. Clinical correlation is essential. Serum or plasma urea nitroge n measurement (mass/volume)on 08-06-2021 Urea nitrogen [Mass/Vol] 13 mg/dL 7-18 [facility] Work Phone: Thin prep Papanicolaou smear with manual screeningon 08-06-2021 Thin prep Papanicolaou smear with manual screening 27 U/L 15-37 [facility] Work Phone: Thin prep Papanicolaou smear with manual screening 5 5-15 [facility] Work Phone: Vancomycin troughon 08-07-19 22 Vancomycin trough [Mass/Vol] ug/mL 5.0-15.0 [facility] Work Phone: Comment on above: VANCOMYCIN STANDARED DRUG THERAPY TROUGH LEVEL: 5.0 - 15.0 mg/L VANCOMYCIN HIGH INTENSITY THERAPY TROUGH LEVEL: 15.0 - 20.0 mg/L High Intensity therapy recommended for serious lifethreatening infections include:- Iqwwebpzqp-Qrjrlcpgvxce-Ypgbnpvhj (Ventilator/Healtcare Associated)-Sepsis PLEASE CONTACT PHARMACY SERVICES (#[id number]) FOR INTERPRETATIONOF RESULTS. Vancomycin troughon 08-06-19 22 Vancomycin trough [Mass/Vol] 6.6 ug/mL 5.0-15.0 [facility] Work Phone: Comment on above: VANCOMYCIN STANDARED DRUG THERAPY TROUGH LEVEL: 5.0 - 15.0 mg/L VANCOMYCIN HIGH INTENSITY THERAPY TROUGH LEVEL: 15.0 - 20.0 mg/L High Intensity therapy recommended for serious lifethreatening infections include:- Iltmufchxk-Frxgsbbhhkxy-Xvkegkera (Ventilator/Healtcare Associated)-Sepsis PLEASE CONTACT PHARMACY SERVICES (#[id number]) FOR INTERPRETATIONOF RESULTS. Whole blood hemoglobin A1c/t otal hemoglobin ratio (mass fraction)on 08-05-2021 HbA1c (Bld) [Mass fraction] 5.5 % 3.8-5.6 [facility] Work Phone: Comment on above: Normal < 5.7 % Predi abetic 5.7 - 6.4 % Diabetic >or= 6.5 % Please note range changes. Absolute lymphocyte counton 08-04-2021 Lymphocytes Auto (Unsp spec) [#/Vol] 1.18 10*3/uL 0.83-4.51 [facility] Work Phone: Basophil percentageon 2021 Basophils/100 WBC (Bld) 0.2 % 0-1 [facility] Work Phone: Chloride [Moles/Vol] 98 mmol/L 98-107 [facility] Work Phone: Eosinophils/100 WBC (Bld) 0.1 % 0-5 [facility] Work Phone: Glucose [Mass/Vol] 121 mg/dL 74-106 [facility] Work Phone: Comment on above: Fasting Glucose resu lt from 100 to 125 mg/dL suggests IMPAIRED HOMEOSTASIS per A.D.A. criteria. Neutrophils (Bld) [#/Vol] 14.4 10*3/uL 2.0-7.7 [facility] Work Phone: Neutrophils/100 WBC (Bld) 85.2 % 47-70 [facility] Work Phone: Potassium [Moles/Vol] 4.1 mmol/L 3.5-5.1 [facility] Work Phone: Sodium [Moles/Vol] 133 mmol/L 136-145 [facility] Work Phone: WBC (Bld) [#/Vol] 16.9 10*3/uL 4.4-11.0 [facility] Work Phone: Blood erythrocytes count (nu mber/volume)on 08-04-2021 RBC (Bld) [#/Vol] 5.23 10*6/uL 4.6-6.2 [facility] Work Phone: Blood hemoglobin measurement (mass/volume)on 08-04-2021 Hemoglobin (Bld) [Mass/Vol] 15.4 g/dL 13.0-16.5 [facility] Work Phone: [phone] Blood lymphocytes/100 leukoc yteson 08-04-2021 Lymphocytes/100 WBC (Bld) 7.0 % 19-41 [facility] Work Phone: [phone] Blood monocytes/100 leukocyt eson 08-04-2021 Monocytes/100 WBC (Bld) 6.8 % 0-10 [facility] Work Phone: [phone] Blood platelet mean volumeon 08-04-2021 Platelet mean volume (Bld) [Entitic vol] 9.4 fL 6.2-12.0 [facility] Work Phone: Bronchoalveolar lavage cultu re with Gram stainon 08-04-2021 Respiratory microbial culture or Staphylococcus aureus isolated. [facility] Work Phone: [phone] Determination of erythrocyte mean corpuscular volume (MCV)on 08-04-2021 MCV (RBC) [Entitic vol] 84.5 fL 80-94 [facility] Work Phone: [phone] Gram stain for investigation of transfusion reactionon 08-04-2021 Microscopic observation Gram stain Nom (Unsp spec) [facility] Work Phone: [phone] Hematocrit Auto (Bld) [Volum e fraction]on 08-04-2021 Hematocrit (Bld) [Volume fraction] 44.2 % 40-54 [facility] Work Phone: [phone] Laboratory - Chemistry and C hemistry - challengeon 08-04-2021 CO2 [Moles/Vol] 29.0 mmol/L 21.0-32.0 [facility] Work Phone: Urea nitrogen/Creatinine [Mass ratio] 9.7 mg/mg 10-20 [facility] Work Phone: [phone] Laboratory - Hematology and Cell countson 08-04-2021 Erythrocyte distribution width (RBC) [Entitic vol] 38.9 fL 35.1-43.9 [facility] Work Phone: [phone] Erythrocyte distribution width (RBC) [Ratio] 12.7 % 11.6-14.6 [facility] Work Phone: [phone] Immature granulocytes/100 WBC (Bld) 0.700 % 0.0-0.9 [facility] Work Phone: [phone] Comment on above: IG% - Immature Granu locytes (promyelocytes, myelocytes and metamyelocytes) > 1% indicates that a LEFT SHIFT is Present. MCH (RBC) [Entitic mass] 29.4 pg 27.0-32.0 [facility] Work Phone: [phone] Nucleated RBC/100 WBC (Bld) [Ratio] 0 % 0-5 [facility] Work Phone: [phone] Laboratory - Microbiology an d Antimicrobial susceptibilityon 08-04-2021 Bacteria identified Cx Nom (Bld) No growth in 5 days. [facility] Work Phone: [phone] MCHC Auto (RBC) [Mass/Vol]on 08-04-2021 MCHC (RBC) [Mass/Vol] 34.8 g/dL 32-36 [facility] Work Phone: [phone] No Panel Informationon 08-04 Streptococcus pneumoniae Antigen (M [facility] Work Phone: [phone] Methicillin-Resist S.aureus DNA PCR Negative Negative [facility] Work Phone: [phone] Estimated Creatinine Clearance Calc 108.22 ml/min [facility] Work Phone: [phone] Estimated GFR (MDRD) Amer 129 mL/min >60 [facility] Work Phone: [phone] Comment on above: GFR Calc Estimated GFR (MDRD) Non-Af Amer 107 mL/min >60 [facility] Work Phone: [phone] Comment on above: Non- GFR Calc Platelets bldon 08-04-2021 Platelets (Bld) [#/Vol] 437 10*3/uL 150-450 [facility] Work Phone: Serum or plasma calcium rosy urement (mass/volume)on 08-04-2021 Calcium [Mass/Vol] 8.7 mg/dL 8.5-10.1 [facility] Work Phone: Serum or plasma creatinine m easurement (mass/volume)on 08-04-2021 Creatinine [Mass/Vol] 0.82 mg/dL 0.70-1.30 [facility] Work Phone: Comment on above: The validity of the calculated GFR & GFRAA in patients over 70 years has not been determined. Clinical correlation is essential. Serum or plasma urea nitroge n measurement (mass/volume)on 08-04-2021 Urea nitrogen [Mass/Vol] 8 mg/dL 7-18 [facility] Work Phone: Serum procalcitonin measurem enton 08-04-2021 Procalcitonin [Mass/Vol] 0.11 ng/mL 0.00-0.09 [facility] Work Phone: Comment on above: A procalcitonin (PCT ) level above 2.0 ng/mL on the first day of ICU admission is associated with a high risk for progression to severe sepsis and/or septic shock. A PCT level below 0.5 ng/mL on the first day of ICU admission is associated with a low risk for progression to severe and/or septic shock. Note: Concentrations <0.5 ng/mL do not exclude an infection on account of localized infections (without systemic signs) which can be associated with such low concentrations, or a systemic infection in its initial stages (<6 hours). Furthermore, increased procalcitonin can occur without infection. PCT concentrations between 0.5 and 2.0 ng/mL should be interpreted taking into account the patient's history. It is recommended to retest PCT within 6-24 hours if any concentrations <2 ng/mL are obtained. Thin prep Papanicolaou smear with manual screeningon 08-04-2021 Thin prep Papanicolaou smear with manual screening 6 5-15 [facility] Work Phone: XR Chest PA and Lateralon IMPRESSION: Persistent right basilar consolidation Customer Counter Representative: TERRI Transcribe Date/Time: Jul 25 2021 10:20A Dictated by : CHETAN RICO MD This examination was interpreted and the report reviewed and electronically signed by: CHETAN RICO MD on Jul 25 2021 10:22AM [facility] DIVISION OF RADIOLOGY * * *Final Report* * * DATE OF EXAM: Jul 25 2021 10:15AM WOX 5291 - XR CHEST 2V FRONTAL/LAT / PROCEDURE REASON: Cough * * * * Physician Interpretation * * * * EXAMINATION: CHEST RADIOGRAPH (2 VIEW FRONTAL & LATERAL) CLINICAL HISTORY: Cough MQ: XC2_6 EXAM DATE/TIME: 07/25/2021 10:15 AM COMPARISON: Chest x-ray 01/16/2021 RESULT: Lines, tubes, and devices: None. Lungs and pleura: Persistent right basilar consolidation. Left lung appears clear. No pleural effusion or pneumothorax. Cardiomediastinal silhouette: Normal cardiomediastinal silhouette. Bones and soft tissues: Unremarkable. DIVISION OF RADIOLOGY Provider, [facility] - 07/25/2021 * * *Final Report* * * DATE OF EXAM: Jul 25 2021 10:15AM WOX 5291 - XR CHEST 2V FRONTAL/LAT / PROCEDURE REASON: Cough * * * * Physician Interpretation * * * * EXAMINATION: CHEST RADIOGRAPH (2 VIEW FRONTAL & LATERAL) CLINICAL HISTORY: Cough MQ: XC2_6 EXAM DATE/TIME: 07/25/2021 10:15 AM COMPARISON: Chest x-ray 01/16/2021 RESULT: Lines, tubes, and devices: None. Lungs and pleura: Persistent right basilar consolidation. Left lung appears clear. No pleural effusion or pneumothorax. Cardiomediastinal silhouette: Normal cardiomediastinal silhouette. Bones and soft tissues: Unremarkable. IMPRESSION IMPRESSION: Persistent right basilar consolidation Customer Counter Representative: TERRI Transcribe Date/Time: Jul 25 2021 10:20A Dictated by : CHETAN RICO MD This examination was interpreted and the report reviewed and electronically signed by: CHETAN RICO MD on Jul 25 2021 10:22AM [facility] Radiology Study observation (narrative) Milagros macias [facility] XR Chest PA and LateralOrder ed By: Ccf Provider on 07-25-2021 [facility] XR Ribs - right Views and est PAon 05-06-2021 IMPRESSION: Right lower lobe consolidation. No definite pleural fluid. Hyperinflation. Cardiomediastinal silhouette is unchanged. No evidence for displaced rib fractures or pneumothorax. Customer Counter Representative: [facility] Transcribe Date/Time: May 06 2021 6:08P Dictated by : SUSANNE CARPENTER MD This examination was interpreted and the report reviewed and electronically signed by: SUSANNE CARPENTER MD on May 06 2021 6:10PM [facility] DIVISION OF RADIOLOGY * * *Final Report* * * DATE OF EXAM: May 06 2021 5:41PM WOX 5244 - XR RIB/CHST 3V AP RIB/OBL/CHST R / PROCEDURE REASON: Rib pain * * * * Physician Interpretation * * * * EXAMINATION: XR RIB/CHST 3V AP RIB/OBL/CHST R CLINICAL HISTORY: Rib pain. Chest pain Technique: XR RIB/CHST 3V AP RIB/OBL/CHST R -- NOT APPLICABLE with 3 views on 5 images Comparison: CT 01/28/2021 RESULT / DIVISION OF RADIOLOGY Provider, [facility] - 05/06/2021 * * *Final Report* * * DATE OF EXAM: May 06 2021 5:41PM WOX 5244 - XR RIB/CHST 3V AP RIB/OBL/CHST R / PROCEDURE REASON: Rib pain * * * * Physician Interpretation * * * * EXAMINATION: XR RIB/CHST 3V AP RIB/OBL/CHST R CLINICAL HISTORY: Rib pain. Chest pain Technique: XR RIB/CHST 3V AP RIB/OBL/CHST R -- NOT APPLICABLE with 3 views on 5 images Comparison: CT 01/28/2021 RESULT / IMPRESSION IMPRESSION: Right lower lobe consolidation. No definite pleural fluid. Hyperinflation. Cardiomediastinal silhouette is unchanged. No evidence for displaced rib fractures or pneumothorax. Customer Counter Representative: [facility] Transcribe Date/Time: May 06 2021 6:08P Dictated by : SUSANNE CARPENTER MD This examination was interpreted and the report reviewed and electronically signed by: SUSANNE CARPENTER MD on May 06 2021 6:10PM EST [facility] Radiology Study observation (narrative) [facility] XR Ribs - right Views and Ch est PAOrdered By: Ccf Provider on 05-06-2021 [facility] XR Chest PA and LateralOrder ed By: Ccf Provider on 01-16-2021 Interpretation and review of laboratory results Abnormal [facility] Radiology Result ACTIONABLE Abnormal [facility] Comment on above: This report contains an incidental or actionable finding. This is a new finding that is separate from the reason your provider ordered the imaging test. Because of this incidental or actionable finding, you may need another imaging test to evaluate it. Please contact your provider for the next steps. [facility] XR Chest PA and Lateralon * * *Final Report* * * DATE OF EXAM: Jan 16 2021 3:27PM WOX 5291 - XR CHEST 2V FRONTAL/LAT / PROCEDURE REASON: multiple diagnoses * * * * Physician Interpretation * * * * EXAMINATION: CHEST RADIOGRAPH (2 VIEW FRONTAL & LATERAL) CLINICAL HISTORY: URI, acute Cough MQ: XC2_6 EXAM DATE/TIME: 01/16/2021 3:27 PM COMPARISON: Chest x-ray dated March 15, 2020 and September 17, 2020 RESULT: Lines, tubes, and devices: None. Lungs and pleura: There is progressive patchy and nodular consolidative opacity in the right infrahilar region and right lower lobe. Trace right pleural effusion not excluded. No pneumothorax. Cardiomediastinal silhouette: Heart normal in size. Bones and soft tissues: Mild degenerative changes in the spine. DIVISION OF RADIOLOGY [facility] * * *Final Report* * * DATE OF EXAM: Jan 16 2021 3:27PM WOX 5291 - XR CHEST 2V FRONTAL/LAT / PROCEDURE REASON: multiple diagnoses * * * * Physician Interpretation * * * * EXAMINATION: CHEST RADIOGRAPH (2 VIEW FRONTAL & LATERAL) CLINICAL HISTORY: URI, acute Cough MQ: XC2_6 EXAM DATE/TIME: 01/16/2021 3:27 PM COMPARISON: Chest x-ray dated March 15, 2020 and September 17, 2020 RESULT: Lines, tubes, and devices: None. Lungs and pleura: There is progressive patchy and nodular consolidative opacity in the right infrahilar region and right lower lobe. Trace right pleural effusion not excluded. No pneumothorax. Cardiomediastinal silhouette: Heart normal in size. Bones and soft tissues: Mild degenerative changes in the spine. IMPRESSION IMPRESSION: Progressive patchy and nodular consolidative opacity in the right infrahilar region and right lower lobe. Trace right pleural effusion not excluded. Given persistence and progression of this finding, further evaluation with CT chest is advised. Incidental Finding: Follow-up Acuity: Incidental Finding: Suspicious appearing incidentally detected nodular lung density on CXR. Routing Code: RI_1 Recommendation: CT Chest WO IVCON Time Frame: in 4 weeks COMMUNICATION:? Results will be communicated with the ordering provider via [employer] staff message by [employer] within 2 business days of report finalization. Customer Counter Representative: TERRI Transcribe Date/Time: Jan 16 2021 3:27P Dictated by : TAURUS MCGEE MD This examination was interpreted and the report reviewed and electronically signed by: TAURUS MCGEE MD on Jan 16 2021 3:30PM EST [facility] Radiology Study [facility]narrative) [facility] X[facility] Chest PA and Lateralon IMPRESSION: Persistent and slightly worse right lower lobe infiltrate compatible with bronchopneumonia. A follow-up exam is recommended. Customer Counter Representative: TERRI Transcribe Date/Time: Sep 17 2020 6:24P Dictated by : LEELA BARGER MD This examination was interpreted and the report reviewed and electronically signed by: LEELA BARGER MD on Sep 17 2020 6:25PM [facility] DIVISION OF RADIOLOGY * * *Final Report* * * DATE OF EXAM: Sep 17 2020 6:18PM WOX 5291 - XR CHEST 2V FRONTAL/LAT / PROCEDURE REASON: SOB (shortness of breath) * * * * Physician Interpretation * * * * EXAMINATION: CHEST RADIOGRAPH (2 VIEW FRONTAL & LATERAL) CLINICAL HISTORY: SOB (shortness of breath) MQ: XC2_6 EXAM DATE/TIME: 09/17/2020 6:18 PM COMPARISON: 03/15/2020 RESULT: Lines, tubes, and devices: None. Lungs and pleura: There has been slight worsening of the right lower lobe infiltrate compatible with bronchopneumonia such as bacterial or viral pneumonia. The pleural margins remain unremarkable. Cardiomediastinal silhouette: Normal cardiomediastinal silhouette. Bones and soft tissues: Unremarkable. DIVISION OF RADIOLOGY Provider, Mich Valdovinos [facility] - 09/17/2020 * * *Final Report* * * DATE OF EXAM: Sep 17 2020 6:18PM WOX 5291 - XR CHEST 2V FRONTAL/LAT / PROCEDURE REASON: SOB (shortness of breath) * * * * Physician Interpretation * * * * EXAMINATION: CHEST RADIOGRAPH (2 VIEW FRONTAL & LATERAL) CLINICAL HISTORY: SOB (shortness of breath) MQ: XC2_6 EXAM DATE/TIME: 09/17/2020 6:18 PM COMPARISON: 03/15/2020 RESULT: Lines, tubes, and devices: None. Lungs and pleura: There has been slight worsening of the right lower lobe infiltrate compatible with bronchopneumonia such as bacterial or viral pneumonia. The pleural margins remain unremarkable. Cardiomediastinal silhouette: Normal cardiomediastinal silhouette. Bones and soft tissues: Unremarkable. IMPRESSION IMPRESSION: Persistent and slightly worse right lower lobe infiltrate compatible with bronchopneumonia. A follow-up exam is recommended. Customer Counter Representative: TERRI Transcribe Date/Time: Sep 17 2020 6:24P Dictated by : LEELA BARGER MD This examination was interpreted and the report reviewed and electronically signed by: LEELA BARGER MD on Sep 17 2020 6:25PM [facility] Radiology Study observation (narrative) [facility] PA and LateralOrder ed By: Cc Provider on 09-17-2020 [facility] XR Chest PA and Lateralon IMPRESSION: Patchy airspace opacity in the right lower lobe suspect for pneumonia in the appropriate clinical setting. Follow-up radiographs in 6-8 weeks advised to document resolution. Customer Counter Representative: TERRI Transcribe Date/Time: Mar 15 2020 11:39A Dictated by : TAURUS MCGEE MD This examination was interpreted and the report reviewed and electronically signed by: TAURUS MCGEE MD on Mar 15 2020 11:46AM [facility] DIVISION OF RADIOLOGY * * *Final Report* * * DATE OF EXAM: Mar 15 2020 11:37AM WOX 5291 - XR CHEST 2V FRONTAL/LAT / PROCEDURE REASON: multiple diagnoses * * * * Physician Interpretation * * * * EXAMINATION: CHEST RADIOGRAPH (2 VIEW FRONTAL & LATERAL) CLINICAL HISTORY: SOB (shortness of breath) Tobacco abuse MQ: XC2_6 EXAM DATE/TIME: 03/15/2020 11:37 AM COMPARISON: No relevant prior studies available. RESULT: Lines, tubes, and devices: None. Lungs and pleura: No consolidation. No lung mass. No pleural effusion. No pneumothorax. Cardiomediastinal silhouette: Lungs hyperinflated. Patchy airspace opacity in the medial posterior right lower lobe. No pleural effusion or pneumothorax. Bones and soft tissues: Degenerative changes in the spine. DIVISION OF RADIOLOGY Provider, [facility] - 03/15/2020 * * *Final Report* * * DATE OF EXAM: Mar 15 2020 11:37AM WOX 5291 - XR CHEST 2V FRONTAL/LAT / PROCEDURE REASON: multiple diagnoses * * * * Physician Interpretation * * * * EXAMINATION: CHEST RADIOGRAPH (2 VIEW FRONTAL & LATERAL) CLINICAL HISTORY: SOB (shortness of breath) Tobacco abuse MQ: XC2_6 EXAM DATE/TIME: 03/15/2020 11:37 AM COMPARISON: No relevant prior studies available. RESULT: Lines, tubes, and devices: None. Lungs and pleura: No consolidation. No lung mass. No pleural effusion. No pneumothorax. Cardiomediastinal silhouette: Lungs hyperinflated. Patchy airspace opacity in the medial posterior right lower lobe. No pleural effusion or pneumothorax. Bones and soft tissues: Degenerative changes in the spine. IMPRESSION IMPRESSION: Patchy airspace opacity in the right lower lobe suspect for pneumonia in the appropriate clinical setting. Follow-up radiographs in 6-8 weeks advised to document resolution. Customer Counter Representative: [facility] Transcribe Date/Time: Mar 15 2020 11:39A Dictated by : TAURUS MCGEE MD This examination was interpreted and the report reviewed and electronically signed by: TAURUS MCGEE MD on Mar 15 2020 11:46AM [facility] Radiology Study observation (narrative) Milagros macias [facility] XR Chest PA and LateralOrder ed By: Ccf Provider on 03-15-2020 [facility] Bronchoalveolar lavage cultu re with Gram stain Respiratory microbial culture or Staphylococcus aureus isolated. [facility] Work Phone: Gram stain for investigation of transfusion reaction Microscopic observation Gram stain Nom (Unsp spec) [facility] Work Phone: [phone] Influenza virus A and B and SARS-CoV-2 (COVID-19) Ag panel - Upper respiratory specim SARS-CoV-2 (COVID-19) RNA DANY+probe Ql (Resp) [facility] Work Phone: Laboratory - Microbiology an d Antimicrobial susceptibility Bacteria identified Cx Nom (Bld) No growth in 5 days. [facility] Work Phone: No Panel Information SARS-CoV-2 & FLU Antigen (Rapid) [facility] Work Phone: Streptococcus pneumoniae Antigen (M [facility] Work Phone: Vital Signs Date Time Vital Sign Value Performing Clinician Facility 11-21-2024 08:34-0400 Body height 180.3 cm Kaelyn Pato [employer] Work Phone: [facility] 11-21-2024 08:34-0400 Body mass index (BMI) [Ratio] 23.71 kg/m2 Kaelyn Paot [employer] Work Phone: [facility] 11-21-2024 08:34-0400 Body temperature 98.4 [degF] Kaelyn Pato [employer] LO[employer] Work Phone: [facility] 11-21-2024 08:34-0400 Body weight 77.11 kg Kaelyn Pato [employer] LO[employer] Work Phone: [facility] 11-21-2024 08:34-0400 Diastolic blood pressure 74 mm[Hg] Kaelyn Pato [employer]ER[employer] LO[employer]ER Work Phone: [facility] 11-21-2024 08:34-0400 Heart rate 60 /min Kaelyn Pato [employer] LO[employer] Work Phone: [facility] 11-21-2024 08:34-0400 Respiratory rate 20 /min Kaelyn Maynardir [employer]ER.[employer] LO[employer]ER Work Phone: [facility] 11-21-2024 08:34-0400 SaO2% (BldA) [Mass fraction] 97 % Kaelyn Cotton [employer] LO[employer]ER Work Phone: [facility] 11-21-2024 08:34-0400 Systolic blood pressure 118 mm[Hg] Kaelyn Maynardir BATCH [employer]ER.[employer] LO[employer]ER Work Phone: [facility] 11-03-2024 08:04-0400 Body height 182.[address] Bettye Vo MD Work Phone: [facility] 11-03-2024 08:04-0400 Body mass index (BMI) [Ratio] 23 kg/m2 Dr. Bettye Vo MD Work Phone: [facility] 11-03-2024 08:04-0400 Body temperature 98.7 [degF] Dr. Bettye Vo MD Work Phone: [facility] 11-03-2024 08:04-0400 Body weight 77.[address] Bettye Vo MD Work Phone: [facility] 11-03-2024 08:04-0400 Diastolic blood pressure 82 mm[Hg] Dr. Bettye Vo MD Work Phone: [facility] 11-03-2024 08:04-0400 Heart rate 52 /min Dr. Bettye Vo MD Work Phone: [facility] 11-03-2024 08:04-0400 Respiratory rate 16 /min Dr. Bettye Vo MD Work Phone: [facility] 11-03-2024 08:04-0400 SaO2% (BldA) [Mass fraction] 96 % Dr. Bettye Vo MD Work Phone: [facility] [facility] 11-03-2024 08:04-0400 Systolic blood pressure 139 mm[Hg] Dr. Bettye Vo MD Work Phone: [facility] 09-22-2024 08:01-0400 Body height 182.[address] Bettye Vo MD Work Phone: [facility] 09-22-2024 08:01-0400 Body mass index (BMI) [Ratio] 23.2 kg/m2 Dr. Bettye Vo MD Work Phone: [facility] 09-22-2024 08:01-0400 Body temperature 99.1 [degF] Dr. Bettye Vo MD Work Phone: [facility] 09-22-2024 08:01-0400 Body weight 77.[address] Bettye Vo MD Work Phone: [facility] 09-22-2024 08:01-0400 Diastolic blood pressure 77 mm[Hg] Dr. Bettye Vo MD Work Phone: [facility] 09-22-2024 08:01-0400 Heart rate 52 /min Dr. Bettye Vo MD Work Phone: [facility] 09-22-2024 08:01-0400 Respiratory rate 16 /min Dr. Bettye Vo MD Work Phone: [facility] 09-22-2024 08:01-0400 SaO2% (BldA) [Mass fraction] 96 % Dr. Bettye Vo MD Work Phone: [facility] 09-22-2024 08:01-0400 Systolic blood pressure 135 mm[Hg] Dr. Bettye Vo MD Work Phone: [facility] 09-16-2024 06:02-0400 Body mass index (BMI) [Ratio] 22.8 kg/m2 Dr. Bettye Vo MD Work Phone: [facility] 09-16-2024 06:02-0400 Body temperature 97.5 [degF] Dr. Bettye Vo MD Work Phone: [facility] 09-16-2024 06:02-0400 Body weight 76.[address] Bettye Vo MD Work Phone: [facility] 09-16-2024 06:02-0400 Diastolic blood pressure 82 mm[Hg] Dr. Bettye Vo MD Work Phone: [facility] 09-16-2024 06:02-0400 Heart rate 50 /min Dr. Bettye Vo MD Work Phone: [facility] 09-16-2024 06:02-0400 Respiratory rate 18 /min Dr. Bettye Vo MD Work Phone: [facility] 09-16-2024 06:02-0400 SaO2% (BldA) [Mass fraction] 99 % Dr. Bettye Vo MD Work Phone: [facility] 09-16-2024 06:02-0400 Systolic blood pressure 138 mm[Hg] Dr. Bettye Vo MD Work Phone: [facility] 06-20-2024 10:52-0500 Body mass index (BMI) [Ratio] 22.84 kg/m2 Parth Freeman MD Work Phone: [facility] 06-20-2024 10:52-0500 Body temperature 98.6 [degF] Parth Freeman MD Work Phone: [facility] 06-20-2024 10:52-0500 Body weight 76.4 kg Parth Freeman MD Work Phone: [facility] 06-20-2024 10:52-0500 Diastolic blood pressure 75 mm[Hg] Parth Freeman MD Work Phone: [facility] 06-20-2024 10:52-0500 Heart rate 67 /min Parth Freeman MD Work Phone: [facility] 06-20-2024 10:52-0500 Respiratory rate 18 /min Parth Freeman MD Work Phone: [facility] 06-20-2024 10:52-0500 SaO2% (BldA) [Mass fraction] 96 % Parth Freeman MD Work Phone: [facility] 06-20-2024 10:52-0500 Systolic blood pressure 135 mm[Hg] Parth Freeman MD Work Phone: [facility] 06-03-2024 08:13-0500 Body mass index (BMI) [Ratio] 23.4 kg/m2 Dr. Bettye Vo MD Work Phone: [facility] 06-03-2024 08:13-0500 Body temperature 97.6 [degF] Dr. Bettye Vo MD Work Phone: [facility] 06-03-2024 08:13-0500 Body weight 78.[address] Bettye Vo MD Work Phone: [facility] 06-03-2024 08:13-0500 Diastolic blood pressure 72 mm[Hg] Dr. Bettye Vo MD Work Phone: [facility] 06-03-2024 08:13-0500 Heart rate 58 /min Dr. Bettye Vo MD Work Phone: [facility] 06-03-2024 08:13-0500 Respiratory rate 16 /min Dr. Bettye Vo MD Work Phone: [facility] 06-03-2024 08:13-0500 SaO2% (BldA) [Mass fraction] 95 % Dr. Bettye Vo MD Work Phone: [facility] 06-03-2024 08:13-0500 Systolic blood pressure 117 mm[Hg] Dr. Bettye Vo MD Work Phone: [facility] 08-07-2022 09:15-0400 Diastolic blood pressure 61 mm[Hg] Parth Freeman MD Work Phone: [facility] 08-07-2022 09:15-0400 Heart rate 72 /min Parth Freeman MD Work Phone: [facility] 08-07-2022 09:15-0400 Respiratory rate 18 /min Parth Freeman MD Work Phone: [facility] 08-07-2022 09:15-0400 SaO2% (BldA) [Mass fraction] 95 % Parth Freeman MD Work Phone: [facility] 08-07-2022 09:15-0400 Systolic blood pressure 120 mm[Hg] Parth Freeman MD Work Phone: [facility] 08-07-2022 08:45-0400 Body temperature 97.3 [degF] Parth Freeman MD Work Phone: [facility] 08-07-2022 06:45-0400 Body height 182.9 cm Parth Freeman MD Work Phone: [facility] 08-07-2022 06:45-0400 Body weight 71.67 kg Parth Freeman MD Work Phone: [facility] 06-19-2022 12:45-0500 Diastolic blood pressure 57 mm[Hg] Parth Freeman MD Work Phone: [facility] 06-19-2022 12:45-0500 Heart rate 66 /min Parth Freeman MD Work Phone: [facility] 06-19-2022 12:45-0500 Respiratory rate 18 /min Parth Fereman MD Work Phone: [facility] 06-19-2022 12:45-0500 SaO2% (BldA) [Mass fraction] 98 % Parth Freeman MD Work Phone: [facility] 06-19-2022 12:45-0500 Systolic blood pressure 105 mm[Hg] Parth Freeman MD Work Phone: [facility] 06-19-2022 12:01-0500 Body temperature 97 [degF] Parth Freeman MD Work Phone: [facility] 06-19-2022 09:51-0500 Body height 180.3 cm Parth Freeman MD Work Phone: [facility] 06-19-2022 09:51-0500 Body weight 70.31 kg Parth Freeman MD Work Phone: [facility] 04-25-2022 16:13-0500 Body temperature 98.71 [degF] Merlyn Praisler-Wood [employer] Work Phone: [facility] 04-25-2022 16:13-0500 Body weight 68.58 kg Merlyn Praisler-Wood [employer] Work Phone: [facility] 04-25-2022 16:13-0500 Diastolic blood pressure 78 mm[Hg] Merlyn Praisler-Wood BATCH [employer]ER.[employer]ER Work Phone: [facility] 04-25-2022 16:13-0500 Heart rate 82 /min Merlyn Praisler-Wood BATCH UN[employer]ER.[employer]ER Work Phone: [facility] 04-25-2022 16:13-0500 Respiratory rate 16 /min Merlyn Praisler-Wood BATCH UN[employer]ER.[employer] LO[employer]ER Work Phone: [facility] 04-25-2022 16:13-0500 SaO2% (BldA) [Mass fraction] 97 % Merlyn Praisler-Wood BATCH UN[employer]ER.[employer] LO[employer]ER Work Phone: [facility] 04-25-2022 16:13-0500 Systolic blood pressure 122 mm[Hg] Merlyn Praisler-Wood BATCH UN[employer]ER.[employer]ER Work Phone: [facility] 04-22-2022 07:16-0500 Body height 180.[address] Bettye Vo Work Phone: [facility] 04-22-2022 07:16-0500 Body mass index (BMI) [Ratio] 20.7 kg/m2 Dr. Bettye Vo Work Phone: [facility] 04-22-2022 07:16-0500 Body temperature 95.4 [degF] Dr. Bettye Vo Work Phone: [facility] 04-22-2022 07:16-0500 Body weight 67.[address] Bettye Vo Work Phone: [facility] 04-22-2022 07:16-0500 Diastolic blood pressure 78 mm[Hg] Dr. Bettye Vo Work Phone: [facility] 04-22-2022 07:16-0500 Heart rate 92 /min Dr. Bettye Vo Work Phone: [facility] 04-22-2022 07:16-0500 Respiratory rate 18 /min Dr. Bettye Vo Work Phone: [facility] 04-22-2022 07:16-0500 SaO2% (BldA) [Mass fraction] 98 % Dr. Bettye Vo Work Phone: [facility] 04-22-2022 07:16-0500 Systolic blood pressure 133 mm[Hg] Dr. Bettye Vo Work Phone: [facility] 04-18-2022 12:55-0500 Body temperature 98.4 [degF] Dr. Bettye Vo Work Phone: [facility] 04-18-2022 12:55-0500 Diastolic blood pressure 68 mm[Hg] Dr. Bettye Vo Work Phone: [facility] 04-18-2022 12:55-0500 Heart rate 79 /min Dr. Bettye Vo Work Phone: [facility] 04-18-2022 12:55-0500 Respiratory rate 16 /min Dr. Bettye Vo Work Phone: [facility] 04-18-2022 12:55-0500 SaO2% (BldA) [Mass fraction] 98 % Dr. Bettye Vo Work Phone: [facility] 04-18-2022 12:55-0500 Systolic blood pressure 113 mm[Hg] Dr. Bettye Vo Work Phone: [facility] 04-18-2022 11:19-0500 Body height 180.[address] Bettye Vo Work Phone: [facility] Work Phone: 04-18-2022 11:19-0500 Body mass index (BMI) [Ratio] 20 kg/m2 Dr. Bettye Vo Work Phone: [facility] 04-18-2022 11:19-0500 Body weight 65.[address] Bettye Vo Work Phone: [facility] 03-31-2022 08:27-0500 Body temperature 97.9 [degF] Dr. Bettye Vo Work Phone: [facility] 03-31-2022 08:27-0500 Body weight 66.[address] Bettye Vo Work Phone: [facility] 03-31-2022 08:27-0500 Diastolic blood pressure 78 mm[Hg] Dr. Bettye Vo Work Phone: [facility] 03-31-2022 08:27-0500 Heart rate 90 /min Dr. Bettye Vo Work Phone: [facility] 03-31-2022 08:27-0500 Respiratory rate 16 /min Dr. Bettye Vo Work Phone: [facility] 03-31-2022 08:27-0500 SaO2% (BldA) [Mass fraction] 96 % Dr. Bettye Vo Work Phone: [facility] 03-31-2022 08:27-0500 Systolic blood pressure 119 mm[Hg] Dr. Bettye Vo Work Phone: [facility] 03-25-2022 08:40-0500 Body height 180.[address] Bettye Vo Work Phone: [facility] Work Phone: 03-25-2022 08:40-0500 Body mass index (BMI) [Ratio] 20.1 kg/m2 Dr. Bettye Vo Work Phone: [facility] 03-25-2022 08:40-0500 Body temperature 97.2 [degF] Dr. Bettye Vo Work Phone: [facility] 03-25-2022 08:40-0500 Body weight 65.[address] Bettye Vo Work Phone: [facility] 03-25-2022 08:40-0500 Diastolic blood pressure 76 mm[Hg] Dr. Bettye Vo Work Phone: [facility] 03-25-2022 08:40-0500 Heart rate 100 /min Dr. Bettye Vo Work Phone: [facility] 03-25-2022 08:40-0500 Respiratory rate 18 /min Dr. Bettye Vo Work Phone: [facility] 03-25-2022 08:40-0500 SaO2% (BldA) [Mass fraction] 93 % Dr. Bettye Vo Work Phone: [facility] 03-25-2022 08:40-0500 Systolic blood pressure 115 mm[Hg] Dr. Bettye Vo Work Phone: [facility] 03-23-2022 00:07-0500 Diastolic blood pressure 69 mm[Hg] Dr. Bettye Vo Work Phone: [facility] 03-23-2022 00:07-0500 Heart rate 81 /min Dr. Bettye Vo Work Phone: [facility] 03-23-2022 00:07-0500 Respiratory rate 20 /min Dr. Bettye Vo Work Phone: [facility] 03-23-2022 00:07-0500 SaO2% (BldA) [Mass fraction] 95 % Dr. Bettye Vo Work Phone: [facility] 03-23-2022 00:07-0500 Systolic blood pressure 131 mm[Hg] Dr. Bettye Vo Work Phone: [facility] 03-22-2022 23:00-0500 Body temperature 100.7 [degF] Dr. Bettye Vo Work Phone: [facility] 03-22-2022 20:09-0500 Body height 180.[address] Bettye Vo Work Phone: [facility] Work Phone: 03-22-2022 20:09-0500 Body mass index (BMI) [Ratio] 20.3 kg/m2 Dr. Bettye Vo Work Phone: [facility] 03-22-2022 20:09-0500 Body weight 66.[address] Bettye Vo Work Phone: [facility] 02-27-2022 06:51-0400 Body mass index (BMI) [Ratio] 24 kg/m2 Dr. Bettye Vo Work Phone: [facility] 02-27-2022 06:51-0400 Body temperature 98.6 [degF] Dr. Bettye Vo Work Phone: [facility] 02-27-2022 06:51-0400 Body weight 71.[address] Bettye Vo Work Phone: [facility] 02-27-2022 06:51-0400 Diastolic blood pressure 78 mm[Hg] Dr. Bettye Vo Work Phone: [facility] 02-27-2022 06:51-0400 Heart rate 75 /min Dr. Bettye Vo Work Phone: [facility] 02-27-2022 06:51-0400 Respiratory rate 16 /min Dr. Bettye Vo Work Phone: [facility] 02-27-2022 06:51-0400 SaO2% (BldA) [Mass fraction] 99 % Dr. Bettye Vo Work Phone: [facility] 02-27-2022 06:51-0400 Systolic blood pressure 123 mm[Hg] Dr. Bettye Vo Work Phone: [facility] 11-21-2021 05:40-0400 Body height 172.[address] Paola Piper Work Phone: [facility] Work Phone: 11-21-2021 05:40-0400 Body mass index (BMI) [Ratio] 23.4 kg/m2 Dr. Paola Piper Work Phone: [facility] Work Phone: 11-21-2021 05:40-0400 Body temperature 98.2 [degF] Dr. Paola Piper Work Phone: [facility] Work Phone: 11-21-2021 05:40-0400 Body weight 69.[address] Paola Piper Work Phone: [facility] Work Phone: 11-21-2021 05:40-0400 Diastolic blood pressure 60 mm[Hg] Dr. Paola Piper Work Phone: [facility] Work Phone: 11-21-2021 05:40-0400 Heart rate 72 /min Dr. Paola Piper Work Phone: [facility] Work Phone: 11-21-2021 05:40-0400 Respiratory rate 17 /min Dr. Paola Piper Work Phone: [facility] Work Phone: 11-21-2021 05:40-0400 SaO2% (BldA) [Mass fraction] 98 % Dr. Paola Piper Work Phone: [facility] Work Phone: 11-21-2021 05:40-0400 Systolic blood pressure 108 mm[Hg] Dr. Paola Piper Work Phone: [facility] Work Phone: 11-14-2021 08:08-0400 Body height 180.[address] Paola Piper Work Phone: [facility] Work Phone: 11-14-2021 08:08-0400 Body mass index (BMI) [Ratio] 21.6 kg/m2 Dr. Paola Piper Work Phone: [facility] Work Phone: 11-14-2021 08:08-0400 Body temperature 97 [degF] Dr. Paola Piper Work Phone: [facility] Work Phone: 11-14-2021 08:08-0400 Body weight 70.[address] Paola Piper Work Phone: [facility] Work Phone: 11-14-2021 08:08-0400 Diastolic blood pressure 70 mm[Hg] Dr. Paola Piper Work Phone: [facility] Work Phone: 11-14-2021 08:08-0400 Heart rate 66 /min Dr. Paola Piper Work Phone: [facility] Work Phone: 11-14-2021 08:08-0400 Respiratory rate 18 /min Dr. Paola Piper Work Phone: [facility] Work Phone: 11-14-2021 08:08-0400 SaO2% (BldA) [Mass fraction] 96 % Dr. Paola Piper Work Phone: [facility] Work Phone: 11-14-2021 08:08-0400 Systolic blood pressure 108 mm[Hg] Dr. Paola Piper Work Phone: [facility] Work Phone: 10-09-2021 16:22-0400 Diastolic blood pressure 66 mm[Hg] Dr. Paola Piper Work Phone: [facility] Work Phone: 10-09-2021 16:22-0400 Heart rate 73 /min Dr. Paola Piper Work Phone: [facility] Work Phone: 10-09-2021 16:22-0400 Respiratory rate 20 /min Dr. Paola Piper Work Phone: [facility] Work Phone: 10-09-2021 16:22-0400 SaO2% (BldA) [Mass fraction] 98 % Dr. Paola Piper Work Phone: [facility] Work Phone: 10-09-2021 16:22-0400 Systolic blood pressure 106 mm[Hg] Dr. Paola Piper Work Phone: [facility] Work Phone: 10-09-2021 14:00-0400 Body temperature 99 [degF] Dr. Paola Piper Work Phone: [facility] Work Phone: 10-09-2021 12:17-0400 Body height 180.[address] Paola Piper Work Phone: [facility] Work Phone: 10-09-2021 12:17-0400 Body mass index (BMI) [Ratio] 21.9 kg/m2 Dr. Paola Piper Work Phone: [facility] Work Phone: 10-09-2021 12:17-0400 Body weight 71.[address] Paola Piper Work Phone: [facility] Work Phone: 08-22-2021 15:39-0400 Body mass index (BMI) [Ratio] 21.9 kg/m2 Dr. Paola Piper Work Phone: [facility] Work Phone: 08-22-2021 15:39-0400 Body temperature 98.6 [degF] Dr. Paola Piper Work Phone: [facility] Work Phone: 08-22-2021 15:39-0400 Body weight 71.[address] Paola Piper Work Phone: [facility] Work Phone: 08-22-2021 15:39-0400 Diastolic blood pressure 86 mm[Hg] Dr. Paola Piper Work Phone: [facility] Work Phone: 08-22-2021 15:39-0400 Heart rate 86 /min Dr. Paola Piper Work Phone: [facility] Work Phone: 08-22-2021 15:39-0400 Respiratory rate 14 /min Dr. Paola Piper Work Phone: [facility] Work Phone: 08-22-2021 15:39-0400 SaO2% (BldA) [Mass fraction] 96 % Dr. Paola Piper Work Phone: [facility] Work Phone: 08-22-2021 15:39-0400 Systolic blood pressure 122 mm[Hg] Dr. Paola Piper Work Phone: [facility] Work Phone: 08-22-2021 15:39-0400 Body height 180.[address] Paola Piper Work Phone: [facility] Work Phone: 08-22-2021 15:39-0400 Body mass index (BMI) [Ratio] 21.9 kg/m2 Dr. Paola Piper Work Phone: [facility] Work Phone: 08-22-2021 15:39-0400 Body temperature 98.6 [degF] Dr. Paola Piper Work Phone: [facility] Work Phone: 08-22-2021 15:39-0400 Body weight 71.[address] Paola Piper Work Phone: [facility] Work Phone: 08-22-2021 15:39-0400 Diastolic blood pressure 86 mm[Hg] Dr. Paola Piper Work Phone: [facility] Work Phone: 08-22-2021 15:39-0400 Heart rate 86 /min Dr. Paola Piper Work Phone: [facility] Work Phone: 08-22-2021 15:39-0400 Respiratory rate 14 /min Dr. Paola Piper Work Phone: [facility] Work Phone: 08-22-2021 15:39-0400 SaO2% (BldA) [Mass fraction] 96 % Dr. Paola Piper Work Phone: [facility] Work Phone: 08-22-2021 15:39-0400 Systolic blood pressure 122 mm[Hg] Dr. Paola Piper Work Phone: [facility] Work Phone: 08-19-2021 13:46-0400 Body mass index (BMI) [Ratio] 21.7 kg/m2 Dr. Paola Piper Work Phone: [facility] Work Phone: 08-19-2021 13:46-0400 Body temperature 98.7 [degF] Dr. Paola Piper Work Phone: [facility] Work Phone: 08-19-2021 13:46-0400 Body weight 70.[address] Paola Piper Work Phone: [facility] Work Phone: 08-19-2021 13:46-0400 Diastolic blood pressure 77 mm[Hg] Dr. Paola Piper Work Phone: [facility] Work Phone: 08-19-2021 13:46-0400 Heart rate 80 /min Dr. Paola Piper Work Phone: [facility] Work Phone: 08-19-2021 13:46-0400 Respiratory rate 16 /min Dr. Paola Piper Work Phone: [facility] Work Phone: 08-19-2021 13:46-0400 SaO2% (BldA) [Mass fraction] 98 % Dr. Paola Piper Work Phone: [facility] Work Phone: 08-19-2021 13:46-0400 Systolic blood pressure 119 mm[Hg] Dr. Paola Piper Work Phone: [facility] Work Phone: 08-19-2021 13:46-0400 Body mass index (BMI) [Ratio] 21.7 kg/m2 Dr. Paola Piper Work Phone: [facility] Work Phone: 08-19-2021 13:46-0400 Body temperature 98.7 [degF] Dr. Paola Piper Work Phone: [facility] Work Phone: 08-19-2021 13:46-0400 Body weight 70.[address] Paola Piper Work Phone: [facility] Work Phone: 08-19-2021 13:46-0400 Diastolic blood pressure 77 mm[Hg] Dr. Paola Piper Work Phone: [facility] Work Phone: 08-19-2021 13:46-0400 Heart rate 80 /min Dr. Paola Piper Work Phone: [facility] Work Phone: 08-19-2021 13:46-0400 Respiratory rate 16 /min Dr. Paola Piper Work Phone: [facility] Work Phone: 08-19-2021 13:46-0400 SaO2% (BldA) [Mass fraction] 98 % Dr. Paola Piper Work Phone: [facility] Work Phone: 08-19-2021 13:46-0400 Systolic blood pressure 119 mm[Hg] Dr. Paola Piper Work Phone: [facility] Work Phone: 08-06-2021 14:23-0400 Body temperature 99 [degF] Dr. Paola Piper Work Phone: [facility] Work Phone: 08-06-2021 14:23-0400 Diastolic blood pressure 95 mm[Hg] Dr. Paola Piper Work Phone: [facility] Work Phone: 08-06-2021 14:23-0400 Heart rate 60 /min Dr. Paola Piper Work Phone: [facility] Work Phone: 08-06-2021 14:23-0400 Respiratory rate 16 /min Dr. Paola Piper Work Phone: [facility] Work Phone: 08-06-2021 14:23-0400 SaO2% (BldA) [Mass fraction] 98 % Dr. Paola Piper Work Phone: [facility] Work Phone: 08-06-2021 14:23-0400 Systolic blood pressure 118 mm[Hg] Dr. Paola Piper Work Phone: [facility] Work Phone: 08-06-2021 06:00-0400 Body weight 70.[address] Paola Piper Work Phone: [facility] Work Phone: 08-04-2021 18:23-0400 Body height 182.[address] Paola Piper Work Phone: [facility] Work Phone: 08-04-2021 07:53-0400 Body mass index (BMI) [Ratio] 19.9 kg/m2 Dr. Paola Piper Work Phone: [facility] Work Phone: 08-04-2021 07:31-0400 Body temperature 98 [degF] Dr. Paola Piper Work Phone: [facility] Work Phone: 08-04-2021 07:31-0400 Diastolic blood pressure 76 mm[Hg] Dr. Paola Piper Work Phone: [facility] Work Phone: 08-04-2021 07:31-0400 Heart rate 81 /min Dr. Paola Piper Work Phone: [facility] Work Phone: 08-04-2021 07:31-0400 Respiratory rate 16 /min Dr. Paola Piper Work Phone: [facility] Work Phone: 08-04-2021 07:31-0400 SaO2% (BldA) [Mass fraction] 92 % Dr. Paola Piper Work Phone: [facility] Work Phone: 08-04-2021 07:31-0400 Systolic blood pressure 122 mm[Hg] Dr. Paola Piper Work Phone: [facility] Work Phone: 08-04-2021 05:30-0400 Body height 182.[address] Paola Piper Work Phone: [facility] Work Phone: 08-04-2021 05:30-0400 Body mass index (BMI) [Ratio] 20.5 kg/m2 Dr. Paola Piper Work Phone: [facility] Work Phone: 08-04-2021 05:30-0400 Body weight 68.[address] Paola Piper Work Phone: [facility] Work Phone: 07-31-2021 15:16-0400 Body mass index (BMI) [Ratio] 20.9 kg/m2 Dr. Paola Piper Work Phone: [facility] Work Phone: 07-31-2021 15:16-0400 Body temperature 98 [degF] Dr. Paola Piper Work Phone: [facility] Work Phone: 07-31-2021 15:16-0400 Body weight 68.[address] Paola Piper Work Phone: [facility] Work Phone: 07-31-2021 15:16-0400 Diastolic blood pressure 80 mm[Hg] Dr. Paola Piper Work Phone: [facility] Work Phone: 07-31-2021 15:16-0400 Heart rate 81 /min Dr. Paola Piper Work Phone: [facility] Work Phone: 07-31-2021 15:16-0400 Respiratory rate 18 /min Dr. Paola Piper Work Phone: [facility] Work Phone: 07-31-2021 15:16-0400 SaO2% (BldA) [Mass fraction] 96 % Dr. Paola Piper Work Phone: [facility] Work Phone: 07-31-2021 15:16-0400 Systolic blood pressure 146 mm[Hg] Dr. Paola Piper Work Phone: [facility] Work Phone: 07-31-2021 15:16-0400 Body mass index (BMI) [Ratio] 20.9 kg/m2 Dr. Paola Piper Work Phone: [facility] Work Phone: 07-31-2021 15:16-0400 Body temperature 98 [degF] Dr. Paola Piper Work Phone: [facility] Work Phone: 07-31-2021 15:16-0400 Body weight 68.[address] Paola Piper Work Phone: [facility] Work Phone: 07-31-2021 15:16-0400 Diastolic blood pressure 80 mm[Hg] Dr. Paola Piper Work Phone: [facility] Work Phone: 07-31-2021 15:16-0400 Heart rate 81 /min Dr. Paola Piper Work Phone: [facility] Work Phone: 07-31-2021 15:16-0400 Respiratory rate 18 /min Dr. Paola Piper Work Phone: [facility] Work Phone: 07-31-2021 15:16-0400 SaO2% (BldA) [Mass fraction] 96 % Dr. Paola Piper Work Phone: [facility] Work Phone: 07-31-2021 15:16-0400 Systolic blood pressure 146 mm[Hg] Dr. Paola Piper Work Phone: [facility] Work Phone: Encounters Encounter Date Encounter Type Care Provider Facility Start: 12-26-2024 End: 12-26-2024 Admission to same day surgery center Kaelyn Cotton D[employer] LO[employer] Work Phone: General Surgery Comment on above: Tubular adenoma of yolanda carballo (Primary Dx) Start: 12-26-2024 End: 12-26-2024 Telemedicine consultation with patient Kaelyn Cotton APRN.[employer] Work Phone: General Surgery Start: 12-26-2024 End: 12-26-2024 ambulatory KAELYN COTTON Facility:[facility] Start: 12-15-2024 ambulatory KAELYN COTTON Facilit y:[facility] Start: 12-07-2024 End: 12-07-2024 Admission to same day surgery center Jet Gustafson MD Work Phone: Ambulatory Surgery Comment on above: bowel prep tips Start: 12-07-2024 End: 12-07-2024 E-mail encounter from caregiver Jet Gustafson MD Work Phone: Ambulatory Surgery Start: 11-21-2024 End: 11-21-2024 Telephone encounter Amber Delaney Comment on above: Appointment Cancelle d ( 11/21/24: Per Elana D, Patient called and would like to cancel appointment today with Dr. Freeman. He will call at a later date to reschedule. /) Start: 11-21-2024 End: 11-21-2024 Patient encounter procedure Kaelyn Maynardraissa GONZALEZ.DOCK LOADER Work Phone: General Surgery Comment on above: Screen for colon can cer (Primary Dx) Start: 11-21-2024 End: 11-21-2024 ambulatory KAELYN COTTON Facility:[facility] Start: 11-16-2024 End: 11-16-2024 Chart abstracting Kaelyn Cotton DOCK LOADER Work Phone: General Surgery Start: 11-03-[address] Zoltan Vo MD Work Phone: [facility] Start: 11-03-2024 End: 11-03-[address] Bettye Vo MD -[facility] Work Phone: Start: 11-03-2024 End: 11-03-[address] Bettye Vo MD [facility] Start: 11-03-2024 End: 11-03-[address] Bettye Vo MD Work Phone: [place] [employer] Work Phone: Start: 09-22-2024 End: 09-22-[address] Bettye Vo MD -[facility] [employer] Work Phone: Start: 09-22-2024 End: 09-22-[address] Bettye Vo MD Work Phone: [place] [employer] Work Phone: Start: 09-16-2024 End: 09-21-2024 Telephone encounter Luz Barnes Pulmonary Medicine Comment on above: Received Outside Med ical Records Start: 09-16-2024 End: 09-16-2024 Patient encounter procedure BHARGAVI Membreno -[facility] Work Phone: Start: 09-16-2024 End: 09-16-2024 ambulatory Sandy Membreno Facility:[facility] Start: 09-09-2024 End: 09-09-2024 Telephone encounter Luz Barnes Pulmonary Medicine Comment on above: Release Of Medical R ecords Start: 06-23-2024 End: 06-23-2024 Telephone encounter Lucy Joyce [facility] [id number] Comment on above: Appointment Start: 06-20-2024 End: 06-20-2024 ambulatory PARTH FREEMAN Facility:[facility] Start: 06-20-2024 End: 06-20-2024 Patient encounter procedure Parth Freeman MD Work Phone: Pulmonary Medicine Comment on above: Centrilobular emphys azra (HCC) (Primary Dx); Tobacco use disorder; Bronchiectasis with acute lower respiratory infection (HCC); H/O foreign body in respiratory tract Start: 06-03-2024 End: 06-03-2024 Patient encounter procedure MEDICAL SCHEDULER Sandy Membreno -[place] [facility] Work Phone: Start: 06-03-2024 End: 06-03-2024 ambulatory Bettye Vo Facility:[facility] Start: 05-16-2024 End: 05-16-2024 ambulatory Bettye Gilda Facility:[facility] Start: 04-29-2024 End: 04-29-2024 ambulatory [facility] Facility:[facility] Start: 04-15-2024 End: 04-15-2024 ambulatory Sandy Membreno Facility:[facility] Start: 04-12-2024 End: 04-12-2024 Emergency department patient visit Fahad Maxwell Facility:[facility] Start: 10-20-2022 End: 10-20-2022 [facility] Parth Freeman MD Work Phone: Pulmonary Medicine Comment on above: Tobacco use disorder (Primary Dx); Centrilobular emphysema (HCC); Aspiration into airway, subsequent encounter; Abscess of left lung with pneumonia, unspecified part of lung (HCC); Abscess of right lung with pneumonia, unspecified part of lung (HCC) Start: 09-24-2022 Telephone encounter Deneen Metz Admitting Comment on above: Appointment Start: 09-15-2022 End: 09-15-2022 [facility] Parth Freeman MD Work Phone: Pulmonary Medicine Comment on above: Abscess of left lung with pneumonia, unspecified part of lung (HCC) (Primary Dx); Tobacco use disorder; Centrilobular emphysema (HCC) Start: 08-07-2022 End: 08-07-2022 Subsequent hospital visit by physician Parth Freeman MD Work Phone: Admitting Comment on above: Bronchiolar disease [J98.09] Start: 08-04-2022 End: 08-04-2022 ambulatory Parth Freeman MD Work Phone: Pulmonary Medicine Comment on above: Bronchiectasis witho ut complication (HCC) (Primary Dx); Stage 2 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); Cigarette smoker; Bronchial stenosis, right; Pneumonia of right lower lobe due to infectious organism Start: 08-04-2022 End: 08-04-2022 Telemedicine consultation with patient Parth Freeman MD Work Phone: [facility] Start: 06-27-2022 Telephone encounter Matthew martinez MD Work Phone: Pulmonary Medicine Comment on above: Results Start: 06-26-2022 Orders Only Magda youssef PA-C Work Phone: Pulmonary Medicine Comment on above: Preoperative examina tion (Primary Dx) Start: 06-26-2022 Preprocedural examin ation done Magda Martinez PA-C Work Phone: Pulmonary Medicine Start: 06-25-2022 Telephone encounter Lucy Joyce CT Pulmonary Medicine Comment on above: Appointment (PreOp B ronch) Start: 06-19-2022 End: 06-19-2022 Orders Only Matthew Berry MD Work Phone: Pulmonary Medicine Comment on above: Bronchiectasis with acute lower respiratory infection (HCC) (Primary Dx) Bronchiolar disease [J98.09] Start: 06-07-2022 Telephone encounter Lucy Joyce CT Pulmonary Medicine Comment on above: Appointment (PreOp B ronch) Start: 05-29-2022 End: 05-29-[address] Bettye Vo Work Phone: [facility] Work Phone: Start: 05-29-2022 End: 05-29-[address] Bettye Vo Work Phone: [facility]-Laboratory, Specimen Start: 05-29-2022 Chart abstracting Shahana Lindsay RN Admitting Start: 04-25-2022 End: 04-25-2022 Subsequent hospital visit by physician Xr [facility] Work Phone: Radiology Comment on above: Left wrist injury, i nitial encounter [S69.92XA] Start: 04-25-2022 End: 04-25-[address] APRN.CNP Work Phone: [facility] Comment on above: Left wrist injury, i nitial encounter (Primary Dx) Start: 04-22-2022 End: 04-22-[address] Bettye [facility] Start: 04-18-2022 Non-patient / Non-visit Dr. Matilde Vo Work Phone: [facility] Start: 04-18-2022 End: 04-18-2022 Admission to same day surgery center Dr. Bettye Vo Work Phone: [facility]-Endoscopy Start: 04-18-2022 End: 04-18-[address] Bettye Vo Work Phone: [facility] Work Phone: Start: 04-02-2022 End: 04-02-[address] Bettye Vo Work Phone: [facility] Work Phone: Start: 04-02-2022 End: 04-02-[address] Bettye Vo Work Phone: [facility]-Laboratory, Pavilion Start: 03-31-2022 End: 03-31-[address] Bettye Vo Work Phone: [facility] Start: 03-25-2022 End: 03-25-[address] Bettye [facility] Start: 03-22-2022 End: 03-23-2022 Emergency department patient visit Dr. Bettye Vo Work Phone: [facility]-Emergency Department Start: 03-22-2022 End: 03-22-[address] Bettye Vo Work Phone: [facility] Work Phone: Start: 03-22-2022 End: 03-22-[address] Bettye Vo Work Phone: [facility] Start: 02-27-2022 End: 02-27-[address] Bettye Vo [facility] Start: 02-14-2022 Non-patient / Non-visit Dr. Matilde Vo Work Phone: [facility] Start: 02-12-2022 End: 02-12-[address] Bettye Vo Work Phone: [facility] Work Phone: Start: 02-12-2022 End: 02-12-[address] Bettye Vo Work Phone: [facility]-Pulmonary Services/Neurology Start: 11-29-2021 End: 11-29-[address] Paola Piper Work Phone: [facility] Start: 11-21-2021 End: 11-21-[address] Paola Piper [facility] Start: 11-14-2021 End: 11-14-[address] Paola Piper Work Phone: [facility] Start: 10-09-2021 End: 10-09-2021 Emergency department patient visit Dr. Paola Piper Work Phone: [facility]-Emergency Department Start: 09-16-2021 End: 09-16-[address] [facility] Start: 09-16-[address] [facility] Start: 08-22-2021 End: 08-22-[address] Paola Piper Work Phone: [facility] Start: 08-21-2021 End: 08-21-[address] Paola Piper Work Phone: [facility]-Radiology, [facility] Start: 08-19-2021 End: 08-19-[address] Paola Piper Work Phone: [facility]-Pulmonary Medicine [facility] Start: 08-14-[address] Paola Piper Work Phone: [facility]-Speech Therapy Start: 08-09-[address] Pa[facility] Pi[facility] Start: 08-07-2021 Patient Outreach Paola clark MD Work Phone: [facility] Comment on above: Transition Of Care Start: 08-06-2021 Non-patient / Non-visit Dr. Mark Piper Work Phone: [facility] Inpatient Physicians Start: 08-06-2021 Non-patient / Non-visit Dr. Mark Piper Work Phone: [facility] Start: 08-05-2021 Non-patient / Non-visit Dr. Mark Piper Work Phone: [facility] Start: 08-05-2021 Non-patient / Non-visit Dr. Mark Piper Work Phone: [facility] Inpatient Physicians Start: 08-04-2021 Non-patient / Non-visit Dr. Mark Piper Work Phone: [facility] Start: 08-04-2021 End: 08-06-2021 Evaluation and management of inpatient Dr. Paola Piper Work Phone: [facility]-Medical Surgical 3 Start: 07-31-2021 End: 07-31-[address] Paola Piper Work Phone: [facility] Start: 07-25-2021 End: 07-25-2021 Subsequent hospital visit by physician Xr [facility] Work Phone: Radiology Comment on above: Cough [R05.9] Start: 05-06-2021 End: 05-06-2021 Subsequent hospital visit by physician Xr [facility] Work Phone: Radiology Comment on above: Rib pain [R07.81] Start: 01-16-2021 End: 01-16-2021 Subsequent hospital visit by physician Xr [facility] Work Phone: Radiology Comment on above: URI, acute [J06.9] Start: 09-17-2020 End: 09-17-2020 Subsequent hospital visit by physician Xr [facility] Work Phone: Radiology Comment on above: SOB (shortness of br eath) [R06.02] Start: 03-15-2020 End: 03-15-2020 Subsequent hospital visit by physician Xr [facility] Work Phone: Radiology Comment on above: SOB (shortness of br eath) [R06.02] Procedures Date Procedure Procedure Detail Performing Clinician Start: 12-15-2024 Colonoscopy Kaelynphillip Cotton APRN.CNP Work Phone: Start: 08-07-2022 BAL MANUAL DIFF Parth Eri gaxiola MD Work Phone: Start: 08-07-2022 Cell count misc body fluids w/differential count Parth Freeman MD Work Phone: Start: 08-07-2022 End: 08-07-2022 Culture fngi mold/yeast prsmptv oth xcpt blood Parth Freeman MD Work Phone: Start: 08-07-2022 Brnchsc incl fluor g dnce dx w/cell washg spx Julito Cason Work Phone: Start: 06-19-2022 2019 CORONAVIRUS Parth Freeman MD Work Phone: Start: 06-19-2022 BAL MANUAL DIFF Parth gaxiola MD Work Phone: Start: 06-19-2022 Cell count misc body fluids w/differential count Parth Freeman MD Work Phone: Start: 06-19-2022 End: 06-19-2022 Smr prim src gram/giemsa stain bct fungi/cell Parth Freeman MD Work Phone: Start: 06-19-2022 Brnchsc incl fluor g dnce dx w/cell washg spx Chip Rick MD Work Phone: Start: 04-25-2022 Radex wrist complete minimum [address] APRN.DOCK LOADER Work Phone: Start: 04-18-[address] Bettye Vo Work Phone: Start: 03-22-2022 CT of chest without contrast Dr. Bettye Vo Work Phone: Start: 11-29-2021 CT of chest without contrast Dr. Paola Piper Work Phone: Start: 10-09-2021 Plain chest X-ray Dr. Zaira Piper Work Phone: Start: 08-21-2021 Plain chest X-ray Dr. Zaira Piper Work Phone: Start: 08-06-[address] Paola chris Work Phone: Start: 08-06-2021 Plain chest X-ray Dr. Zaira Piper Work Phone: Start: 08-04-2021 Bacteria identified in Blood by Culture Dr. Paola Piper Work Phone: Start: 08-04-2021 Investigation of transfusion reaction Dr. Paola Piper Work Phone: Start: 08-04-2021 Respiratory microbia l culture Dr. Paola Piper Work Phone: Start: 08-04-2021 Streptococcus pneumo niae Antigen (M Dr. Paola Piper Work Phone: Start: 08-04-2021 CT angiography of ch est with contrast Dr. Paola Piper Work Phone: Start: 07-31-2021 Plain chest X-ray Dr. Zaira Piper Work Phone: Start: 07-25-2021 Radiologic exam ches t 2 views Danni Gotti BATCH UNLOADER.DOCK LOADER Work Phone: Start: 05-06-2021 Radex ribs uni w/pos teroant ch minimum 3 views Elzbieta Guillen BATCH UNLOADER.DOCK LOADER Work Phone: Start: 01-16-2021 Radiologic exam ches t 2 views Faye Rome BATCH UNLOADER.DOCK LOADER Work Phone: Start: 01-16-2021 Adult depression scr eening assessment Paola Piper MD Work Phone: Start: 09-17-2020 Radiologic exam ches t 2 views Dio Yanez BATCH UNLOADER.DOCK LOADER Work Phone: Start: 03-17-2020 Lipid 1996 panel - S basilia or Plasma [facility] Work Phone: Start: 03-15-2020 Radiologic exam ches t 2 views Paola Piper MD Work Phone: Bacteria identified in Blood by Culture Dr. Paola Piper Work Phone: Bacteria identified in Blood by Culture Dr. Bettye Vo Work Phone: Investigation of transfusion reaction Dr. Paola Piper Work Phone: Respiratory microbia l culture Dr. Paola Piper Work Phone: SARS-CoV-2 & FLU Ant igen (Rapid) Dr. Bettye Vo Work Phone: SARS-CoV-2 & FLU Ant igen (Rapid) Dr. Bettye Vo Work Phone: Streptococcus pneumo niae Antigen (M Dr. Paola Piper Work Phone: Viral culture Dr. Bettye Tello hner Work Phone: Plan of Treatment Date Care Activity Detail Author Start: 05-25-2033 Urine microalbumin profile DTaP,Tdap,Td Vaccine (3 - Td or Tdap) [facility] Start: 12-15-2025 Screening for malign ant neoplasm of colon [facility] Start: 09-22-2025 Pneumococcal Vaccine : 50+ (2 of 2 - PCV) Pneumococcal Vaccine: 50+ (2 of 2 - PCV) [facility] Start: 06-17-2025 DIABETES SCREEN DIABETES SCREEN [facility] Start: 06-17-2025 Diabetes Screening Diabetes Screenin g [facility] Start: 03-17-2025 Lipid panel Lipid Screening [facility] Start: 03-17-2025 LIPID SCREEN LIPID SCREEN [facility] Start: 01-09-2025 Influenza vaccination C [facility] Start: 12-15-2024 End: 12-15-2024 Patient encounter procedure Ambulatory Surgery Comment on above: Screen for colon can cer [Z12.11] Start: 11-21-2024 End: 11-21-2024 Patient encounter procedure Pulmonary Medicine Comment on above: H&P Established Joleen ent Visit CONSULT: Colonoscopy . None prior. Referred [facility]. Scanned docs. [facility] Start: 11-03-2024 Patient referral [facility] Work Phone: Start: 2024 Shingrix Vaccine (1 of 2) Melendez grix Vaccine (1 of 2) [facility] Start: 01-10-2024 Covid-19 Vaccine ( season) Covid-19 Vaccine ( season) [facility] Start: 01-10-2024 Influenza vaccination Influenza Vacc ine (#1) [facility] Start: 03-17-2023 DIABETES SCREEN DIABETES SCREEN [facility] Start: 01-09-2023 Influenza vaccination INFLUENZ A (Season Ended) [facility] Start: 08-07-2022 End: 09-03-2023 Ct thorax w/o contrast material CT CHEST WO IVCON Radiology Routine Pneumonia of right lower lobe due to infectious organism Expected: 08/07/2022, Expires: 09/03/2023 [facility] Work Phone: Comment on above: Expected: 08/07/2022 , Expires: 09/03/2023 Start: 06-26-2022 End: 10-24-2022 SARS-CoV-2 (COVID-19) RNA [Presence] in Respiratory specimen by DANY with probe detection INTERMEDIATE RAPID COVID Microbiology Routine Preoperative examination Expected: 06/26/2022, Expires: 10/24/2022 [facility] Work Phone: Comment on above: Expected: 06/26/2022 , Expires: 10/24/2022 Start: 05-14-2022 ANNUAL PCP TEAM HEAVY EQUIPMENT 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 DUNCAN DISEASE VISIT ANNUAL PCP TEAM CHRONIC DISEASE VISIT [facility] Start: 05-11-2022 DEPRESSION ASSESSMENT DEPRESSION ASS ESSMENT [facility] Start: 04-22-2022 Patient referral [facility] Work Phone: Start: 04-18-2022 [facility] brushing/protected brushings DX BRONCHOSCOPE/BRUSH [facility] Start: 04-18-2022 Bronchoscopy bronchial/endobrncl bx 1+ sites BRONCHOSCOPY W/BIOPSY(S) [facility] Start: 04-18-2022 Bronchoscopy w/ther aspir trachbrncl tree 1st [facility] W/THER ASPIR 1ST [facility] Start: 04-18-2022 [facility] Work Phone: Start: 04-18-2022 Patient discharge [facility] Start: 04-18-2022 [facility] Work Phone: Start: 04-05-2022 Urine microalbumin profile DTAP,TDAP,TD (2 - Td or Tdap) [facility] Start: 03-22-2022 End: 03-22-2022 Blood culture [facility] Work Phone: Start: 03-22-2022 [facility] Start: 01-16-2022 Adult depression screening assessment DEPRESSION SCREENING [facility] Start: 01-09-2022 Influenza vaccination INFLUENZA (#1) [facility] Start: 10-09-2021 Bacteria identified in Blood by Culture Blood Culture [facility] Work Phone: Start: 08-06-2021 Patient discharge [facility] Work Phone: Start: 08-04-2021 Bacteria identified in Blood by Culture Blood Culture [facility] Work Phone: Start: 08-04-2021 Following clinical pathway protocol [facility] Work Phone: Start: 08-04-2021 Physiotherapy of chest [facility] Work Phone: Start: 08-04-2021 Speech therapy assessment [facility] Work Phone: Start: 08-04-2021 Application of intermittent pneumatic compression device [facility] Work Phone: Start: 08-04-2021 Assessment of risk o f venous thromboembolism [facility] Work Phone: Start: 08-04-2021 Consultation [facility] Work Phone: Start: 08-04-2021 Incentive spirometry [facility] Work Phone: Start: 08-04-2021 Inhalation therapy procedure [facility] Work Phone: Start: 08-04-2021 Insertion of cathete r into peripheral vein [facility] Work Phone: Start: 08-04-2021 Introduction of urin bossman catheter [facility] Work Phone: Start: 08-04-2021 Measuring intake and output [facility] Work Phone: Start: 08-04-2021 Methicillin resistan t Staphylococcus aureus screening test [facility] Work Phone: Start: 08-04-2021 Oxygen therapy [facility] Work Phone: Start: 08-04-2021 Providing care accor ding to standard [facility] Work Phone: Start: 08-04-2021 Provision of activit y privileges [facility] Work Phone: Start: 08-04-2021 Referral to service [facility] Work Phone: Start: 08-04-2021 Tobacco use cessatio n education [facility] Work Phone: Start: 08-04-2021 [facility] Work Phone: Start: 08-04-2021 End: 08-04-2021 Following clinical pathway protocol [facility] Work Phone: Start: 08-04-2021 Admission procedure [facility] Work Phone: Start: 08-04-2021 Patient referral to dietitian [facility] Work Phone: Start: 07-31-2021 Patient referral [facility] Work Phone: Start: 05-11-2021 DEPRESSION ASSESSMENT DEPRESSION ASS ESSMENT [facility] Start: 04-20-2021 COVID-19 VACCINE (3 - Booster for Pfizer series) COVID-19 VACCINE (3 - Booster for Pfizer series) [facility] Start: 04-20-2021 COVID-19 VACCINE (4 - Booster) COVID-19 VACCINE (4 - Booster) [facility] Start: 01-09-2021 Influenza vaccination INFLUENZA (#1) [facility] Start: 07-31-2019 COLOGUARD (FIT-DNA) COLOGUARD (FIT-D NA) [facility] Start: 07-31-2019 Colonoscopy COLONOSCOPY [facility] Start: 07-31-2019 COLORECTAL CANCER SCREENING COLORECTAL CANCER SCREENING [facility] Start: 07-31-[address] COLONOGRAPHY [facility] Start: 07-31-2019 FECAL OCCULT BLOOD FECAL OCCULT BLOO D [facility] Start: 07-31-2019 Screening for malign ant neoplasm of colon [facility] Start: 07-31-2019 [facility] Start: 1993 Hepatitis B Vaccine (1 of 3 - 19+ 3-dose series) Hepatitis B Vaccine (1 of 3 - 19+ 3-dose series) [facility] Start: 1993 ONE PNEUMOVAX PRIOR TO AGE 65 ONE PNEUMOVAX PRIOR TO AGE 65 [facility] Start: 1993 Pneumococcal vaccination Pneum ococcal Vaccine (1 of 2 - PCV) [facility] Start: 1993 Pneumococcal Vaccine : 50+ (1 of 2 - PCV) Pneumococcal Vaccine: 50+ (1 of 2 - PCV) [facility] Start: 1992 ANNUAL PCP TEAM 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 DUNCAN DISEASE VISIT ANNUAL PCP TEAM CHRONIC DISEASE VISIT [facility] Start: 1992 Anxiety Screening Anxiety Screening [facility] Start: 1992 Depression Screening Depression Scre ening [facility] Start: 1992 HEPATITIS C SCREENING HEPATITIS C [facility] Start: 1992 Hepatitis C screening Hepatitis C [facility] Start: 1992 HIV SCREENING HIV SCREENING [facility] Start: 1992 HIV screening HIV Screening [facility] Start: 1980 PNEUMOCOCCAL (1 - PCV) PNEUMOCOCCAL (1 - PCV) [facility] Start: 1980 Pneumococcal vaccination Pneum ococcal Vaccine (1 of 2 - PCV) [facility] Start: 1974 HEPATITIS B (1 of 3 - 3-dose series) HEPATITIS B (1 of 3 - 3-dose series) [facility] ASPERGILLUS GALACTOM ESTHELA [facility] Work Phone: Comment on above: Release Upon Orderin g for 1 Occurrences starting 06/19/2022 ASPERGILLUS GALACTOM ESTHELA [facility] Work Phone: Comment on above: Release Upon Orderin g for 1 Occurrences starting 08/07/2022 Bacteria identified in Blood by Culture Blood Culture [facility] Work Phone: Bacteria identified in Bronchoalveolar lavage by Aerobe culture [facility] Work Phone: Bacteria identified in Bronchoalveolar lavage by Aerobe culture BRONCHOSCOPY CULTURE AND GRAM STAIN Microbiology Routine Lung mass 08/07/2022 8:26 AM EDT [facility] Work Phone: Bacteria identified in Sputum by Culture [facility] Bacteria identified in Sputum by Respiratory culture [facility] Work Phone: Bacteria identified in Tissue by Culture [facility] Work Phone: Bacteria identified in Unspecified specimen by Respiratory culture RESP CULTURE + STAIN Microbiology Routine 06/19/2022 10:51 AM EST [facility] Work Phone: BAL MANUAL DIFF BAL MANUAL DIFF Lab Routine Bronchiolar disease 06/19/2022 10:52 AM [facility] Work Phone: Blood culture [facility] Work Phone: CBC W Auto Different ial panel - Blood [facility] Cell count [facility] Work Phone: Cobalamin (Vitamin B 12) [Mass/volume] in Serum or Plasma [facility] Comprehensive metabo lic 2000 panel - Serum or Plasma [facility] CYTOLOGY NON-COURT MONITOR [facility] Work Phone: Comment on above: Release Upon Orderin g for 1 Occurrences starting 06/19/2022, 1 completed CYTOLOGY NON-COURT MONITOR [facility] Work Phone: Comment on above: Release Upon Orderin g for 1 Occurrences starting 08/07/2022, 1 completed Cytology report of B diana fluid Cyto stain [facility] Work Phone: Erythrocytes [#/volu me] in Body fluid [facility] Work Phone: Fungus identified in Unspecified specimen by Culture [facility] Work Phone: Comment on above: Release Upon Orderin g for 1 Occurrences starting 06/19/2022 Fungus identified in Unspecified specimen by Culture [facility] Work Phone: Comment on above: Release Upon Orderin g for 1 Occurrences starting 08/07/2022 Legionella pneumophi la DNA [Presence] in Unspecified specimen by DANY with probe detection [facility] Work Phone: Comment on above: Release Upon Orderin g for 1 Occurrences starting 06/19/2022 Lipid 1996 panel - S basilia or Plasma [facility] Magnesium measurement [facility] Measurement of respiratory function [facility] Work Phone: Microorganism identi fied in Unspecified specimen by Culture [facility] Work Phone: Comment on above: Release Upon Orderin g for 1 Occurrences starting 06/19/2022 Microorganism identi fied in Unspecified specimen by Culture [facility] Work Phone: Partial thromboplast in time, activated [facility] Work Phone: Patient Education ED Pneumonia (Adult) [facility] Work Phone: Patient referral [facility] Work Phone: Platelets [#/volume] in Blood [facility] Work Phone: PNEUMOCYSTIS JIROVECI PCR Cl [facility] Work Phone: Comment on above: Release Upon Orderin g for 1 Occurrences starting 06/19/2022 Ppsv23 vaccine 2 yrs or older for subq/im use [facility] Prostate specific an tigen measurement [facility] Prothrombin time [facility] Work Phone: Respiratory pathogen s DNA and RNA panel - Nasopharynx by DANY with probe detection [facility] Work Phone: Comment on above: Release Upon Orderin g for 1 Occurrences starting 06/19/2022 End: 11-21-2025 Screening colonoscopy COLONOSCOPY SCREENING Endoscopy Routine Screen for colon cancer 1 Occurrences starting 11/21/2024 until 11/21/2025 [facility] Work Phone: Comment on above: 1 Occurrences starti ng 11/21/2024 until 11/21/2025 Specimen description [facility] Work Phone: Specimen processing [facility] Work Phone: SURGICAL PATHOLOGY [facility] Work Phone: Comment on above: Release Upon Orderin g for 1 Occurrences starting 06/19/2022, 1 completed SURGICAL PATHOLOGY [facility] Work Phone: Comment on above: Release Upon Orderin g for 1 Occurrences starting 08/07/2022, 1 completed Thyroid stimulating hormone measurement [facility] Virus Culture Virus Culture [facility] Work Phone: Vitamin D, 25-hydrox y measurement [facility] White blood cell count [facility] Work Phone: XR Chest PA and Lateral [facility] Work Phone: [facility] Immunizations Immunization Date Immunization Notes Care Provider Sari toña 09-22-2024 pneumococcal polysaccharide vaccine, [address] Bettye Vo MD Work Phone: [facility] 05-25-2023 tetanus toxoid, redu prakash diphtheria toxoid, and acellular pertussis vaccine, adsorbed [facility] 04-09-2023 influenza, injectabl e, quadrivalent, preservative free [facility] 04-09-2023 influenza virus vacc ine, unspecified formulation Xr Garrett Work Phone: [facility] 02-23-2021 Covid (Pfizer) Dr. Paola saez Work Phone: [facility] 02-02-2021 COVID-19 original vaccine, age 12+ yr, monovalent (PFIZER-BIONTSalesPredict - PURPLE TOP) Xr Garrett Work Phone: [facility] 01-22-2021 Covid (Pfizer) Dr. Paola saez Work Phone: [facility] 02-17-2020 influenza virus vacc ine, unspecified formulation [facility] 03-01-2016 influenza, injectabl e, quadrivalent, contains preservative Paola Piper MD Work Phone: [facility] 04-05-2012 tetanus toxoid, redu prakash diphtheria toxoid, and acellular pertussis vaccine, adsorbed Paola Piper MD Work Phone: [facility] 02-05-2009 influenza virus vacc ine, unspecified formulation Paola Piper MD Work Phone: [facility] Work Phone: Payers Date Payer Category Payer Self-pay [id number] 2022 Blue Cross Blue Shield [id number] 2022 Unknown [id number] 2022 Unknown [id number] 2021 Unknown MMO MMO [employer]US [id number] 2021-Present [phone] [address] [place] [address] PPO [id number] 2021 Medicaid [id number] 2019 Unknown [id number] Unknown [id number] Unknown [id number] Unknown [id number] 62 Unknown [id number] 62 Unknown [id number] 62 Unknown [id number] 62 Unknown [id number] 62 Unknown [id number] 62 Unknown [id number] 62 Unknown [id number] 62 Social History Date Type Detail Facility Start: 08-04-2021 End: 04-22-2022 Tobacco smoking status NHIS Unknown if ever smoked [facility] Start: 1975 Sex Assigned At Male W [facility] Start: 05-14-2021 End: 04-25-2022 Tobacco smoking status NHIS Ex-smoker [facility] History of tobacco use Cigarette Smoker C [facility] Start: 05-14-2021 End: 06-20-2024 Cigarettes smoked current (pack per day) - Reported 0.25 [facility] Start: 05-14-2021 End: 11-21-2024 Tobacco use and exposure Former smokeless tobacco user [facility] History of tobacco use Chews Tobacco [facility] Start: 07-25-2021 End: 12-15-2024 Alcohol intake Ex-drinker (finding) [facility] Start: 03-30-2020 End: 05-14-2021 History SDOH Alcohol Frequency 1 [facility] Start: 03-30-2020 History SDOH Alcohol Std Drinks 98 [facility] Start: 02-14-2021 History SDOH Alcohol Comment not currently [facility] Start: 02-16-2020 End: 03-14-2020 History SDOH Social Connections Phone 5 [facility] Start: 03-14-2020 End: 01-16-2021 History SDOH Social Connections Confucianism 2 [facility] Start: 02-16-2020 End: 03-14-2020 History SDOH Social Connections Living 3 [facility] Start: 02-16-2020 History SDOH Physica l Activity MPS 6 [facility] Start: 02-16-2020 Education 12 [facility] Start: 05-14-2021 End: 04-25-2022 Tobacco Comment Quit Mar 2021 [facility] Start: 1975 Sex Assigned At Not on file [facility] Start: 02-14-2020 End: 07-25-2021 Exposure to SARS-CoV-2 (event) Not sure [facility] Work Phone: History of tobacco use Current smoker [facility] Start: 08-04-2022 End: 11-21-2024 Tobacco smoking status NHIS Smokes tobacco daily [facility] Work Phone: Start: 08-04-2022 Tobacco Comment He has stopped in the past but always resumed after breif breaks. [facility] Start: 03-14-2020 End: 06-20-2024 Social connection and isolation panel [facility] Start: 04-11-2012 Frequency of Social Gatherings with Friends and Family Not on file [facility] How often to you hav e a drink containing alcohol? Never [facility] Do you feel stress - tense, restless, nervous, or anxious, or unable to sleep at night because your mind is troubled all the time - these days [OSQ] Not at all [facility] (I/We) worried wheca er (my/our) food would run out before (I/we) got money to buy more. Never true [facility] In the past 12 month s, was there a time when you were not able to pay the mortgage or rent on time? No [facility] Start: 09-11-2022 Sexual orientation Heterosexual (rosemarie mensah) [facility] Start: 02-14-2021 Tobacco Comment down to 1 ciga rette per day after meal, one ppd , started smoking age 15 [facility] Start: 03-15-2020 Tobacco use and exposure Smokeless tobacco non-user [facility] Start: 03-15-2020 End: 01-14-2021 Alcoholic beverage intake Current non-drinker of alcohol (finding) [facility] Start: 03-15-2020 Tobacco Comment Less then 0.5 ppd. C [facility] In the past 12 month s, was there a time when you were not able to pay the mortgage or rent on time? Yes [facility] Start: 06-20-2024 Tobacco Comment At present he is down to 1 pack per week with plan to reduce to one pack per months in October. At his worst he was a 2 pack per day smoker. [facility] Start: 11-21-2024 Tobacco Comment At present he is down to 4 pack per week with plan to reduce to one pack per months in October. At his worst he was a 2 pack per day smoker. [facility] Goals Date Patient Goal Desired Activity /State Functional Status Date Assessment Result Facility 08-06-2021 Functional status Up ad momo [facility] Work Phone: 10-31-2014 Are you deaf, or do you have serious difficulty hearing No 10/31/2014 2:29 PM EDT Zainab Edwards MA No [facility] 10-31-2014 Are you blind, or do you have serious difficulty seeing, even when wearing glasses No 10/31/2014 2:29 PM EDT Zainab Edwards MA No [facility] 10-31-2014 Do you have serious difficulty walking or climbing stairs No 10/31/2014 2:29 PM EDT Zainab Edwards MA No [facility] 10-31-2014 Do you have difficul ty dressing or bathing No 10/31/2014 2:29 PM EDT Zainab Edwards MA No [facility] 10-31-2014 Because of a physica l, mental, or emotional condition, do you have difficulty doing errands alone such as visiting a physician's office or shopping No 10/31/2014 2:29 PM EDT Zainab Edwards MA [facility] Mental Status Date Assessment Result Facility 04-18-2022 Cognitive function Level Of Cons ciousness Awake;Appropriate [facility] Work Phone: 04-18-2022 Cognitive function Voice/Name [facility] Work Phone: 08-06-2021 Cognitive function Voice/Name [facility] Work Phone: 08-04-2021 Cognitive function Level Of Cons ciousness Awake;Alert;Appropriate [facility] Work Phone: 10-31-2014 Because of a physica l, mental, or emotional condition, do you have serious difficulty concentrating, remembering, or making decisions No 10/31/2014 2:29 PM EDT Zainab Edwards MA No [facility] Clinical Notes 03-15-2020 to 12-26-2024 Kaelyn Cotton APRN.DOCK LOADER - 12/26/2024 8:30 AM María Elena Flannery LPN - 11/21/2024 8:39 AM Kaelyn Goldberg APRN.DOCK LOADER - 11/21/2024 8:30 AM EDT Note Date & Type Note Facility 12-26-2024 History of Presen t illness Narrative GENERAL SURGERY-ENDOSCOPY FOLLOW UP VIRTUAL VISIT I have communicated my name and active licensure. The patient's identity and physical location were verified at the time of this visit. Either the patient or their legal c s s representative has been informed of the risks and benefits of -- and alternatives to -- treatment through a remote evaluation and consents to proceed with the evaluation remotely. Paola Powers 1975 [id number] Paola Powers is a patient I am following for screening colonoscopy. Dr. Gustafson performed lower endoscopy on 12/15/24. The patient was found to have Impression: - One small (4-6 mm) polyp in the transverse colon, removed with a cold snare. Resected and retrieved. - Non-bleeding internal hemorrhoids. - The examination was otherwise normal. PATHOLOGY: FINAL DIAGNOSIS A. Colon, transverse, polypectomy: - Tubular adenoma. AEB/bs 12/19/2024 The patient notes no complaints since the procedure. VITALS: There were no vitals taken for this visit. General: patient is alert, cooperative, pleasant and in no acute distress Assessment ASSESSMENT/PLAN: 1. Tubular adenoma of colon - ICD9: 211.3, ICD10: D12.6 The operative findings and pathology report were reviewed with the patient, and the patient has had the opportunity to ask questions and have questions answered. If the patient notes any problems or changes in bowel function, the patient should contact me immediately. Otherwise I recommend follow up endoscopy in 5 years. HM updated and recall letter generated. Discussed treatment plan and patient voices understanding. Patient's questions answered appropriately. Medications and potential side effects were discussed and patient voices understanding. Return to the office as scheduled or as needed for worsening/no improvement. Kaelyn Cotton APRN.CNP Risk of morbidity, mortality and/or complications of treatment plan: low I spent a total of 10 minutes on the date of the service which included preparing to see the patient, [id number] patient care, completing clinical documentation, and communicating results to the patient/family/caregiver. documented in this encounter [facility] 12-26-2024 Note HNO ID: [id number] Author: KAELYN COTTON APRN.CNP Service: ? Author Type: Nurse Practitioner Type: Progress Notes Filed: 12/26/2024 08:44 Note Text: GENERAL SURGERY-ENDOSCOPY FOLLOW UP VIRTUAL VISIT I have communicated my name and active licensure. The patient's identity and physical location were verified at the time of this visit. Either the patient or their legal c s s representative has been informed of the risks and benefits of -- and alternatives to -- treatment through a remote evaluation and consents to proceed with the evaluation remotely. Paola Powers 1975 [id number] Paola Powers is a patient I am following for screening colonoscopy. Dr. Gustafson performed lower endoscopy on 12/15/24. The patient was found to have Impression: - One small (4-6 mm) polyp in the transverse colon, removed with a cold snare. Resected and retrieved. - Non-bleeding internal hemorrhoids. - The examination was otherwise normal. PATHOLOGY: FINAL DIAGNOSIS A. Colon, transverse, polypectomy: - Tubular adenoma. AEB/bs 12/19/2024 The patient notes no complaints since the procedure. VITALS: There were no vitals taken for this visit. General: patient is alert, cooperative, pleasant and in no acute distress Assessment ASSESSMENT/PLAN: 1. Tubular adenoma of colon - ICD9: 211.3, ICD10: D12.6 The operative findings and pathology report were reviewed with the patient, and the patient has had the opportunity to ask questions and have questions answered. If the patient notes any problems or changes in bowel function, the patient should contact me immediately. Otherwise I recommend follow up endoscopy in 5 years. HM updated and recall letter generated. Discussed treatment plan and patient voices understanding. Patient's questions answered appropriately. Medications and potential side effects were discussed and patient voices understanding. Return to the office as scheduled or as needed for worsening/no improvement. Kaelyn Cotton APRN.NADYA Risk of morbidity, mortality and/or complications of treatment plan: low I spent a total of 10 minutes on the date of the service which included preparing to see the patient, [id number] patient care, completing clinical documentation, and communicating results to the patient/family/caregiver. [facility] 11-21-2024 Note HNO ID: [id number] Author: MARÍA ELENA ALVAREZ LPN Service: ? Author Type: LICENSED NURSE Type: Progress Notes Filed: 11/21/2024 09:30 Note Text: REVIEW OF SYSTEMS: General: The patient denies fatigue, denies weight loss, denies weight gain, denies feeling hot, and denies feelings of cold. Eyes: The patient denies glaucoma, denies eye injury/surgery, wears glasses or contacts. Ear/Nose/Throat: The patient denies allergies, denies hayfever, denies ear infections, and denies bloody noses. Cardiovascular: The patient denies chest pain, denies heart disease, denies high blood pressure,denies cardiac stent, denies prior heart attack, denies irregular heart beat, denies high cholesterol, denies poor circulation, denies heart failure, other cardiac issues, denies claudication, denies cold feet, denies peripheral arterial stent. Respiratory: The patient denies tuberculosis, notes pneumonia, denies frequent cough, denies pulmonary embolism, notes shortness of breath, and denies coughing up blood. Gastrointestinal: The patient denies difficulty swallowing, denies acid reflux, denies ulcers, denies vomiting, denies jaundice/hepatitis, denies gallbladder problems, denies black or tarry stools, denies hemorrhoids, denies bleeding from rectum, denies diverticulitis, denies constipation, denies diarrhea, denies loss of stool control, and denies hernias. Kidney/Bladder: The patient denies kidney stones, denies urine infections, and denies bloody urine. Skin: The patient denies a history of skin cancer, denies bleeding/changing moles, and denies a history of skin rash. Neurologic: The patient denies a history of epilepsy/convulsions, denies headaches, denies head/spinal injuries, and denies stroke/TIA. Psychiatric: The patient denies psychiatric medications, denies depression, and denies voices, denies substance abuse. Endocrine: The patient denies thyroid disorders, denies diabetes, and denies hormonal problems. Hematologic: The patient denies a history of bruising, denies bleeding, and denies anemia, denies blood clots. Infections: The patient denies a history of measles and mumps, denies rheumatic fever, and denies sexually transmitted diseases. Musculoskeletal: The patient denies back pain/injury, denies back problems, denies sciatica, denies knee/foot trouble, denies arthritis, or denies gout. When was patient's last Mammogram screening? N/A Last Colonoscopy: Never María Elena JEAN-CLAUDE Alvarez [facility] 11-21-2024 History of Presen t illness Narrative REVIEW OF SYSTEMS: General: The patient denies fatigue, denies weight loss, denies weight gain, denies feeling hot, and denies feelings of cold. Eyes: The patient denies glaucoma, denies eye injury/surgery, wears glasses or contacts. Ear/Nose/Throat: The patient denies allergies, denies hayfever, denies ear infections, and denies bloody noses. Cardiovascular: The patient denies chest pain, denies heart disease, denies high blood pressure,denies cardiac stent, denies prior heart attack, denies irregular heart beat, denies high cholesterol, denies poor circulation, denies heart failure, other cardiac issues, denies claudication, denies cold feet, denies peripheral arterial stent. Respiratory: The patient denies tuberculosis, notes pneumonia, denies frequent cough, denies pulmonary embolism, notes shortness of breath, and denies coughing up blood. Gastrointestinal: The patient denies difficulty swallowing, denies acid reflux, denies ulcers, denies vomiting, denies jaundice/hepatitis, denies gallbladder problems, denies black or tarry stools, denies hemorrhoids, denies bleeding from rectum, denies diverticulitis, denies constipation, denies diarrhea, denies loss of stool control, and denies hernias. Kidney/Bladder: The patient denies kidney stones, denies urine infections, and denies bloody urine. Skin: The patient denies a history of skin cancer, denies bleeding/changing moles, and denies a history of skin rash. Neurologic: The patient denies a history of epilepsy/convulsions, denies headaches, denies head/spinal injuries, and denies stroke/TIA. Psychiatric: The patient denies psychiatric medications, denies depression, and denies voices, denies substance abuse. Endocrine: The patient denies thyroid disorders, denies diabetes, and denies hormonal problems. Hematologic: The patient denies a history of bruising, denies bleeding, and denies anemia, denies blood clots. Infections: The patient denies a history of measles and mumps, denies rheumatic fever, and denies sexually transmitted diseases. Musculoskeletal: The patient denies back pain/injury, denies back problems, denies sciatica, denies knee/foot trouble, denies arthritis, or denies gout. When was patient's last Mammogram screening? N/A Last Colonoscopy: Never María Elena Alvarez LPN HISTORY AND PHYSICAL Paola Powers : 1975 REFERRING PHYSICIAN: No referring provider defined for this encounter. CHIEF COMPLAINT: Patient presents with: Consult HPI: Paola is a 49 year old male referred for endoscopy. Paola notes due for screening colonoscopy. Paola denies abdominal pain. Paola denies diarrhea. Paola denies constipation. Paola denies a change in bowel habits. Paola denies melena. Paola denies bright red blood per rectum. Paola denies hemorrhoids. Paola denies family history of colon issues. Paola denies heartburn. Paola denies dysphagia. Paola denies a history of ulcers/ peptic ulcer disease. Paola has a hx of asthma with COPD overlap. Uses trelegy, duoneb & albuterol. He denies CP, SOB, wheezing, recent illness, dizziness, palpitations, syncope, edema, recent hospitalizations Paola has not undergone prior endoscopy. Current Outpatient Medications Medication Sig ipratropium-albuterol (DUONEB) 0.5 mg-3 mg(2.5 mg base)/3 mL nebu Inhale 3 mL as instructed. Every 4-6 hours as needed TRELEGY ELLIPTA 200-62.5-25 mcg inhalation powder Inhale 1 Puff as instructed once daily. albuterol HFA (PROVENTIL HFA, VENTOLIN HFA) 90 mcg/actuation inhaler INHALE 2 PUFFS BY MOUTH EVERY 4 TO 6 HOURS NEEDED FOR SHORTNESS OF BREATH/WHEEZING peg 3350-Electrolytes (GOLYTELY) 236-22.74-6.74 -5.86 gram suspension Take 4,000 mL by mouth one time only for 1 dose. Refer to printed prep instructions from your provider. No current facility-administered medications for this visit. ALLERGIES: Amoxicillin and Penicillins PAST MEDICAL HISTORY Diagnosis Date Asthma-COPD overlap syndrome (HCC) Centrilobular emphysema (HCC) Chronic cough COPD (chronic obstructive pulmonary disease) (HCC) Elevated prostate specific antigen (PSA) Emphysema, unspecified (HCC) Pneumonia, viral Tobacco use disorder PAST SURGICAL HISTORY Procedure Laterality Date BRONCHOSCOPY W/REMOVAL FOREIGN BODY 06/19/2022 FAMILY HISTORY Problem Relation Age of Onset Hypertension Mother Heart Attack Mother 51 Coronary Artery Disease Mother other (myocardial infarction) Mother Hypertension Father COPD Father Heart disease Father Diabetes Father other (chf) Father other (congenital heart disease) Brother Kidney failure Maternal Grandmother No Known Problems Paternal Grandmother No Known Problems Paternal Grandfather Social History Tobacco Use Smoking status: Every Day Current packs/day: 0.25 Average packs/day: 0.3 packs/day for 30.0 years (7.5 ttl pk-yrs) Types: Cigarettes Smokeless tobacco: Former Tobacco comments: At present he is down to 4 pack per week with plan to reduce to one pack per months in October. At his worst he was a 2 pack per day smoker. 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 The patient is oriented to time, place, and person. VITALS: Blood pressure 118/74, pulse 60, temperature 36.9 C (98.4 F), temperature source Temporal, resp. rate 20, height 180.3 cm (5' 11), weight 77.1 kg (170 lb), SpO2 97%. Body mass index is 23.71 kg/m . HEENT: Normal cephalic, ataumatic, pupils are equally round, sclera are anicteric, mucous membranes are moist, oropharynx is clear. Neck has no masses or asymmetry . Respiratory: Clear to auscultation. Cardiac: Regular rate and rhythm. Abdominal exam: Soft, nontender, with no palpable masses. No hepatosplenomegaly. No palpable hernias. Extremities: no clubbing or cyanosis LABORATORY VALUES: As Noted RADIOLOGIC STUDIES: As Noted Assessment IMPRESSION: screen for colon cancer PLAN: I have reviewed my findings with the surgeon. Will plan for lower endoscopy. We discussed the risks and benefits of the planned endoscopy in terms understandable to the patient. I have informed the patient that complications can occur including failure to complete the endoscopy and perforation. Paola had the opportunity to ask questions concerning the planned endoscopy. Paola freely consents to surgery. I plan to use Golytely bowel preparation I have explained to the patient the difference between IV conscious sedation and MAC anesthesia - and I have offered either, according to the patient's wishes. I have explained that with IV conscious sedation there is no anesthesia provider available and therefore there is a limitation of the amount of IV medications that can be given and that the patient may wake up in the middle of the procedure and/or experience pain/discomfort during the procedure. Further discussion was done and the patient was given the opportunity to ask questions and all questions were answered. Paola chooses IV conscious sedation. Paola was counseled that if there are changes in his/her medical condition, to let the office know if surgery should proceed. If there are changes in patient's medical condition from time of this encounter to the day of the procedure that preclude anesthesia, patient may have procedure cancelled for patient's safety. Diagnoses: (Z12.11) Screen for colon cancer (primary encounter diagnosis) Portions of this documentation were copied and pasted from previous office visit notes in order to provide a cohesive continuity of the history. The note has been reviewed and edited and updated as necessary. Kaelyn Cotton APRN.CNP documented in this encounter [facility] 11-21-2024 Note HNO ID: [id number] Author: KAELYN COTTON APRN.CNP Service: ? Author Type: Nurse Practitioner Type: Progress Notes Filed: 11/21/2024 09:30 Note Text: HISTORY AND PHYSICAL Paola Powers : 1975 REFERRING PHYSICIAN: No referring provider defined for this encounter. CHIEF COMPLAINT: Patient presents with: Consult HPI: Paola is a 49 year old male referred for endoscopy. Paola notes due for screening colonoscopy. Paola denies abdominal pain. Paola denies diarrhea. Paola denies constipation. Paola denies a change in bowel habits. Paola denies melena. Paola denies bright red blood per rectum. Paola denies hemorrhoids. Paola denies family history of colon issues. Paola denies heartburn. Paola denies dysphagia. Paola denies a history of ulcers/ peptic ulcer disease. Paola has a hx of asthma with COPD overlap. Uses trelegy, duoneb AND albuterol. He denies CP, SOB, wheezing, recent illness, dizziness, palpitations, syncope, edema, recent hospitalizations Paola has not undergone prior endoscopy. Current Outpatient Medications Medication Sig ipratropium-albuterol (DUONEB) 0.5 mg-3 mg(2.5 mg base)/3 mL nebu Inhale 3 mL as instructed. Every 4-6 hours as needed TRELEGY ELLIPTA 200-62.5-25 mcg inhalation powder Inhale 1 Puff as instructed once daily. albuterol HFA (PROVENTIL HFA, VENTOLIN HFA) 90 mcg/actuation inhaler INHALE 2 PUFFS BY MOUTH EVERY 4 TO 6 HOURS NEEDED FOR SHORTNESS OF BREATH/WHEEZING peg 3350-Electrolytes (GOLYTELY) 236-22.74-6.74 -5.86 gram suspension Take 4,000 mL by mouth one time only for 1 dose. Refer to printed prep instructions from your provider. No current facility-administered medications for this visit. ALLERGIES: Amoxicillin and Penicillins PAST MEDICAL HISTORY Diagnosis Date Asthma-COPD overlap syndrome (HCC) Centrilobular emphysema (HCC) Chronic cough COPD (chronic obstructive pulmonary disease) (HCC) Elevated prostate specific antigen (PSA) Emphysema, unspecified (HCC) Pneumonia, viral Tobacco use disorder PAST SURGICAL HISTORY Procedure Laterality Date BRONCHOSCOPY W/REMOVAL FOREIGN BODY 06/19/2022 FAMILY HISTORY Problem Relation Age of Onset Hypertension Mother Heart Attack Mother 51 Coronary Artery Disease Mother other (myocardial infarction) Mother Hypertension Father COPD Father Heart disease Father Diabetes Father other (chf) Father other (congenital heart disease) Brother Kidney failure Maternal Grandmother No Known Problems Paternal Grandmother No Known Problems Paternal Grandfather Social History Tobacco Use Smoking status: Every Day Current packs/day: 0.25 Average packs/day: 0.3 packs/day for 30.0 years (7.5 ttl pk-yrs) Types: Cigarettes Smokeless tobacco: Former Tobacco comments: At present he is down to 4 pack per week with plan to reduce to one pack per months in October. At his worst he was a 2 pack per day smoker. 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 The patient is oriented to time, place, and person. VITALS: Blood pressure 118/74, pulse 60, temperature 36.9 ?C (98.4 ?F), temperature source Temporal, resp. rate 20, height 180.3 cm (5' 11), weight 77.1 kg (170 lb), SpO2 97%. Body mass index is 23.71 kg/m?. HEENT: Normal cephalic, ataumatic, pupils are equally round, sclera are anicteric, mucous membranes are moist, oropharynx is clear. Neck has no masses or asymmetry . Respiratory: Clear to auscultation. Cardiac: Regular rate and rhythm. Abdominal exam: Soft, nontender, with no palpable masses. No hepatosplenomegaly. No palpable hernias. Extremities: no clubbing or cyanosis LABORATORY VALUES: As Noted RADIOLOGIC STUDIES: As Noted Assessment IMPRESSION: screen for colon cancer PLAN: I have reviewed my findings with the surgeon. Will plan for lower endoscopy. We discussed the risks and benefits of the planned endoscopy in terms understandable to the patient. I have informed the patient that complications can occur including failure to complete the endoscopy and perforation. Paola had the opportunity to ask questions concerning the planned endoscopy. Paola freely consents to surgery. I plan to use Golytely bowel preparation I have explained to the patient the difference between IV conscious sedation and MAC anesthesia - and I have offered either, according to the patient's wishes. I have explained that with IV conscious sedation there is no anesthesia provider available and therefore there is a limitation of the amount of IV medications that can be given and that the patient may wake up in the middle of the procedure and/or e (more content not included)... [facility] 11-21-2024 Telephone encounter Note 11/21/24: Per Elana Macias, Patient called and would like to cancel appointment today with Dr. Freeman. He will call at a later date to reschedule. [facility] 11-21-2024 Miscellaneous Notes 11/21/24: Per Elana Macias, Patient called and would like to cancel appointment today with Dr. Freeman. He will call at a later date to reschedule. documented in this encounter [facility] 11-03-2024 Progress note Note Date/Time November 03, 2024 9:29am [facility] [address] [place] [address] OFFICE VISIT Date of Service: 11/03/24 MR#: [id number] Acct: [id number] Name: PAOLA POWERS Rep #: [id number] : 1975 Provider: Dr. Sachi Vo MD Age/Sex: 49/M Location: [facility] Status: Signed Intake Vital Signs 09/22/24 08:01 11/03/24 08:04 Height 6 ft 6 ft Weight: 171 lb 2 oz 170 lb BMI 23.2 23.0 BP 135/77 H 139/82 H Blood Pressure Location Lt brachial Lt brachial Position Sitting Sitting Respiration 16 16 Pulse 52 L 52 L Pulse Source Monitor Monitor Temp 99.1 F 98.7 F Temp Source Temporal Temporal Pulse Oximetry (%) 96 96 Oxygen Delivery Method room air room air Intake Visit Reasons: Annual/Physical Chief Complaint: Annual/Physical Neon Molder Required: No Accompanied by: Is patient in pain?: No Allergies No Known Allergies Allergy (Unverified 11/03/24 07:59) Medications ?Medication ?Instructions ?Recorded ?Confirmed ?Type albuterol sulfate 90 mcg/actuation 2 inh inhalation Q4 -6H PRN 06/03/24 11/03/24 Rx aerosol inhaler shortness of breath or wheez ing #8.5 grams fluticasone fur. 200 mcg-umeclid 1 inh inhalation Q24H #60 ea 06/03/24 11/03/24 Rx 62.5 mcg-vilant 25 mcg inhalat.powder (Trelegy Ellipta) ipratropium 0.5 mg-albuterol 3 mg 3 ml inhalation Q4-6 H PRN 09/16/24 11/03/24 Rx (2.5 mg base)/3 mL nebulization shortness of breath or wheezing soln #180 mL PFSH Medical History (Updated 11/03/24 @ 10:[address] Bettye Vo MD) Skin lesion of back Encounter for wellness examination in adult Wears glasses Smoker Shortness of breath on exertion Chronic cough Emphysema, unspecified Tobacco use Pleural effusion, right Right lower lobe pneumonia Surgical History No history of previous surgery Family History Father COPD (chronic obstructive pulmonary disease) Heart disease Hypertension Diabetes CHF (congestive heart failure) Mother CAD (coronary artery disease) Myocardial infarction Hypertension Social History household members: spouse Smoking Status: Current every day smoker tobacco type: cigarettes Tobacco: How many years used: 31 how long ago did patient quit smoking: Smoke 1ppd x 30 yrs, 1/2ppd x 1yr (2021) alcohol intake: never substance use type: does not use what type of physical activity do you 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 49-year-old gentleman who has a history of asthma/COPD, and had recurrent episodes of pneumonia, presumably ultimately related to foreign body. Leading up to bronchoscopy, with ultimate resolution, he was treated repeatedly for courses of pneumonia. 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 He did seems to get along okay in terms of his breathing. 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 Occasionally will need to take a break, rest for a few minutes and then he feels okay again. Typically manifest as dyspnea in terms of symptoms. No pk chest pain or discomfort. No nausea or vomiting. Appetite has been good. Bowel movements have been regular. No dysuria, urgency or frequency reported. Review of systems per chart. No chest pain or discomfort. No current wheezing. He has some ongoing cough symptoms, fairly mild relative speaking. No recurrence of pneumonia recently. We did see him recently after pulmonary visitwhere he was felt to possibly have some lymph node enlargement, to which we looked into clinically on exam. I did not find anything that was necessarily overly bothersome so observation is recommended. He has not had change in bowelmovements. Has not had a colonoscopy. Physical exam. Vital signs on chart. PERRLA. Sclera are clear. TMs are unremarkable with normal light reflexes. Canals are unremarkable. Posterior pharynx is unremarkable. No obvious oral mucosal lesions. No cervical or supraclavicular lymph nodes enlarged or tender. No clear thyromegaly. No thyroid nodules readily palpable. Lungs are without wheeze, rhonchi. Diminished breath sounds, right basilar posteriorly posterior lateral. Faint s/p changes right basilar. Heart is regular. Not tachycardic. No clear murmur, rub, or gallop is identified. The abdomen is soft. Bowel sounds are present. Nontender nondistended abdomen. No clear palpable masses in the abdomen. No significant leg edema. Normal dorsalis pedis and posterior tibial pulses bilateral. Cranial nerve examination 2 through 12 are grossly unremarkable nonlateralizing. No obvious rashes. Has a few scattered moles, 1 of which on the right mid, is pigmented with variable pigmentation, smooth borders, not necessarily irregular. Discussed this in the past and I still recommend he let dermatology look at this and consider removal if they feel it iswarranted due to the variable pigmentation.. ROS Const Constitutional: No body ache, chills, excessive sweating, fatigue, fever(s), frequent falls, headache(s), snoring, weakness or change in appetite Eyes Eyes: No blurry vision, change in vision, eye pain or Light sensitivity ENT ENT: No abnormal hearing, ear or mastoid pain, tinnitus, nasal congestion, headache(s), neck pain or sore throat Resp Respiratory: No cough, shortness of breath, snoring or wheezing Cardio Cardiology: No chest pain at rest, chest pain with exertion, excessive sweating,dyspnea on exertion, lightheadedness, orthopnea or palpitations Gastro GI: No abdominal pain, change in bowel habits, constipation, cramping, diarrhea,nausea/dyspepsia or vomiting Genitourinary Male: No burning urination, painful urination, urinary incontinence or urinary frequency Musc Musculoskeletal: No abnormal gait, joint pain, back pain, limited range of motion, muscle weakness, neck pain or numbness Skin Skin: No dry skin, redness, lesions, itchy eyes, rash or wounds Neuro Neurology: No abnormal gait, abnormal hearing, weakness, frequent falls, headache(s), memory loss or numbness Psych Psychiatric: No anxiety, No change in appetite, No depression, No memory loss and No Thoughts of harming yourself/Others Endo Endocrine: No cold intolerance, excessive sweating, fatigue, flushing, heat intolerance, increased thirst/drinking or increased hunger Aller/Imm Allergy/Immunologic: No itchy eyes, seasonal allergy symptoms, hives or wheezing Cristobal/Lymp Hematologic/Lymphatic: No easy bleeding or easy bruising Coding Level of Care Code Off vis,est,prev 40-64yrs Diagnoses Encounter for wellness examination in adult Z00.00 Asthma-COPD overlap syndrome J44.89 Abnormal chest xray R93.89 Elevated PSA R97.20 Tobacco use Z72.0 Skin lesion of back L98.9 Time Spent (min) 40 Assessment and Plan Assessment and Plan (1) Encounter for wellness examination in adult: Status: Acute (2) Asthma-COPD overlap syndrome: Status: Chronic (3) Abnormal chest xray: Status: Acute Comment: PA/Lat x ray suggesting right basilar cavitary lesion (4) Elevated PSA: Status: Acute (5) Tobacco use: Status: Chronic (6) Skin lesion of back: Status: Acute Plan Details Additional Comments: Patient presented today for annual wellness checkup. 49-year-old gentleman who overall has been doing well and has no new specific concerns or issues. He has as needed albuterol, Trelegy and ipratropium albuterol nebulizer as needed. He follows with pulmonary medicine. From a medical standpoint again he seems like he is doing pretty well overall. He does not take any other routine regular medications. Laboratory studies should be updated from a wellness perspective as ordered. I did see him in September of this year, and follow-up from pulmonary medicine who felt he may have some enlarged lymph nodes. See my previous note where these were evaluated clinically in the office. No specific findings or bothersome issues were noted. He does have a somewhat irregularly pigmented lesion, right mid back to which I suggest he follow-up with dermatology. We have discussed that in the past and he states he will address. I would plan to see him back annually and as needed. Overall 40-minute visit. 11/03/24 1007 <Electronically signed by Bettye griffin MD> Date _ Bettye Vo MD Cosign Signature: Date (if applicable) CC: ~ [facility] [facility] Work Phone: [phone] [facility] [address] [place] [address] OFFICE VISIT Date of Service: 11/03/24 MR#: [id number] Acct: [id number] Name: PAOLA POWERS Rep #: [id number] : 1975 Provider: Dr. Sachi Vo MD Age/Sex: 49/M Location: [facility] Status: Signed Intake Vital Signs 09/22/24 08:01 11/03/24 08:04 Height 6 ft 6 ft Weight: 171 lb 2 oz 170 lb BMI 23.2 23.0 BP 135/77 H 139/82 H Blood Pressure Location Lt brachial Lt brachial Position Sitting Sitting Respiration 16 16 Pulse 52 L 52 L Pulse Source Monitor Monitor Temp 99.1 F 98.7 F Temp Source Temporal Temporal Pulse Oximetry (%) 96 96 Oxygen Delivery Method room air room air Intake Visit Reasons: Annual/Physical Chief Complaint: Annual/Physical Neon Molder Required: No Accompanied by: Is patient in pain?: No Allergies No Known Allergies Allergy (Unverified 11/03/24 07:59) Medications ?Medication ?Instructions ?Recorded ?Confirmed ?Type albuterol sulfate 90 mcg/actuation 2 inh inhalation Q4 -6H PRN 06/03/24 11/03/24 Rx aerosol inhaler shortness of breath or wheez ing #8.5 grams fluticasone fur. 200 mcg-umeclid 1 inh inhalation Q24H #60 ea 06/03/24 11/03/24 Rx 62.5 mcg-vilant 25 mcg inhalat.powder (Trelegy Ellipta) ipratropium 0.5 mg-albuterol 3 mg 3 ml inhalation Q4-6 H PRN 09/16/24 11/03/24 Rx (2.5 mg base)/3 mL nebulization shortness of breath or wheezing soln #180 mL PFS Medical History (Updated 11/03/24 @ 10:[address] Bettye Vo MD) Skin lesion of back Encounter for wellness examination in adult Wears glasses Smoker Shortness of breath on exertion Chronic cough Emphysema, unspecified Tobacco use Pleural effusion, right Right lower lobe pneumonia Surgical History No history of previous surgery Family History Father COPD (chronic obstructive pulmonary disease) Heart disease Hypertension Diabetes CHF (congestive heart failure) Mother CAD (coronary artery disease) Myocardial infarction Hypertension Social History household members: spouse Smoking Status: Current every day smoker tobacco type: cigarettes Tobacco: How many years used: 31 how long ago did patient quit smoking: Smoke 1ppd x 30 yrs, 1/2ppd x 1yr (2021) alcohol intake: never substance use type: does not use what type of physical activity do you 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 49-year-old gentleman who has a history of asthma/COPD, and had recurrent episodes of pneumonia, presumably ultimately related to foreign body. Leading up to bronchoscopy, with ultimate resolution, he was treated repeatedly for courses of pneumonia. 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 He did seems to get along okay in terms of his breathing. 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 Occasionally will need to take a break, rest for a few minutes and then he feels okay again. Typically manifest as dyspnea in terms of symptoms. No pk chest pain or discomfort. No nausea or vomiting. Appetite has been good. Bowel movements have been regular. No dysuria, urgency or frequency reported. Review of systems per chart. No chest pain or discomfort. No current wheezing. He has some ongoing cough symptoms, fairly mild relative speaking. No recurrence of pneumonia recently. We did see him recently after pulmonary visitwhere he was felt to possibly have some lymph node enlargement, to which we looked into clinically on exam. I did not find anything that was necessarily overly bothersome so observation is recommended. He has not had change in bowelmovements. Has not had a colonoscopy. Physical exam. Vital signs on chart. PERRLA. Sclera are clear. TMs are unremarkable with normal light reflexes. Canals are unremarkable. Posterior pharynx is unremarkable. No obvious oral mucosal lesions. No cervical or supraclavicular lymph nodes enlarged or tender. No clear thyromegaly. No thyroid nodules readily palpable. Lungs are without wheeze, rhonchi. Diminished breath sounds, right basilar posteriorly posterior lateral. Faint s/p changes right basilar. Heart is regular. Not tachycardic. No clear murmur, rub, or gallop is identified. The abdomen is soft. Bowel sounds are present. Nontender nondistended abdomen. No clear palpable masses in the abdomen. No significant leg edema. Normal dorsalis pedis and posterior tibial pulses bilateral. Cranial nerve examination 2 through 12 are grossly unremarkable nonlateralizing. No obvious rashes. Has a few scattered moles, 1 of which on theright mid, is pigmented with variable pigmentation, smooth borders, not necessarily irregular. Discussed this in the past and I still recommend he let dermatology look at this and consider removal ifthey feel it iswarranted due to the variable pigmentation.. ROS Const Constitutional: No body ache, chills, excessive sweating, fatigue, fever(s), frequent falls, headache(s), snoring, weakness or change in appetite Eyes Eyes: No blurry vision, change in vision, eye pain or Light sensitivity ENT ENT: No abnormal hearing, ear or mastoid pain, tinnitus, nasal congestion, headache(s), neck pain or sore throat Resp Respiratory: No cough, shortness of breath, snoring or wheezing Cardio Cardiology: No chest pain at rest, chest pain with exertion, excessive sweating,dyspnea on exertion, lightheadedness, orthopnea or palpitations Gastro GI: No abdominal pain, change in bowel habits, constipation, cramping, diarrhea,nausea/dyspepsia orvomiting Genitourinary Male: No burning urination, painful urination, urinary incontinence or urinary frequency Musc Musculoskeletal: No abnormal gait, joint pain, back pain, limited range of motion, muscle weakness,neck pain or numbness Skin Skin: No dry skin, redness, lesions, itchy eyes, rash or wounds Neuro Neurology: No abnormal gait, abnormal hearing, weakness, frequent falls, headache(s), memory loss or numbness Psych Psychiatric: No anxiety, No change in appetite, No depression, No memory loss and No Thoughts of harming yourself/Others Endo Endocrine: No cold intolerance, excessive sweating, fatigue, flushing, heat intolerance, increased thirst/drinking or increased hunger Aller/Imm Allergy/Immunologic: No itchy eyes, seasonal allergy symptoms, hives or wheezing Cristobal/Lymp Hematologic/Lymphatic: No easy bleeding or easy bruising Coding Level of Care Code Off vis,est,prev 40-64yrs Diagnoses Encounter for wellness examination in adult Z00.00 Asthma-COPD overlap syndrome J44.89 Abnormal chest xray R93.89 Elevated PSA R97.20 Tobacco use Z72.0 Skin lesion of back L98.9 Time Spent (min) 40 Assessment and Plan Assessment and Plan (1) Encounter for wellness examination in adult: Status: Acute (2) Asthma-COPD overlap syndrome: Status: Chronic (3) Abnormal chest xray: Status: Acute Comment: PA/Lat x ray suggesting right basilar cavitary lesion (4) Elevated PSA: Status: Acute (5) Tobacco use: Status: Chronic (6) Skin lesion of back: Status: Acute Plan Details Additional Comments: Patient presented today for annual wellness checkup. 49-year-old gentleman who overall has been doing well and has no new specific concerns or issues. He has as needed albuterol, Trelegy and ipratropium albuterol nebulizer as needed. He follows with pulmonary medicine. From a medical standpoint again he seems like he is doing pretty well overall. He does not take any other routine regular medications. Laboratory studies should be updated from a wellness perspective as ordered. I did see him in September of this year, and follow-up from pulmonary medicine who felt he may have some enlarged lymph nodes. See my previous note where these were evaluated clinically in the office. No specific findings or bothersome issues were noted. He does have a somewhat irregularly pigmented lesion, right mid backto which I suggest he follow-up with dermatology. We have discussed that in the past and he states he will address. I would plan to see him back annually and as needed. Overall 40-minute visit. 11/03/24 Latasha griffin MD> Date _ Bettye Vo MD [facility] Signature: Date (if applicable) CC: ~ [facility]05-09-2025 Evaluation note* Diagnosis Onset Date Resolution Status Admit Date Bronchial obstruction acute September 16, 2024 8:03am Asthma-COPD overlap syndrome chronic September 16, 2024 8:03am Tobacco use chronic September 16, 2024 8:03am Cavitary lesion of lung acute M 2024 7:54am Elevated PSA acute September 22 7:54am Asthma-COPD overlap syndrome chronic September 22, 2024 7:54am Tobacco use chronic September 22 7:54am [facility] Work Phone: [phone] Evaluation note* Diagnosis Onset Date Resolution Status Admit Date Bronchial obstruction acute September 16, 2024 8:03am Asthma-COPD overlap syndrome chronic September 16, 2024 8:03am Tobacco use chronic September 16, 2024 8:03am Cavitary lesion of lung acute M 2024 7:54am Elevated PSA acute September 22 7:54am Asthma-COPD overlap syndrome chronic September 22, 2024 7:54am Tobacco use chronic September 22 7:54am Abnormal chest xray acute November 03, 2024 7:57am Elevated PSA acute November 03 7:57am Encounter for wellness examination in adult acute November 03, 2024 7:57am Skin lesion of back acute November 03, 2024 7:57am Asthma-COPD overlap syndrome chronic November 03, 2024 7:57am Tobacco use chronic November 03 7:57am [facility] Work Phone: [phone] Telephone encounter Note* Telephone Encounter - Luz Barnes - 09/16/2024 9:05 AM EDT Outside Medical Records from [facility] received and uploaded [facility]05-09-2025 Miscellaneous Notes* Telephone Encounter - Luz Barnes - 09/16/2024 9:05 AM EDT Outside Medical Records from [facility] received and uploaded [facility] Miscellaneous Notes* Telephone Encounter - Luz Barnes - 09/09/2024 10:23 AM EDT Office notes from 06/20/24 faxed to [facility] at [phone] [facility] Telephone encounter Note * Telephone Encounter - Luz Barnes - 09/09/2024 10:23 AM EDT Office notes from 06/20/24 faxed to [facility] at [phone] [facility]02-10-2025 History of Present illness Narrative* Parth Freeman MD - 06/20/2024 11:00 AM EST Images from the original note were not included. [facility] CC: I am seeing Paola Powers in follow up for recurrent pneumonia. Summary of this visit and my recommendations will be relayed to the referring physician by way of electronic communication or by mail. PCP: Bettye Vo MD Referring Provider: Sandy Ochoa MD HPI: Mr. Powers is a 48 year old male with a PMH of chronic respiratory infection/lung abscesses who was found to have foreign body impaction as likely etiology. Since his last procedure he has had asingle episode of acute illness with increased mucus, fatigue and chest discomfort. His local instrument tech treated him with 10 days of amoxicillin and clavulanate. About half way through the script he felt remarkably better. 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 His current lung doctor asked him to follow up for or consideration of therapeutic lobectomy.. His weight is up about 20 lbs since last year and he feels remarkably better after the course of antibiotics. He is sleep is improved. There is a chronic cough is diminished remarkably, post antibiotics and only occasionally productive of clear tenacious mucus. Last year after the removal of the foreign body and prolonged course of antibiotics he notes has been a significant improvement compared to the few years before that. He has not used the acapella valve since before completing the prolonged course of abx in 2023. While he continues to smoke he is actively working on quitting and is down to 1 cigarette a day. Hecontinues to participate in a formal smoking cessation program through his insurance company. He has tried both chantix and bupropion in the past without success. He is using 5 - 8 pieces of nicotinegum with some benefit. It is his stated desire to quit but anticipates a long slow process. All in all he feels that he is in a better place with a robust performance status and good quality of life. REVIEW OF SYSTEMS: Gen: There are no fevers, chills, night sweats or weight loss. HEENT: No changes in hearing or vision, no nose bleeds or other nasal problems. Resp: See HPI. He is not known to snore and has no daytime somnolence. CV: There is no exertional chest pain or palpations. Musc: There are no arthralgias or myalgias. GI/: No trouble moving bowels or bladder noted. No history of dysuria, frequency or incontinence. Heme: No inappropriate bleeding noted. Endo: Negative for cold or heat intolerance, polyuria or polydipsia. Skin: No new or bothersome lesions, rashes or itching. Neuro: The patient has no history of headaches, syncope, paralysis, seizures or tremors. Review of systems is otherwise negative. PAST MEDICAL HISTORY: PAST MEDICAL HISTORY Diagnosis Date COPD (chronic obstructive pulmonary disease) (HCC) Pneumonia, viral PAST SURGICAL HISTORY Procedure Laterality Date BRONCHOSCOPY W/REMOVAL FOREIGN BODY 06/19/2022 MEDICATIONS: TRELEGY ELLIPTA 200-62.5-25 mcg inhalation powder Inhale 1 Puff as instructed once daily. albuterol HFA (PROVENTIL HFA, VENTOLIN HFA) 90 mcg/actuation inhaler INHALE 2 PUFFS BY MOUTH EVERY 4 TO 6 HOURS NEEDED FOR SHORTNESS OF BREATH/WHEEZING SOCIAL HISTORY: Social History Tobacco Use Smoking status: Every Day Current packs/day: 0.25 Average packs/day: 0.3 packs/day for 30.0 years (7.5 ttl pk-yrs) Types: Cigarettes Smokeless tobacco: Former Tobacco comments: At present he is down to 1 pack per week with plan to reduce to one pack per months in October. At hisworst he was a 2 pack per day smoker. 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 There are significant occupational exposures to dusts, particles and some noxious chemicals.. FAMILY HISTORY: FAMILY HISTORY Problem Relation Age of Onset Heart Attack Mother 51 Hypertension Father COPD Father other (congenital heart disease) Brother PHYSICAL EXAM: VITALS: 06/20/24 1052 BP: 135/75 Pulse: 67 Resp: 18 Temp: 37 C (98.6 F) TempSrc: Temporal SpO2: 96% Weight: 76.4 kg (168 lb 6.9 oz) General appearance: Well appearing, alert, in no acute distress Ears/Nose/Mouth/Throat: Lips, oral mucosa, and tongue normal. Poor dentition. Posterior oropharynx/palates normal without cobblestoning or erythema. Mallampati score of 3 Neck: Supple, midline trachea, thyroid nontender and non-enlarged. JVD not present at 20 degrees ofrecline. Lymphatic: No submental, cervical, or axillary adenopathy. Respiratory: No asymmetric DTP, Bronchial breath sounds on RIGHT and vesicular on LEFT. Lungs clearto auscultation. No wheezing, rhonchi, rales. Diaphragmatic excursion and chest wall symmetry appear equal and normal. No accessory muscle use. Cardiovascular: RRR without gallop, or rubs or murmur. No peripheral edema noted in the upper or lower extremities. Normal temperature of all 4 extremities. Abdomen/GI: Abdomen soft, non-tender, non-distended. No masses or organomegaly noted. No hepatojugular reflux. Musculoskeletal: No clubbing or cyanosis of fingers. Spine/hips/pelvis show no kyphosis or scoliosis. Normal range of motion with head turn/bending. No tenderness to palpation. No atrophy or wasting. Skin:No petechiae, ecchymoses, rash noted. Neuro: Oriented X 3 with normal mood/affect. DATA: Labs: 08/07/2022 Bronchoscopy Results FINAL DIAGNOSIS A - TRANSBRONCHIAL FINE-NEEDLE ASPIRATION - RIGHT UPPER LOBE MASS Negative for malignant cells. Acute inflammation with features suggestive of an abscess. B - BRONCHOALVEOLAR LAVAGE - RIGHT UPPER LOBE Negative for malignant cells. Acute inflammation. FINAL DIAGNOSIS Right lung, upper lobe mass, transbronchial biopsy: - Fragments of bronchial tissue with non-specific chronic inflammatory changes (see comment). Diagnosis Comment The biopsy contains 6 fragments of predominantly bronchial wall with chronic inflammation, thickening of the basement membrane, focal squamous metaplasia and rare eosinophils. The findings are nonspecific. No granulomas or neoplasm are present. A GMS stain is pending; an addendum report will follow. Addendum A GMS stain performed for the evaluation of fungal organisms is negative. All cultures are without isolation of any specific organisms. Specimen sent out for UNIVERSAL BACTERIAL PCR at the [facility] and again no specificorganism identified. 06/19/2022 Bronchoscopy results FINAL DIAGNOSIS Right lung, lower lobe lesion, endobronchial biopsy - Fragments of bronchial mucosa and extensive detached necrotic debris with ossification and bacterial overgrowth. Diagnosis Comment Definite fungal organisms are not seen with a GMS stain. Numerous gram-positive bacterial organismsincluding filamentous bacilli are seen with a Gram stain. AFB/Reynaldo is negative. No neoplasm is present. The findings may represent an endobronchial old foreign body with ossification. No specific organisms isolated from BAL (included GS/fungal/AFB cultures) Imaging: I re-reviewed his most recent chest CT scan images and report, dated 08/07/2022 and compared to 06/17/2022 through 01/28/2021. I agree with the following assessment with the following comment. New cavitary changes in the posterior segment of the RUL and persistent complete consolidation of the RLL withsoft tissue obstructing the bronchus. Airtrapping is suggested in the RML. Centrilobular and paraseptal emphysema seen on bilateral upper lobes. The radiologist notes; Limitations: None. Lines, tubes, and devices: None. Lung parenchyma and airways: Central airways are patent. Right lower lobe collapse with diffuse varicoid and cystic bronchiectasis and large cystic changes, no obstructing central mass identified. These findings are likely a sequelae of prior diffuse opacities/infection detected on 11/29/2021 CT andlobar collapse seen on 03/22/2022 CT with evidence of bronchial narrowing present on prior CTs. - Right upper lobe confluent and irregular cavitary consolidation has decreased in size, image 111,grossly measures 5.3 x 2.2 cm. The ill-defined consolidation along its superior aspect showed interval cavitation (wall thickness measures up to 1.3 cm) and mild interval increase in size, image 88. These waxing and waning changes are suggestive of inflammatory process/infection - New right upper lobe ill-defined consolidations, images 83 and 95. New left upper lobe ill-defined 2.5 x 1.3 cm nodular opacity with small central cavitation, image 108. Additional left lower lobe peribronchial nodular opacities (e.g., ill-defined 1.4 cm nodular opacity with air bronchogram, image 129). These are new findings are likely inflammatory process/infection in nature -Right middle lobe subcentimeter nodular opacities measuring up to 8-9 mm, images 152 and 160, unchanged compared to prior CT and new since 03/2022 CT, for follow-up. - Upper paraseptal and centrilobular emphysema with apical bullous changes. Pleural space: Trace loculated right pleural effusion, possibly with smooth mild pleural thickening, adjacent to the right lung abnormalities. No pneumothorax. Lower neck, lymph nodes, and mediastinum: The imaged thyroid gland is normal. Multiple mildly enlarged intrathoracic lymph nodes, including multiple right paratracheal lymph nodes measuring up to 11 mm, 15 mm subcarinal lymph node, and 15 mm right hilar lymph node; no significant change. No lymphadenopathy in the supraclavicular or axillary regions. Mild right-sided mediastinal shift. Heart, pericardium, and thoracic vessels: The thoracic aorta and main pulmonary artery are normal in caliber. The cardiac chambers are normal in size. No distinct coronary artery atherosclerotic calcifications are noted, although the study is not optimized for coronary assessment. No pericardial effusion or thickening. Bones and soft tissues: No destructive bone lesion. Upper abdomen: No gross abnormality identified in the imaged upper abdomen. IMPRESSION: - Right lower lobe collapse with diffuse bronchiectasis and cystic changes, likely a sequelae of prior infection and airway obstruction, no central obstructing mass identified, the left lower lobe central bronchial luminal density seen on prior CTs is not clearly appreciated on current exam. - Waxing and waning lung consolidative and nodular opacities with cavitations predominantly in the upper lobes suggesting inflammatory process/infection; nontuberculous mycobacterium is considered inthe presence of emphysema, associated neoplastic process is not entirely excluded, for clinical assessment and follow up. - Thoracic lymphadenopathy, probably reactive. I reviewed his most recent chest CT scan report, dated 05/02/2024. I agree with the following assessment. The radiologist notes; Progressive RIGHT lung scarring and bronchiectasis with complete involvement of the RIGHT lower lobe. PFT's: Date FVC FEV1 FEV1/FVC TLC RV DLCO 02/18/2020 4.20/80 2.34/56 56 05/17/2024 4.14/79 1.78/43 43 8.08/106 3.72/191 23.0/75 4.79/91 2.1753 45 There are significant reduction in the FVC and FEV1 consistent with moderate severe obstruction. Improvements are noted in both the FVC and FEV1 with bronchodilators. Elevation in RV is consistent with air trapping. The results demonstrate progression of obstructive lung disease compared to 2020. Assessment and Plan: Paola Powers is a 48 year old male who presents for evaluation of recurrent pneumonia, bronchiectasis in the setting of COPD an ongoing tobacco use disorder. It's difficult to render an opinion without access to the most recent CT of the chest from April 2024. However, I'm reluctant to send him to thoracic surgery at this time seeing that he is still smoking and is functionally improved compared to when I last saw him. - Pt will obtain copy of the 04/2024 CT and either have images pushed or send me a copy for review. If imaged to be sent I requested he let my office know when it's in the mail so we can be on the look out. Will continue to follow and consider consultation with thoracic surgery (am also concerned he wouldneed extensive resection, which he may not tolerate, if we were to excise his chronically infected lung) - Asked that pending repeat CT of the chest also be share with us. - Obtain formal copy of the 05/17/2024 PFT's with loops for review. - Reinforced the importance of life long smoking cessation and that his approach while nontraditional is fine, as long as he stops. Should he continue to struggle to STOP, I would recommend some pharmacologic assist. - Continue ICS/LAMA/LABA inhaler as prescribed. - Recommend he use his acapella valve 2 - 3 times a day for 15 - 20 breaths in an effort to improvemucociliary clearance. (J43.2) Centrilobular emphysema (HCC) (primary encounter diagnosis) (F17.200) Tobacco use disorder (J47.0) Bronchiectasis with acute lower respiratory infection (HCC) (Z87.821) H/O foreign body in respiratory tract Parth Freeman MD Staff, Interventional Pulmonology. Pulmonary, Allergy & Critical Care Medicine [facility] June 20, 2024 documented in this encounterProtest[facility]-10-[facility] NoteHNO ID: [id number] Author: PARTH FREEMAN MD Service: ? Author Type: Physician Type: Progress Notes Filed: 07/04/2024 18:20 Note Text: PULMONARY MEDICINE CLINIC CC: I am seeing Paola Powers in follow up for recurrent pneumonia. Summary of this visit and my recommendations will be relayed to the referring physician by way of electronic communication or by mail. PCP: Bettye Vo MD Referring Provider: Sandy Ochoa MD HPI: Mr. Powers is a 48 year old male with a PMH of chronic respiratory infection/lung abscesses who was found to have foreign body impaction as likely etiology. Since his last procedure he has had a single episode of acute illness with increased mucus, fatigue and chest discomfort. His local instrument tech treated him with 10 days of amoxicillin and clavulanate. About half way through the script he felt remarkably better. 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 His current lung doctor asked him to follow up for or consideration of therapeutic lobectomy.. His weight is up about 20 lbs since last year and he feels remarkably better after the course of antibiotics. He is sleep is improved. There is a chronic cough is diminished remarkably, post antibiotics and only occasionally productive of clear tenacious mucus. Last year after the removal of the foreign body and prolonged course of antibiotics he notes has been a significant improvement compared to the few years before that. He has not used the acapella valve since before completing the prolonged course of abx in 2023. While he continues to smoke he is actively working on quitting and is down to 1 cigarette a day. He continues to participate in a formal smoking cessation program through his insurance company. He has tried both chantix and bupropion in the past without success. He is using 5 - 8 pieces of nicotine gum with some benefit. It is his stated desire to quit but anticipates a long slow process. All in all he feels that he is in a better place with a robust performance status and good quality of life. REVIEW OF SYSTEMS: Gen: There are no fevers, chills, night sweats or weight loss. HEENT: No changes in hearing or vision, no nose bleeds or other nasal problems. Resp: See HPI. He is not known to snore and has no daytime somnolence. CV: There is no exertional chest pain or palpations. Musc: There are no arthralgias or myalgias. GI/: No trouble moving bowels or bladder noted. No history of dysuria, frequency or incontinence. Heme: No inappropriate bleeding noted. Endo: Negative for cold or heat intolerance, polyuria or polydipsia. Skin: No new or bothersome lesions, rashes or itching. Neuro: The patient has no history of headaches, syncope, paralysis, seizures or tremors. Review of systems is otherwise negative. PAST MEDICAL HISTORY: PAST MEDICAL HISTORY Diagnosis Date COPD (chronic obstructive pulmonary disease) (HCC) Pneumonia, viral PAST SURGICAL HISTORY Procedure Laterality Date BRONCHOSCOPY W/REMOVAL FOREIGN BODY 06/19/2022 MEDICATIONS: TRELEGY ELLIPTA 200-62.5-25 mcg inhalation powder Inhale 1 Puff as instructed once daily. albuterol HFA (PROVENTIL HFA, VENTOLIN HFA) 90 mcg/actuation inhaler INHALE 2 PUFFS BY MOUTH EVERY 4 TO 6 HOURS NEEDED FOR SHORTNESS OF BREATH/WHEEZING SOCIAL HISTORY: Social History Tobacco Use Smoking status: Every Day Current packs/day: 0.25 Average packs/day: 0.3 packs/day for 30.0 years (7.5 ttl pk-yrs) Types: Cigarettes Smokeless tobacco: Former Tobacco comments: At present he is down to 1 pack per week with plan to reduce to one pack per months in October. At his worst he was a 2 pack per day smoker. 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 There are significant occupational exposures to dusts, particles and some noxious chemicals.. FAMILY HISTORY: FAMILY HISTORY Problem Relation Age of Onset Heart Attack Mother 51 Hypertension Father COPD Father other (congenital heart disease) Brother PHYSICAL EXAM: VITALS: 06/20/24 1052 BP: 135/75 Pulse: 67 Resp: 18 Temp: 37 ?C (98.6 ?F) TempSrc: Temporal SpO2: 96% Weight: 76.4 kg (168 lb 6.9 oz) General appearance: Well appearing, alert, in no acute distress Ears/Nose/Mouth/Throat: Lips, oral mucosa, and tongue normal. Poor dentition. Posterior oropharynx/palates normal without cobblestoning or erythema. Mallampati score of 3 Neck: Supple, midline trachea, thyroid nontender and non-enlarged. JVD not present at 20 degrees of recline. Lymphatic: No submental, cervical, or axillary adenopathy. Respiratory: No asymmetric DTP, Bronchial breath sounds on RIGHT and ves (more content not included)...[facility]01-24-2025 Evaluation note* Diagnosis Onset Date Resolution Status Admit Date Abnormal chest xray acute ry 2024 8:01am Bronchial obstruction acute May uary 2024 8:01am Asthma-COPD overlap syndrome chronic June 03, 2024 8:01am Tobacco use chronic June 03, 2024 8:01am Bronchial obstruction acute September 16, 2024 8:03am Asthma-COPD overlap syndrome chronic September 16, 2024 8:03am Tobacco use chronic September 16, 2024 8:03am [facility] Work Phone: 1(423) 912-506406-12-2023 History of Present illness Narrative* Parth Freeman MD - 10/20/2022 9:30 AM EDT Images from the original note were not included. PULMONARY MEDICINE CLINIC CC: I am seeing Paola Powers in follow up for chronic pneumonia and foreign body aspiration. Summary of this visit and my recommendations will be relayed to the referring physician by way of electronic communication or by mail. PCP: Bettye Vo MD Referring Provider: Julito Cason MD HPI: Mr. Powers is a 47 year old male with a PMH of chronic respiratory infection/lung abscesses who was found to have foreign body impaction as likely etiology and now is struggling with persistent cavitary nodules with new nodule in the SENTHIL. Since his last procedure he has had an episode of acutedecline with increased mucus, fatigue and chest discomfort. His local instrument tech treated him with 10 days of amoxicillin and clavulanate. About half way through the script he felt remarkably better. 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 His weight is up about 20 lbs since last year and he feels remarkably better on the antibiotics. Heis sleep is improved. The chronic cough is diminished remarkably and only occasionally productive of clear tenacious mucus, no longer does he bring up the thick yellow mucus. He continues to smoke but is actively working on cessation and is down to 1 cigarette a day. He continues to participate in a formal smoking cessation program through his insurance company. He has tried both chantix and bupropion in the past without success. He is using 5 - 8 pieces of nicotine gumwith some benefit. It is his stated desire to quit. REVIEW OF SYSTEMS: Gen: There are no fevers, chills, night sweats or weight loss. Weight stable. HEENT: No changes in hearing or vision, no nose bleeds or other nasal problems. Resp: See HPI. He is not known to snore and has no daytime somnolence. CV: There is no exertional chest pain or palpations. Musc: There are no arthralgias or myalgias. GI/: No trouble moving bowels or bladder noted. No history of dysuria, frequency or incontinence. Heme: No inappropriate bleeding noted. Endo: Negative for cold or heat intolerance, polyuria or polydipsia. Skin: No new or bothersome lesions, rashes or itching. Neuro: The patient has no history of headaches, syncope, paralysis, seizures or tremors. Review of systems is otherwise negative. PAST MEDICAL HISTORY: PAST MEDICAL HISTORY Diagnosis Date COPD (chronic obstructive pulmonary disease) (HCC) Pneumonia, viral PAST SURGICAL HISTORY Procedure Laterality Date BRONCHOSCOPY W/REMOVAL FOREIGN BODY 06/19/2022 MEDICATIONS: umeclidinium-vilanterol (ANORO ELLIPTA) 62.5-25 mcg/actuation inhaler Inhale 1 Inhalation as instructed once daily. SOCIAL HISTORY: Social History Tobacco Use Smoking status: Every Day Packs/day: 0.25 Years: 30.00 Pack years: 7.50 Types: Cigarettes Smokeless tobacco: Former Tobacco comments: He has stopped in the past but always resumed after breif breaks. 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 FAMILY HISTORY: FAMILY HISTORY Problem Relation Age of Onset Heart Attack Mother 51 Hypertension Father COPD Father other (congenital heart disease) Brother PHYSICAL EXAMINATION: VIDEO EXAM: (if completed, performed via video enabled technology) GENERAL: alert and appropriate, in no distress, well-hydrated, well nourished, and happy, smiling, interactive HEAD: normocephalic, no abnormality or lesion noted OROPHARYNX: moist mucus membranes NECK: full ROM, no cervical LNs noted RESPIRATORY: breathing non-labored CHEST: equal chest rise with normal respiratory effort EXTREMITIES: No clubbing or cyanosis NEUROLOGIC: no obvious deficit DATA: Labs: CBC with diff: WBC 8.21 06/17/2022 RBC 4.49 06/17/2022 Hemoglobin 12.4 06/17/2022 Hematocrit 38.1 06/17/2022 MCV 84.9 06/17/2022 MCH 27.6 06/17/2022 MCHC 32.5 06/17/2022 RDW-CV 13.6 06/17/2022 Platelet Count 298 06/17/2022 MPV 10.1 06/17/2022 Neut% 70.4 06/17/2022 Lymph% 21.6 06/17/2022 Orange% 5.5 06/17/2022 Eosin% 3.2 03/17/2020 Baso% 0.5 06/17/2022 Abs Neut (ANC) 5.78 06/17/2022 Abs Orange 0.45 06/17/2022 Abs Eosin 0.15 06/17/2022 Abs Baso 0.04 06/17/2022 Glucose (mg/dL) Date Value 06/17/2022 92 03/17/2020 84 Potassium (mmol/L) Date Value 06/17/2022 4.5 03/17/2020 4.6 Sodium (mmol/L) Date Value 06/17/2022 138 03/17/2020 138 Chloride (mmol/L) Date Value 06/17/2022 101 03/17/2020 101 CO2 (mmol/L) Date Value 06/17/2022 29 03/17/2020 26 Creatinine (mg/dL) Date Value 06/17/2022 0.76 03/17/2020 0.87 BUN (mg/dL) Date Value 06/17/2022 9 03/17/2020 11 Anion Gap (mmol/L) Date Value 06/17/2022 8 03/17/2020 11 Calcium (mg/dL) Date Value 03/17/2020 9.4 Calcium, Total (mg/dL) Date Value 06/17/2022 9.3 Protein, Total (g/dL) Date Value 03/17/2020 7.1 Albumin (g/dL) Date Value 03/17/2020 4.5 Bilirubin, Total (mg/dL) Date Value 03/17/2020 0.3 Alkaline Phosphatase (U/L) Date Value 03/17/2020 68 AST (U/L) Date Value 03/17/2020 16 ALT (U/L) Date Value 03/17/2020 21 08/07/2022 Bronchoscopy Results FINAL DIAGNOSIS A - TRANSBRONCHIAL FINE-NEEDLE ASPIRATION - RIGHT UPPER LOBE MASS Negative for malignant cells. Acute inflammation with features suggestive of an abscess. B - BRONCHOALVEOLAR LAVAGE - RIGHT UPPER LOBE Negative for malignant cells. Acute inflammation. FINAL DIAGNOSIS Right lung, upper lobe mass, transbronchial biopsy: - Fragments of bronchial tissue with non-specific chronic inflammatory changes (see comment). Diagnosis Comment The biopsy contains 6 fragments of predominantly bronchial wall with chronic inflammation, thickening of the basement membrane, focal squamous metaplasia and rare eosinophils. The findings are nonspecific. No granulomas or neoplasm are present. A GMS stain is pending; an addendum report will follow. Addendum A GMS stain performed for the evaluation of fungal organisms is negative. All cultures are without isolation of any specific organisms. Specimen sent out for UNIVERSAL BACTERIAL PCR at the [facility] and again no specificorganism identified. 06/19/2022 Bronchoscopy results FINAL DIAGNOSIS Right lung, lower lobe lesion, endobronchial biopsy - Fragments of bronchial mucosa and extensive detached necrotic debris with ossification and bacterial overgrowth. Diagnosis Comment Definite fungal organisms are not seen with a GMS stain. Numerous gram-positive bacterial organismsincluding filamentous bacilli are seen with a Gram stain. AFB/Reynaldo is negative. No neoplasm is present. The findings may represent an endobronchial old foreign body with ossification. No specific organisms isolated from BAL (included GS/fungal/AFB cultures) Imaging: I reviewed his most recent chest CT scan images and report, dated 08/07/2022 and compared to 06/17/2022 through 01/28/2021. I agree with the following assessment with the following comment. New cavitary changes in the posterior segment of the RUL and persistent complete consolidation of the RLL with soft tissue obstructing the bronchus. Airtrapping is suggested in the RML. Centrilobular and paraseptal emphysema seen on bilateral upper lobes. The radiologist notes; Limitations: None. Lines, tubes, and devices: None. Lung parenchyma and airways: Central airways are patent. Right lower lobe collapse with diffuse varicoid and cystic bronchiectasis and large cystic changes, no obstructing central mass identified. These findings are likely a sequelae of prior diffuse opacities/infection detected on 11/29/2021 CT andlobar collapse seen on 03/22/2022 CT with evidence of bronchial narrowing present on prior CTs. - Right upper lobe confluent and irregular cavitary consolidation has decreased in size, image 111,grossly measures 5.3 x 2.2 cm. The ill-defined consolidation along its superior aspect showed interval cavitation (wall thickness measures up to 1.3 cm) and mild interval increase in size, image 88. These waxing and waning changes are suggestive of inflammatory process/infection - New right upper lobe ill-defined consolidations, images 83 and 95. New left upper lobe ill-defined 2.5 x 1.3 cm nodular opacity with small central cavitation, image 108. Additional left lower lobe peribronchial nodular opacities (e.g., ill-defined 1.4 cm nodular opacity with air bronchogram, image 129). These are new findings are likely inflammatory process/infection in nature -Right middle lobe subcentimeter nodular opacities measuring up to 8-9 mm, images 152 and 160, unchanged compared to prior CT and new since 03/2022 CT, for follow-up. - Upper paraseptal and centrilobular emphysema with apical bullous changes. Pleural space: Trace loculated right pleural effusion, possibly with smooth mild pleural thickening, adjacent to the right lung abnormalities. No pneumothorax. Lower neck, lymph nodes, and mediastinum: The imaged thyroid gland is normal. Multiple mildly enlarged intrathoracic lymph nodes, including multiple right paratracheal lymph nodes measuring up to 11 mm, 15 mm subcarinal lymph node, and 15 mm right hilar lymph node; no significant change. No lymphadenopathy in the supraclavicular or axillary regions. Mild right-sided mediastinal shift. Heart, pericardium, and thoracic vessels: The thoracic aorta and main pulmonary artery are normal in caliber. The cardiac chambers are normal in size. No distinct coronary artery atherosclerotic calcifications are noted, although the study is not optimized for coronary assessment. No pericardial effusion or thickening. Bones and soft tissues: No destructive bone lesion. Upper abdomen: No gross abnormality identified in the imaged upper abdomen. IMPRESSION: - Right lower lobe collapse with diffuse bronchiectasis and cystic changes, likely a sequelae of prior infection and airway obstruction, no central obstructing mass identified, the left lower lobe central bronchial luminal density seen on prior CTs is not clearly appreciated on current exam. - Waxing and waning lung consolidative and nodular opacities with cavitations predominantly in the upper lobes suggesting inflammatory process/infection; nontuberculous mycobacterium is considered inthe presence of emphysema, associated neoplastic process is not entirely excluded, for clinical assessment and follow up. - Thoracic lymphadenopathy, probably reactive. PFT's: SPIROMETRY - BASELINE AND POST DILATOR ([id number]) - ordered on 03/20/20 [facility] [address] [place] [address] Test Date: 2020-03-20 Pat Name: PAOLA POWERS Department: IMPRESSION: Spirometry indicates moderate obstruction. Borderline bronchodilator response. Pre-Bronch Post-Bronch Pred LLN ULN Actual %Pred Actual %Chng SPIROMETRY FVC (L) 5.22 4.12 6.33 4.20 80 4.32 2 FEV1 (L) 4.14 3.26 4.98 2.34 56 2.72 15 FEV1/FVC (%) 80 69 89 56 69 63 12 FEF 25% (L/sec) 7.60 5.01 10.19 3.20 42 4.05 26 FEF 50% (L/sec) 4.78 2.57 6.99 1.36 28 1.98 45 FEF 75% (L/sec) 1.43 0.66 2.87 0.37 26 0.63 68 FEF 25-75% (L/sec) 3.90 2.19 6.11 1.06 27 1.61 51 FEF Max (L/sec) 10.14 7.79 12.50 5.61 55 5.99 6 FIVC (L) 4.07 4.26 4 FIF 50% (L/sec) 5.11 3.00 7.22 4.37 85 4.50 3 FIF Max (L/sec) 4.52 4.56 FET (sec) 12.62 10.71 -15 Back Extrap Vol (L) 0.06 0.05 -18 Time To FEFmax (sec) 0.061 0.057 -7 Assessment and Plan: Paola Blough is a 47 year old male who presents for evaluation prior to follow up bronchoscopy scheduled for 07/28/2022. Goal of repeat procedure is to assess patency of the RLL orifice/segmental airways after removal of foreign body with forceps and electrosurgical snare followed by topical cryotherapy. (F17.200) Tobacco use disorder (primary encounter diagnosis) (J43.2) Centrilobular emphysema (HCC) (T17.908D) Aspiration into airway, subsequent encounter (J85.1) Abscess of left lung with pneumonia, unspecified part of lung (HCC) (J85.1) Abscess of right lung with pneumonia, unspecified part of lung (HCC) - Happy he is feeling and doing better on prolonged course of antibiotics. Would continue augmentinas established until next scan and continue until cavitary lesions close. He will let me know when his next scan is obtained. Pt should take probiotic while on the antibiotics. - Will ask or request that images of post antibiotic scan are pushed to [facility] for review. - Again discussed smoking cessation in detail and reviewed strategies. He is aware his recovery in part will be mitigated by ongoing tobacco use. - Continue bronchodilators as established. - Encouraged regular progressive physical activity. I spent more than 30 minutes [id number] with the patient and over half the time was devoted to counseling and/or coordination of care. Parth Freeman MD Staff, Interventional Pulmonology. Pulmonary, All[facility] & [facility] documented in this encounterProtestant [facility]05-17-2023 Miscellaneous Notes* Telephone Encounter - STEPHANIA Masters - 09/24/2022 8:33 AM EDT Contacted patient to schedule Video visit with Dr. Freeman 10/20 @ 9:30 am. documented in this encounterProtestant [facility]acon[facility]05-08-2023 History of Present illness Narrative* Parth Freeman MD - 09/15/2022 11:31 AM EDT Images from the original note were not included. PULMONARY MED[facility]INE CLINIC CC: I am seeing Paola Powers in follow up for chronic pneumonia and foreign body aspiration. Summary of this visit and my recommendations will be relayed to the referring physician by way of electronic communication or by mail. PCP: Bettye Vo MD Referring Provider: Julito Cason MD HPI: Mr. Powers is a 47 year old male with a PMH of chronic respiratory infection who was found to have foreign body impaction as likely etiology and now is struggling with persistent cavitary nodules with new nodule in the SENTHIL. Since his last procedure he has had an episode of acute decline with increased mucus, fatigue and chest discomfort. His local instrument tech treated him with 10 days of amoxicillin and clavulanate. About half way through the script he felt remarkably better. 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 He continues to smoke but is actively working on cessation. At present he reports that he is down to about 4 cigarettes a day. He continues to participate in a formal smoking cessation program through his insurance company. He has tried both chantix and bupropion in the past without success. He is using nicotine gum with some benefit. It is his stated desire to quit. REVIEW OF SYSTEMS: Gen: There are no fevers, chills, night sweats or weight loss. Weight stable. HEENT: No changes in hearing or vision, no nose bleeds or other nasal problems. Resp: See HPI. He is not known to snore and has no daytime somnolence. CV: There is no exertional chest pain or palpations. Musc: There are no arthralgias or myalgias. GI/: No trouble moving bowels or bladder noted. No history of dysuria, frequency or incontinence. Heme: No inappropriate bleeding noted. Endo: Negative for cold or heat intolerance, polyuria or polydipsia. Skin: No new or bothersome lesions, rashes or itching. Neuro: The patient has no history of headaches, syncope, paralysis, seizures or tremors. Review of systems is otherwise negative. PAST MEDICAL HISTORY: PAST MEDICAL HISTORY Diagnosis Date COPD (chronic obstructive pulmonary disease) (HCC) Pneumonia, viral PAST SURGICAL HISTORY Procedure Laterality Date BRONCHOSCOPY W/REMOVAL FOREIGN BODY 06/19/2022 MEDICATIONS: sodium chloride 0.9 % nebulizer solution Use 3 mL via nebulizer twice daily. umeclidinium-vilanterol (ANORO ELLIPTA) 62.5-25 mcg/actuation inhaler Inhale 1 Inhalation as instructed once daily. SOCIAL HISTORY: Social History Tobacco Use Smoking status: Every Day Packs/day: 0.25 Years: 30.00 Pack years: 7.50 Types: Cigarettes Smokeless tobacco: Former Tobacco comments: He has stopped in the past but always resumed after breif breaks. 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 FAMILY HISTORY: FAMILY HISTORY Problem Relation Age of Onset Heart Attack Mother 51 Hypertension Father COPD Father other (congenital heart disease) Brother PHYSICAL EXAMINATION: VIDEO EXAM: (if completed, performed via video enabled technology) GENERAL: alert and appropriate, in no distress, well-hydrated, well nourished, and happy, smiling, interactive HEAD: normocephalic, no abnormality or lesion noted OROPHARYNX: moist mucus membranes NECK: full ROM, no cervical LNs noted RESPIRATORY: breathing non-labored CHEST: equal chest rise with normal respiratory effort EXTREMITIES: No clubbing or cyanosis NEUROLOGIC: no obvious deficit DATA: Labs: CBC with diff: WBC 8.21 06/17/2022 RBC 4.49 06/17/2022 Hemoglobin 12.4 06/17/2022 Hematocrit 38.1 06/17/2022 MCV 84.9 06/17/2022 MCH 27.6 06/17/2022 MCHC 32.5 06/17/2022 RDW-CV 13.6 06/17/2022 Platelet Count 298 06/17/2022 MPV 10.1 06/17/2022 Neut% 70.4 06/17/2022 Lymph% 21.6 06/17/2022 Orange% 5.5 06/17/2022 Eosin% 3.2 03/17/2020 Baso% 0.5 06/17/2022 Abs Neut (ANC) 5.78 06/17/2022 Abs Orange 0.45 06/17/2022 Abs Eosin 0.15 06/17/2022 Abs Baso 0.04 06/17/2022 Glucose (mg/dL) Date Value 06/17/2022 92 03/17/2020 84 Potassium (mmol/L) Date Value 06/17/2022 4.5 03/17/2020 4.6 Sodium (mmol/L) Date Value 06/17/2022 138 03/17/2020 138 Chloride (mmol/L) Date Value 06/17/2022 101 03/17/2020 101 CO2 (mmol/L) Date Value 06/17/2022 29 03/17/2020 26 Creatinine (mg/dL) Date Value 06/17/2022 0.76 03/17/2020 0.87 BUN (mg/dL) Date Value 06/17/2022 9 03/17/2020 11 Anion Gap (mmol/L) Date Value 06/17/2022 8 03/17/2020 11 Calcium (mg/dL) Date Value 03/17/2020 9.4 Calcium, Total (mg/dL) Date Value 06/17/2022 9.3 Protein, Total (g/dL) Date Value 03/17/2020 7.1 Albumin (g/dL) Date Value 03/17/2020 4.5 Bilirubin, Total (mg/dL) Date Value 03/17/2020 0.3 Alkaline Phosphatase (U/L) Date Value 03/17/2020 68 AST (U/L) Date Value 03/17/2020 16 ALT (U/L) Date Value 03/17/2020 21 08/07/2022 Bronchoscopy Results FINAL DIAGNOSIS A - TRANSBRONCHIAL FINE-NEEDLE ASPIRATION - RIGHT UPPER LOBE MASS Negative for malignant cells. Acute inflammation with features suggestive of an abscess. B - BRONCHOALVEOLAR LAVAGE - RIGHT UPPER LOBE Negative for malignant cells. Acute inflammation. FINAL DIAGNOSIS Right lung, upper lobe mass, transbronchial biopsy: - Fragments of bronchial tissue with non-specific chronic inflammatory changes (see comment). Diagnosis Comment The biopsy contains 6 fragments of predominantly bronchial wall with chronic inflammation, thickening of the basement membrane, focal squamous metaplasia and rare eosinophils. The findings are nonspecific. No granulomas or neoplasm are present. A GMS stain is pending; an addendum report will follow. Addendum A GMS stain performed for the evaluation of fungal organisms is negative. All cultures are without isolation of any specific organisms. Specimen sent out for UNIVERSAL BACTERIAL PCR at the [facility] and again no specificorganism identified. 06/19/2022 Bronchoscopy results FINAL DIAGNOSIS Right lung, lower lobe lesion, endobronchial biopsy - Fragments of bronchial mucosa and extensive detached necrotic debris with ossification and bacterial overgrowth. Diagnosis Comment Definite fungal organisms are not seen with a GMS stain. Numerous gram-positive bacterial organismsincluding filamentous bacilli are seen with a Gram stain. AFB/Reynaldo is negative. No neoplasm is present. The findings may represent an endobronchial old foreign body with ossification. No specific organisms isolated from BAL (included GS/fungal/AFB cultures) Imaging: I reviewed his most recent chest CT scan images and report, dated 08/07/2022 and compared to 06/17/2022 through 01/28/2021. I agree with the following assessment with the following comment. New cavitary changes in the posterior segment of the RUL and persistent complete consolidation of the RLL with soft tissue obstructing the bronchus. Airtrapping is suggested in the RML. Centrilobular and paraseptal emphysema seen on bilateral upper lobes. The radiologist notes; Limitations: None. Lines, tubes, and devices: None. Lung parenchyma and airways: Central airways are patent. Right lower lobe collapse with diffuse varicoid and cystic bronchiectasis and large cystic changes, no obstructing central mass identified. These findings are likely a sequelae of prior diffuse opacities/infection detected on 11/29/2021 CT andlobar collapse seen on 03/22/2022 CT with evidence of bronchial narrowing present on prior CTs. - Right upper lobe confluent and irregular cavitary consolidation has decreased in size, image 111,grossly measures 5.3 x 2.2 cm. The ill-defined consolidation along its superior aspect showed interval cavitation (wall thickness measures up to 1.3 cm) and mild interval increase in size, image 88. These waxing and waning changes are suggestive of inflammatory process/infection - New right upper lobe ill-defined consolidations, images 83 and 95. New left upper lobe ill-defined 2.5 x 1.3 cm nodular opacity with small central cavitation, image 108. Additional left lower lobe peribronchial nodular opacities (e.g., ill-defined 1.4 cm nodular opacity with air bronchogram, image 129). These are new findings are likely inflammatory process/infection in nature -Right middle lobe subcentimeter nodular opacities measuring up to 8-9 mm, images 152 and 160, unchanged compared to prior CT and new since 03/2022 CT, for follow-up. - Upper paraseptal and centrilobular emphysema with apical bullous changes. Pleural space: Trace loculated right pleural effusion, possibly with smooth mild pleural thickening, adjacent to the right lung abnormalities. No pneumothorax. Lower neck, lymph nodes, and mediastinum: The imaged thyroid gland is normal. Multiple mildly enlarged intrathoracic lymph nodes, including multiple right paratracheal lymph nodes measuring up to 11 mm, 15 mm subcarinal lymph node, and 15 mm right hilar lymph node; no significant change. No lymphadenopathy in the supraclavicular or axillary regions. Mild right-sided mediastinal shift. Heart, pericardium, and thoracic vessels: The thoracic aorta and main pulmonary artery are normal in caliber. The cardiac chambers are normal in size. No distinct coronary artery atherosclerotic calcifications are noted, although the study is not optimized for coronary assessment. No pericardial effusion or thickening. Bones and soft tissues: No destructive bone lesion. Upper abdomen: No gross abnormality identified in the imaged upper abdomen. IMPRESSION: - Right lower lobe collapse with diffuse bronchiectasis and cystic changes, likely a sequelae of prior infection and airway obstruction, no central obstructing mass identified, the left lower lobe central bronchial luminal density seen on prior CTs is not clearly appreciated on current exam. - Waxing and waning lung consolidative and nodular opacities with cavitations predominantly in the upper lobes suggesting inflammatory process/infection; nontuberculous mycobacterium is considered inthe presence of emphysema, associated neoplastic process is not entirely excluded, for clinical assessment and follow up. - Thoracic lymphadenopathy, probably reactive. PFT's: SPIROMETRY - BASELINE AND POST DILATOR ([id number]) - ordered on 03/20/20 [facility] [address] [place] [address] Test Date: 2020-03-20 Pat Name: PAOLA POWERS Department: IMPRESSION: Spirometry indicates moderate obstruction. Borderline bronchodilator response. Pre-Bronch Post-Bronch Pred LLN ULN Actual %Pred Actual %Chng SPIROMETRY FVC (L) 5.22 4.12 6.33 4.20 80 4.32 2 FEV1 (L) 4.14 3.26 4.98 2.34 56 2.72 15 FEV1/FVC (%) 80 69 89 56 69 63 12 FEF 25% (L/sec) 7.60 5.01 10.19 3.20 42 4.05 26 FEF 50% (L/sec) 4.78 2.57 6.99 1.36 28 1.98 45 FEF 75% (L/sec) 1.43 0.66 2.87 0.37 26 0.63 68 FEF 25-75% (L/sec) 3.90 2.19 6.11 1.06 27 1.61 51 FEF Max (L/sec) 10.14 7.79 12.50 5.61 55 5.99 6 FIVC (L) 4.07 4.26 4 FIF 50% (L/sec) 5.11 3.00 7.22 4.37 85 4.50 3 FIF Max (L/sec) 4.52 4.56 FET (sec) 12.62 10.71 -15 Back Extrap Vol (L) 0.06 0.05 -18 Time To FEFmax (sec) 0.061 0.057 -7 Assessment and Plan: Paola Powers is a 47 year old male who presents for evaluation prior to follow up bronchoscopy scheduled for 07/28/2022. Goal of repeat procedure is to assess patency of the RLL orifice/segmental airways after removal of foreign body with forceps and electrosurgical snare followed by topical cryotherapy. (J85.1) Abscess of left lung with pneumonia, unspecified part of lung (HCC) (primary encounter diagnosis) (F17.200) Tobacco use disorder (J43.2) Centrilobular emphysema (HCC) - Frustrating to continue to be looking for specific microbiologic etiology for his persistent waxing and waning cavitary lesions and RLL suppurative bronchiectasis/atelectasis. Discussed with Dr. Kaylee Cason about treating him as if the lesions are lung abscesses with prolongedcourse of antibiotics. He responded well to the amoxicillin and clavulanate without issue secondaryto allergy history. Augmenting bid for 4 - 6 weeks and re-image. If there is a consistent response would continue the antibiotics and re-image at interval based on review of the next scan. Pt should take probiotic while on the antibiotics. - Will ask or request that images of post antibiotic scan are pushed to [facility] for review. - Again discussed smoking cessation in detail and reviewed strategies. He is aware his recovery in part will be mitigated by ongoing tobacco use. - Continue bronchodilators as established. - Encouraged regular progressive physical activity. I spent more than 30 minutes [id number] with the patient and over half the time was devoted to counseling and/or coordination of care. Parth Freeman MD Staff, Interventional Pulmonology. Pulmonary, Allergy & Critical Care [facility] documented in this encounterProtestant [facility]acon[facility]03-30-2023 Nurse Note* Fred Guillaume RN - 08/07/2022 9:21 AM EDT POST OP LEARNING RESPONSE INSTRUCTION PROVIDED TO: Patient and family member METHOD OF INSTRUCTION: Individual instruction Written instruction - handouts PATIENT / FAMILY RESPONSE: Verbalizes understanding of: POST-PROCEDURE INSTRUCTIONS-Correct actionsto take to reduce post procedure complications FOLLOW-UP PLAN: Patient instructed to call with any further issues SUPPLEMENTAL MATERIAL: None REFERRAL (RECOMMENDATION): None Electronically Signed By: MELISSA Turner In department: Bronchoscopy * Jazmin Willett RN - 08/06/2022 1:10 PM EDT AMBULATORY PATIENT EDUCATION TOPIC: Bronchoscopy READINESS TO LEARN COGNITIVE ABILITY: Alert and oriented MOTIVATION TO LEARN: Eager FAMILY SUPPORT: None - Unavailable/disinterested INSTRUCTION PROVIDED TO: Patient PATIENT LEARNS BEST BY: Individual Instruction FACTORS AFFECTING LEARNING: None PHYSICAL LIMITATIONS AFFECTING LEARNING: None LEARNING RESPONSE DIAGNOSIS: lung disease METHOD OF INSTRUCTION: Verbal instruction PATIENT / FAMILY RESPONSE: Verbalizes understanding of: PRE-PROCEDURE INSTRUCTIONS-Correct action to take to follow pre-procedure instructions FOLLOW-UP PLAN: Complete - No need for follow-up SUPPLEMENTAL MATERIAL: Telephone instructions REFERRAL (RECOMMENDATION): None Electronically Signed By: Jazmin Willett RN In Department: ADMITTING documented in this encounterProtestant [facility]acon[facility]03-27-2023 History of Present illness Narrative* Parth Freeman MD - 08/04/2022 1:27 PM EDT Images from the original note were not included. PULMONARY MEDICINE CLINIC CC: I am seeing Paola Powers in follow up for chronic pneumonia and foreign body aspiration. . Summary of this visit and my recommendations will be relayed to the referring physician by way of electronic communication or by mail. PCP: Bettye Vo MD Referring Provider: Julito Cason MD HPI: Mr. Powers is a 47 year old male with a PMH of chronic respiratory infection who was found to have foreign body impaction as likely etiology. Since the bronch with removal of the foreign body, he has been doing better with no progressive or acute infectious symptoms. He does continue to cough up purulent material, 1 tsp 5 - 15 times a day but notes this as significant decline compared to prior. His cough is markedly improved. 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 He notes that his exertional capacity has improved and as an example notes he just removed a 40 foot tall fallen tree from a parkinglot on his own. He has not been on antibiotics since completing course given after the bronch on 06/19. Unfortunately, he continues to smoke 1/4 pack a day. He is in a formal smoking cessation program through his insurance company and has tried chantix in the past. He has nicotine gum but does not reach with consistency when triggered. It is his stated desire to quit. REVIEW OF SYSTEMS: Gen: There are no fevers, chills, night sweats or weight loss. Weight stable. HEENT: No changes in hearing or vision, no nose bleeds or other nasal problems. Resp: See HPI. He is not known to snore and has no daytime somnolence. CV: There is no exertional chest pain or palpations. Musc: There are no arthralgias or myalgias. GI/: No trouble moving bowels or bladder noted. No history of dysuria, frequency or incontinence. Heme: No inappropriate bleeding noted. Endo: Negative for cold or heat intolerance, polyuria or polydipsia. Skin: No new or bothersome lesions, rashes or itching. Neuro: The patient has no history of headaches, syncope, paralysis, seizures or tremors. Review of systems is otherwise negative. PAST MEDICAL HISTORY: PAST MEDICAL HISTORY Diagnosis Date COPD (chronic obstructive pulmonary disease) (HCC) Pneumonia, viral PAST SURGICAL HISTORY Procedure Laterality Date NONE MEDICATIONS: sodium chloride 0.9 % nebulizer solution Use 3 mL via nebulizer twice daily. ciprofloxacin HCl (CIPRO) 500 mg tablet TAKE 1 TABLET BY MOUTH TWICE DAILY IN THE MORNING AND IN THE EVENING THE DAY BEFORE THE PROCEDURE, THE DAY OF THE PROCEDURE, AND THE DAY AFTER THE PROCEDURE umeclidinium-vilanterol (ANORO ELLIPTA) 62.5-25 mcg/actuation inhaler Inhale 1 Inhalation as instructed once daily. 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 FAMILY HISTORY: FAMILY HISTORY Problem Relation Age of Onset Heart Attack Mother 51 Hypertension Father COPD Father other (congenital heart disease) Brother PHYSICAL EXAMINATION: VIDEO EXAM: (if completed, performed via video enabled technology) GENERAL: alert and appropriate, in no distress, well-hydrated, well nourished, and happy, smiling, interactive HEAD: normocephalic, no abnormality or lesion noted OROPHARYNX: moist mucus membranes NECK: full ROM, no cervical LNs noted RESPIRATORY: breathing non-labored CHEST: equal chest rise with normal respiratory effort EXTREMITIES: No clubbing or cyanosis NEUROLOGIC: no obvious deficit DATA: Labs: CBC with diff: WBC 8.21 06/17/2022 RBC 4.49 06/17/2022 Hemoglobin 12.4 06/17/2022 Hematocrit 38.1 06/17/2022 MCV 84.9 06/17/2022 MCH 27.6 06/17/2022 MCHC 32.5 06/17/2022 RDW-CV 13.6 06/17/2022 Platelet Count 298 06/17/2022 MPV 10.1 06/17/2022 Neut% 70.4 06/17/2022 Lymph% 21.6 06/17/2022 Orange% 5.5 06/17/2022 Eosin% 3.2 03/17/2020 Baso% 0.5 06/17/2022 Abs Neut (ANC) 5.78 06/17/2022 Abs Orange 0.45 06/17/2022 Abs Eosin 0.15 06/17/2022 Abs Baso 0.04 06/17/2022 Glucose (mg/dL) Date Value 06/17/2022 92 03/17/2020 84 Potassium (mmol/L) Date Value 06/17/2022 4.5 03/17/2020 4.6 Sodium (mmol/L) Date Value 06/17/2022 138 03/17/2020 138 Chloride (mmol/L) Date Value 06/17/2022 101 03/17/2020 101 CO2 (mmol/L) Date Value 06/17/2022 29 03/17/2020 26 Creatinine (mg/dL) Date Value 06/17/2022 0.76 03/17/2020 0.87 BUN (mg/dL) Date Value 06/17/2022 9 03/17/2020 11 Anion Gap (mmol/L) Date Value 06/17/2022 8 03/17/2020 11 Calcium (mg/dL) Date Value 03/17/2020 9.4 Calcium, Total (mg/dL) Date Value 06/17/2022 9.3 Protein, Total (g/dL) Date Value 03/17/2020 7.1 Albumin (g/dL) Date Value 03/17/2020 4.5 Bilirubin, Total (mg/dL) Date Value 03/17/2020 0.3 Alkaline Phosphatase (U/L) Date Value 03/17/2020 68 AST (U/L) Date Value 03/17/2020 16 ALT (U/L) Date Value 03/17/2020 21 06/19/2022 Bronchoscopy results FINAL DIAGNOSIS Right lung, lower lobe lesion, endobronchial biopsy - Fragments of bronchial mucosa and extensive detached necrotic debris with ossification and bacterial overgrowth. Diagnosis Comment Definite fungal organisms are not seen with a GMS stain. Numerous gram-positive bacterial organismsincluding filamentous bacilli are seen with a Gram stain. AFB/Reynaldo is negative. No neoplasm is present. The findings may represent an endobronchial old foreign body with ossification. No specific organisms isolated from BAL (included GS/fungal/AFB cultures) Imaging: I re-reviewed his most recent chest CT scan images and report, dated 06/17/2022 and compared to multiple priors through 01/28/2021. I agree with the following assessment with the following comment. New cavitary changes in the posterior segment of the RUL and persistent complete consolidation of the RLL with soft tissue obstructing the bronchus. Airtrapping is suggested in the RML. Centrilobular and paraseptal emphysema seen on bilateral upper lobes. The radiologist notes; Narrowing of the right-sided central bronchi and near complete collapse of the right lower lobe with fibrocystic consolidation. Opacity within the right lower lobe bronchi may be due to aspiration, chronic inflammation, although neoplasm not excluded. Scattered right middle lobe nodules. Right upper lobe patchy cavitary consolidation which could be due to aspiration pneumonitis, infectious bacterial pneumonia, mycobacterial infection, vasculitis, or possibly neoplasm. PFT's: SPIROMETRY - BASELINE AND POST DILATOR ([id number]) - ordered on 03/20/20 [id number] [facility], [place] [address] Test Date: 2020-03-20 Pat Name: PAOLA POWERS Department: Room: Gender: Male Pharmacy Care Coordinator: NICA Rodríguez : 1975 Requested By: PAOLA PIPER Order Number: [id number] Reading MD: Nguyen Escalante M.D. Interpretive Statements ATS/ERS acceptability and repeatability standards for spirometry met. 2 Puffs of albuterol (180mcg)delivered by MDI via Aerochamber HRpre = 75/min, HRpost=75 /min. IMPRESSION: Spirometry indicates moderate obstruction. Borderline bronchodilator response. Electronically Signed On 03-20-2020 14:01:20 EST by Nguyen Escalante M.D. Pre-Bronch Post-Bronch Pred LLN ULN Actual %Pred Actual %Chng SPIROMETRY FVC (L) 5.22 4.12 6.33 4.20 80 4.32 2 FEV1 (L) 4.14 3.26 4.98 2.34 56 2.72 15 FEV1/FVC (%) 80 69 89 56 69 63 12 FEF 25% (L/sec) 7.60 5.01 10.19 3.20 42 4.05 26 FEF 50% (L/sec) 4.78 2.57 6.99 1.36 28 1.98 45 FEF 75% (L/sec) 1.43 0.66 2.87 0.37 26 0.63 68 FEF 25-75% (L/sec) 3.90 2.19 6.11 1.06 27 1.61 51 FEF Max (L/sec) 10.14 7.79 12.50 5.61 55 5.99 6 FIVC (L) 4.07 4.26 4 FIF 50% (L/sec) 5.11 3.00 7.22 4.37 85 4.50 3 FIF Max (L/sec) 4.52 4.56 FET (sec) 12.62 10.71 -15 Back Extrap Vol (L) 0.06 0.05 -18 Time To FEFmax (sec) 0.061 0.057 -7 Assessment and Plan: Paola Powers is a 47 year old male who presents for evaluation prior to follow up bronchoscopy scheduled for 07/28/2022. Goal of repeat procedure is to assess patency of the RLL orifice/segmental airways after removal of foreign body with forceps and electrosurgical snare followed by topical cryotherapy. 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 - Plan for repeat diagnostic and possibly therapeutic bronchoscopy on 08/07.23 Discussed procedure; indications, risks and alternatives Formal consent pending day of procedure. Will repeat BAL at minimum - Discussed smoking cessation in detail and reviewed strategies. He is aware he is recovery in partwill be mitigated by ongoing tobacco use. - Continue bronchodilators as established. - Encouraged regular progressive physical activity. I spent more than 30 minutes [id number] with the patient and over half the time was devoted to counseling and/or coordination of care. Parth Freeman MD Staff, Interventional Pulmonology. Pulmonary, Allergy & Critical Care Medicine [facility] August 04, 2022 documented in this encounterProtestant [facility]acon[facility]02-17-2023 Miscellaneous Notes* Telephone Encounter - Matthew Berry MD - 06/27/2022 1:34 PM EST Telephone Call Called patient regarding results of bronchoscopy. Discussed findings of pathology negative for malignancy with evidence of inflammation and removed object consistent with foreign body. Cultures showing normal respiratory chandler. To this point AFB and fungal cultures negative. Patient reports significant improvement in mucous production since bronchoscopy. Now producing minimal sputum. He is using saline nebulizer and flutter valve twice daily. Patient reports no questionsor concerns at this time. Patient already scheduled for follow up bronchoscopy 08/07/2022 Matthew Berry MD PGY7 Interventional Automobile Rental Representative documented in this encounterProtestant Deacon[facility]02-09-2023 Nurse Note* Magda Gillis RN - 06/19/2022 12:20 PM EST POST OP LEARNING RESPONSE INSTRUCTION PROVIDED TO: Patient METHOD OF INSTRUCTION: Verbal instruction PATIENT / FAMILY RESPONSE: Verbalizes understanding of: POST-PROCEDURE INSTRUCTIONS-Correct actionsto take to reduce post procedure complications FOLLOW-UP PLAN: Complete - No need for follow-up SUPPLEMENTAL MATERIAL: None REFERRAL (RECOMMENDATION): None Electronically Signed By: Magda Gillis RN In Department: ADMITTING documented in this encounterProtestant Deaconess Hospital01-19-2023 History of Present illness Narrative* Shahana Lindsay RN - 05/29/2022 2:26 PM EST Images from the original note were not included. IP Clinical Coordinator Pre-Visit Chart Review Date of Visit: 06/05/22 Type of Visit: New Consult Summary of Reason for Visit: Per scheduling notes Mass. Patient scheduled self. DATA: [facility]: Plan Patient likely has an element of postobstructive pneumonia. This is likely not to clear the pneumonia completely without removal of the obstruction. In retrospect, this likely has to do with an aspiration event leading to chronic inflammation and fibrotic changes. Patient likely needs an endobronchial assessment by an interventional bronchoscopist with removal of obstruction if possible. A referral will be sent to [facility]. Initiate antibiotics. Referral to interventional pulmonary Plan Details Follow Up: 3 Months (CSM) Patient is a 46-year-old male, currently under care of Dr. Ward, who presents for evaluation secondary to recent test results. Since last visit, patient denies any ER visits, hospitalizations or prednisone burst. Patient has completed a bronchoscopy and tolerated this well. Patient states that after the procedure it was the best I felt in years. Patient states that he has slowly progressed to a productive cough and a sensation of fatigue. No chest pain has been reported. However, patient states it feels like I am going back downhill. Patient had looked at his results online and had done some research. Patient was relieved that it was likely not malignant, but has questions on what the neck steps will be. Patient states he does want to be aggressive and moving forward. Patient states his cough is starting to become more yellow, but never becomes clear. Patient describes his sputum as milky white at baseline. In retrospect, patient states he did have an episode where he felt like he had aspirated a piece of meat. Patient states he did not seek medical care at that time and it eventually got better. Patient also has had some marginal dental health and states he plans on going to the dentist in the next week for an evaluation. Patient is actively participating in a smoking cessation program Most Recent CT report: 03/22/22 [facility] Last CT Report/comparison: 11/29/21 PET report:N/A Spirometry/PFTS: N/A @PULMFUNC(1)@ FV Loop (paste image) 6 Minute walk Test The patient completed the six minute walk test with . . The patient required to complete the test. The distance the patient walked in six minutes was not documented The patient perceived their dyspnea during the six minute walk test to be on the modified Sully scale. The patient perceived their fatigue during the six minute walk test to be on the modified Sully scale. I have reviewed the findings and made appropriate revisions as needed. SIGNATURE: Shahana Lindsay RN PATIENT NAME: Paola Powers DATE: May 29, 2022 TIME: 2:27 PM LABS Glucose (mg/dL) Date Value 03/17/2020 84 Potassium (mmol/L) Date Value 03/17/2020 4.6 Sodium (mmol/L) Date Value 03/17/2020 138 Chloride (mmol/L) Date Value 03/17/2020 101 CO2 (mmol/L) Date Value 03/17/2020 26 Creatinine (mg/dL) Date Value 03/17/2020 0.87 BUN (mg/dL) Date Value 03/17/2020 11 Anion Gap (mmol/L) Date Value 03/17/2020 11 Calcium (mg/dL) Date Value 03/17/2020 9.4 CBC with diff: WBC 6.59 03/17/2020 RBC 5.17 03/17/2020 Hemoglobin 15.4 03/17/2020 Hematocrit 46.4 03/17/2020 MCV 89.7 03/17/2020 MCH 29.8 03/17/2020 MCHC 33.2 03/17/2020 RDW-CV 12.7 03/17/2020 Platelet Count 261 03/17/2020 MPV 10.8 03/17/2020 Neut% 54.0 03/17/2020 Lymph% 34.1 03/17/2020 Orange% 7.6 03/17/2020 Eosin% 3.2 03/17/2020 Baso% 1.1 03/17/2020 Abs Neut (ANC) 3.55 03/17/2020 Abs Orange 0.50 03/17/2020 Abs Eosin 0.21 03/17/2020 Abs Baso 0.07 03/17/2020 Pathology/Cytology Results: [facility] Bronchoscopy results (04/18/2022): Negative for malignant cells, but acute inflammation with fibrotic tissue. Cultures are showing group F Streptococcus Last bronchoscopy Note: Bronchoscopy Report [facility] Medical Records Department [address] [place] [address] Bronchoscopy Report MR#: [id number] Acct: [id number] Name: PAOLA POWERS Rep #: [id number] : 1975 46 From: Julito Cason MD PCP: Dr. Bettye Vo MD Status:[facility] Patient Name: Paola Powers Procedure Date: 04/18/2022 11:52 AM Date of : 1975 Age: 46 Procedure: Bronchoscopy Indications: Atelectasis of the right lower lobe Providers: Julito Cason MD Referring MD: Bettye Vo Medicines: See the Anesthesia note for documentation of the administered medications Complications: No immediate complications Procedure: Pre-Anesthesia Assessment: - A History and Physical has been performed. The patient's medications, allergies and sensitivities have been reviewed. - The risks and benefits of the procedure and the sedation options and risks were discussed with the patient. All questions were answered and informed consent was obtained. - Patient identification and proposed procedure were verified prior to the procedure by the physician, the nurse and the it systems analyst consultant. The procedure was verified in the endoscopy suite. - ASA Grade Assessment: II - A patient with mild systemic disease. After I obtained informed consent, the scope was passed under direct vision. Throughout the procedure, the patient's blood pressure, pulse, and oxygen saturations were monitored continuously. The bronchoscope was introduced through the right nostril and advanced to the tracheobronchial tree of both lungs. The procedure was accomplished without difficulty. The patient tolerated the procedure well. Findings: The nasopharynx/oropharynx appears normal. The larynx appears normal. The vocal cords appear normal. The subglottic space is normal. The trachea is of normal caliber. The sergio is sharp. The tracheobronchial tree of the left lung was examined to at least the first subsegmental level. Bronchial mucosa and anatomy in the left lung are normal; there are no endobronchial lesions, and no secretions. Right Lung Abnormalities: A partially obstructing (about 80% obstructed) mass was found proximally, at the orifice in the right lower lobe. The mass was fungating. The lesion was successfully traversed. Copious, mucoid, purulent, thick secretions were found in the right lower lobe. They were nearly obstructing (greater than 90% obstructed) the airway. Washings were obtained in the right lower lobe and sent for cell count, bacterial culture, viral smears culture, and fungal AFB analysis. The return was mucopurulent. Multiple specimens were obtained and pooled into one specimen, which was sent for analysis. Endobronchial biopsies were performed in the right lower lobe using forceps and sent for histopathology examination. Lesion felt fibrotic on biopsy (tension). 8 were obtained. Guided brushings were obtained in the right lower lobe with a cytology brush and sent for routine cytology. One sample was obtained. Therapeutic suctioning was performed. Mucus plugs were removed from the airway but the airway was not cleared. Impression: - Atelectasis of the right lower lobe - The airway examination of the left lung was normal. - A fungating mass was found in the right lower lobe. - Copious, mucoid, purulent, thick secretions were found in the right lower lobe. - Washings were obtained. - An endobronchial biopsy was performed. - Brushings were obtained. - Therapeutic suctioning was performed. Recommendation: - The patient will be observed post-procedure, until all discharge criteria are met. - Await biopsy, brushing, culture and cytology results. - Patient has a contact number available for emergencies. The signs and symptoms of potential delayed complications were discussed with the patient. Return to normal activities tomorrow. Written discharge instructions were provided to the patient. - Follow up with bronchoscopist in one week. Procedure Code(s): --- Professional --- 89665, Bronchoscopy, rigid or flexible, including fluoroscopic guidance, when performed; with bronchial or endobronchial biopsy(s), single or multiple sites 34396, Bronchoscopy, rigid or flexible, including fluoroscopic guidance, when performed; with therapeutic aspiration of tracheobronchial tree, initial 32242, Bronchoscopy, rigid or flexible, including fluoroscopic guidance, when performed; with brushing or protected brushings Diagnosis Code(s): --- Professional --- J98.9, Respiratory disorder, unspecified J98.11, Atelectasis R09.89, Other specified symptoms and signs involving the circulatory and respiratory systems CPT copyright 2017 [employer]. All rights reserved. The codes documented in this report are preliminary and upon outside production inspector review may be revised to meet current compliance requirements. Julito Ayala (more content not included)... Other: Thoracic Staff A/P: NA Oncology staff A/P: N/A Shahana Lindsay MSN, RN, CCRN-K Interventional Pulmonary Clinical Coordinator documented in this encounterProtestant Deaconess Hospital12-16-2022 Instructions* Patient Instructions* Merlyn Street APRN.[facility] - 04/25/2022 6:22 PM EST ASSESSMENT/PLAN: 1. Left wrist injury, initial encounter - ICD9: 959.3, ICD10: S69.92XA - XR WRIST GENERAL 3V PA/LAT/OBL LEFT Radiologist RESULT: No acute fracture or dislocation. Joint spaces are maintained. No radiodense foreign body. IMPRESSION: No acute osseous abnormality Customer Counter Representative: TERRI Transcribe Date/Time: Apr 25 2022 5:34P Dictated by : CHETAN RICO MD - wrist splint applied to left wrist. - RICE therapy as directed. - Follow-up with your PCP in 3-5 days if symptoms have not improved or sooner if symptoms worsen - Discussed red flags and need for immediate medical evaluation if any occur. - Discussed supportive care treatment with fluids, rest and analgesia. - Discussed expected course of illness Merlyn Street APRN.NADYA Bain. The general care of your injury includes the following: Resting, Icing, Compressing and Elevating the injured area. Remember this as RICE. REST: Limit the use of the injured body part. ICE: By applying ice to the affected area, swelling and pain can be reduced. Place some ice cubes in a re-sealable (Ziploc) bag and add some water. Put a thin washcloth between the bag and your skin.Apply the ice bag to the area for at least 20 minutes. Do this at least 4 times per day. Using the ice for longer times and more frequently is OK. NEVER APPLY ICE DIRECTLY TO THE SKIN. COMPRESS: Compression means to apply pressure around the injured area such as with a splint, cast or an lucille bandage. Compression decreases swelling and improves comfort. Compression should be tight enough to relieve swelling but not so tight as to decrease circulation. Increasing pain, numbness, tingling, or change in skin color, are all signs of decreased circulation. ELEVATE: Elevate the injured part. For example, elevate your foot by placing it on a chair while sitting, or propping it up on pillows when lying down. documented in this encounterProtestant Deaconess Hospital12-16-2022 History of Present illness Narrative* Merlyn Street APRN.CNP - 04/25/2022 5:02 PM EST Subjective HPI Paola Powers is a 46 year old male who presents with left wrist injury that occurred this morning. His drill hit his wrist. He was drilling into hard wood and the drill stopped and spun around andhit his wrist.He has swelling and pain. He rates his pain between 4 and 8/10. He has used ice and taken Aleve. Review of Systems Constitutional: Negative for chills and fever. Musculoskeletal: Positive for joint pain. Negative for falls. Skin: Negative for itching and rash. BP 122/78 Pulse 82 Temp 37.1 C (98.7 F) (Tympanic) Resp 16 Wt 68.6 kg (151 lb 3.2 oz) SpO2 97% BMI 21.09 kg/m PAST MEDICAL HISTORY Diagnosis Date COPD (chronic obstructive pulmonary disease) (HCC) Pneumonia, viral PAST SURGICAL HISTORY Procedure Laterality Date NONE ALLERGIES Amoxicillin and Penicillins MEDICATIONS umeclidinium-vilanterol (ANORO ELLIPTA) 62.5-25 mcg/actuation inhaler Inhale 1 Inhalation as instructed once daily. albuterol HFA (PROVENTIL HFA, VENTOLIN HFA) 90 mcg/actuation inhaler Inhale 2 Puffs as instructed every 6 hours as needed for wheezing/shortness of breath. 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 Constitutional: Appearance: Normal appearance. Musculoskeletal: General: Swelling, tenderness and signs of injury present. No deformity. Left wrist: Swelling, tenderness and bony tenderness present. No snuff box tenderness or crepitus. Decreased range of motion. Normal pulse. Skin: General: Skin is warm and dry. Findings: No bruising, erythema or rash. Neurological: Mental Status: He is alert. ASSESSMENT/PLAN: 1. Left wrist injury, initial encounter - ICD9: 959.3, ICD10: S69.92XA - XR WRIST GENERAL 3V PA/LAT/OBL LEFT Radiologist RESULT: No acute fracture or dislocation. Joint spaces are maintained. No radiodense foreign body. IMPRESSION: No acute osseous abnormality Customer Counter Representative: TERRI Transcribe Date/Time: Apr 25 2022 5:34P Dictated by : CHETAN RICO MD - wrist splint applied to left wrist. - RICE therapy as directed. - Follow-up with your PCP in 3-5 days if symptoms have not improved or sooner if symptoms worsen - Discussed red flags and need for immediate medical evaluation if any occur. - Discussed supportive care treatment with fluids, rest and analgesia. - Discussed expected course of illness [address] APRN.CNP [facility] History of Present illness Narrative* Marce Armenta RT(R) - 04/25/2022 4:50 PM EST Radiology Service Progress Note PATIENT NAME: Paola Powers DATE OF SERVICE: April 25, 2022 TIME: 5:11 PM PATIENT IDENTITY VERIFICATION COMPLETED USING TWO (2) IDENTIFIERS: Name and Date of confirmedby patient verbally. FALL SCREENING: Has the patient had 2 falls in the last year or 1 fall with injury or currently using an Ambulatory Assistive Device (Walker, Cane, Wheelchair, Crutches, etc.)? No PATIENT GENDER DATA: Male PATIENT RELEVANT IMPLANT DATA REVIEWED: Not Applicable RADIOLOGY DEPARTMENT: General X-ray: Exam(s) Completed: Upper Extremity X- Ray(s): Wrist, left PERIPHERAL IV DATA: Not applicable SIGNED BY: RT Lorena(R) April 25, 2022 5:11 PM documented in this [facility] History of Present illness Narrative* Carissa Catalan Ma - 08/07/2021 1:07 PM EDT TRANSITION CARE MANAGEMENT (TCM) INITIAL CONTACT Filteration Operator Outreach Provider Action/FYI: Called pt, he states he is no longer following with Dr. Piper. Is going to be following with [facility] for Primary care. Initial contact with patient post discharge, spoke to patient 08/07/21. Patient identified by name and . TRANSITION CARE MANAGEMENT INITIAL OUTREACH DOCUMENTATION: Date of Outreach: 08/07/2021 Outreach Attempt 1: Contact Made Date of Discharge 08/06/2021 Some recent data might be hidden PCP updated. Carissa Catalan Ma documented in this [facility]03-17-2022 History of Present illness Narrative* Gwendolyn Hernández RT(R) - 07/25/2021 9:50 AM EDT Radiology Service Progress Note PATIENT NAME: Paola Powers DATE OF SERVICE: July 25, 2021 TIME: 10:10 AM PATIENT IDENTITY VERIFICATION COMPLETED USING TWO (2) IDENTIFIERS: Name and Date of confirmedby patient verbally. FALL SCREENING: Has the patient had 2 falls in the last year or 1 fall with injury or currently using an Ambulatory Assistive Device (Walker, Cane, Wheelchair, Crutches, etc.)? No PATIENT GENDER DATA: Male PATIENT RELEVANT IMPLANT DATA REVIEWED: Yes RADIOLOGY DEPARTMENT: General X-ray: Exam(s) Completed: Chest X-Ray PERIPHERAL IV DATA: Not applicable SIGNED BY: RT Diandra(Marcelino) July 25, 2021 10:10 AM documented in this [facility]Pro[facility]12-27-[facility] History of Present illness Narrative* Gwendolyn Hernández RT(R) - 05/06/2021 5:30 PM EST Radiology Service Progress Note PATIENT NAME: Paola Powers DATE OF SERVICE: May 06, 2021 TIME: 5:31 PM PATIENT IDENTITY VERIFICATION COMPLETED USING TWO (2) IDENTIFIERS: Name and Date of confirmedby patient verbally. FALL SCREENING: Has the patient had 2 falls in the last year or 1 fall with injury or currently using an Ambulatory Assistive Device (Walker, Cane, Wheelchair, Crutches, etc.)? No PATIENT GENDER DATA: Male PATIENT RELEVANT IMPLANT DATA REVIEWED: Yes RADIOLOGY DEPARTMENT: General X-ray: Exam(s) Completed: Rib X-Ray: Right PERIPHERAL IV DATA: Not applicable SIGNED BY: RT Diandra(R) May 06, 2021 5:31 PM documented in this [facility]10[facility] History of Past illness Narrative* Problem Noted Date Resolved Date Moderate smoker (20 or less per day) 02/14/2021 02/14/2021 documented as of this encounter (statuses as of 08/07/2021) [facility] History of Past illness Narrative* Problem Noted Date Resolved Date Moderate smoker (20 or less per day) 02/14/2021 02/14/2021 documented as of this encounter (statuses as of 04/25/2022) [facility] History of Past illness Narrative* Problem Noted Date Resolved Date Moderate smoker (20 or less per day) 02/14/2021 02/14/2021 documented as of this encounter (statuses as of 05/29/2022) [facility] History of Past illness Narrative* Problem Noted Date Resolved Date Moderate smoker (20 or less per day) 02/14/2021 02/14/2021 documented as of this encounter (statuses as of 06/07/2022) [facility] of Past illness Narrative* Problem Noted Date Resolved Date Moderate smoker (20 or less per day) 02/14/2021 02/14/2021 documented as of this encounter (statuses as of 06/20/2022) [facility] of Past illness Narrative* Problem Noted Date Resolved Date Moderate smoker (20 or less per day) 02/14/2021 02/14/2021 documented as of this encounter (statuses as of 06/26/2022) [facility] of Past illness Narrative* Problem Noted Date Resolved Date Moderate smoker (20 or less per day) 02/14/2021 02/14/2021 documented as of this encounter (statuses as of 06/26/2022) [facility] of Past illness Narrative* Problem Noted Date Resolved Date Moderate smoker (20 or less per day) 02/14/2021 02/14/2021 documented as of this encounter (statuses as of 06/27/2022) [facility] of [facility] illness Narrative* Problem Noted Date Resolved Date Moderate smoker (20 or less per day) 02/14/2021 02/14/2021 documented as of this encounter (statuses as of 08/05/2022) [facility] of Past illness Narrative* Problem Noted Date Resolved Date Moderate smoker (20 or less per day) 02/14/2021 02/14/2021 documented as of this encounter (statuses as of 08/08/2022) [facility] of Past illness Narrative* Problem Noted Date Resolved Date Moderate smoker (20 or less per day) 02/14/2021 02/14/2021 documented as of this encounter (statuses as of 09/16/2022) [facility] of Past illness Narrative* Problem Noted Date Resolved Date Moderate smoker (20 or less per day) 02/14/2021 02/14/2021 documented as of this encounter (statuses as of 09/24/2022) [facility] of Past illness Narrative* Problem Noted Date Resolved Date Moderate smoker (20 or less per day) 02/14/2021 02/14/2021 documented as of this encounter (statuses as of 11/04/2022) [facility] NoteIMPRESSION: Progressive patchy and nodular consolidative opacity in the right infrahilar region and right lower lobe. Trace right pleural effusion not excluded. Given persistence and progression of this finding, further evaluation with CT chest is advised. Incidental Finding: Follow-up Acuity: Incidental Finding: Suspicious appearing incidentally detected nodular lung density on CXR. Routing Code: RI_1 Recommendation: CT Chest WO IVCON Time Frame: in 4 weeks COMMUNICATION:? Results will be communicated with the ordering provider via [employer] staff message by Imaging Support Services within 2 business days of report finalization. Customer Counter Representative: TERRI Transcribe Date/Time: Jan 16 2021 3:27P Dictated by : TAURUS MCGEE MD This examination was interpreted and the report reviewed and electronically signed by: TAURUS MCGEE MD on Jan 16 2021 3:30PM [facility] DIVISION OF [id number] History of Present illness Narrative* Gwendolyn Hernández, RT(R) - 01/16/2021 3:10 PM EDT Radiology Service Progress Note PATIENT NAME: Paola Powers DATE OF SERVICE: January 16, 2021 TIME: 3:21 PM PATIENT IDENTITY VERIFICATION COMPLETED USING TWO (2) IDENTIFIERS: Name and Date of confirmedby patient verbally. FALL SCREENING: Has the patient had 2 falls in the last year or 1 fall with injury or currently using an Ambulatory Assistive Device (Walker, Cane, Wheelchair, Crutches, etc.)? No PATIENT GENDER DATA: Male PATIENT RELEVANT IMPLANT DATA REVIEWED: Yes RADIOLOGY DEPARTMENT: General X-ray: Exam(s) Completed: Chest X-Ray PERIPHERAL IV DATA: Not applicable SIGNED BY: RT Diandra(R) January 16, 2021 3:21 PM documented in this encounterPro[facility] History of Present illness Narrative* Gwendolyn Hernández RT(R) - 09/17/2020 6:00 PM EDT Radiology Service Progress Note PATIENT NAME: Paola Powers DATE OF SERVICE: September 17, 2020 TIME: 6:11 PM PATIENT IDENTITY VERIFICATION COMPLETED USING TWO (2) IDENTIFIERS: Name and Date of confirmedby patient verbally. FALL SCREENING: Has the patient had 2 falls in the last year or 1 fall with injury or currently using an Ambulatory Assistive Device (Walker, Cane, Wheelchair, Crutches, etc.)? No PATIENT GENDER DATA: Male PATIENT RELEVANT IMPLANT DATA REVIEWED: Yes RADIOLOGY DEPARTMENT: General X-ray: Exam(s) Completed: Chest X-Ray PERIPHERAL IV DATA: Not applicable SIGNED BY: RT Diandra(R) September 17, 2020 6:11 PM documented in this encounterPro[facility]11-[facility]-2020 History of Present illness Narrative* Gwendolyn HernándezRt) Tech - 03/15/2020 11:40 AM EST Radiology Service Progress Note PATIENT NAME: Paola Powers DATE OF SERVICE: March 15, 2020 TIME: 11:30 AM PATIENT IDENTITY VERIFICATION COMPLETED USING TWO (2) IDENTIFIERS: Name and Date of confirmedby patient verbally. FALL SCREENING: Has the patient had 2 falls in the last year or 1 fall with injury or currently using an Ambulatory Assistive Device (Walker, Cane, Wheelchair, Crutches, etc.)? No PATIENT GENDER DATA: Male PATIENT RELEVANT IMPLANT DATA REVIEWED: Yes RADIOLOGY DEPARTMENT: General X-ray: Exam(s) Completed: Chest X-Ray PERIPHERAL IV DATA: Not applicable SIGNED BY: RT Diandra March 15, 2020 11:30 AM documented in this encounterPro[facility] HospitalEvaluation note* Diagnosis Onset Date Resolution Status Pleural effusion, right acut e Right lower lobe pneumonia a cute Right lower lobe pulmonary infiltrate acute [facility] Work Phone: evaluation note* Diagnosis Onset Date Resolution Status Pleural effusion, right acut e Right lower lobe pneumonia a cute Pleural effusion, right acut e Right lower lobe pneumonia a cute Right lower lobe pulmonary infiltrate acute [facility] Work Phone: Evaluation note* Diagnosis Onset Date Resolution Status Pleural effusion, right acut e Right lower lobe pneumonia a cute Pleural effusion, right acut e Right lower lobe pneumonia a cute Right lower lobe pulmonary infiltrate acute Right lower lobe pulmonary infiltrate acute Pleural effusion, right acut e Right lower lobe pneumonia a cute Right lower lobe pulmonary infiltrate acute [facility] Work Phone: Evaluation note* Diagnosis Onset Date Resolution Status Pleural effusion, right acut e Right lower lobe pneumonia a cute Pleural effusion, right acut e Right lower lobe pneumonia a cute Right lower lobe pulmonary infiltrate acute COPD (chronic obstructive pulmonary disease) chronic Right lower lobe pulmonary infiltrate acute Pleural effusion, right acut e Right lower lobe pneumonia a cute Right lower lobe pulmonary infiltrate acute Encounter to establish care noneactive COPD (chronic obstructive pulmonary disease) chronic Cough noneactive Dyspnea noneactive Tobacco abuse noneactive Recurrent pneumonia noneacti ve [facility] Work Phone: Evaluation note* Diagnosis Onset Date Resolution Status Pleural effusion, right acut e Right lower lobe pulmonary infiltrate acute COPD (chronic obstructive pulmonary disease) chronic Right lower lobe pneumonia c hronic Right lower lobe pulmonary infiltrate acute Pleural effusion, right acut e Right lower lobe pulmonary infiltrate acute Right lower lobe pneumonia c [facility] Encounter to establish care noneactive COPD (chronic obstructive pulmonary disease) chronic Cough noneactive Dyspnea noneactive Tobacco abuse noneactive Recurrent pneumonia noneacti ve COPD (chronic obstructive pulmonary disease) chronic Right lower lobe pneumonia c [facility] Work Phone: Evaluation note* Diagnosis Onset Date Resolution Status COPD (chronic obstructive pulmonary disease) chronic Cough noneactive Dyspnea noneactive Tobacco abuse noneactive Recurrent pneumonia noneacti ve COPD (chronic obstructive pulmonary disease) chronic Right lower lobe pneumonia c [facility] Work Phone: Evaluation note* Diagnosis Onset Date Resolution Status Right lower lobe pulmonary infiltrate acute Tobacco use acute COPD (chronic obstructive pulmonary disease) chronic [facility] Work Phone: Evaluation note* Diagnosis Onset Date Resolution Status Right lower lobe pulmonary infiltrate acute Tobacco use acute COPD (chronic obstructive pulmonary disease) chronic Right lower lobe pulmonary infiltrate acute [facility] Work Phone: Evaluation note* Diagnosis Onset Date Resolution Status Right lower lobe pulmonary infiltrate acute Tobacco use acute COPD (chronic obstructive pulmonary disease) chronic Right lower lobe pulmonary infiltrate acute Elevated PSA acute Pleural effusion, right acut e Right lower lobe pulmonary infiltrate acute Tobacco use acute COPD (chronic obstructive pulmonary disease) chronic Right lower lobe pneumonia c [facility] Work Phone: Evaluation note* Diagnosis Left wrist injury, initial encounter- Primary documented in this encounter [facility] note* Diagnosis Onset Date Resolution Status Right lower lobe pulmonary infiltrate acute Tobacco use acute COPD (chronic obstructive pulmonary disease) chronic Right lower lobe pulmonary infiltrate acute Elevated PSA acute Pleural effusion, right acut e Right lower lobe pulmonary infiltrate acute Tobacco use acute COPD (chronic obstructive pulmonary disease) chronic Right lower lobe pneumonia c [facility] Bronchial obstruction acute Right lower lobe pulmonary infiltrate acute [facility] Work Phone: Evaluation note* Diagnosis Bronchiectasis with acute lower respiratory infection (HCC)- Primary Bronchiectasis with acute exacerbation [facility] Diagnosis Bronchiolar disease Other diseases of trachea and bronchus documented in this encounter [facility] note* Diagnosis Preoperative examination- Primary Preoperative examination, unspecified Bronchiolar disease Other diseases of trachea and bronchus documented [facility] this [facility]* Diagnosis Bronchiectasis without complication (HCC)- Primary Bronchiectasis without acute exacerbation Stage 2 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) Cigarette smoker Tobacco use disorder Bronchial stenosis, right Other diseases of trachea and bronchus Pneumonia of right lower lobe due to infectious organism Bronchiolar disease Other diseases of trachea and bronchus [facility] this [facility]* Diagnosis Lung mass Swelling, mass, or lump in chest documented [facility] this [facility]* Diagnosis Abscess of left lung with pneumonia, unspecified part of lung (HCC)- Primary Tobacco use disorder Centrilobular emphysema (HCC) Other emphysema documented in this [facility]* Diagnosis Tobacco use disorder- Primary Centrilobular emphysema (HCC) Other emphysema Aspiration into airway, subsequent encounter Abscess of left lung with pneumonia, unspecified part of lung (HCC) Abscess of right lung with pneumonia, unspecified part of lung (HCC) documented in this [facility]* Diagnosis Left wrist injury, initial encounter [facility]* Diagnosis Cough documented in this [facility]* Diagnosis Rib pain Chest pain, unspecified documented [facility] this [facility]* Diagnosis URI, acute Acute upper respiratory infections of unspecified site Cough Wheezing [facility]* Diagnosis SOB (shortness of breath) Shortness of breath documented in this [facility]* Diagnosis SOB (shortness of breath) Shortness of breath Tobacco abuse Tobacco use disorder documented [facility] this [facility]* Diagnosis Centrilobular emphysema (HCC)- Primary Other emphysema Tobacco use disorder Bronchiectasis with acute lower respiratory infection (HCC) Bronchiectasis with acute exacerbation H/O foreign body in respiratory tract Personal history of retained foreign body fully removed [facility] this [facility]* Diagnosis Screen for colon cancer- Primary Special screening for malignant neoplasms, colon documented in this encounter [facility]* Diagnosis Tubular adenoma of colon- Primary Benign neoplasm of colon [facility] Work Phone: [facility] Work Phone: [facility] Dis[facility] instructionsW[facility] Work Phone: [facility] instructionsW[facility] Work Phone: [facility] Dis[facility] instructionsW[facility] Work Phone: [facility] Work Phone: Hospital Discharge instructionsAmbulatory Orders* General Surgery Location: None Selected [facility] Work Phone: Reason for referral (narrative)* Diagnostic Procedure Only (Urgent) - Closed Specialty Diagnoses / Procedures Referred By Contac t Referred To Contact XR IMAGING Diagnoses Left wrist injury, initial encounter Procedures XR WRIST GENERAL 3V PA/LAT/OBL LEFT RADEX WRIST COMPLETE MINIMUM [address] APRN.DOCK LOADER [address] [place] [address] Xr Imaging Referral ID Status Reason Start Date Expiration Date V isits Requested Visits Authorized [id number] Closed Auto-Generate d Referral 04/25/2022 05/25/2023 1 1 [facility] for referral (narrative)* Diagnostic Procedure Only (Urgent) - Closed Specialty Diagnoses / Procedures Referred By Contac t Referred To Contact XR IMAGING Diagnoses Left wrist injury, initial encounter Procedures XR WRIST GENERAL 3V PA/LAT/OBL LEFT RADEX WRIST COMPLETE MINIMUM [address] APRN.DOCK LOADER [address] [place] [address] [place] [address] Referral ID Status Reason Start Date Expiration Date V isits Requested Visits Authorized [id number] Closed Auto-Generate d Referral 04/25/2022 05/25/2023 1 1 [facility] for referral (narrative)* Diagnostic Procedure Only (Urgent) - Closed Specialty Diagnoses / Procedures Referred By Contac t Referred To Contact XR IMAGING Diagnoses Rib pain Procedures XR RIBS/CHEST 3V AP RIB/OBLS/CXR RIGHT X-RAY RIBS, CHEST 3+ VW Elzbieta Guillen BATCH UNLOADER.DOCK LOADER [address] [place] [id number] [place] [address] Referral ID Status Reason Start Date Expiration Date V isits Requested Visits Authorized [id number] Closed Auto-Generate d Referral 05/06/2021 06/05/2022 1 1 [facility] for referral (narrative)No reason for referral information availableWitham Health Services Services Work Phone: ason for visit Narrative* Diagnostic Procedure Only (Urgent) - Closed Specialty Diagnoses / Procedures Referred By Contac t Referred To Contact XR IMAGING Diagnoses Left wrist injury, initial encounter Procedures XR WRIST GENERAL 3V PA/LAT/OBL LEFT RADEX WRIST COMPLETE MINIMUM [address], BATCH UNLOADER.DOCK LOADER [address] [place] [address] [place] [address] Referral ID Status Reason Start Date Expiration Date V isits Requested Visits Authorized [id number] Closed Auto-Generate d Referral 04/25/2022 05/25/2023 1 1 [facility] for visit Narrative* Diagnostic Procedure Only (Urgent) - Closed Specialty Diagnoses / Procedures Referred By Contac t Referred To Contact XR IMAGING Diagnoses Rib pain Procedures XR RIBS/CHEST 3V AP RIB/OBLS/CXR RIGHT X-RAY RIBS, CHEST 3+ VW Elzbieta Guillen, BATCH UNLOADER.DOCK LOADER [address] [place] [address] [place] [address] Referral ID Status Reason Start Date Expiration Date V isits Requested Visits Authorized [id number] Closed Auto-Generate d Referral 05/06/2021 06/05/2022 1 1 [facility] Chief Complaint and Reason for Visit Chief Complaint CONCERN FOR PNEUMONI A EORDER- COUGH RLL PNE, FAILED OUTPATIENT TREATMENTS Reason for Visit Pleural effusion, ri ght Right lower lobe pneumonia Right lower lobe pulmonary infiltrate Chief Complaint CONCERN FOR PNEUMONI A EORDER- COUGH RLL PNE, FAILED OUTPATIENT TREATMENTS RLL PNE, FAILED OUTPATIENT TREATMENTS RLL PNE, FAILED OUTPATIENT TREATMENTS RLL PNE, FAILED OUTPATIENT TREATMENTS RLL PNE, FAILED OUTPATIENT TREATMENTS RLL PNE, FAILED OUTPATIENT TREATMENTS Reason for Visit Pleural effusion, ri ght Right lower lobe pneumonia Pleural effusion, right Right lower lobe pneumonia Right lower lobe pulmonary infiltrate Chief Complaint CONCERN FOR PNEUMONI A EORDER- COUGH RLL PNE, FAILED OUTPATIENT TREATMENTS RLL PNE, FAILED OUTPATIENT TREATMENTS RLL PNE, FAILED OUTPATIENT TREATMENTS RLL PNE, FAILED OUTPATIENT TREATMENTS RLL PNE, FAILED OUTPATIENT TREATMENTS RLL PNE, FAILED OUTPATIENT TREATMENTS PNEUMONIA/DOCTOR TO FAX Reason for Visit Pleural effusion, ri ght Right lower lobe pneumonia Pleural effusion, right Right lower lobe pneumonia Right lower lobe pulmonary infiltrate Chief Complaint CONCERN FOR PNEUMONI A EORDER- COUGH RLL PNE, FAILED OUTPATIENT TREATMENTS RLL PNE, FAILED OUTPATIENT TREATMENTS RLL PNE, FAILED OUTPATIENT TREATMENTS RLL PNE, FAILED OUTPATIENT TREATMENTS RLL PNE, FAILED OUTPATIENT TREATMENTS RLL PNE, FAILED OUTPATIENT TREATMENTS PNEUMONIA/DOCTOR TO FAX HOSPITAL FU R LOWER LOBE Pneumonia, unspecified organism HOSP. 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, EST.CARE, NPP SENT Reason for Visit Pleural effusion, ri ght Right lower lobe pneumonia Pleural effusion, right Right lower lobe pneumonia Right lower lobe pulmonary infiltrate Right lower lobe pulmonary infiltrate Pleural effusion, right Right lower lobe pneumonia Right lower lobe pulmonary infiltrate Chief Complaint CONCERN FOR PNEUMONI A EORDER- COUGH RLL PNE, FAILED OUTPATIENT TREATMENTS RLL PNE, FAILED OUTPATIENT TREATMENTS RLL PNE, FAILED OUTPATIENT TREATMENTS RLL PNE, FAILED OUTPATIENT TREATMENTS RLL PNE, FAILED OUTPATIENT TREATMENTS RLL PNE, FAILED OUTPATIENT TREATMENTS HOSPITAL FU R LOWER LOBE Pneumonia, unspecified organism HOSP. 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, EST.CARE, NPP SENT PNEUMONIA/[facility]CTOR [facility] [place] Reason for Visit Pleural effusion, ri ght Right lower lobe pneumonia Pleural effusion, right Right lower lobe pneumonia Right lower lobe pulmonary infiltrate Right lower lobe pulmonary infiltrate Pleural effusion, right Right lower lobe pneumonia Right lower lobe pulmonary infiltrate Chief Complaint CONCERN FOR PNEUMONI A EORDER- COUGH RLL PNE, FAILED OUTPATIENT TREATMENTS RLL PNE, FAILED OUTPATIENT TREATMENTS RLL PNE, FAILED OUTPATIENT TREATMENTS RLL PNE, FAILED OUTPATIENT TREATMENTS RLL PNE, FAILED OUTPATIENT TREATMENTS RLL PNE, FAILED OUTPATIENT TREATMENTS HOSPITAL FU R LOWER LOBE Pneumonia, unspecified organism HOSP. 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, EST.CARE, NPP SENT PNEUMONIA/DOCTOR TO FAX sob chronic pnemonia Reason for Visit Pleural effusion, ri ght Right lower lobe pneumonia Pleural effusion, right Right lower lobe pneumonia Right lower lobe pulmonary infiltrate COPD (chronic obstructive pulmonary disease) Right lower lobe pulmonary infiltrate Pleural effusion, right Right lower lobe pneumonia Right lower lobe pulmonary infiltrate Encounter to establish care COPD (chronic obstructive pulmonary disease) Cough Dyspnea Tobacco abuse Recurrent pneumonia Chief Complaint RLL PNE, FAILED OUTP ATIENT TREATMENTS RLL PNE, FAILED OUTPATIENT TREATMENTS RLL PNE, FAILED OUTPATIENT TREATMENTS RLL PNE, FAILED OUTPATIENT TREATMENTS RLL PNE, FAILED OUTPATIENT TREATMENTS HOSPITAL FU R LOWER LOBE Pneumonia, unspecified organism HOSP. 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, EST.CARE, NPP SENT PNEUMONIA/DOCTOR TO FAX sob chronic pnemonia 3 M FU PNEUMONIA Reason for Visit Pleural effusion, ri ght Right lower lobe pulmonary infiltrate COPD (chronic obstructive pulmonary disease) Right lower lobe pneumonia Right lower lobe pulmonary infiltrate Pleural effusion, right Right lower lobe pulmonary infiltrate Right lower lobe pneumonia Encounter to establish care COPD (chronic obstructive pulmonary disease) Cough Dyspnea Tobacco abuse Recurrent pneumonia COPD (chronic obstructive pulmonary disease) Right lower lobe pneumonia Chief Complaint chronic pnemonia 3 M FU PNEUMONIA J18.9 J18.9 Reason for Visit COPD (chronic obstru ctive pulmonary disease) Cough Dyspnea Tobacco abuse Recurrent pneumonia COPD (chronic obstructive pulmonary disease) Right lower lobe pneumonia Chief Complaint PNEUMONIA J18.9 J18.9 3 M FU PNEUMONIA SOB Reason for Visit Right lower lobe pul monary infiltrate Tobacco use COPD (chronic obstructive pulmonary disease) Chief Complaint PNEUMONIA J18.9 J18.9 3 M FU PNEUMONIA SOB RESULTS Reason for Visit Right lower lobe pul monary infiltrate Tobacco use COPD (chronic obstructive pulmonary disease) Right lower lobe pulmonary infiltrate Chief Complaint J18.9 J18.9 3 M FU PNEUMONIA SOB RESULTS [facility] ER FU Reason for Visit Right lower lobe pul monary infiltrate Tobacco use COPD (chronic obstructive pulmonary disease) Right lower lobe pulmonary infiltrate Elevated PSA Pleural effusion, right Right lower lobe pulmonary infiltrate Tobacco use COPD (chronic obstructive pulmonary disease) Right lower lobe pneumonia Chief Complaint J18.9 J18.9 3 M FU PNEUMONIA SOB RESULTS [facility] ER FU results Reason for Visit Right lower lobe pul monary infiltrate Tobacco use COPD (chronic obstructive pulmonary disease) Right lower lobe pulmonary infiltrate Elevated PSA Pleural effusion, right Right lower lobe pulmonary infiltrate Tobacco use COPD (chronic obstructive pulmonary disease) Right lower lobe pneumonia Bronchial obstruction Right lower lobe pulmonary infiltrate Chief Complaint Admit Date 6-8 wk fu June 03, 2024 8 :01am 3 month FU September 16, 2024 8:03am Lymph Node FU September 22, 2024 7:54a m Reason for Visit Admit Date Abnormal chest xray June 03, 2024 8 :01am Bronchial obstruction June 03, 2024 8:01am Asthma-COPD overlap syndrome May 8:01am Tobacco use June 03, 2024 8 :01am Bronchial obstruction September 16, 2024 8:03 am Asthma-COPD overlap syndrome September 16 8:03am Tobacco use September 16, 2024 8:03am Chief Complaint Admit Date 3 month FU September 16, 2024 8:03am Lymph Node FU September 22, 2024 7:54a m Annual/Physical November 03, 2024 7:57 am Reason for Visit Admit Date Bronchial obstruction September 16, 2024 8:03 am Asthma-COPD overlap syndrome September 16 8:03am Tobacco use September 16, 2024 8:03am Cavitary lesion of lung September 22, 2024 7 :54am Elevated PSA September 22, 2024 7:54a m Asthma-COPD overlap syndrome September 22, 025 7:54am Tobacco use September 22, 2024 7:54a m Reason for Visit Admit Date Bronchial obstruction September 16, 2024 8:03 am Asthma-COPD overlap syndrome September 16 8:03am Tobacco use September 16, 2024 8:03am Cavitary lesion of lung September 22, 2024 7 :54am Elevated PSA September 22, 2024 7:54a m Asthma-COPD overlap syndrome September 22, 2 025 7:54am Tobacco use September 22, 2024 7:54a m Abnormal chest xray November 03, 2024 7:57 am Elevated PSA November 03, 2024 7:57 am Encounter for wellness examination in ad ult November 03, 2024 7:57am Skin lesion of back November 03, 2024 7:57 am Asthma-COPD overlap syndrome November 03, 2024 7:57am Tobacco use November 03, 2024 7:57 am Advance Directives No Advanced Directives Records Found Advance Directive Response Recorded Date/ Time Living Will No August 04, 2021 5:37am Power of Technical Fellow No August 04 5:37am Advance Directive Response Recorded Date/ Time Living Will No August 04, 2021 7:53am Power of Technical Fellow No August 04 7:53am Advance Directive Response Recorded Date/ Time Living Will No October 09, 2021 1 2:20pm Power of Technical Fellow No October 09, 2021 12:20pm Advance Directive Response Recorded Date/ Time Living Will No March 22 022 8:15pm Power of Technical Fellow No March 22, 2022 8:15pm Advance Directive Response Recorded Date/ Time Living Will No April 16 3:12pm Power of Technical Fellow No April 16, 2022 3:12pm Family History No Family History Records Found Relationship Condition Age at Onset Recorded Date/T anders father Chronic obstructive pulmonary disease Unk nown Cardiac disease Unknown Hypertension Unknown Diabetes mellitus Unknown Congestive heart failure Unknown mother Coronary artery disease Unknown Myocardial infarction Unknown Health Concerns Infection Onset Date Last Indicated Resolved Time COVID-19 Rule-Out 06/19/2022 06/19/2022 Respiratory Rule-Out 06/19/2022 06/19/2022 Infection Onset Date Last Indicated Resolved Time COVID-19 Rule-Out 06/19/2022 06/19/2022 06/20/2022 12:39 AM EST Respiratory Rule-Out 06/19/2022 06/19/2022 Infection Onset Date Last Indicated Resolved Time COVID-19 Rule-Out 08/04/2022 08/04/2022 Infection Onset Date Last Indicated Resolved Time COVID-19 Rule-Out 08/07/2022 08/07/2022 08/07/2022 8:26 AM EDT Respiratory Rule-Out 08/07/2022 08/07/2022 023 8:26 AM EDT Medications Administered Section Inactive Administered Medications - up to 3 most recent administrations Medication Order MAR Action Action Date Dose Rate Site albuterol 2.5 mg /3 mL (0.083 %) 2.5 mg (PROVENTIL) 2.5 mg, INHALATION, NEEDED, 1 dose, Starting on Zo 06/19/22 at 1000, Until Thu06/20/22 at 0302, wheezing/shortness of breath, Preprocedure NaCl 0.9% iv infusion 5-30 mL/hr, INTRAVENOUS, CONTINUOUS, Starting on Zo 06/19/22 at 1030, Until Thu06/20/22 at 0302, Preprocedure New Bag/Syringe/Bottle 06/19/2022 10:19 AM EST Inactive Administered Medications - up to 3 most recent administrations Medication Order MAR Action Action Date Dose Rate Site acetaminophen 650 mg tab(s) (TYLENOL) 650 mg, ORAL, NEEDED, 1 dose, Starting on Zo 08/07/22 at 0858, Until Thu08/08/22 at 030, Mild Pain (1-3) - Enteral, Moderate Pain (4-6) - Enteral, Severe Pain (>/=7) - Enteral, If ordered PRN for pain, patient/guardian may elect to receive this medication for higher pain levels INSTEAD of the opioid, if preferred: Yes albuterol 2.5 mg /3 mL (0.083 %) 2.5 mg (PROVENTIL) 2.5 mg, INHALATION, NEEDED, 1 dose, Starting on Zo 08/07/22 at 0645, Until Thu08/08/22 at 0303, wheezing/shortness of breath, Preprocedure albuterol 2.5 mg /3 mL (0.083 %) 2.5 mg (PROVENTIL) 2.5 mg, INHALATION, NEEDED, 1 dose, Starting on Thu08/07/22 at 0858, Until Thu08/08/22 at 0303, wheezing/shortness of breath, cough/wheezing benzocaine 1 Lozenge (CHOLORASEPTIC WARMING SORE THROAT) 1 Lozenge, MUCOUS MEMBRANE (TOPICAL MOUTH & THROAT), ONCE, 1 dose, On Zo 08/07/22 at 0900 Given 08/07/2022 9:00 AM EDT 1 Lozenge NaCl 0.9% iv infusion 5-30 mL/hr, INTRAVENOUS, CONTINUOUS, Starting on Zo 08/07/22 at 0700, Until Thu08/08/22 at 0303, Preprocedure Reason for Referral Specialty Diagnoses / Procedures Referred By Contac t Referred To Contact CT IMAGING Diagnoses Pneumonia of right lower lobe due to infectious organism Procedures CT CHEST WO IVCON DIAGNOSTIC COMPUTED TOMOGRAPHY THORAX W/O CNTRST Parth Freeman MD [address] [place] [address] Ct Imaging Referral ID Status Reason Start Date Expiration Date V isits Requested Visits Authorized [id number] Open Auto-Generat ed Referral Patient Cleared - Admin/Chairm an/Director advise to proceed 08/06/2022 09/03/2023 1 1 Summary Purpose Additional Source Comments Goals (unrecognized section and content) Goals may be documented in a n alternate sectionGoals may be documented in an alternate sectionGoals may be documented in an alternate sectionGoals may be documented in an alternate sectionGoals may be documented in an alternate sectionGoals may be documented in an alternate sectionGoals may be documented in an alternate sectionGoals may be documented in an alternate sectionGoals may be documented in an alternate sectionGoals may be documented in an alternate sectionGoals may be documented in an alternate sectionGoals may be documented in an alternate section Source Comments (unrecognize d section and content) In the event this informatio n is protected by the Federal Confidentiality of Alcohol and Drug Abuse Patient Records regulations: The Federal rules restrict any use of the information to criminally investigate or prosecute any alcohol or drug abuse patient.[facility] the event this information is protected by the Federal Confidentiality of Alcohol and Drug Abuse Patient Records regulations: The Federal rules restrict any use of the information to criminally investigate or prosecute any alcohol or drug abuse patient.[facility]In the event this information is protected by the Federal Confidentiality of Alcohol and Drug Abuse Patient Records regulations: The Federal rules restrict any use of the information to criminally investigate or prosecute any alcohol or drug abuse patient.[facility]In the event this information is protected by the Federal Confidentiality of Alcohol and Drug Abuse Patient Records regulations: The Federal rules restrict any use of the information to criminally investigate or prosecute any alcohol or drug abuse patient.[facility]In the event this information is protected by the Federal Confidentiality of Alcohol and Drug Abuse Patient Records regulations: The Federal rules restrict any use of the information to criminally investigate or prosecute any alcohol or drug abuse patient.[facility] HospitalIn the event this information is protected by the Federal Confidentiality of Alcohol and Drug Abuse Patient Records regulations: The Federal rules restrict any use of the information to criminally investigate or prosecute any alcohol or drug abuse patient.[facility] HospitalIn the event this information is protected by the Federal Confidentiality of Alcohol and Drug Abuse Patient Records regulations: The Federal rules restrict any use of the information to criminally investigate or prosecute any alcohol or drug abuse patient.[facility] HospitalIn the event this information is protected by the Federal Confidentiality of Alcohol and Drug Abuse Patient Records regulations: The Federal rules restrict any use of the information to criminally investigate or prosecute any alcohol or drug abuse patient.[facility] HospitalIn the event this information is protected by the Federal Confidentiality of Alcohol and Drug Abuse Patient Records regulations: The Federal rules restrict any use of the information to criminally investigate or prosecute any alcohol or drug abuse patient.[facility] HospitalIn the event this information is protected by the Federal Confidentiality of Alcohol and Drug Abuse Patient Records regulations: The Federal rules restrict any use of the information to criminally investigate or prosecute any alcohol or drug abuse patient.[facility] HospitalIn the event this information is protected by the Federal Confidentiality of Alcohol and Drug Abuse Patient Records regulations: The Federal rules restrict any use of the information to criminally investigate or prosecute any alcohol or drug abuse patient.[facility] HospitalIn the event this information is protected by the Federal Confidentiality of Alcohol and Drug Abuse Patient Records regulations: The Federal rules restrict any use of the information to criminally investigate or prosecute any alcohol or drug abuse patient.[facility] HospitalIn the event this information is protected by the Federal Confidentiality of Alcohol and Drug Abuse Patient Records regulations: The Federal rules restrict any use of the information to criminally investigate or prosecute any alcohol or drug abuse patient.[facility] HospitalIn the event this information is protected by the Federal Confidentiality of Alcohol and Drug Abuse Patient Records regulations: The Federal rules restrict any use of the information to criminally investigate or prosecute any alcohol or drug abuse patient.[facility] HospitalIn the event this information is protected by the Federal Confidentiality of Alcohol and Drug Abuse Patient Records regulations: The Federal rules restrict any use of the information to criminally investigate or prosecute any alcohol or drug abuse patient.[facility] HospitalIn the event this information is protected by the Federal Confidentiality of Alcohol and Drug Abuse Patient Records regulations: The Federal rules restrict any use of the information to criminally investigate or prosecute any alcohol or drug abuse patient.[facility] HospitalIn the event this information is protected by the Federal Confidentiality of Alcohol and Drug Abuse Patient Records regulations: The Federal rules restrict any use of the information to criminally investigate or prosecute any alcohol or drug abuse patient.[facility] HospitalIn the event this information is protected by the Federal Confidentiality of Alcohol and Drug Abuse Patient Records regulations: The Federal rules restrict any use of the information to criminally investigate or prosecute any alcohol or drug abuse patient.[facility] HospitalIn the event this information is protected by the Federal Confidentiality of Alcohol and Drug Abuse Patient Records regulations: The Federal rules restrict any use of the information to criminally investigate or prosecute any alcohol or drug abuse patient.[facility] HospitalIn the event this information is protected by the Federal Confidentiality of Alcohol and Drug Abuse Patient Records regulations: The Federal rules restrict any use of the information to criminally investigate or prosecute any alcohol or drug abuse patient.[facility] HospitalIn the event this information is protected by the Federal Confidentiality of Alcohol and Drug Abuse Patient Records regulations: The Federal rules restrict any use of the information to criminally investigate or prosecute any alcohol or drug abuse patient.[facility] HospitalIn the event this information is protected by the Federal Confidentiality of Alcohol and Drug Abuse Patient Records regulations: The Federal rules restrict any use of the information to criminally investigate or prosecute any alcohol or drug abuse patient.[facility] HospitalIn the event this information is protected by the Federal Confidentiality of Alcohol and Drug Abuse Patient Records regulations: The Federal rules restrict any use of the information to criminally investigate or prosecute any alcohol or drug abuse patient.[facility] HospitalIn the event this information is protected by the Federal Confidentiality of Alcohol and Drug Abuse Patient Records regulations: The Federal rules restrict any use of the information to criminally investigate or prosecute any alcohol or drug abuse patient.[facility] HospitalIn the event this information is protected by the Federal Confidentiality of Alcohol and Drug Abuse Patient Records regulations: The Federal rules restrict any use of the information to criminally investigate or prosecute any alcohol or drug abuse patient.[facility] HospitalIn the event this information is protected by the Federal Confidentiality of Alcohol and Drug Abuse Patient Records regulations: The Federal rules restrict any use of the information to criminally investigate or prosecute any alcohol or drug abuse patient.[facility] HospitalIn the event this information is protected by the Federal Confidentiality of Alcohol and Drug Abuse Patient Records regulations: The Federal rules restrict any use of the information to criminally investigate or prosecute any alcohol or drug abuse patient.[facility] HospitalIn the event this information is protected by the Federal Confidentiality of Alcohol and Drug Abuse Patient Records regulations: The Federal rules restrict any use of the information to criminally investigate or prosecute any alcohol or drug abuse patient.[facility] HospitalIn the event this information is protected by the Federal Confidentiality of Alcohol and Drug Abuse Patient Records regulations: The Federal rules restrict any use of the information to criminally investigate or prosecute any alcohol or drug abuse patient.[facility] Reason for Visit (unrecogniz ed section and content) Reason Onset Date Comments Transition Of Care 08/07/2021 Reason Comments left wrist pain Hit wrist with a dri ll this am Reason Comments Appointment PreOp Bronch Specialty Diagnoses / Procedures Referred By Contac t Referred To Contact ADMITTING Diagnoses Bronchiolar disease Procedures [facility] INCL FLUOR GDNCE DX W/CELL WASHG SPX BRONCHOSCOPY [facility] H23 [address] [address] Referral ID Status Reason Start Date Expiration Date Visits Re quested Visits Authorized [id number] 1 Reason Comments Results Referral ID Status Reason Start Date Expiration Date Visits Re quested Visits Authorized [id number] 1 Reason Comments Appointment Reason Comments Recheck Reason Comments Release Of Medical Records Reason Comments Received Outside Medical Records Reason Comments Appointment Cancelled 11/21/24: Per My a D, Patient called and would like to cancel appointment today with Dr. Freeman. He will call at a later date to reschedule. Reason Comments Consult Reason Comments Follow Up colonoscopy Care Teams (unrecognized sec tion and content) Almond Grinder Relationship Specialty Start Date End Date Pcp, No PCP - General 08/07/21 Team Status: Active Member Role Status Dates Dr. Paola Piper MD Family Provider Active Dr. Bettye Vo MD Primary Care Provider Active Team Status: Inactive Member Role Status Dates Dr. Bettye Vo MD Primary Care Provider Active Dr. Julito Cason MD Attending Provider, Referring Pr [facility] Active Team Status: Active Member Role Status Dates Dr. Bettye Vo MD Primary Care Provider Active Dr. Julito Cason MD Referring Provider, Other Provid er Active Dr. Lino Escalante DO Attending Provider Active Team Status: Inactive Member Role Status Dates Dr. Bettye Vo MD Primary Care Provider, Attendi ng Provider Active Team Status: Inactive Member Role Status Dates Dr. Bettye Vo MD Primary Care Provider, Referri ng Provider Active Rhoda Infante MEDICAL SCHEDULER, MEDICAL SCHEDULER-C Attending Provider Active Team Status: Active Member Role Status Dates Dr. Bettye Vo MD Primary Care Provider Active Dr. Julito Cason MD Attending Provider , Referring Provider, Other Provider Active Team Status: Inactive Member Role Status Dates Dr. Bettye Vo MD Primary Care Provider, Referri ng Provider Active Dr. Julito Cason MD Attending Provider Active Team Status: Inactive Member Role Status Dates Dr. Bettye Vo MD Primary Care Provider Active Dr. Adolph Roach MD Attending Provider, Emergency Provider Active Team Status: Inactive Member Role Status Dates Dr. Bettye Vo MD Primary Care Provider, Other P rovider Active Rhoda Infante MEDICAL SCHEDULER, MEDICAL SCHEDULER-C Attending Provider, Referrin g Provider Active Dr. Julito Cason MD Other Provider Active Team Status: Inactive Member Role Status Dates Dr. Bettye Vo MD Primary Care Provider Active Dr. Sandeep Callahan MD Attending Provider Active Almond Grinder Relationship Specialty Start Date End Date Bettye Vo MD [address] [place] [address] PCP - General Internal Medicine 07/17/22 Julito Cason [address] [place] [address] Pulmonary Disease 07/17/22 Almond Grinder Relationship Specialty Start Date End Date Bettye Vo MD [address] [place] [address] PCP - General Internal Medicine 07/17/22 Julito Cason [address] [place] [address] Pulmonary Disease 07/17/22 Almond Grinder Relationship Specialty Start Date End Date Bettye Vo MD [address] [place] [address] PCP - General Internal Medicine 07/17/22 Julito Cason [address] [place] [address] Pulmonary Disease 07/17/22 Almond Grinder Relationship Specialty Start Date End Date Bettye Vo MD [address] [place] [address] PCP - General Internal Medicine 07/17/22 Julito Cason [address] [place] [address] Pulmonary Disease 07/17/22 Almond Grinder Relationship Specialty Start Date End Date Bettye Vo MD [address] [place] [address] PCP - General Internal Medicine 07/17/22 Julito Cason [address] [place] [address] Pulmonary Disease 07/17/22 Almond Grinder Relationship Specialty Start Date End Date Paola Piper MD [address] [place] [address] PCP - General 08/19/07 08/06/21 Almond Grinder Relationship Specialty Start Date End Date Paola Piper MD [address] [place] [address] PCP - General 08/19/07 08/06/21 Almond Grinder Relationship Specialty Start Date End Date Paola Piper MD [address] [place] [address] PCP - General 08/19/07 08/06/21 Almond Grinder Relationship Specialty Start Date End Date Paola Piper MD [address] [facility] [place] [address] PCP - General 08/19/07 08/06/21 Almond Grinder Relationship Specialty Start Date End Date Bettye Vo MD [address] [place] [address] PCP - General Internal Medicine 07/17/22 Julito Cason MD [address] [place] [address] Pulmonary Disease 07/17/22 Almond Grinder Relationship Specialty Start Date End Date Bettye Vo MD [address] [facility] [place] [address] PCP - General Internal Medicine 07/17/22 Julito Cason MD [address] [place] [address] Pulmonary Disease 07/17/22 Almond Grinder Relationship Specialty Start Date End Date Bettye Vo MD [address] [place] [address] PCP - General Internal Medicine 07/17/22 Julito Cason MD [address] [place] [address] Pulmonary Disease 07/17/22 Team Status: Inactive Member Role Status Dates Dr. Bettye Vo MD Primary Care Provider Active Start: June 03, 2024 End: June 03, 2024 Dr. Bettye Vo MD Referring Provider Active Start: June 03, 2024 End: June 03, 2024 MONICA Moe Attending Provider Active Start: June 03, 2024 End: June 03, 2024 Team Status: Inactive Member Role Status Dates Dr. Bettye Vo MD Primary Care Provider Active Start: September 16, 2024 End: September 16, 2024 Dr. Bettye Vo MD Referring Provider Active Start: September 16, 2024 End: September 16, 2024 MONICA Moe Attending Provider Active Start: September 16, 2024 End: September 16, 2024 Team Status: Inactive Member Role Status Dates Dr. Bettye Vo MD Primary Care Provider Active Start: September 22, 2024 End: September 22, 2024 Dr. Bettye Vo MD Attending Provider Active Start: September 22, 2024 End: September 22, 2024 Team Status: Inactive Member Role Status Dates Dr. Bettye Vo MD Primary Care Provider Active Start: November 03, 2024 End: November 03, 2024 Dr. Bettye Vo MD Attending Provider Active Start: November 03, 2024 End: November 03, 2024 Almond Grinder Relationship Specialty Start Date End Date Bettye Vo MD [address] [place] [address] PCP - General Internal Medicine 07/17/22 Julito Cason MD [address] [place] [address] Pulmonary Disease 07/17/22 Almond Grinder Relationship Specialty Start Date End Date Bettye Vo MD [address] [place] [address] PCP - General Internal Medicine 07/17/22 Julito Cason MD [address] [place] [address] Pulmonary Disease 07/17/22 Almond Grinder Relationship Specialty Start Date End Date Bettye Vo MD [address] [place] [address] PCP - General Internal Medicine 07/17/22 Juliot Cason MD [address] [place] [address] Pulmonary Disease 07/17/22 Almond Grinder Relationship Specialty Start Date End Date Bettye Vo MD [address] [place], [place] [id number] PCP - General Internal Medicine 07/17/22 Julito Cason MD [address] [place], [place] [id number] Pulmonary Disease 07/17/22 Continuous Active and Recently Administ ered Medications (unrecognized section and content) Medication Order 06/17/2022 06/18/2022 06/19/2022 NaCl 0.9% iv infusion 5-30 mL/hr, INTRAVENOUS, CONTINUOUS, Starting on Zo 06/19/22 at 1030, Until Thu06/20/22 at 0302, Preprocedure 1019 (New Bag/Syring e/Bottle - Provider: Sadie Espinosa APRN.SUPERVISOR URANIUM PROCESSING)1113 (Canceled Entry - Provider: Sadie Espinosa APRN.CRNA)1156 (Infusion Complete - Provider: Sadie Espinosa APRN.CRNA) PRN Medication Order 06/17/2022 06/18/2022 06/19/2022 albuterol 2.5 mg /3 mL (0.083 %) 2.5 mg (PROVENTIL) 2.5 mg, INHALATION, NEEDED, 1 dose, Starting on Zo 06/19/22 at 1000, Until Thu06/20/22 at 0302, wheezing/shortness of breath, Preprocedure Scheduled Medication Order 08/05/2022 08/06/2022 08/07/2022 benzocaine 1 Lozenge (CHOLORASEPTIC WARMING SORE THROAT) (COMPLETED) 1 Lozenge, MUCOUS MEMBRANE (TOPICAL MOUTH & THROAT), ONCE, 1 dose, On Zo 08/07/22 at 0900 0900 (Given - Provid er: Fred Guillaume RN) Continuous Medication Order 08/05/2022 08/06/2022 08/07/2022 NaCl 0.9% iv infusion 5-30 mL/hr, INTRAVENOUS, CONTINUOUS, Starting on Zo 08/07/22 at 0700, Until Thu08/08/22 at 0303, Preprocedure 0700 (Due) PRN Medication Order 08/05/2022 08/06/2022 08/07/2022 acetaminophen 650 mg tab(s) (TYLENOL) 650 mg, ORAL, NEEDED, 1 dose, Starting on Zo 08/07/22 at 0858, Until Thu08/08/22 at 0303, Mild Pain (1-3) - Enteral, Moderate Pain (4-6) - Enteral, Severe Pain (>/=7) - Enteral, If ordered PRN for pain, patient/guardian may elect to receive this medication for higher pain levels INSTEAD of the opioid, if preferred: Yes albuterol 2.5 mg /3 mL (0.083 %) 2.5 mg (PROVENTIL) 2.5 mg, INHALATION, NEEDED, 1 dose, Starting on Zo 08/07/22 at 0645, Until Thu08/08/22 at 0303, wheezing/shortness of breath, Preprocedure albuterol 2.5 mg /3 mL (0.083 %) 2.5 mg (PROVENTIL) 2.5 mg, INHALATION, NEEDED, 1 dose, Starting on Zo 08/07/22 at 0858, Until Thu08/08/22 at 0303, wheezing/shortness of breath, cough/wheezing (unrecognized sect ion and content) No Status Records FoundNo Status Records Found INFORMATION SOURCE (unrecogn ized section and content) DATE CREATED AUTHOR 11/04/2024 [facility] DATE CREATED AUTHOR AUTHOR'S CARLOSIZ ATION 12/26/2024 [facility] FOR RECORDS PERTAINING TO PATIENTS WHO ARE OR HAVE BEEN ENROLLED IN A CHEMICAL DEPENDENCY/SUBSTANCEABUSE PROGRAM, SOME INFORMATION MAY BE OMITTED. This clinical summary was aggregated from multiple sources. Caution should be exercised in using it in the provision of clinical care. This summary normalizes information from multiple sources, and as a consequence, information in this document may materially change the coding, format and clinical context of patient data. In addition, data may be omitted in some cases. CLINICAL DECISIONS SHOULD BE BASED ON THE PRIMARY CLINICAL RECORDS. [employer] [facility]. provides no warranty or guarantee of the accuracy or completeness of information in this document.
[2025-03-04 15:41] VITALS: BP 163/93; PULSE 73; RESP 16; TEMP 37.1; O2SAT 100
== END 2025-03-04 15:41 | disposition home or self-care (01) ==
LOC: ED 15:31
PROVIDERS: Emergency Provider Emergency Medicine; PCP Internal Medicine; Visit Provider Emergency Medicine
DX: S46.211A Strain of muscle, fascia and tendon of other parts of biceps, right arm, initial encounter (principal); J43.9 Emphysema, unspecified; F17.210 Nicotine dependence, cigarettes, uncomplicated; W54.1XXA Struck by dog, initial encounter
CPT/HCPCS: 73080; 99282

== ENCOUNTER → 2025-03-09 | Outpatient (CLI) | payer BC, SELFPAY ==
--- NOTE | 2025-03-09 08:49 | MRI_ITS ---
PROCEDURE: MRI/Upper Ext Joint Only(Routine)
== END | disposition home or self-care (01) ==
LOC: MRI 08:47
PROVIDERS: PCP Internal Medicine; Referring Provider Orthopaedic Surgery Sports Medicine; Visit Provider Orthopaedic Surgery Sports Medicine
DX: S46.211A Strain of muscle, fascia and tendon of other parts of biceps, right arm, initial encounter (principal)
CPT/HCPCS: 73221

== ENCOUNTER 2025-03-22 11:11 | Day surgery (SDC) | payer BC, SELFPAY ==
[2025-03-22] VITALS (7 sets, daily range): BP systolic 120–140; BP diastolic 74–83; PULSE 57–71; RESP 16–18; TEMP 35.9–37.2; O2SAT 94–99; BMI 22.1
[2025-03-22] MEDS: Lactated Ringers 1,000 ML 15 ML IV (12:36)
--- NOTE | 2025-03-22 12:46 | PRE.ANES_ITS ---
ASA Classification* ASA Classification ASA Classification: 3 (COPD/Asthma overlap) Assessment & Plan Anesthesia* Anesthesia Assessment Anesthesia Assessment: Discussed sedation and/or anesthesia options, risks, benefits, and alternatives with patient/parents/legal guardian/POA. Questions invited. The patient/parents/legal guardian/POA seems to understand and agrees to proceed with anesthesia plan. Reviewed the physical assessment, medical history, allergy history and patient home medications list prior to surgery/procedure/anesthetic and documented any changes. Performed airway and anesthesia risk assessments. Anesthesia Type Anesthesia Type: General and Block (RUE nerve block (interscalene vs supraclav). Benefits/risks/alternatives explained. Opportunity for questions invited. Patient aware that phrenic nerve paralysis can be side effect. Patient would like to proceed with block ) History Source History Obtained from:: Patient and Chart Anesthesia Focused Assessment* Temperature: 99.0 F Pulse Rate: 57 Blood Pressure: 120/76 Respiratory Rate: 16 Pulse Ox: 96 Oxygen Delivery Method: Room Air Airway Assessment Mouth opens: >3 cm Mallampati Score: II Neck Range of motion (ROM): Full ROM Labs Anesthesia Preop lab: CBC WBC, (4.4-11.0) 17.8 K/mm3 H 04/12/24, 18:10 RBC, (4.6-6.2) 4.89 M/mm3 04/12/24, 18:10 Hgb, (13.0-16.5) 15.0 g/dL 04/12/24, 18:10 Hct, (40-54) 41.9 % 04/12/24, 18:10 Plt Count, (150-450) 135 K/mm3 L 04/12/24, 18:10 CHEMISTRY Potassium, (3.5-5.1) 3.4 mmol/L L 04/12/24, 18:10 Sodium, (136-145) 132 mmol/L L 04/12/24, 18:10 BUN, (7-18) 13 mg/dL 04/12/24, 18:10 Creatinine, (0.70-1.30) 0.74 mg/dL 04/12/24, 18:10 Glucose, (74-106) 130 mg/dL H 04/12/24, 18:10 COAG PT, (11.7-14.9) 14.8 SECONDS 04/02/22, 08:06 Pre-Assessment Diagnosis/Proposed Procedure Planned Operative Procedure(s): RIGHT DISTAL BICEPS REPAIR Anesthesia History Anesthesia History - precision assembler bench: Anesthesia History - precision assembler bench Hx Hospitalization No 03/15/25 15:01 Any Problems With Anesthesia No 03/15/25 15:01 Cholinesterase deficiency No 03/15/25 15:01 You/Your Family Experience No 03/15/25 15:01 fever (hyperthermia) with Relationship Recent Exposure to Contagious No 04/18/22 11:19 Disease Does patient have nerve No 03/15/25 15:01 stimulator Patient instructed to have device shut off --Does patient have Pacemaker No 03/22/25 12:28 or ICD? When Was Last Pacemaker Check QUESTION #4 FULL TEXT: You/Your Family Experience fever (hyperthermia) with Anesthesia Last Oral Intake Last Oral intake: Last Oral Intake NPO since 06:00 03/22/25 12:28 Meds taken in AM with sips of Yes 03/22/25 12:28 water? Meds patient instructed to see med list 03/22/25 12:28 take am of surgery PONV PONV - precision assembler bench: PONV - precision assembler bench Female No 03/15/25 15:01 HX of Motion Sickness No 03/15/25 15:01 HX of N/V After Surgery No 03/15/25 15:01 Non-Smoker No 03/15/25 15:01 Duration of Surgery greater Yes 03/15/25 15:01 than 60 minutes Number of Risk Factors 1 03/15/25 15:01 PONV Score Low Risk 03/15/25 15:01 Height & Weight Height & Weight: Anesthesia: Height & Weight Height 6 ft 03/22/25 12:28 Weight: 74 kg 03/22/25 12:28 Body Mass Index (BMI) 22.1 03/22/25 12:28 Respiratory Assessment Respiratory Assessment - precision assembler bench: Respiratory Tract Infection Hx - precision assembler bench Hx Respiratory Tract Infection Yes: RESP INFECTION/TREATED/ 03/15/25 15:01 RESOLVED STOP Sleep Apnea STOP Sleep Apnea - precision assembler bench: STOP Sleep Apnea - precision assembler bench Hx Hypertension No 03/15/25 15:01 Hx Sleep Apnea No 03/15/25 15:01 CPAP No 12/09/22 12:40 BIPAP Do you snore loudly (louder No 03/15/25 15:01 than talking or can be heard Do you often feel tired/ No 03/15/25 15:01 fatigued/ sleepy during daytime? Has anyone observed you stop No 03/15/25 15:01 breathing during sleep? STOP Results Negative 03/15/25 15:01 QUESTION #5 FULL TEXT : Do you snore loudly (louder than talking or can be heard through closed doors)? Tobacco Use History Tobacco Use History - precision assembler bench: Tobacco Use History - precision assembler bench Tobacco Use Smoking Status Current every day smoker 03/15/25 15:01 Hx Tobacco Use Yes 03/15/25 15:01 Years Smoking Packs Smoked per Day Smoking Cessation Date was within the last 15 years Hx Smoking Cessation Date Hx Smoking Cessation Yes 03/15/25 15:01 Counseling Hematologic Medial History Hematologic Hx - precision assembler bench: Hematologic Medical Hx - immigration lawyer Hx of Blood Transfusion No 03/15/25 15:01 Hx of Transfusion in last 3 No 03/15/25 15:01 Months Date of Last Transfusion (if within last 3 months) Ever experience any problems No 03/15/25 15:01 with transfusion(s)? Specify any problems Hx of Preganancy in last 3 N/A 03/15/25 15:01 Months Nurse Filling Out Transfusion DSCHRIBER 03/15/25 15:01 & Questions: Date: 03/15/25 03/15/25 15:01 Time: 15:02 03/15/25 15:01 Patient unable to answer at this time (ie. confused, unrespo /Reproduction History /Reproductive History - precision assembler bench: /Reproductive Hx- precision assembler bench Hx Now No 03/15/25 15:01 Gestational Age (in weeks): EDC: Hx Hx Para Hx Section SAB No 03/15/25 15:01 Does the father of the baby or his family experience fever w Father of the baby Malignant Hypertension history comment Active Medications Active Medications: Current Medications Generic Name Dose Route Start Last Admin Trade Name Freq PRN Reason Stop Dose Admin Cefazolin Sodium 2 gm/ Sodium 110 mls @ 200 mls/hr 03/22/25 12:30 Chloride IV 03/22/25 13:02 INTRAOP ONE Lactated Ringer's 1,000 mls @ 15 mls/hr 03/22/25 11:30 03/22/25 12:36 IV 15 mls/hr .Q48H SHANIQUA Administration PFSH Medical History (Updated 03/15/25 @ 15:07 by Ifeoma Mishra) Loss of hearing Prostate disease COPD (chronic obstructive pulmonary disease) Wears glasses Smoker Chronic cough Emphysema, unspecified Pleural effusion, right Right lower lobe pneumonia Home Medications Medication Instructions Recorded Last Taken Type albuterol sulfate 90 mcg/actuation 2 inh inhalation Q4 -6H PRN 06/03/24 03/22/25 05:00 Rx aerosol inhaler shortness of breath or wheez ing #8.5 grams ipratropium 0.5 mg-albuterol 3 mg 3 ml inhalation Q4-6 H PRN 09/16/24 Unknown Rx (2.5 mg base)/3 mL nebulization shortness of breath or wheezing soln #180 mL fluticasone fur. 200 mcg-umeclid 1 inh inhalation Q24H #60 ea 11/04/24 03/22/25 05:00 Rx 62.5 mcg-vilant 25 mcg inhalat.powder (Trelegy Ellipta) Allergy/AdvReac Type Severity Reaction Status Date / Time No Known Allergies Allergy Verified 03/22/25 12:22 Family History Father COPD (chronic obstructive pulmonary disease) Heart disease Hypertension Diabetes CHF (congestive heart failure) Mother CAD (coronary artery disease) Myocardial infarction Hypertension Surgical History (Updated 03/15/25 @ 15:07 by Ifeoma Mishra) History of bronchoscopy Hx of colonoscopy Social History household members: spouse Smoking Status: Current every day smoker tobacco type: cigarettes Tobacco: How many years used: 31 how long ago did patient quit smoking: Smoke 1ppd x 30 yrs, 1/2ppd x 1yr (2021) alcohol intake: never substance use type: does not use what type of physical activity do you participate in: walking 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 Physical Exam Const alert, oriented x3 and average body habitus Resp normal respiratory effort, normal air movement and clear to auscultation bilaterally Cardio regular rate, regular rhythm, no murmurs and diaphoretic
--- NOTE | 2025-03-22 15:32 | HP.PCM_ITS ---
HPI - General HPI Narrative PAOLA POWERS, is a 49 M who presents for right distal biceps repair. No changes to history and physical exam. Right elbow marked. Patient understands wishes to proceed. Risks alternatives benefits discussed as well as postoperative instructions and narcotic counseling. Plan for preoperative block. No further concerns okay to proceed. MR#: [id number] Acct: [id number] Name: PAOLA POWERS Rep #: [id number] : 1975 Provider: Dr. Kian Mandel MD Age/Sex: 49/M Location: [facility] [place] Status: Signed Intake Vital Signs 03/07/2508:51 Height 6 ft Weight: 157 lb 4 oz BMI 21.3 Intake Visit Reasons: Right bicep Chief Complaint: MRI Review Accompanied by: Self Is patient in pain?: Yes (with movement ) Allergies No Known Allergies Allergy (Verified 03/10/25 08:14) Medications Medication Instructions Recorded Confirmed Type albuterol sulfate 90 mcg/actuation 2 inh inhalation Q4-6H PRN 06/03/2402/10 Rx aerosol inhaler shortness of breath or wheezing #8.5 grams ipratropium 0.5 mg-albuterol 3 mg 3 ml inhalation Q4-6H PRN 09/16/2403/10 Rx (2.5 mg base)/3 mL nebulization shortnes s of breath or wheezing soln #180 mL fluticasone fur. 200 mcg-umeclid 1 inh inhalation Q24H #60 ea 11/04/24 Rx 62.5 mcg-vilant 25 mcg inhalat.powder (Trelegy Ellipta) amoxicillin 875 mg-potassium 1 tab PO Q12H 10 days #20 tabs 03/03/25 03/10/25 Rx clavulanate 125 mg tablet PFSH Medical History Colon cancer screening Skin lesion of back Encounter for wellness examination in adult Wears glasses Smoker Shortness of breath on exertion Chronic cough Emphysema, unspecified Tobacco use Pleural effusion, right Right lower lobe pneumonia Surgical History No history of previous surgery Family History Father COPD (chronic obstructive pulmonary disease) Heart disease Hypertension Diabetes CHF (congestive heart failure) Mother CAD (coronary artery disease) Myocardial infarction Hypertension Social History household members: spouse Smoking Status: Current every day smoker tobacco type: cigarettes Tobacco: How many years used: 31 how long ago did patient quit smoking: Smoke 1ppd x 30 yrs, 1/2ppd x 1yr (2021) alcohol intake: never substance use type: does not use what type of physical activity do you participate in: walking 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 Kian Mandel MD 03/10/25 0810. Part of today’s visit was documented by [ ], acting as scribe. PAOLA POWERS is a 49 year old M here today for follow-up lateral right elbow MRI for question of the distal biceps tear Ortho Exam General General: Yes no acute distress Neurologic: Yes alert and Yes oriented x3 Psychologic: Yes reasonable and appropriate Supplemental Info [facility] Imaging Services [address] [place] [id number] Upper Ext Joint Only(Routine) MR#: [id number] Acct: [id number] Name: PAOLA POWERS Rep #: [id number] : 1975 M 49 From: Abdelrahman Magallon MD PCP: Dr. Josi Vo MD Status: REG CLI Study: Upper Ext Joint Only(Routine) Date of Exam: 03/09/25 Exam# [id number] Ordering Dr: Kian Mandel MD PROCEDURE: UPPER EXT JOINT ONLY(ROUTINE) 03/09/2025 REASON FOR EXAM: ASSESS DISTAL BICEPS TEAR TECHNIQUE: Procedure Code: MRIUEJ Modality: MR Procedure: UPPER EXT JOINT ONLY(ROUTINE) T1, T2, stir, multiplanar and multisequence images were obtained of the right elbow without IV contrast administration. COMPARISON: COMPARISON: None FINDINGS: Bone Marrow: There is no bony contusion or occult fracture. Effusion: There is a small joint effusion. Soft Tissues: Vascular structures and ulnar nerve appear intact. Ligaments and Tendons: There is a complete tear of the biceps tendon at the radial insertion with 7 cm of retraction. There is hemorrhage along the course of the biceps tendon with no discrete hematoma. There is edema and attenuation of the common extensor tendon origin without full-thickness tear. The radial collateral and lateral ulnar collateral show increased T2 signal and attenuation without laxity, grade 2 sprains. The radiocapitellar alignment is maintained. The common flexor tendon origin appears intact. The distal triceps appears intact. MRI/Upper Ext Joint Only(Routine) IMPRESSION: There is a complete tear of the biceps tendon at the radial insertion with 7 cm of retraction. There is hemorrhage along the course of the biceps tendon with no discrete hematoma. There is edema and attenuation of the common extensor tendon origin without full-thickness tear. The radial collateral and lateral ulnar collateral show increased T2 signal and attenuation without laxity, grade 2 sprains Reading Location: [facility] independently reviewed the imaging. Concur with radiologist report. Coding Level of Care Code Off vis,est,level 3 Diagnoses Rupture of right distal biceps tendon S46.211A Assessment and Plan Assessment and Plan (1) Rupture of right distal biceps tendon: Status: Acute Plan: 49-year-old man with a right distal biceps tear. We have previously talked about the risks and benefits pros and cons of nonoperative versus operative treatment. He wished to go ahead with surgery. Nonoperative higher chance he weakness in supination and flexion and cramping of the biceps. That makes sense surgery has its own set of risks risks of retear infection pain stiffness bleeding damage to the neurovascular structures 7% chance lateral antebrachial cutaneous nerve injury 1% posterior interosseous nerve injury. Risk of fracture and other complications. He wishes to go ahead with the right distal biceps repair. Will try to get this done within the next 2 weeks Pros and cons risks and benefits were discussed with the patient including but not limited to infection, pain, stiffness, bleeding, damage to surrounding structures, neurovascular injury, recurrence or retear, failure or wear of hardware or fixation, instability, fracture, deep vein thrombosis and pulmonary embolism, anesthetic risks, , patient dissatisfaction, need for further surgery and other risks. Patient understood and wished to proceed with surgery, and signed the informed consent documentation. [facility] Medical History (Updated 03/15/25 @ 15:07 by Ifeoma Mishra) Loss of hearing Prostate disease COPD (chronic obstructive pulmonary disease) Wears glasses Smoker Chronic cough Emphysema, unspecified Pleural effusion, right Right lower lobe pneumonia Home Medications Medication Instructions Recorded Last Taken Type albuterol sulfate 90 mcg/actuation 2 inh inhalation Q4 -6H PRN 06/03/24 03/22/25 05:00 Rx aerosol inhaler shortness of breath or wheez ing #8.5 grams ipratropium 0.5 mg-albuterol 3 mg 3 ml inhalation Q4-6 H PRN 09/16/24 Unknown Rx (2.5 mg base)/3 mL nebulization shortness of breath or wheezing soln #180 mL fluticasone fur. 200 mcg-umeclid 1 inh inhalation Q24H #60 ea 11/04/24 03/22/25 05:00 Rx 62.5 mcg-vilant 25 mcg inhalat.powder (Trelegy Ellipta) Allergy/AdvReac Type Severity Reaction Status Date / Time No Known Allergies Allergy Verified 03/22/25 12:22 Family History Father COPD (chronic obstructive pulmonary disease) Heart disease Hypertension Diabetes CHF (congestive heart failure) Mother CAD (coronary artery disease) Myocardial infarction Hypertension Surgical History (Updated 03/15/25 @ 15:07 by Ifeoma Mishra) History of bronchoscopy Hx of colonoscopy Social History household members: spouse Smoking Status: Current every day smoker tobacco type: cigarettes Tobacco: How many years used: 31 how long ago did patient quit smoking: Smoke 1ppd x 30 yrs, 1/2ppd x 1yr (2021) alcohol intake: never substance use type: does not use what type of physical activity do you participate in: walking 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 Vital Signs Vital Signs Vital Signs: 03/22/25 12:28 03/22/25 12:28 03/22/25 12:50 Temperature 99.0 F 99.0 F Temperature Source Temporal Pulse Rate 57 L 57 L Respiratory Rate 16 16 Respiratory Pattern Normal Blood Pressure 120/76 120/76 Blood Pressure Mean 90 Blood Pressure Source Monitor Blood Pressure Position Semi-Fowlers Blood Pressure Location Left Arm Pulse Ox 96 96 Oxygen Delivery Method Room Air Room Air Weight Weight: 163 lb 2.273 oz Body Mass Index (BMI) 22.1 D/C Safety Score for UGIB Assessment Isaac-Blatchford Bleeding Score (GBS): Stratifies upper GI bleeding patients who are "low-risk" and candidates for outpatient management. Hemoglobin, BUN, Recent Vital Signs: Pulse Rate 57 Blood Pressure 120/76 Score Interpretation: Score of 0: A GBS of 0 is a “Low Risk” GI bleed, and is highly sensitive (99.6% in a 2007 retrospective study) for predicting which patients did not require any “medical intervention”: blood transfusion, endoscopy, or surgery. This was confirmed in a 2009 [facility] study where patients with a score of 0 were actually discharged and had no GI bleeding mortality at 6 month followup Score above 0: A GBS greater than zero suggests a “High Risk” GI bleed that is likely to require “medical intervention”: transfusion, endoscopy, or surgery. A higher GBS also correlated with a higher likelihood of needing intervention Scores >/= 6 are associated with >50% risk of needing intervention D/C Safety Score for LGIB Assessment Assessment Tool: Readmission and adverse event risk in patients with acute lower GI bleeding. Hemoglobin and Recent Vital Signs: Pulse Rate 57 03/22/25 12:50 Blood Pressure 120/76 03/22/25 12:50 Score Interpretation: Probability Percentage of safe discharge (absence of rebleeding, blood transfusion, therapeutic intervention, 28 day readmission, or ) Score of 8 or below: Consider discharge, with appropriate precautions. Score of 9 or above: Discharge NOT recommended. Consider admission with further workup and resuscitation as necessary.
[2025-03-22] MEDS: Midazolam 2 MG/2 ML Syringe IV (15:39)
[2025-03-22] MEDS: Cefazolin 1 GM/5 ML Vial 2 GM IV (16:03)
[2025-03-22] MEDS: Lidocaine 1% (5 ml sdv) 5 ML Vial 8 ML IV (16:09)
[2025-03-22] MEDS: fentaNYL 100 MCG/2 ML Ampul IV (16:55)
--- NOTE | 2025-03-22 17:00 | RAD_ITS ---
PROCEDURE: HUMERUS MIN 2 VIEWS 03/22/2025 REASON FOR EXAM: RIGHT DISTAL BICEP REPAIR TECHNIQUE: Procedure Code: RADHUM Modality: DX Procedure: HUMERUS MIN 2 VIEWS Laterality: Right COMPARISON: Right elbow study dated 03/04/2025 FINDINGS: Bones: A fluoroscopic image was obtained. A radiopaque pointer tip is projected over the proximal radius near the biceps insertion site. RAD/Humerus min 2 Views IMPRESSION: A fluoroscopic image was obtained. A radiopaque pointer tip is projected over t he proximal radius near the biceps insertion site. Reading Location: [id number]
--- NOTE | 2025-03-22 17:29 | DCINST_ITS ---
Discharge Instructions Diet Discharge Diet: No restrictions Activity Ice area for (Minutes): 10 Lifting Restrictions: no lifting Additional Activity Instructions:: keep in sling and splint 2 weeks Dressing / Incision Call your doctor if your incision/area has: Continuous Slow Oozing, Sudden Increased Bleeding, Increased Pain/ Swelling, Increased Redness, Foul Smelling Discharge and Swelling at the incision site Call your doctor if you observe: Fever of 101 or Higher, Coldness, Increased Pain and Numbness or Tingling Change Dressing in: leave in place till F/U Cleanse incision/area with: Do not get Incision Wet Follow Up Care Please Follow Up With: Kian Mandel MD When: within 2 weeks Test Results: Test results from this visit will be discussed in further detail at your follow- up appointment, if applicable. Discharge Plan Admission Attending Provider: Kian Mandel Primary Care Provider: Josi Vo Instructions Print Language: Chinese Discharge Orders/Prescriptions Prescriptions: New oxycodone-acetaminophen [Endocet] 5-325 mg tablet 1 tab PO Q4H MDD 6 PRN (Reason: pain) 5 Days Qty: 20 0RF No Action albuterol sulfate 90 mcg/actuation HFA aerosol inhaler 2 inh inhalation Q4-6H PRN (Reason: shortness of breath or wheezing) Qty: 8.5 0RF ipratropium-albuterol 0.5 mg-3 mg(2.5 mg base)/3 mL solution for nebulization 3 ml inhalation Q4-6H PRN (Reason: shortness of breath or wheezing) Qty: 180 2RF Trelegy Ellipta 200-62.5-25 mcg blister with device 1 inh inhalation Q24H Qty: 60 5RF Referrals / Follow Up: Josi Vo MD [Primary Care Provider, Internal Medicine - [facility]] Kian Mandel MD [Med Staff - Active Staff, Orthopedics] Disposition Disposition (needs filled in before D/C Order can be placed): Home, Self Care
--- NOTE | 2025-03-22 17:32 | OP.PCM_ITS ---
Procedures Musculoskeletal [id number]: Other Procedure See Report Operative Report (Standard) Operative Information Date of Procedure: 03/22/25 Pre-Operative Diagnosis: Right distal biceps tear Post-Operative Diagnosis: Same Surgery/Procedure Performed: Right distal biceps repair logistics assistant: Yes Senior Advisory: milo Tasks completed by assistant project manager: Retracting Type of Anesthesia: Block,Regional and General RN Documented Start/Stop Times: Operation Date: 03/22/25 12:30 Case Time Into Pre-Op 03/22/25 11:16 Anesthesia Start 03/22/25 16:03 Into Room 03/22/25 16:03 Procedure Start 03/22/25 16:20 Procedure End 03/22/25 17:27 Anesthesia End 03/22/25 17:31 Out of Room 03/22/25 17:31 Procedure Start Time: 16:20 Procedure Stop Time: 17:27 Select all DRAINS/GRAFTS/IMPLANTS that apply: Implanted device Implanted device details: arthrex distal biceps button and bio composite screw 7mm Estimated Blood Loss: 20 Specimen collected: No Description of surgery: Patient brought to the operating room theater. Placed supine on the table. Arm table to patient's right side. 18 inch tourniquet applied to the upper extremity. SCDs on the legs. All bony prominences padded. General anesthesia induced. 2 g of IV Ancef administered prior to the start of the case. Upper extremity prepped and draped in the usual sterile fashion chlorhexidine-based prep solution allowing over 3 minutes drying time prior to patient with surgery. Began by elevating limb inflating the tourniquet to 250 mmHg. Made a standard 1.5 inch incision transversely at the proximal aspect of the volar forearm to fingerbreadths below the level of the elbow crease. Care the dissection down through skin and subcutaneous tissue achieved meticulous hemostasis. Biceps was extensively scarred and then retracted 7 cm as per the MRI. Had to take extensive time and careful mobilizing the distal biceps. Protected the lateral antebrachial cutaneous nerve had to retract out laterally. Once I had control of the biceps I then used the Arthrex biceps kit with the included Eben needle multiple whip stitches up and down the tendon to gain control of that. Next I turned my attention distally. Identified the tuberosity. In full supination I drilled the pin bicortically. I used an 8mm reamer to drill unicortically over top of the pin and cleared away any interposed bone dust. I passed the free ends of the suture opposite directions through the biceps button and then passed the button to the far cortex flipped the button and pulled on each end to deliver tendon into tunnel. The tendon was quite short and scarred down had to fix the tendon at 90 degrees of flexion to get it into the bone tunnel. I then used alternating half hitches to secure this down to the button. I then used the included bio composite screw into the tunnel for backup fixation and then passed the free end of the suture back through the tendon and again tied this back down for triple fixation of the tendon. Suture was cut short. I did took great intraoperative radiographs to confirm appropriate position of the repair site at the radial tuberosity. Wound thoroughly irrigated tourniquet let down reticulate hemostasis achieved. Wound closed with 3-0 Vicryl and 3-0 Monocryl. Skin cleaned with red dry dress ing followed application of Steri-Strips Adaptic 4 x 4 gauze ABD dressing sterile cast padding with a posterior fiberglass splint overwrapped with loosely wrapped Beny bandage and 90 degrees of flexion in a sling for the upper extremity. Patient woken up from the general anesthetic transferred off the operating table taken to postanesthetic care unit in stable condition. All sponge needle instrument counts were correct no complications plan to the patient discharged home according to day surgery criteria and follow-up in the office within 2 weeks time and maintained in the sling due to the necessity to fix the tendon at 90 degrees of flexion. cpt 08770, mod 22 for extensive scarring Surgical Findings: As above Complications Complications: No Admit VTE Documentation VTE Present on Admission: No VTE Mechan Device Prophylaxis: SCD's VTE Pharm Prophylaxis ordered?: No Reason prophylaxis not ordered: Treatment Not Indicated
--- NOTE | 2025-03-22 17:39 | PCM.POST.ANE ---
Anesthesia: Postop Eval I Current Vital Signs Temperature: 97.1 F Pulse Rate: 70 Blood Pressure: 127/83 Respiratory Rate: 16 Pulse Ox: 97 Oxygen Delivery Method: Nasal Cannula Oxygen Flow Rate (L/min): 2 Assessment Airway patent: Yes Spontaneous unlabored respirations: Yes Mental status: Calm nausea: No Vomiting: No Anesthesia Complication: No Fluid Hydration Crystalloid volume administer (ml): 900 Total IV fluid infused: 900 Progress Note Anesthesia document: Postop Eval 1 completed: Yes
--- NOTE | 2025-03-22 17:52 | POSTOPAN2_ITS ---
Anesthesia Postop Eval I Sum Postop Eval Completion status Anesthesia document: Postop Eval 1 completed: Yes Anesthesia Postop Eval I Summary Anesthesia Postop Eval I Summary: Anesthesia Postop Eval I: Assessment Summary Airway patent Yes 03/22/25 17:40 [email or web address] Spontaneous unlabored Yes 03/22/25 17:40 [email or web address] [email or web address] respirations Mental status Calm 03/22/25 17:40 [email or web address] nausea No 03/22/25 17:40 [email or web address] Vomiting No 03/22/25 17:40 [email or web address] Anesthesia Postop Eval I: Fluid Summary Crystalloid volume administer 900 03/22/25 17:40 [email or web address] (ml) Colloids volume administered ( ml) Blood Product volume administered (ml) Total IV fluid infused 900 03/22/25 17:40 [email or web address] Anesthesia Postop Eval I: Summary Notes Anesthesia Complication No 03/22/25 17:40 [email or web address] Anesthesia Complication Comment: Post-operative progress note Anesthesia: Postop Eval II Evaluation Mental status: Awake Pain Level: 0 nausea: No Vomiting: No Complications Anesthesia Complication: No
--- NOTE | 2025-03-22 17:52 | PCM.POSTANE2 ---
Anesthesia Postop Eval I Sum Postop Eval Completion status Anesthesia document: Postop Eval 1 completed: Yes Anesthesia Postop Eval I Summary Anesthesia Postop Eval I Summary: Anesthesia Postop Eval I: Assessment Summary Airway patent Yes 03/22/25 17:40 [email or web address] Spontaneous unlabored Yes 03/22/25 17:40 DESIGNER [email or web address] respirations Mental status Calm 03/22/25 17:40 DESIGNER [email or web address] nausea No 03/22/25 17:40 DESIGNER [email or web address] Vomiting No 03/22/25 17:40 [email or web address] [email or web address] Anesthesia Postop Eval I: Fluid Summary Crystalloid volume administer 900 03/22/25 17:40 [email or web address] (ml) Colloids volume administered ( ml) Blood Product volume administered (ml) Total IV fluid infused 900 03/22/25 17:40 [email or web address] [email or web address] Anesthesia Postop Eval I: Summary Notes Anesthesia Complication No 03/22/25 17:40 [email or web address] [email or web address] Anesthesia Complication Comment: Post-operative progress note Anesthesia: Postop Eval II Evaluation Mental status: Awake Pain Level: 0 nausea: No Vomiting: No Complications Anesthesia Complication: No
== END 2025-03-22 19:05 | disposition home or self-care (01) ==
PROVIDERS: PCP Internal Medicine; Referring Provider Orthopaedic Surgery Sports Medicine; Visit Provider Orthopaedic Surgery Sports Medicine
DX: S46.211A Strain of muscle, fascia and tendon of other parts of biceps, right arm, initial encounter (principal); J44.9 Chronic obstructive pulmonary disease, unspecified; F17.210 Nicotine dependence, cigarettes, uncomplicated
CPT/HCPCS: 24342; 01710; 64450; 73060; 76000; C1713; J2405